=== PATIENT | female | born 1995 | race Caucasian/White ===

== ENCOUNTER 2018-01-12 11:03 | Emergency (ER) | payer BC, OTHER ==
[2018-01-12] MEDS ORDERED: LIDOCAINE 1% W/EPI 1:100,000 MDV 50 ML VIAL ONE (12:12)
[2018-01-12] MEDS ORDERED: SILVER NITRATE 1 APPL TOP ONE (12:29)
--- NOTE | 2018-01-12 13:40 | ER ---
Nurse's Notes [facility] Name: Tere Ponce Age: 22 yrs Sex: Female : 1995 Arrival Date: 01/12/2018 Time: 11:05 Bed 20 Private MD: Jose Lao Diagnosis: Hemorrhoids and perianal venous thrombosis Presentation: 01/12 11:20 Presenting complaint: Patient states: hemorrhoid x 1 week after vaginal deliver of her sv baby. Pain has increased and it has gotten bigger. Transition of care: patient was not received from another setting of care. Onset of symptoms was January 05, 2018. Care prior to arrival: None. 11:20 Method Of Arrival: Ambulatory sv 11:20 Acuity: MADELINE 4 sv 14:06 Risk Assessment: Do you want to hurt yourself or someone else? Patient reports no jl7 desire to harm self or others. Initial Sepsis Screen: Does the patient meet any 2 criteria? No. Patient's initial sepsis screen is negative. Does the patient have a suspected source of infection? No. Patient's initial sepsis screen is negative. 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 - Social history:: Smoking status: Patient/guardian denies using tobacco. - Ebola Screening: : No symptoms or risks identified at this time. Screenin:28 Abuse screen: Denies threats or abuse. Denies injuries from another. Nutritional jl7 screening: No deficits noted. Tuberculosis screening: No symptoms or risk factors identified. Fall Risk None identified. Assessment: 11:28 General: Appears uncomfortable, Behavior is calm, cooperative, appropriate for age. jl7 Pain: Complains of pain in hemorrhoids Pain does not radiate. Pain currently is 8 out of 10 on a pain scale. Neuro: Level of Consciousness is awake, alert, obeys commands, Oriented to person, place, time, situation. Cardiovascular: Patient's skin is warm and dry. Respiratory: Airway is patent Respiratory effort is even, unlabored, Respiratory pattern is regular, symmetrical. GI: Reports hemorrhoids, Patient currently denies bloody stool. Derm: Skin is pink, warm \T\ dry. 12:20 Reassessment: Dr. Lopez lanced hemorrhoid, bleeding controlled, pt reports decreased jl7 pain. 13:50 Reassessment: Pt c/o severe burning and pain at hemorrhoid incision site. Provider janice7 notified, see MAR for orders. Vital Signs: 11:20 Temp 97.8; Height 5 ft. 3 in. (160.02 cm); Pain 8/10; sv 11:27 BP 125 / 84; Pulse 79; Resp 16; Pulse Ox 99% ; Pain 8/10; jl7 13:30 BP 126 / 84; Pulse 80; Resp 16; Pulse Ox 100% ; jl7 ED Course: 11:05 Patient arrived in ED. as 11:05 Jose Lao is Private Physician. as 11:20 Arm band placed on right wrist. Patient placed in an exam room, on a stretcher. sv 11:22 Taty Manning, DAVID is Primary Nurse. jl7 11:25 Triage completed. sv 11:28 Patient has correct armband on for positive identification. Placed in gown. Bed in low jl7 position. Call light in reach. Side rails up X 1. Pulse ox on. NIBP on. 11:30 Darryl Lopez MD is Attending Physician. 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 jl7 12:20 Assist provider with I \T\ D: of an abscess on external hemorrhoid Set up I\T\D tray. jl 7 Performed by Darryl Lopez MD Patient tolerated well. 13:30 Patient did not have IV access during this emergency room visit. jl7 13:38 Nayan Novoa MD is Referral Physician. gs Administered Medications: 12:20 Drug: Lidocaine-Epinephrine -1%: (1:100,000) 5 ml {Note: administered by Dr. Lopez.} jl7 Volume: 20 ml; Route: Infiltration; 12:40 Follow up: Response: No adverse reaction jl7 14:06 Drug: Lidocaine Gel 2 % 1 application Route: Mucous Membrane; jl7 14:08 Follow up: Response: Pain is decreased jl7 Outcome: 13:39 Discharge ordered by . gs 14:09 Discharged to home ambulatory. jl 14:09 Condition: stable jl7 14:09 Discharge instructions given to patient, Instructed on discharge instructions, follow up and referral plans. medication usage, Demonstrated understanding of instructions, follow-up care, medications, Prescriptions given X 1. 14:09 Patient left the ED. jl7 Signatures: Gela Luciano, Chayo Greenberg RN, Jahala, RN RN jl7 Darryl Lopez MD MD
--- NOTE | 2018-01-12 13:40 | EDPHYS ---
Physician Documentation [facility] Name: Tere Ponce Age: 22 yrs Sex: Female : 1995 Arrival Date: 01/12/2018 Time: 11:05 Bed 20 Private MD: Jose Lao ED Physician Darryl Lopez HPI: 01/12 13:36 This 22 yrs old Female presents to ER via Ambulatory with complaints of gs Hemorrhoids. 13:36 The patient presents to the emergency department with pain in the rectal area, that is gs severe. Onset: The symptoms/episode began/occurred yesterday. Context: the patient has a known history of hemorrhoids. Modifying factors: The symptoms are aggravated by bowel movement, movement, sitting position. Associate signs and symptoms: Pertinent negatives: abdominal pain, dysuria, fever, lower GI bleeding. The patient has experienced similar episodes in the past, a few times. 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 - Social history:: Smoking status: Patient/guardian denies using tobacco. - Ebola Screening: : No symptoms or risks identified at this time. ROS: 13:36 All other systems are negative. gs Exam: 13:36 ENT: Nares patent. No nasal discharge, no septal abnormalities noted. Tympanic gs membranes are normal and external auditory canals are clear. Oropharynx with no redness, swelling, or masses, exudates, or evidence of obstruction, uvula midline. Mucous membranes moist. Cardiovascular: Regular rate and rhythm with a normal S1 and S2. No gallops, murmurs, or rubs. Normal PMI, no JVD. No pulse deficits. Respiratory: Lungs have equal breath sounds bilaterally, clear to auscultation and percussion. No rales, rhonchi or wheezes noted. No increased work of breathing, no retractions or nasal flaring. Abdomen/GI: Soft, non-tender, with normal bowel sounds. No distension or tympany. No guarding or rebound. No evidence of tenderness throughout. Back: No spinal tenderness. No costovertebral tenderness. Full range of motion. Skin: Warm, dry with normal turgor. Normal color with no rashes, no lesions, and no evidence of cellulitis. MS/ Extremity: Pulses equal, no cyanosis. Neurovascular intact. Full, normal range of motion. Neuro: Awake and alert, GCS 15, oriented to person, place, time, and situation. Cranial nerves II-XII grossly intact. Motor strength 5/5 in all extremities. Sensory grossly intact. Cerebellar exam normal. Normal gait. 13:36 Constitutional: The patient appears alert, awake, uncomfortable. 13:36 Abdomen/GI: Rectal exam: hemorrhoid(s), external, with thrombosis, the exam is chaperoned by the nurse. Vital Signs: 11:20 Temp 97.8; Height 5 ft. 3 in. (160.02 cm); Pain 8/10; sv 11:27 BP 125 / 84; Pulse 79; Resp 16; Pulse Ox 99% ; Pain 8/10; jl7 13:30 BP 126 / 84; Pulse 80; Resp 16; Pulse Ox 100% ; jl7 Procedures: 13:36 I \T\ D: Incision and drainage was performed for an abscess of the external hemorrhoid gs Prepped with Betadine, Anesthetized with 3 ml's 1% Lidocaine w/ Epi. Incised with #15 blade. Drained small amount bloody fluid. the patient tolerated the procedure well. MDM: 11:57 Patient medically screened. gs 13:36 Differential diagnosis: hemorrhoids, fissure, abscess. Data reviewed: vital signs, gs nurses notes. Response to treatment: the patient's symptoms have markedly improved after treatment, and as a result, I will discharge patient. 01/12 11:58 Order name: Surgical Consent: incision of thrombosed hemorroid; Complete Time: 12:39 gs Administered Medications: 12:20 Drug: Lidocaine-Epinephrine -1%: (1:100,000) 5 ml {Note: administered by Dr. Lopez.} jl Volume: 20 ml; Route: Infiltration; 12:40 Follow up: Response: No adverse reaction 7 14:06 Drug: Lidocaine Gel 2 % 1 application Route: Mucous Membrane; 7 14:08 Follow up: Response: Pain is decreased jl7 Disposition: 01/12/18 13:39 Discharged to Home. Impression: Hemorrhoids and perianal venous thrombosis. - Condition is Stable. - Discharge Instructions: Hemorrhoids, [id number]. - Prescriptions for Colace 100 mg Oral Tablet - take 1 tablet by ORAL route every 12 hours; 14 tablet. - Medication Reconciliation Form, Thank You Letter, Antibiotic Education, Prescription Opioid Use form. - Follow up: Nayan Novoa MD; When: 2 - 3 days; Reason: Re-evaluation by your physician. Signatures: Gela Luciano RN RN sv Taty Manning RN RN jl7 Darryl Lopez MD MD gs Corrections: (The following items were deleted from the chart) 14:09 13:39 01/12/2018 13:39 Discharged to Home. Impression: Hemorrhoids and perianal venous jl7 thrombosis. Condition is Stable. Forms are Medication Reconciliation Form, Thank You Letter, Antibiotic Education, Prescription Opioid Use. Follow up: Dr. Nayan Novoa; When: 2 - 3 days; Reason: Re-evaluation by your physician. gs
[2018-01-12] MEDS ORDERED: LIDOCAINE JELLY 2%- 5 ML TUBE ONE (13:54)
[2018-01-12 14:12] VITALS: TEMP 97.8
[2018-01-12 14:15] VITALS: BP 126/84; O2SAT 100
== END 2018-01-12 14:09 | disposition home or self-care (01) ==
LOC: ER 11:03
PROC: 0D9P0ZZ Drainage of Rectum, Open Approach (ICD-10-PCS; principal; 2018-01-12)
DX: K64.5 Perianal venous thrombosis (principal); Z88.1 Allergy status to other antibiotic agents; Z91.040 Latex allergy status; Z91.018 Allergy to other foods
CPT/HCPCS: 99284

== ENCOUNTER 2018-01-16 09:24 | Day surgery (SDC) | payer BC, OTHER ==
[2018-01-15 16:13] LABS: Absolute Lymphocytes (CBC) 1.9 K/uL (0.7-4.9); Absolute Monocytes 0.5 K/uL (0.1-1.3); Absolute Neutrophil 6.5 K/uL (1.8-8.0); Basophils % 0.2 % (0-1.3); Eosinophils % 1.6 % (0-4.4); Hematocrit 36.8 % (36.0-45.0); Lymphocytes % 21.4 % (15.3-44.8); MCH 27.5 pg (27.0-35.0); MCV 83.3 fL (80-100); MPV 7.2 fL (7.6-11.3); Monocytes % 5.3 % (3.3-12.3); RBC Red Blood Cell Count 4.42 M/uL (3.86-4.86)
[~2018-01-16 09:24] MED LIST: CEFOXITIN/SWI 1gm 1 GM/10 ML SYR IVP SCH
[2018-01-16] MEDS ORDERED: MIDAZOLAM HCL 2 MG/2 ML INJ ONE (09:40)
[2018-01-16] MEDS ORDERED: LIDOCAINE 1% MPF 5 ML VIAL ONE (09:40)
[2018-01-16] MEDS ORDERED: PROPOFOL 200 MG/20 ML VIAL IV ONE (09:40)
[2018-01-16] MEDS ORDERED: FENTANYL CITR 100 MCG/2 ML ONE (09:40)
[2018-01-16] MEDS ORDERED: Ringers Lactate 1,000 ML IV ONE (09:47)
[2018-01-16] MEDS ORDERED: KETOROLAC 30 MG/ML INJ ONE (11:03)
[2018-01-16] MEDS ORDERED: ONDANSETRON HCL 40 MG/20 ML VIAL ONE (11:03)
[2018-01-16 11:41] VITALS: O2SAT 100
[2018-01-16] MEDS ORDERED: HYDROCODONE/APAP 7.5/325 MG TAB ONE (12:36)
[2018-01-16 13:41] VITALS: BP 118/58; TEMP 97.7
--- NOTE | 2018-01-16 14:41 | OP ---
Date of Procedure: 01/16/2018 Surgeon: Nayan Novoa MD Preoperative Diagnosis: Thrombosed hemorrhoid. Postoperative Diagnosis: Thrombosed hemorrhoid. Procedure: Exam under anesthesia, rigid proctoscopy, hemorrhoidectomy. Estimated Blood Loss: Minimal. Specimen: Thrombosed hemorrhoid. Finding: As above. Anesthesia: General. Complications: None. Disposition: The patient tolerated the procedure in stable condition and taken to Recovery in good g eneral condition. Operative Note: The patient was brought to the OR and placed in supine position. General anesthesia was begun. The patient was placed in left lateral position, prepped and draped in usual sterile fas hion. Exam under anesthesia and rigid proctoscopy revealed with thrombosed hemorrhoid on the right l ateral aspect. Then, Harmonic Scalpel was used to excise the thrombosed hemorrhoid. All clots remov ed. Wound irrigated. There was no bleeding noted. Marcaine 0.5% was infiltrated for postop pain co ntrol. Sterile dressing was applied. The patient was awakened and taken to Recovery in good general condition. Discharge Note: The patient will go to Day-Surgery and home when stable. Disposition: Home. Condition: Stable. Discharge Instructions: Resume home medications and diet. Activity as tolerated. No heavy lifting. High-fiber diet. Metamucil 1 tablespoon p.o. t.i.d. Tylenol No. 3 one tablet p.o. q.4 p.r.n. pain . Colace 100 mg p.o. b.i.d. Procto-HC 2.5% into anus b.i.d. and p.r.n. /MODL Voice ID: [id number] Report ID: [id number]
== END 2018-01-16 13:35 | disposition home or self-care (01) ==
LOC: OR 09:24
PROVIDERS: ATTEND Surgery
PROC: 06BY4ZC Excision of Hemorrhoidal Plexus, Percutaneous Endoscopic Approach (ICD-10-PCS; 2018-01-16)
PROC: 0DJD8ZZ Inspection of Lower Intestinal Tract, Via Natural or Artificial Opening Endoscopic (ICD-10-PCS; principal; 2018-01-16 10:30)
DX: K64.5 Perianal venous thrombosis (principal)
CPT/HCPCS: 36415; 81025; 85025; 88302; 88304; J2250; J2405; J3010

== ENCOUNTER 2018-04-22 07:57 | Emergency (ER) | payer BC, OTHER, SELFPAY ==
[2018-04-22 08:50] LABS: Absolute Lymphocytes (CBC) 1.5 K/uL (0.7-4.9); Absolute Monocytes 0.4 K/uL (0.1-1.3); Absolute Neutrophil 3.1 K/uL (1.8-8.0); Basophils % 0.4 % (0-1.3); Eosinophils % 5.1 % (0-4.4); Hematocrit 34.5 % (36.0-45.0); MCH 28.6 pg (27.0-35.0); MCV 83.7 fL (80-100); MPV 7.9 fL (7.6-11.3); RBC Red Blood Cell Count 4.12 M/uL (3.86-4.86)
[2018-04-22 09:03] LABS: Potassium 4.2 mmol/L (3.5-5.1)
--- NOTE | 2018-04-22 09:32 | RAD REPORT ---
EXAM DESCRIPTION: RAD - Femur Left - 04/22/2018 9:10 am CLINICAL HISTORY: PAIN COMPARISON: No comparisons FINDINGS: No fracture or dislocation is seen.
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
[2018-04-22 10:20] LABS: Urine Blood TRACE (NEG); Urine Glucose NEGATIVE (NEG); Urine Protein NEGATIVE (NEG); Urine pH 5.5 (5.0-7.0)
[2018-04-22 10:38] VITALS: BP 110/56; O2SAT 100
== END 2018-04-22 10:10 | disposition home or self-care (01) ==
LOC: ER 07:57
DX: S16.1XXA Strain of muscle, fascia and tendon at neck level, initial encounter (principal); S70.02XA Contusion of left hip, initial encounter; V49.40XA Driver injured in collision with unspecified motor vehicles in traffic accident, initial encounter; Z88.1 Allergy status to other antibiotic agents; Z91.040 Latex allergy status; Z88.8 Allergy status to other drugs, medicaments and biological substances; Z91.018 Allergy to other foods
CPT/HCPCS: 36415; 70450; 71260; 72125; 74177; 80048; 81003; 81025; 84703; 85025; 86850; 86900; 86901; Q9967

== ENCOUNTER 2018-05-02 22:17 | Emergency (ER) | payer SELFPAY ==
[2018-05-02] MEDS ORDERED: ALBUTEROL 2.5 MG/3 ML NEB SOL ONE (22:59)
[2018-05-02] MEDS ORDERED: IPRATROPIUM BROM 0.5MG/2.5ML ONE (22:59)
[2018-05-02] MEDS ORDERED: predniSONE 20 MG TAB ONE (23:00)
--- NOTE | 2018-05-03 00:36 | ER ---
Nurse's Notes [facility] Name: Tere Ponce Age: 23 yrs Sex: Female : 1995 Arrival Date: 05/02/2018 Time: 22:19 Bed 24 Private MD: Diagnosis: Bronchitis, not specified as acute or chronic Presentation: 05/02 22:45 Presenting complaint: Patient states: she was having headache, nausea, back pain and mg2 right arm pain today. denies chest pain. Transition of care: patient was not received from another setting of care. Onset of symptoms was May 02, 2018. Risk Assessment: Do you want to hurt yourself or someone else? Patient reports no desire to harm self or others. Initial Sepsis Screen: Does the patient meet any 2 criteria? No. Patient's initial sepsis screen is negative. Does the patient have a suspected source of infection? No. Patient's initial sepsis screen is negative. Care prior to arrival: None. 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 - Social history:: Smoking status: Patient/guardian denies using tobacco, Patient/guardian denies using alcohol, street drugs, IV drugs. - Ebola Screening: : No symptoms or risks identified at this time. Screenin:50 Abuse screen: Denies threats or abuse. Denies injuries from another. Nutritional mg2 screening: No deficits noted. Tuberculosis screening: No symptoms or risk factors identified. Fall Risk None identified. Assessment: 23:06 General: Appears in no apparent distress. comfortable, Behavior is calm, cooperative. mg2 Pain: Complains of pain in back and right arm Pain does not radiate. Pain currently is 2 out of 10 on a pain scale. Quality of pain is described as aching, Pain began gradually, Is intermittent. Neuro: Level of Consciousness is awake, alert, obeys commands, Oriented to person, place, time, situation. Cardiovascular: Capillary refill < 3 seconds Patient's skin is warm and dry. Respiratory: Airway is patent Respiratory effort is even, unlabored, Respiratory pattern is regular. GI: Abdomen is round non-distended, Reports nausea. : No signs and/or symptoms were reported regarding the genitourinary system. EENT: No signs and/or symptoms were reported regarding the EENT system. Derm: Skin is intact, is healthy with good turgor, Skin is pink, warm \T\ dry. normal. Musculoskeletal: No signs and/or symptoms reported regarding the musculoskeletal system. 05/03 00:30 Reassessment: Patient appears in no apparent distress at this time. Patient and/or mg2 family updated on plan of care and expected duration. Pain level reassessed. Patient is alert, oriented x 3, equal unlabored respirations, skin warm/dry/pink. Vital Signs: 05/02 22:47 BP 113 / 68; Pulse 65; Resp 18; Temp 98.1(O); Pulse Ox 97% on R/A; Weight 86.18 kg; mg2 Height 5 ft. 3 in. (160.02 cm); Pain 2/10; 23:30 BP 121 / 70; Pulse 68; Resp 18; Pulse Ox 100% on R/A; mg2 05/03 00:30 BP 118 / 70; Pulse 70; Resp 18; Pulse Ox 100% on R/A; mg2 05/02 22:47 Body Mass Index 33.66 (86.18 kg, 160.02 cm) mg2 ED Course: 05/02 22:19 Patient arrived in ED. ds1 22:33 Anna Marie Ruelas FNP-C is [facility]. kb 22:33 Jesus Paulino MD is Attending Physician. kb 22:45 Antonio Frausto RN is Primary Nurse. mg2 22:46 Triage completed. mg2 22:50 Arm band placed on. mg2 22:50 Patient has correct armband on for positive identification. Bed in low position. Pulse mg2 ox on. NIBP on. 22:50 No provider procedures requiring assistance completed. mg2 05/03 00:58 Patient did not have IV access during this emergency room visit. mg2 Administered Medications: 05/02 23:01 Drug: DuoNeb (3:1) (2.5 mg - 0.5 mg) 3 ml Route: Nebulizer; mg2 05/03 00:18 Follow up: Response: No adverse reaction; Marked relief of symptoms mg2 05/02 23:01 Drug: predniSONE 40 mg Route: PO; mg2 05/03 00:18 Follow up: Response: No adverse reaction; Marked relief of symptoms mg2 Outcome: 00:36 Discharge ordered by . gautam 00:58 Discharged to home ambulatory, with family. mg2 00:58 Condition: stable 00:58 Discharge instructions given to patient, Instructed on discharge instructions, follow up and referral plans. medication usage, Demonstrated understanding of instructions, follow-up care, medications, Prescriptions given X 2. 00:59 Patient left the ED. mg2 Signatures: Anna Marie Ruelas, EDMUNDO-C ALLOCATION ANALYST-Gris Brody ds1 Antonio Frausto, DAVID RN mg2 Corrections: (The following items were deleted from the chart) 01:02 01:01 Reassessment: Patient appears in no apparent distress at this time. Patient mg2 and/or family updated on plan of care and expected duration. Pain level reassessed. Patient is alert, oriented x 3, equal unlabored respirations, skin warm/dry/pink. mg2
--- NOTE | 2018-05-03 00:36 | EDPHYS ---
Physician Documentation [facility] Name: Tere Ponce Age: 23 yrs Sex: Female : 1995 Arrival Date: 05/02/2018 Time: 22:19 Bed 24 Private MD: ED Physician Jesus Paulino HPI: 05/03 01:11 This 23 yrs old Female presents to ER via Ambulatory with complaints of kb Nausea, Weakness. 01:11 The patient or guardian reports cough, flu symptoms, myalgias. Onset: The kb symptoms/episode began/occurred at 19:25. Severity of symptoms: At their worst the symptoms were moderate, in the emergency department the symptoms are unchanged. Modifying factors: The symptoms are alleviated by nothing, the symptoms are aggravated by nothing. Associated signs and symptoms: Pertinent positives: rhinorrhea, sore throat, Pertinent negatives: chest pain, diarrhea, ear ache, fever, nausea, vomiting. The patient has not experienced similar symptoms in the past. The patient has not recently seen a physician. Pt reports cough, chills, and body aches that started at 1925.. 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 - Social history:: Smoking status: Patient/guardian denies using tobacco, Patient/guardian denies using alcohol, street drugs, IV drugs. - Ebola Screening: : No symptoms or risks identified at this time. ROS: 05/03 01:11 ENT: Negative for injury, pain, and discharge, Neck: Negative for injury, pain, and kb swelling, Cardiovascular: Negative for chest pain, palpitations, and edema, Abdomen/GI: Negative for abdominal pain, nausea, vomiting, diarrhea, and constipation, Back: Negative for injury and pain, : Negative for injury, bleeding, discharge, and swelling, MS/Extremity: Negative for injury and deformity, Skin: Negative for injury, rash, and discoloration, Neuro: Negative for headache, weakness, numbness, tingling, and seizure. Constitutional: Positive for body aches, chills, fatigue, malaise, Negative for fever, poor PO intake, weight loss. Respiratory: Positive for cough, with no reported sputum. Exam: :11 Constitutional: This is a well developed, well nourished patient who is awake, alert, kb and in no acute distress. Head/Face: Normocephalic, atraumatic. ENT: Nares patent. No nasal discharge, no septal abnormalities noted. Tympanic membranes are normal and external auditory canals are clear. Oropharynx with no redness, swelling, or masses, exudates, or evidence of obstruction, uvula midline. Mucous membranes moist. Neck: Trachea midline, no thyromegaly or masses palpated, and no cervical lymphadenopathy. Supple, full range of motion without nuchal rigidity, or vertebral point tenderness. No Meningismus. Chest/axilla: Normal chest wall appearance and motion. Nontender with no deformity. No lesions are appreciated. Cardiovascular: Regular rate and rhythm with a normal S1 and S2. No gallops, murmurs, or rubs. Normal PMI, no JVD. No pulse deficits. Abdomen/GI: Soft, non-tender, with normal bowel sounds. No distension or tympany. No guarding or rebound. No evidence of tenderness throughout. Skin: Warm, dry with normal turgor. Normal color with no rashes, no lesions, and no evidence of cellulitis. MS/ Extremity: Pulses equal, no cyanosis. Neurovascular intact. Full, normal range of motion. Neuro: Awake and alert, GCS 15, oriented to person, place, time, and situation. Cranial nerves II-XII grossly intact. Motor strength 5/5 in all extremities. Sensory grossly intact. Cerebellar exam normal. Normal gait. :11 Respiratory: the patient does not display signs of respiratory distress, Respirations: normal, Breath sounds: wheezing: expiratory that is moderate, is heard diffusely. Vital Signs: 05/02 22:47 BP 113 / 68; Pulse 65; Resp 18; Temp 98.1(O); Pulse Ox 97% on R/A; Weight 86.18 kg; mg2 Height 5 ft. 3 in. (160.02 cm); Pain 2/10; 23:30 BP 121 / 70; Pulse 68; Resp 18; Pulse Ox 100% on R/A; mg2 05/03 00:30 BP 118 / 70; Pulse 70; Resp 18; Pulse Ox 100% on R/A; mg2 05/02 22:47 Body Mass Index 33.66 (86.18 kg, 160.02 cm) mg2 MDM: 05/02 22:34 Patient medically screened. kb 05/03 01:11 Data reviewed: vital signs, nurses notes. Data interpreted: Pulse oximetry: on room air kb is 100 %. Interpretation: normal. Counseling: I had a detailed discussion with the patient and/or guardian regarding: the historical points, exam findings, and any diagnostic results supporting the discharge/admit diagnosis, lab results, the need for outpatient follow up, a family practitioner, to return to the emergency department if symptoms worsen or persist or if there are any questions or concerns that arise at home. Response to treatment: the patient's symptoms have resolved after treatment, lungs clear after neb treatment. 05/02 22:47 Order name: Flu; Complete Time: 23:44 kb Administered Medications: 05/02 23:01 Drug: DuoNeb (3:1) (2.5 mg - 0.5 mg) 3 ml Route: Nebulizer; mg2 05/03 00:18 Follow up: Response: No adverse reaction; Marked relief of symptoms mg2 05/02 23:01 Drug: predniSONE 40 mg Route: PO; mg2 05/03 00:18 Follow up: Response: No adverse reaction; Marked relief of symptoms mg2 Disposition: 05:22 Co-signature as Attending Physician, Jesus Paulino MD I agree with the assessment and tw4 plan of care. Disposition: 05/03/18 00:36 Discharged to Home. Impression: Bronchitis, not specified as acute or chronic. - Condition is Stable. - Discharge Instructions: Acute Bronchitis, [id number]. - Prescriptions for Prednisone 20 mg Oral Tablet - take 1 tablet by ORAL route once daily for 5 days; 5 tablet. Albuterol Sulfate 90 mcg/actuation - inhale 1-2 puff by INHALATION route every 4-6 hours; 1 Inhaler. - Medication Reconciliation Form, Thank You Letter, Antibiotic Education, Prescription Opioid Use, Work release form form. - Follow up: Emergency Department; When: As needed; Reason: Worsening of condition. Follow up: Private Physician; When: 2 - 3 days; Reason: Recheck today's complaints, Continuance of care, Re-evaluation by your physician. Signatures: Dispatcher [employer] Anna Marie Fernandez, CAMERA MECHANIC-C CAMERA MECHANIC-Jesus Mei MD MD tw4 Antonio Frausto, RN RN mg2 Corrections: (The following items were deleted from the chart) 00:59 00:36 05/03/2018 00:36 Discharged to Home. Impression: Bronchitis, not specified as mg2 acute or chronic. Condition is Stable. Forms are Medication Reconciliation Form, Thank You Letter, Antibiotic Education, Prescription Opioid Use. Follow up: Emergency Department; When: As needed; Reason: Worsening of condition. Follow up: Private Physician; When: 2 - 3 days; Reason: Recheck today's complaints, Continuance of care, Re-evaluation by your physician. kb
[2018-05-03 01:03] VITALS: BP 113/68; TEMP 98.1; O2SAT 97
== END 2018-05-03 00:59 | disposition home or self-care (01) ==
LOC: ER 22:17
DX: J40 Bronchitis, not specified as acute or chronic (principal); Z88.1 Allergy status to other antibiotic agents; Z88.8 Allergy status to other drugs, medicaments and biological substances; Z91.018 Allergy to other foods; Z91.040 Latex allergy status
CPT/HCPCS: 87804; 94640; 99284; J7512

== ENCOUNTER 2018-09-23 10:09 | Emergency (ER) | payer SELFPAY ==
--- OUTSIDE RECORDS SUMMARY | 2018-09-23 10:12 | XMS REPORT ---
:1995 [facility] Address [address] [place] [address] Dr. Arteaga [address] [place] [id number] Care Team Providers Name Role Phone Unavailable Unavailable Unavailable Problems This patient has no known problems. Allergies, Adverse Reactions, Alerts This patient has no known allergies or adverse reactions. Medications This patient has no known medications.
[2018-09-23] MEDS ORDERED: ACETAMINOPHEN 500 MG TAB ONE (11:30)
--- NOTE | 2018-09-23 12:05 | EDPHYS ---
Physician Documentation [facility] Name: Tere Ponce Age: 23 yrs Sex: Female : 1995 Arrival Date: 09/23/2018 Time: 10:12 Bed 24 Private MD: ED Physician Surinder Nieves HPI: 09/23 12:09 This 23 yrs old Female presents to ER via Ambulatory with complaints of Flu snw Symptoms, Vaginal Bleeding. 12:09 The patient or guardian reports cough, flu symptoms, low-grade fever, myalgias, no snw appetite. Onset: The symptoms/episode began/occurred suddenly, and became persistent. Modifying factors: The symptoms are alleviated by nothing. Associated signs and symptoms: The patient has no apparent associated signs or symptoms. Severity of symptoms: At their worst the symptoms were moderate. The patient has not experienced similar symptoms in the past. It is unknown whether or not the patient has recently seen a physician. 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 - Social history:: Smoking status: Patient/guardian denies using tobacco. - Ebola Screening: : Patient negative for fever greater than or equal to 101.5 degrees Fahrenheit, and additional compatible Ebola Virus Disease symptoms Patient denies exposure to infectious person Patient denies travel to an Ebola-affected area in the 21 days before illness onset No symptoms or risks identified at this time. ROS: 12:08 Eyes: Negative for injury, pain, redness, and discharge. snw 12:08 Neck: Negative for injury, pain, and swelling, Cardiovascular: Negative for chest pain, palpitations, and edema. 12:08 Abdomen/GI: Negative for abdominal pain, nausea, vomiting, diarrhea, and constipation, Back: Negative for injury and pain, : Negative for injury, bleeding, discharge, and swelling, MS/Extremity: Negative for injury and deformity, Skin: Negative for injury, rash, and discoloration, Neuro: Negative for headache, weakness, numbness, tingling, and seizure. 12:08 Constitutional: Positive for body aches, chills, fatigue, fever, malaise, poor PO intake. 12:08 ENT: Positive for sinus congestion, sore throat. 12:08 Respiratory: Positive for cough. Exam: 12:08 Head/Face: Normocephalic, atraumatic. Eyes: Pupils equal round and reactive to light, snw extra-ocular motions intact. Lids and lashes normal. Conjunctiva and sclera are non-icteric and not injected. Cornea within normal limits. Periorbital areas with no swelling, redness, or edema. ENT: Nares patent. No nasal discharge, no septal abnormalities noted. Tympanic membranes are normal and external auditory canals are clear. Oropharynx with no redness, swelling, or masses, exudates, or evidence of obstruction, uvula midline. Mucous membranes moist. Neck: Trachea midline, no thyromegaly or masses palpated, and no cervical lymphadenopathy. Supple, full range of motion without nuchal rigidity, or vertebral point tenderness. No Meningismus. Chest/axilla: Normal chest wall appearance and motion. Nontender with no deformity. No lesions are appreciated. 12:08 Respiratory: Lungs have equal breath sounds bilaterally, clear to auscultation and percussion. No rales, rhonchi or wheezes noted. No increased work of breathing, no retractions or nasal flaring. Abdomen/GI: Soft, non-tender, with normal bowel sounds. No distension or tympany. No guarding or rebound. No evidence of tenderness throughout. Back: No spinal tenderness. No costovertebral tenderness. Full range of motion. Skin: Warm, dry with normal turgor. Normal color with no rashes, no lesions, and no evidence of cellulitis. MS/ Extremity: Pulses equal, no cyanosis. Neurovascular intact. Full, normal range of motion. Neuro: Awake and alert, GCS 15, oriented to person, place, time, and situation. Cranial nerves II-XII grossly intact. Motor strength 5/5 in all extremities. Sensory grossly intact. Cerebellar exam normal. Normal gait. Psych: Awake, alert, with orientation to person, place and time. Behavior, mood, and affect are within normal limits. 12:08 Constitutional: The patient appears alert, awake, febrile, uncomfortable. 12:08 Cardiovascular: Rate: tachycardic, Heart sounds: normal, Edema: is not appreciated. Vital Signs: 10:50 BP 122 / 82; Pulse 100; Resp 16 S; Temp 101.2; Pulse Ox 100% on R/A; Weight 106.59 kg; iw Height 5 ft. 3 in. (160.02 cm); Pain 6/10; 11:44 BP 106 / 69; Pulse 99; Resp 18; Pulse Ox 98% ; sv 10:50 Body Mass Index 41.63 (106.59 kg, 160.02 cm) iw MDM: 11:23 Patient medically screened. kaylin 12:07 Data reviewed: vital signs, nurses notes. Data interpreted: Pulse oximetry: on room air snw is 98 %. Interpretation: normal. Counseling: I had a detailed discussion with the patient and/or guardian regarding: the historical points, exam findings, and any diagnostic results supporting the discharge/admit diagnosis, lab results, the need for outpatient follow up, to return to the emergency department if symptoms worsen or persist or if there are any questions or concerns that arise at home. Special discussion: Based on the history and exam findings, there is no indication for further emergent testing or inpatient evaluation. I discussed with the patient/guardian the need to see the primary care provider for further evaluation of the symptoms. ED course: declines Tamiflu second to cost. 09/23 10:51 Order name: Flu; Complete Time: 11:48 09/23 10:51 Order name: Strep; Complete Time: 11:48 09/23 11:44 Order name: Throat Culture [facility]CO 09/23 11:49 Order name: Urine Dipstick--Ancillary (enter results) bd 09/23 11:49 Order name: Urine --Ancillary (enter results) bd 09/23 10:52 Order name: Urine Dipstick-Ancillary (obtain specimen); Complete Time: 11:35 09/23 11:10 Order name: Urine Test (obtain specimen); Complete Time: 11:35 snw Administered Medications: 11:21 Drug: Tylenol 1000 mg Route: PO; iw Disposition: 09/24 08:00 Co-signature as Attending Physician, Surinder Nieves MD I agree with the assessment and [facility] plan of care. Disposition: 09/23/18 12:04 Discharged to Home. Impression: Influenza due to identified novel influenza A virus. - Condition is Stable. - Discharge Instructions: Ibuprofen Dosage Chart, Pediatric, Acetaminophen Dosage Chart, Pediatric, Influenza, Adult, Cough, Adult. - School release form, Medication Reconciliation Form, Thank You Letter, Antibiotic Education, Prescription Opioid Use form. - Follow up: Private Physician; When: 2 - 3 days; Reason: Recheck today's complaints, Continuance of care, Re-evaluation by your physician. Follow up: Emergency Department; When: As needed; Reason: Worsening of condition. Signatures: Dispatcher [employer] Gela Hernandez, DAVID RN Surinder Coates MD MD cha Therrien, Shelly, MANAGER BUSINESS MANAGEMENT-C MANAGER BUSINESS MANAGEMENT-Csnw Mavis Andre RN RN iw Corrections: (The following items were deleted from the chart) 09/23 12:23 12:04 09/23/2018 12:04 Discharged to Home. Impression: Influenza due to identified sv novel influenza A virus. Condition is Stable. Forms are Medication Reconciliation Form, Thank You Letter, Antibiotic Education, Prescription Opioid Use. Follow up: Private Physician; When: 2 - 3 days; Reason: Recheck today's complaints, Continuance of care, Re-evaluation by your physician. Follow up: Emergency Department; When: As needed; Reason: Worsening of condition. snw
--- NOTE | 2018-09-23 12:05 | ER ---
Nurse's Notes [facility] Name: Tere Ponce Age: 23 yrs Sex: Female : 1995 Arrival Date: 09/23/2018 Time: 10:12 Bed 24 Private MD: Diagnosis: Influenza due to identified novel influenza A virus Presentation: 09/23 10:47 Presenting complaint: Patient states: sore throat, runny nose, fever, cough, chills, iw had an irregular period this month, states she had a period on the 5th was light and lasted 3-4 days, then yesterday started with a heavy period, c/o mild cramping, hx of tubal ligation. Transition of care: patient was not received from another setting of care. Onset of symptoms was September 22, 2018. Risk Assessment: Do you want to hurt yourself or someone else? Patient reports no desire to harm self or others. Initial Sepsis Screen: Does the patient meet any 2 criteria? No. Patient's initial sepsis screen is negative. Does the patient have a suspected source of infection? No. Patient's initial sepsis screen is negative. Care prior to arrival: None. 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 - Social history:: Smoking status: Patient/guardian denies using tobacco. - Ebola Screening: : Patient negative for fever greater than or equal to 101.5 degrees Fahrenheit, and additional compatible Ebola Virus Disease symptoms Patient denies exposure to infectious person Patient denies travel to an Ebola-affected area in the 21 days before illness onset No symptoms or risks identified at this time. Screenin:44 Abuse screen: Denies threats or abuse. Denies injuries from another. Nutritional sv screening: No deficits noted. Tuberculosis screening: No symptoms or risk factors identified. Fall Risk None identified. Assessment: 11:45 General: Appears in no apparent distress. uncomfortable, well developed, Behavior is sv calm, cooperative, appropriate for age. General: Reports chills for 12-24 hours, fever for 12-24 hours, feeling ill for 12-24 hours, fatigue for 12-24 hours. Pain: Complains of pain in throat Pain currently is 6 out of 10 on a pain scale. Neuro: Level of Consciousness is awake, alert, obeys commands, Oriented to person, place, time, situation, Moves all extremities. Full function Gait is steady. Respiratory: Reports cough that is non-productive, pain with cough Respiratory effort is even, unlabored, Respiratory pattern is regular, symmetrical. : Reports vaginal bleeding that is light flow, since yesterday, reports "black brown blood.". Derm: Skin is pink, warm \\T\\ dry. Vital Signs: 10:50 BP 122 / 82; Pulse 100; Resp 16 S; Temp 101.2; Pulse Ox 100% on R/A; Weight 106.59 kg; iw Height 5 ft. 3 in. (160.02 cm); Pain 6/10; 11:44 BP 106 / 69; Pulse 99; Resp 18; Pulse Ox 98% ; sv 10:50 Body Mass Index 41.63 (106.59 kg, 160.02 cm) iw ED Course: 10:12 Patient arrived in ED. as 10:50 Triage completed. iw 10:51 Arm band placed on. iw 11:10 Evette Khan FNP-C is PHCP. snw 11:10 Surinder Nieves MD is Attending Physician. snw 11:30 Gela Luciano RN is Primary Nurse. sv 11:44 Patient has correct armband on for positive identification. Bed in low position. Call sv light in reach. Pulse ox on. NIBP on. Door closed. Head of bed elevated. Administered Medications: 11:21 Drug: Tylenol 1000 mg Route: PO; iw Outcome: 12:04 Discharge ordered by . snw 12:23 Patient left the ED. sv Signatures: Gela Luciano, RN RN Evette Khan FNP-C FNP-Chayo Abernathy Irene, RN RN iw
[2018-09-23 12:27] VITALS: TEMP 101.2
[2018-09-23 12:28] VITALS: BP 106/69; O2SAT 98
[2018-09-23 12:29] LABS: Urine Blood 2+ (NEG); Urine Glucose NEGATIVE (NEG); Urine Protein NEGATIVE (NEG); Urine Specific Gravity 1.025 (1.005-1.030)
== END 2018-09-23 12:23 | disposition home or self-care (01) ==
LOC: ER 10:09
DX: J10.1 Influenza due to other identified influenza virus with other respiratory manifestations (principal); Z88.1 Allergy status to other antibiotic agents; Z88.8 Allergy status to other drugs, medicaments and biological substances; Z91.018 Allergy to other foods; Z91.040 Latex allergy status
CPT/HCPCS: 81003; 81025; 87070; 87081; 87804; 99283

== ENCOUNTER 2018-09-28 21:33 | Emergency (ER) | payer SELFPAY ==
--- OUTSIDE RECORDS SUMMARY | 2018-09-28 21:35 | XMS REPORT ---
:1995 [facility] Address [address] [place] [address] Dr. Arteaga [address] [place] [id number] Care Team Providers Name Role Phone Unavailable Unavailable Unavailable Problems This patient has no known problems. Allergies, Adverse Reactions, Alerts This patient has no known allergies or adverse reactions. Medications This patient has no known medications.
[2018-09-28 22:35] LABS: Urine Blood 2+ (NEG); Urine Glucose NEGATIVE (NEG); Urine Protein NEGATIVE (NEG)
[2018-09-28 23:10] LABS: Absolute Lymphocytes (CBC) 2.5 K/uL (0.7-4.9); Absolute Monocytes 0.3 K/uL (0.1-1.3); Absolute Neutrophil 2.4 K/uL (1.8-8.0); Basophils % 0.5 % (0-1.3); Eosinophils % 4.5 % (0-4.4); Hematocrit 30.2 % (36.0-45.0); Lymphocytes % 45.4 % (15.3-44.8); MPV 7.8 fL (7.6-11.3); Monocytes % 5.8 % (3.3-12.3); RBC Red Blood Cell Count 3.82 M/uL (3.86-4.86)
[2018-09-28 23:28] LABS: ALT/SGPT 15 U/L (12-78); AST/SGOT 11 U/L (15-37); Alkaline Phosphatase 147 U/L (45-117); BUN Blood Urea Nitrogen 11 mg/dL (7-18); Bicarbonate 26 mmol/L (21-32); Bilirubin Direct < 0.1 mg/dL (0-0.2); Bilirubin Total 0.2 mg/dL (0.2-1.0); Glucose Level 70 mg/dL (74-106); Lipase 18 U/L (73-393); Potassium 3.6 mmol/L (3.5-5.1); Protein, Total 6.9 g/dL (6.4-8.2); Sodium Level 142 mmol/L (136-145)
--- NOTE | 2018-09-28 23:59 | EDPHYS ---
Physician Documentation [facility] Name: Tere Ponce Age: 23 yrs Sex: Female : 1995 Arrival Date: 09/28/2018 Time: 21:34 Bed 13 Private MD: Jose Lao ED Physician Yuan St HPI: 09/28 22:14 This 23 yrs old Female presents to ER via Ambulatory with complaints of Back jmm Pain, Pain With Urination. 22:14 The patient presents with pain that is acute. Onset: The symptoms/episode jmm began/occurred acutely, today. Associated signs and symptoms: Pertinent positives: dysuria, Pertinent negatives: fever. This is a 23 year old female that presents to the ED with complaints of left flank pain and pain to her urethra beginning today. Denies fever. . 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 - Social history:: Smoking status: Patient/guardian denies using tobacco. - Ebola Screening: : No symptoms or risks identified at this time. ROS: 22:14 Constitutional: Negative for fever, chills, and weight loss, Cardiovascular: Negative jmm for chest pain, palpitations, and edema, Respiratory: Negative for shortness of breath, cough, wheezing, and pleuritic chest pain. 22:14 Back: Positive for flank pain. 22:14 : Positive for urinary symptoms. 22:14 All other systems are negative. Exam: 22:14 Head/Face: atraumatic. Eyes: EOMI, no conjunctival erythema appreciated ENT: Moist jmm Mucus Membranes Neck: Trachea midline, Supple Chest/axilla: Normal chest wall appearance and motion. Cardiovascular: Regular rate and rhythm. No edema appreciated Respiratory: Normal respirations, no respiratory distress appreciated 22:14 Constitutional: The patient appears in no acute distress, alert, awake. 22:14 Back: CVA tenderness, that is moderate, is noted on the left. 22:14 Skin: Appearance: Color: normal in color. 22:14 Neuro: Orientation: is normal, Mentation: is normal, Memory: is normal. 22:14 Psych: Behavior/mood is pleasant, cooperative. Vital Signs: 21:41 BP 109 / 59; Pulse 78; Resp 18; Temp 98.6(TE); Pulse Ox 100% on R/A; Weight 102.06 kg ak1 (R); Height 5 ft. 3 in. (160.02 cm) (R); Pain 7/10; 09/29 00:12 BP 106 / 60; Pulse 72; Resp 18; Pulse Ox 100% ; ao 09/28 21:41 Body Mass Index 39.86 (102.06 kg, 160.02 cm) ak1 MDM: 09/28 22:19 Patient medically screened. [facility] 23:57 Data reviewed: vital signs, nurses notes. Counseling: I had a detailed discussion with mary the patient and/or guardian regarding: the historical points, exam findings, and any diagnostic results supporting the discharge/admit diagnosis, radiology results, the need for outpatient follow up, to return to the emergency department if symptoms worsen or persist or if there are any questions or concerns that arise at home. ED course: Symptoms appear consistent with ureterolithiasis. I discussed ct findings with the patient along with the need for GI follow up. patient was given strict return precautions. patient understood and agrees with the plan of care. . 09/28 21:54 Order name: Urine Dipstick--Ancillary (enter results); Complete Time: 22:43 [facility] 09/28 21:54 Order name: Urine --Ancillary (enter results); Complete Time: 22:43 [facility] 09/28 22:14 Order name: Basic Metabolic Panel; Complete Time: 23:30 [facility] 09/28 22:14 Order name: CBC with Diff; Complete Time: 23:23 [facility] 09/28 22:14 Order name: Creatinine for Radiology; Complete Time: 23:30 [facility] 09/28 22:14 Order name: Hepatic Function; Complete Time: 23:30 [facility] 09/28 22:14 Order name: Lipase; Complete Time: 23:30 [facility] 09/28 22:14 Order name: IV Saline Lock; Complete Time: 22:51 [facility] 09/28 22:14 Order name: Labs collected and sent; Complete Time: 22:51 [facility] 09/28 22:14 Order name: CT Stone Protocol [facility] Administered Medications: No medications were administered Disposition: 09/29 02:40 Co-signature as Attending Physician, Yuan tS MD. rn Disposition: 09/28/18 23:58 Discharged to Home. Impression: Calculus in bladder, Colon Mass. - Condition is Stable. - Discharge Instructions: Kidney Stones, Colon Mass, Adult. - Medication Reconciliation Form, Thank You Letter, Antibiotic Education, Prescription Opioid Use form. - Follow up: Liam Ortiz MD; When: 2 - 3 days; Reason: Recheck today's complaints, Continuance of care, Re-evaluation by your physician. Signatures: Dispatcher [employer] EDMS Haja Jeronimo PA PA [facility] Yuan St MD MD rn Krenek, Amber, RN RN ak1 Alonso Tapia RN RN ao Corrections: (The following items were deleted from the chart) 00:15 09/28 23:58 09/28/2018 23:58 Discharged to Home. Impression: Calculus in bladder; Colon ao Mass. Condition is Stable. Forms are Medication Reconciliation Form, Thank You Letter, Antibiotic Education, Prescription Opioid Use. Follow up: Liam Ortiz; When: 2 - 3 days; Reason: Recheck today's complaints, Continuance of care, Re-evaluation by your physician. [facility]
--- NOTE | 2018-09-28 23:59 | ER ---
Nurse's Notes [facility] Name: Tere Ponce Age: 23 yrs Sex: Female : 1995 Arrival Date: 09/28/2018 Time: 21:34 Bed 13 Private MD: Jose Lao Diagnosis: Calculus in bladder;Colon Mass Presentation: 09/28 21:42 Presenting complaint: Patient states: left flank pain since 1700, throbbing pain with ak1 urination since 1700. pt c/o bilateral ankle swelling since this morning. Transition of care: patient was not received from another setting of care. Onset of symptoms was September 28, 2018. Risk Assessment: Do you want to hurt yourself or someone else? Patient reports no desire to harm self or others. Care prior to arrival: None. 21:42 Method Of Arrival: Ambulatory ak1 21:42 Acuity: MADELINE 3 ak1 09/29 00:13 Initial Sepsis Screen: Does the patient meet any 2 criteria? No. Patient's initial ao sepsis screen is negative. Does the patient have a suspected source of infection? No. Patient's initial sepsis screen is negative. Triage Assessment: 09/28 21:43 General: Appears in no apparent distress. Behavior is calm, cooperative. 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 - Social history:: Smoking status: Patient/guardian denies using tobacco. - Ebola Screening: : No symptoms or risks identified at this time. Screenin/26 00:13 Abuse screen: Denies threats or abuse. Denies injuries from another. Nutritional ao screening: No deficits noted. Tuberculosis screening: No symptoms or risk factors identified. Fall Risk None identified. Assessment: 09/28 23:00 General: Appears in no apparent distress. uncomfortable, Behavior is calm, cooperative, ao appropriate for age. Pain: Complains of pain in back Pain currently is 8 out of 10 on a pain scale. Neuro: Level of Consciousness is awake, alert, obeys commands, Oriented to person, place, time, situation, Appropriate for age Moves all extremities. Full function Speech is normal, Facial symmetry appears normal, Pupils are PERRLA. Cardiovascular: Heart tones S1 S2 Capillary refill < 3 seconds Patient's skin is warm and dry. Respiratory: Airway is patent Respiratory effort is Respiratory pattern is regular, symmetrical, Breath sounds are clear bilaterally. GI: Abdomen is obese, Bowel sounds present X 4 quads. : Reports pain in lower back urinary frequency. EENT: No signs and/or symptoms were reported regarding the EENT system. Derm: Skin is intact, Skin is pink, warm \T\ dry. normal, Skin temperature is warm. Musculoskeletal: Circulation, motion, and sensation intact. Range of motion: intact in all extremities. 09/29 00:12 Reassessment: DC instructions given to patient. Patient agree with POC and to to follow ao up with PCP and GI doctor. Vital Signs: 09/28 21:41 BP 109 / 59; Pulse 78; Resp 18; Temp 98.6(TE); Pulse Ox 100% on R/A; Weight 102.06 kg ak1 (R); Height 5 ft. 3 in. (160.02 cm) (R); Pain 7/10; 09/29 00:12 BP 106 / 60; Pulse 72; Resp 18; Pulse Ox 100% ; ao 09/28 21:41 Body Mass Index 39.86 (102.06 kg, 160.02 cm) ak1 ED Course: 09/28 21:34 Patient arrived in ED. am2 21:35 Jose Lao is Private Physician. am2 21:42 Alonso Tapia, RN is Primary Nurse. ao 21:42 Triage completed. ak1 21:43 Haja Jeronimo PA is PHCP. jmm 21:[address] MD is Attending Physician. jmm 21:43 Arm band placed on Patient placed in an exam room, on a stretcher, Patient notified of ak1 wait time. 22:51 Inserted saline lock: 22 gauge in right antecubital area, using aseptic technique. ao Blood collected. 23:18 CT Stone Protocol In Process Unspecified. EDMS 23:58 Liam Ortiz MD is Referral Physician. [facility] 09/29 00:13 No provider procedures requiring assistance completed. IV discontinued, intact, ao bleeding controlled, No redness/swelling at site. Pressure dressing applied. 00:14 Patient has correct armband on for positive identification. Bed in low position. ao Administered Medications: No medications were administered Outcome: 09/28 23:58 Discharge ordered by . [facility] 09/29 00:14 Discharged to home ambulatory. ao Condition: stable Discharge instructions given to patient, Instructed on discharge instructions, follow up and referral plans. Demonstrated understanding of instructions, follow-up care, medications. 00:15 Patient left the ED. ao Signatures: Dispatcher [employer] EDIL Haja Jeronimo PA PA jmm Krenek, Amber, RN RN ak1 Alonso Tapia RN RN Chayo Baer am2
[2018-09-29 00:48] VITALS: TEMP 98.6; O2SAT 100
[2018-09-29 00:49] VITALS: BP 106/60
--- NOTE | 2018-09-29 13:11 | RAD REPORT ---
EXAM DESCRIPTION: CT Abdomen and Pelvis Without Intravenous Contrast CLINICAL HISTORY: The patient is 23 years old and is Female; left flank pain TECHNIQUE: Axial computed tomography images of the abdomen and pelvis without intravenous contrast. Sagittal and coronal reformatted images were created and reviewed. This CT exam was performed usi ng one or more of the following dose reduction techniques: automated exposure control, adjustment o f the mA and/or kV according to patient size, and/or use of iterative reconstruction technique. COMPARISON: No relevant prior studies available. FINDINGS: LUNG BASES: Unremarkable. No mass. No consolidation. ABDOMEN: LIVER: Homogeneous without focal mass. GALLBLADDER AND BILE DUCTS: The gallbladder is contracted. PANCREAS: Unremarkable. No ductal dilation. SPLEEN: There is minimal inflammatory stranding within the left upper quadrant along the inferio r aspect of the spleen and adjacent to the colon. ADRENALS: Unremarkable. No mass. KIDNEYS AND URETERS: Punctate bilateral intrarenal calcifications are noted. There is no hydrone phrosis or hydroureter of either kidney. STOMACH AND BOWEL: The stomach is decompressed. The small bowel is normal in caliber. A moderate amount of stool is noted throughout the colon, specifically the right colon. There is no mucosal thi ckening or evidence of bowel obstruction. There appears to be 2 areas of well formed stool which are slightly masslike in appearance at the level of the hepatic flexure within the ascending colon. No de finite surrounding inflammation or wall thickening is noted. This is best appreciated on coronal imag es 33 through 52. PELVIS: APPENDIX: The appendix is normal in caliber without surrounding inflammation. BLADDER: The bladder is not well distended. Suggestion of 2 small calcifications within the base of the bladder are present. REPRODUCTIVE: Unremarkable as visualized. ABDOMEN and PELVIS: INTRAPERITONEAL SPACE: Unremarkable. No free air. No significant fluid collection. BONES/JOINTS: No acute fracture. SOFT TISSUES: The soft tissues are normal. VASCULATURE: Unremarkable. No abdominal aortic aneurysm. LYMPH NODES: Scattered right lower quadrant lymph nodes are present. IMPRESSION: 1. Bilateral nephrolithiasis without obstruction. 2. Minimal inflammatory stranding within the left upper quadrant along the inferior aspect of the s pleen and adjacent to the colon. However, the colonic wall is not specifically thickening. Findings m ay be secondary to a focal area of omental infarct. 3. 2 areas of somewhat masslike appearance within the right colon at the level of the hepatic flexu re. Findings may be secondary to well-formed stool balls. However, recommend correlation with patient 's laboratory values and follow-up is recommended to exclude underlying pathologic process. Electronically signed by: Sera Zaman MD 09/28/2018 11:28 PM CDT Due to temporary technical issues with the PACS/Fluency reporting system, reports are being signed by the in house radiologist as a courtesy to ensure prompt reporting. The interpreting radiologist is f ully responsible for the content of the report.
== END 2018-09-29 00:15 | disposition home or self-care (01) ==
LOC: ER 21:33
DX: N21.0 Calculus in bladder (principal); K63.9 Disease of intestine, unspecified; Z88.1 Allergy status to other antibiotic agents; Z88.8 Allergy status to other drugs, medicaments and biological substances; Z91.018 Allergy to other foods; Z91.040 Latex allergy status; Z91.048 Other nonmedicinal substance allergy status
CPT/HCPCS: 36415; 74176; 76377; 80048; 80076; 81003; 81025; 83690; 85025; 99283

== ENCOUNTER 2018-10-30 20:25 | Emergency (ER) | payer SELFPAY ==
--- OUTSIDE RECORDS SUMMARY | 2018-10-30 20:27 | XMS REPORT ---
:1995 [facility] Address [address] [place] [address] Dr. Arteaga [address] [place] [id number] Care Team Providers Name Role Phone Unavailable Unavailable Unavailable Problems This patient has no known problems. Allergies, Adverse Reactions, Alerts This patient has no known allergies or adverse reactions. Medications This patient has no known medications.
[2018-10-30] MEDS ORDERED: AZITHROMYCIN 250 MG TAB ONE (22:06)
[2018-10-30] MEDS ORDERED: CEFTRIAXONE 250 MG/VIAL ONE (22:06)
[2018-10-30] MEDS ORDERED: LIDOCAINE 2% MPF 5 ML VIAL ONE (22:06)
--- NOTE | 2018-10-30 22:33 | ER ---
Nurse's Notes [facility] Name: Tere Ponce Age: 23 yrs Sex: Female : 1995 Arrival Date: 10/30/2018 Time: 20:25 Bed 13 Private MD: Diagnosis: Candidiasis of vulva and vagina;Bacterial Vaginosis Presentation: 10/30 20:35 Presenting complaint: Patient states: "i think I might have had an allergic reaction to jd3 a lube. I feel swollen and and am having a some discharge and it hurts to move.". Transition of care: patient was not received from another setting of care. Onset: The symptoms/episode began/occurred this morning. Anaphylaxis evaluation, no signs or symptoms of anaphylaxis were noted. Onset of symptoms was October 30, 2018. Risk Assessment: Do you want to hurt yourself or someone else? Patient reports no desire to harm self or others. Initial Sepsis Screen: Does the patient meet any 2 criteria? No. Patient's initial sepsis screen is negative. Does the patient have a suspected source of infection? No. Patient's initial sepsis screen is negative. Care prior to arrival: None. 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 - Social history:: Smoking status: Patient/guardian denies using tobacco, the patient reports quitting approximately 2 years ago. - Ebola Screening: : Patient negative for fever greater than or equal to 101.5 degrees Fahrenheit, and additional compatible Ebola Virus Disease symptoms. Screenin:39 Abuse screen: Denies threats or abuse. Denies injuries from another. Nutritional aj screening: No deficits noted. Tuberculosis screening: No symptoms or risk factors identified. Fall Risk None identified. Assessment: 20:39 General: Appears in no apparent distress. comfortable, Behavior is calm, cooperative, aj appropriate for age. Pain: Complains of pain in pelvis. Respiratory: Airway is patent Respiratory effort is even, unlabored, Respiratory pattern is regular, symmetrical. : Reports pain in suprapubic area. Derm: Skin is intact, is healthy with good turgor, Skin is pink, warm \\T\\ dry. normal. 22:05 Reassessment: Patient appears in no apparent distress at this time. Patient is alert, rr5 oriented x 3, equal unlabored respirations, skin warm/dry/pink. endorsement received from ml HERNANDEZ, awaiting for laboratory result. 22:05 Neuro: Level of Consciousness is awake, alert, obeys commands, Oriented to person, rr5 place, time, situation, Appropriate for age. Cardiovascular: Capillary refill < 3 seconds Patient's skin is warm and dry. Respiratory: Breath sounds are clear. 22:51 Reassessment: Patient appears in no apparent distress at this time. Patient is alert, rr5 oriented x 3, equal unlabored respirations, skin warm/dry/pink. discharge instruction given and explained without complaints made. Vital Signs: 20:37 BP 113 / 69; Pulse 82; Resp 17 S; Temp 98.6(O); Pulse Ox 100% on R/A; Weight 113.4 kg jd3 (R); Height 5 ft. 3 in. (160.02 cm) (R); Pain 0/10; 22:30 BP 115 / 70; Pulse 80; Resp 16; Pulse Ox 99% ; rr5 20:37 Body Mass Index 44.29 (113.40 kg, 160.02 cm) jd3 20:37 reports no pain when sitting still jd3 ED Course: 20:25 Patient arrived in ED. am2 20:27 Maxi Wilson PA is PHCP. jr8 20:27 Surinder Nieves MD is Attending Physician. jr8 20:30 Ml Staples, DAVID is Primary Nurse. aj 20:36 Triage completed. jd3 20:39 Arm band placed on. jd3 20:39 Patient has correct armband on for positive identification. aj 21:52 Assist provider with pelvic exam: Set up pelvic tray. Performed by Maxi kolb Specimens sent to lab. Patient tolerated well. 22:51 Patient did not have IV access during this emergency room visit. rr5 Administered Medications: 21:58 Drug: Rocephin (cefTRIAXone) 250 mg Route: IM; Site: left gluteus; aj 22:52 Follow up: Response: No adverse reaction rr5 21:58 Drug: Zithromax 1 grams Route: PO; aj 22:52 Follow up: Response: No adverse reaction rr5 22:40 Drug: DiFLUcan 150 mg Route: PO; rr5 22:52 Follow up: Response: Medication administered at discharge. rr5 22:40 Drug: Flagyl 2 grams Route: PO; rr5 22:52 Follow up: Response: Medication administered at discharge. rr5 Outcome: 22:32 Discharge ordered by . toma 22:51 Discharged to home ambulatory. rr5 22:51 Condition: stable 22:51 Discharge instructions given to patient, Instructed on discharge instructions, follow up and referral plans. Demonstrated understanding of instructions, follow-up care. 22:53 Patient left the ED. rr5 Signatures: Ml Staples RN RN Maxi Goldstein PA PA jr8 Ml Lai am2 Aguila Stevens RN RN jd3 Roque, Raymond RN RN rr5
--- NOTE | 2018-10-30 22:33 | EDPHYS ---
Physician Documentation [facility] Name: Tere Ponce Age: 23 yrs Sex: Female : 1995 Arrival Date: 10/30/2018 Time: 20:25 Bed 13 Private MD: ED Physician Surinder Nieves HPI: 10/30 22:14 This 23 yrs old Female presents to ER via Ambulatory with complaints of jr8 Vaginal pain and discharge . 22:14 The patient presents with vaginal discharge, that is a small amount of yellow jr8 discharge, green discharge, patient has not had similar discharge in the past. Onset: The symptoms/episode began/occurred acutely, today. Modifying factors: The symptoms are alleviated by nothing, the symptoms are aggravated by nothing. Associated signs and symptoms: Pertinent positives: pain. Severity of symptoms: At their worst the symptoms were mild, in the emergency department the symptoms are unchanged. The patient is sexually active, reportedly has a single partner, does not use protection during intercourse. The patient has not experienced similar symptoms in the past. The patient has not recently seen a physician. Patient stated that she tried a new sex toy last night. Stated that she utilized the lubrication that came with the toy. Woke up this AM with vaginal discharge and discomfort. Also admitted to recent intercourse two days ago. Worried that she is having some type of allergic reaction . 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 - Social history:: Smoking status: Patient/guardian denies using tobacco, the patient reports quitting approximately 2 years ago. - Ebola Screening: : Patient negative for fever greater than or equal to 101.5 degrees Fahrenheit, and additional compatible Ebola Virus Disease symptoms. ROS: 22:14 Constitutional: Negative for fever, chills, and weight loss. jr8 22:14 Abdomen/GI: Negative for abdominal pain, nausea, vomiting, diarrhea, and constipation, Back: Negative for injury and pain. 22:14 : Positive for vaginal discharge, vaginal pain. 22:14 All other systems are negative. Exam: 22:14 ENT: Nares patent. No nasal discharge, no septal abnormalities noted. Tympanic jr8 membranes are normal and external auditory canals are clear. Oropharynx with no redness, swelling, or masses, exudates, or evidence of obstruction, uvula midline. Mucous membranes moist. Cardiovascular: Regular rate and rhythm with a normal S1 and S2. No gallops, murmurs, or rubs. Normal PMI, no JVD. No pulse deficits. Respiratory: Lungs have equal breath sounds bilaterally, clear to auscultation and percussion. No rales, rhonchi or wheezes noted. No increased work of breathing, no retractions or nasal flaring. Abdomen/GI: Soft, non-tender, with normal bowel sounds. No distension or tympany. No guarding or rebound. No evidence of tenderness throughout. Back: No spinal tenderness. No costovertebral tenderness. Full range of motion. Skin: Warm, dry with normal turgor. Normal color with no rashes, no lesions, and no evidence of cellulitis. MS/ Extremity: Pulses equal, no cyanosis. Neurovascular intact. Full, normal range of motion. Neuro: Awake and alert, GCS 15, oriented to person, place, time, and situation. Cranial nerves II-XII grossly intact. Motor strength 5/5 in all extremities. Sensory grossly intact. Cerebellar exam normal. Normal gait. 22:14 : CVA tenderness, is absent, Pelvic Exam: External exam: no appreciated Bartholin's cyst, no erythema, not excoriated, no evidence of foreign body, no lesions, no ulcerations, no warts seen, Speculum exam: no cervicitis, os that is closed, discharge, white, yellow, the nurse was present for the exam. Vital Signs: 20:37 BP 113 / 69; Pulse 82; Resp 17 S; Temp 98.6(O); Pulse Ox 100% on R/A; Weight 113.4 kg jd3 (R); Height 5 ft. 3 in. (160.02 cm) (R); Pain 0/10; 22:30 BP 115 / 70; Pulse 80; Resp 16; Pulse Ox 99% ; rr5 20:37 Body Mass Index 44.29 (113.40 kg, 160.02 cm) jd3 20:37 reports no pain when sitting still jd3 MDM: 20:27 Patient medically screened. jr8 22:14 Data reviewed: vital signs, nurses notes, lab test result(s). Data interpreted: Pulse jr8 oximetry: on room air is 100 %. Interpretation: normal. Counseling: I had a detailed discussion with the patient and/or guardian regarding: the historical points, exam findings, and any diagnostic results supporting the discharge/admit diagnosis, lab results, the need for outpatient follow up, a family practitioner, to return to the emergency department if symptoms worsen or persist or if there are any questions or concerns that arise at home. ED course: Discussed with patient that there does not appear to be a contact dermatitis secondary two the lube or sex object she utilized last night. More concerned for STD or other bacterial or fungal infection based on exam. Will treat with prophylactic abx for STD . 10/30 21:47 Order name: GC (GONORR/CHLAMYDIA) Probe jr8 10/30 21:47 Order name: Wet Prep [facility] 10/30 21:47 Order name: GC (Cruzito/Chl) Probe CX/URE EDMS 10/30 21:47 Order name: Wet Prep; Complete Time: 22:30 EDMS Administered Medications: 21:58 Drug: Rocephin (cefTRIAXone) 250 mg Route: IM; Site: left gluteus; aj 22:52 Follow up: Response: No adverse reaction rr5 21:58 Drug: Zithromax 1 grams Route: PO; aj 22:52 Follow up: Response: No adverse reaction rr5 22:40 Drug: DiFLUcan 150 mg Route: PO; rr5 22:52 Follow up: Response: Medication administered at discharge. rr5 22:40 Drug: Flagyl 2 grams Route: PO; rr5 22:52 Follow up: Response: Medication administered at discharge. rr5 Disposition: 10/30/18 22:32 Discharged to Home. Impression: Candidiasis of vulva and vagina, Bacterial Vaginosis. - Condition is Stable. - Discharge Instructions: Vaginal Yeast Infection, Adult, Vaginitis. - Medication Reconciliation Form, Thank You Letter, Antibiotic Education, Prescription Opioid Use form. - Follow up: Private Physician; When: 2 - 3 days; Reason: Recheck today's complaints, Continuance of care, Re-evaluation by your physician. - Problem is new. - Symptoms have improved. Addendum: 11/03/2018 10:58 Co-signature as Attending Physician, Surinder Nieves MD I agree with the assessment and c gu plan of care. Signatures: Dispatcher [employer] EDChayo Souza RN RN aj Anderson, Corey, MD MD cha Roszak, Josh, LYNSEY MENON jr8 Aguila Stevens RN RN jd3 Ruiz Aldrich RN RN rr5 Corrections: (The following items were deleted from the chart) 10/30 22:53 22:32 10/30/2018 22:32 Discharged to Home. Impression: Candidiasis of vulva and vagina; rr5 Bacterial Vaginosis. Condition is Stable. Forms are Medication Reconciliation Form, Thank You Letter, Antibiotic Education, Prescription Opioid Use. Follow up: Private Physician; When: 2 - 3 days; Reason: Recheck today's complaints, Continuance of care, Re-evaluation by your physician. Problem is new. Symptoms have improved. jr8
[2018-10-30] MEDS ORDERED: MUPIROCIN 2% OINT 22GM TUBE TOP ONE (22:52)
[2018-10-30] MEDS ORDERED: metroNIDAZOLE 500 MG TABLET ONE (22:56)
[2018-10-30] MEDS ORDERED: FLUCONAZOLE 100 MG TAB ONE (22:56)
[2018-10-30 23:23] VITALS: TEMP 98.6
[2018-10-30 23:24] VITALS: BP 115/70; O2SAT 99
[2018-11-02 21:15] LABS: C.trachomatis RNA,TMA Not Detected (Not Detected)
== END 2018-10-30 22:53 | disposition home or self-care (01) ==
LOC: ER 20:25
DX: B37.3 Candidiasis of vulva and vagina (principal); N76.0 Acute vaginitis; Z88.1 Allergy status to other antibiotic agents; Z91.040 Latex allergy status; Z91.018 Allergy to other foods
CPT/HCPCS: 87210; 87490; 87590; 96372; 99283; J0696

== ENCOUNTER 2018-11-20 21:15 | Emergency (ER) | payer SELFPAY ==
--- OUTSIDE RECORDS SUMMARY | 2018-11-20 21:17 | XMS REPORT ---
:1995 [facility] Address [address] [place] [address] Dr. Arteaga [address] [place] [id number] Care Team Providers Name Role Phone Unavailable Unavailable Unavailable Problems This patient has no known problems. Allergies, Adverse Reactions, Alerts This patient has no known allergies or adverse reactions. Medications This patient has no known medications.
[2018-11-20] MEDS ORDERED: KETOROLAC 30 MG/ML INJ ONE (23:50)
--- NOTE | 2018-11-21 00:33 | EDPHYS ---
Physician Documentation [facility] Name: Tere Ponce Age: 23 yrs Sex: Female : 1995 Arrival Date: 11/20/2018 Time: 21:18 Bed 24 Private MD: Jose Lao ED Physician Jesus Paulino HPI: 11/21 06:59 This 23 yrs old Female presents to ER via Ambulatory with complaints of Knee tw4 problem. 06:59 The patient presents with decreased range of motion, pain, that is acute. The tw4 complaints affect the right knee. Context: The problem was sustained resulted from an unknown cause. Onset: The symptoms/episode began/occurred yesterday. Modifying factors: The symptoms are alleviated by remaining still, the symptoms are aggravated by bending knee. Associated signs and symptoms: The patient has no apparent associated signs or symptoms. Treatment prior to arrival includes: no previous treatment. Severity of symptoms: At their worst the symptoms were moderate. 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 It has been more than one year since last vaccine. - Social history:: Smoking status: Patient uses tobacco products, smokes one-half pack cigarettes per day, Patient/guardian denies using alcohol, street drugs, IV drugs. - Ebola Screening: : Patient negative for fever greater than or equal to 101.5 degrees Fahrenheit, and additional compatible Ebola Virus Disease symptoms Patient denies exposure to infectious person Patient denies travel to an Ebola-affected area in the 21 days before illness onset No symptoms or risks identified at this time. ROS: 11/21 06:59 Constitutional: Negative for fever, chills, and weight loss, Eyes: Negative for injury, tw4 pain, redness, and discharge, Cardiovascular: Negative for chest pain, palpitations, and edema, Respiratory: Negative for shortness of breath, cough, wheezing, and pleuritic chest pain, Abdomen/GI: Negative for abdominal pain, nausea, vomiting, diarrhea, and constipation, Skin: Negative for injury, rash, and discoloration, Neuro: Negative for headache, weakness, numbness, tingling, and seizure. MS/extremity: Positive for swelling, tenderness. Exam: 06:59 Constitutional: This is a well developed, well nourished patient who is awake, alert, tw4 and in no acute distress. Head/Face: Normocephalic, atraumatic. Chest/axilla: Normal chest wall appearance and motion. Nontender with no deformity. No lesions are appreciated. Cardiovascular: Regular rate and rhythm with a normal S1 and S2. No gallops, murmurs, or rubs. Normal PMI, no JVD. No pulse deficits. Respiratory: Lungs have equal breath sounds bilaterally, clear to auscultation and percussion. No rales, rhonchi or wheezes noted. No increased work of breathing, no retractions or nasal flaring. Abdomen/GI: Soft, non-tender, with normal bowel sounds. No distension or tympany. No guarding or rebound. No evidence of tenderness throughout. Skin: Warm, dry with normal turgor. Normal color with no rashes, no lesions, and no evidence of cellulitis. 06:59 Musculoskeletal/extremity: Extremities: noted in the posterior aspect of right knee: tw4 decreased ROM, ROM: limited active range of motion due to pain, limited passive range of motion due to pain. Vital Signs: 11/20 21:48 BP 123 / 60; Pulse 77; Resp 20; Temp 99; Pulse Ox 99% on R/A; Weight 95.25 kg; Height 5 ls4 ft. 3 in. (160.02 cm); Pain 10/10; 23:01 BP 112 / 71; Pulse 76; Resp 16; Pulse Ox 99% on R/A; ls4 11/21 00:47 BP 114 / 60; Pulse 74; Resp 17; Temp 98.7; Pulse Ox 99% on R/A; Pain 0/10; ls4 11/20 21:48 Body Mass Index 37.20 (95.25 kg, 160.02 cm) ls4 00:47 no pain while lying ls4 Procedures: 06:59 Splinting: Splint applied to right knee using knee immobilizer. tw4 MDM: 11/20 21:40 Patient medically screened. tw4 11/21 06:59 Differential diagnosis: dislocation. Data reviewed: vital signs, nurses notes. tw4 Counseling: I had a detailed discussion with the patient and/or guardian regarding: the historical points, exam findings, and any diagnostic results supporting the discharge/admit diagnosis, radiology results. Special discussion: I discussed with the patient/guardian in detail that at this point there is no indication for admission to the hospital. It is understood, however, that if the symptoms persist or worsen the patient needs to return immediately for re-evaluation. 11/20 23:37 Order name: Knee Right 2 View EDMN 11/21 00:30 Order name: Knee Immobilizer; Complete Time: 00:47 tw4 Administered Medications: 11/20 23:42 Drug: TORadol 60 mg Route: IM; Site: right gluteus; mg2 11/21 00:13 Follow up: Response: No adverse reaction; Marked relief of symptoms ls4 Disposition: 11/21/18 00:32 Discharged to Home. Impression: Sprain of other specified parts of knee. - Condition is Stable. - Discharge Instructions: Knee Sprain, [id number]. - Prescriptions for Ibuprofen 600 mg Oral Tablet - take 1 tablet by ORAL route every 6 hours As needed take with food; 30 tablet. - Medication Reconciliation Form, Thank You Letter, Antibiotic Education, Prescription Opioid Use form. - Follow up: Jose Lao; When: Upon discharge from the Emergency Department; Reason: If symptoms return, Recheck today's complaints, Continuance of care. Follow up: Randolph Philippe MD; When: Upon discharge from the Emergency Department; Reason: If symptoms return, Recheck today's complaints, Continuance of care. Follow up: Daniele Rg MD; When: Upon discharge from the Emergency Department; Reason: If symptoms return, Recheck today's complaints, Continuance of care. - Problem is new. - Symptoms have improved. Signatures: Dispatcher [employer] EDMN Jesus Paulino MD MD tw4 Antonio Frausto RN RN mg2 Marii Soriano RN RN ls4 Corrections: (The following items were deleted from the chart) 11/20 23:37 23:22 Knee Left 2 View+RAD.RAD.BRZ ordered. [facility] EDMN 11/21 00:48 00:32 11/21/2018 00:32 Discharged to Home. Impression: Sprain of other specified parts ls4 of knee. Condition is Stable. Forms are Medication Reconciliation Form, Thank You Letter, Antibiotic Education, Prescription Opioid Use. Follow up: Jose Lao; When: Upon discharge from the Emergency Department; Reason: If symptoms return, Recheck today's complaints, Continuance of care. Follow up: Randolph Philippe; When: Upon discharge from the Emergency Department; Reason: If symptoms return, Recheck today's complaints, Continuance of care. Follow up: Dr. Daniele Rg; When: Upon discharge from the Emergency Department; Reason: If symptoms return, Recheck today's complaints, Continuance of care. Problem is new. Symptoms have improved. tw4
--- NOTE | 2018-11-21 00:33 | ER ---
Nurse's Notes [facility] Name: Tere Ponce Age: 23 yrs Sex: Female : 1995 Arrival Date: 11/20/2018 Time: 21:18 Bed 24 Private MD: Jose Lao Diagnosis: Sprain of other specified parts of knee Presentation: 11/20 21:45 Presenting complaint: Patient states: right knee locks up and hurts when I bend it. ls4 Transition of care: patient was not received from another setting of care. Onset of symptoms was November 19, 2018 at 12:00. Risk Assessment: Do you want to hurt yourself or someone else? Patient reports no desire to harm self or others. Initial Sepsis Screen: Does the patient meet any 2 criteria? No. Patient's initial sepsis screen is negative. Does the patient have a suspected source of infection? No. Patient's initial sepsis screen is negative. Care prior to arrival: None. 21:45 Method Of Arrival: Ambulatory ls4 21:45 Acuity: MADELINE 4 ls4 Triage Assessment: 21:47 General: Appears in no apparent distress. Behavior is calm, cooperative. Pain: ls4 Complains of pain in right knee Pain currently is 10 out of 10 on a pain scale. 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 It has been more than one year since last vaccine. - Social history:: Smoking status: Patient uses tobacco products, smokes one-half pack cigarettes per day, Patient/guardian denies using alcohol, street drugs, IV drugs. - Ebola Screening: : Patient negative for fever greater than or equal to 101.5 degrees Fahrenheit, and additional compatible Ebola Virus Disease symptoms Patient denies exposure to infectious person Patient denies travel to an Ebola-affected area in the 21 days before illness onset No symptoms or risks identified at this time. Screenin:27 Abuse screen: Denies threats or abuse. Nutritional screening: No deficits noted. ls4 Tuberculosis screening: No symptoms or risk factors identified. Fall Risk None identified. Assessment: 22:27 Reassessment: Patient appears in no apparent distress at this time. Patient and/or ls4 family updated on plan of care and expected duration. Pain level reassessed. Patient is alert, oriented x 3, equal unlabored respirations, skin warm/dry/pink. 11/21 00:48 Reassessment: Patient appears in no apparent distress at this time. Patient is alert, ls4 oriented x 3, equal unlabored respirations, skin warm/dry/pink. Vital Signs: 11/20 21:48 BP 123 / 60; Pulse 77; Resp 20; Temp 99; Pulse Ox 99% on R/A; Weight 95.25 kg; Height 5 ls4 ft. 3 in. (160.02 cm); Pain 10/10; 23:01 BP 112 / 71; Pulse 76; Resp 16; Pulse Ox 99% on R/A; ls4 11/21 00:47 BP 114 / 60; Pulse 74; Resp 17; Temp 98.7; Pulse Ox 99% on R/A; Pain 0/10; ls4 11/20 21:48 Body Mass Index 37.20 (95.25 kg, 160.02 cm) ls4 00:47 no pain while lying ls4 ED Course: 11/20 21:18 Patient arrived in ED. mr 21:18 Jose Lao is Private Physician. mr 21:39 Marii Soriano, RN is Primary Nurse. ls4 21:40 Jesus Paulino MD is Attending Physician. tw4 21:46 Triage completed. ls4 21:50 Arm band placed on right wrist. ls4 21:50 Patient has correct armband on for positive identification. Bed in low position. Call ls4 light in reach. Side rails up X 1. 22:28 No provider procedures requiring assistance completed. ls4 23:37 Knee Right 2 View In Process Unspecified. EDMS 11/21 00:30 Jose Lao is Referral Physician. tw4 00:30 Randolph Philippe MD is Referral Physician. tw4 00:31 Daniele Rg MD is Referral Physician. tw4 00:48 Patient did not have IV access during this emergency room visit. Knee immobilizer ls4 applied on right knee. Administered Medications: 11/20 23:42 Drug: TORadol 60 mg Route: IM; Site: right gluteus; mg2 11/21 00:13 Follow up: Response: No adverse reaction; Marked relief of symptoms ls4 Outcome: 00:32 Discharge ordered by . tw4 00:48 Patient left the ED. ls4 Signatures: Dispatcher [employer] Alisson Shin Terrence, MD MD tw4 Antonio Frausto, RN RN mg2 Marii Soriano RN RN ls4
[2018-11-21 02:59] VITALS: O2SAT 99
[2018-11-21 03:01] VITALS: BP 114/60; TEMP 98.7
--- NOTE | 2018-11-21 09:02 | RAD REPORT ---
EXAM DESCRIPTION: RAD - Knee Right 2 View - 11/20/2018 11:39 pm CLINICAL HISTORY: Right knee pain FINDINGS: No fracture or dislocation seen. No bone or joint abnormality noted Limited two-view series
== END 2018-11-21 00:48 | disposition home or self-care (01) ==
LOC: ER 21:15
DX: S83.8X1A Sprain of other specified parts of right knee, initial encounter (principal); F17.210 Nicotine dependence, cigarettes, uncomplicated; Z88.1 Allergy status to other antibiotic agents; Z88.8 Allergy status to other drugs, medicaments and biological substances; Z91.018 Allergy to other foods; Z91.040 Latex allergy status
CPT/HCPCS: 96372; 99283

== ENCOUNTER 2019-04-26 06:35 | Emergency (ER) | payer SELFPAY ==
[2019-04-26] MEDS ORDERED: IBUPROFEN 400 MG TAB ONE (06:52)
[2019-04-26] MEDS ORDERED: IBUPROFEN 200 MG TAB PO ONE (06:52)
[2019-04-26] MEDS ORDERED: NA CHLORIDE 0.9% 1,000 ML ONE (07:19)
[2019-04-26 07:39] LABS: Absolute Lymphocytes (CBC) 1.1 K/uL (0.7-4.9); Basophils % 0.4 % (0-1.3); Hematocrit 27.5 % (36.0-45.0); MPV 7.4 fL (7.6-11.3); RBC Red Blood Cell Count 4.06 M/uL (3.86-4.86)
[2019-04-26 07:51] LABS: Potassium 3.7 mmol/L (3.5-5.1)
[2019-04-26 08:11] LABS: Blood Morphology Comment NOTED (NOT SEEN); Platelet Estimate ADEQ; Urine White Blood Cell Casts OK
[2019-04-26 08:12] LABS: Anisocytosis 1+; Hypochromasia 1+
--- NOTE | 2019-04-26 08:41 | EDPHYS ---
Physician Documentation [facility] Name: Tere Ponce Age: 24 yrs Sex: Female : 1995 Arrival Date: 04/26/2019 Time: 06:35 Bed 5 Private MD: ED Physician Surinder Nieves HPI: 04/26 06:45 This 24 yrs old Female presents to ER via Unassigned with complaints of kb Fever, Body Aches. 06:45 The patient or guardian reports cough, that is intermittent, described as moderate, kb with no sputum, flu symptoms, arthralgias, low-grade fever, myalgias. Onset: The symptoms/episode began/occurred 5 day(s) ago. Severity of symptoms: At their worst the symptoms were moderate, in the emergency department the symptoms are unchanged. Modifying factors: The symptoms are alleviated by nothing, the symptoms are aggravated by nothing. Associated signs and symptoms: Pertinent positives: fever, rhinorrhea. The patient has not experienced similar symptoms in the past. The patient has not recently seen a physician. Pt reports cough, body aches, fever, and malaise for 5 days. . 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 - Social history:: Smoking status: Patient/guardian denies using tobacco. - Ebola Screening: : No symptoms or risks identified at this time. ROS: 06:43 ENT: Negative for injury, pain, and discharge, Neck: Negative for injury, pain, and kb swelling, Cardiovascular: Negative for chest pain, palpitations, and edema, Abdomen/GI: Negative for abdominal pain, nausea, vomiting, diarrhea, and constipation, Back: Negative for injury and pain, : Negative for injury, bleeding, discharge, and swelling, MS/Extremity: Negative for injury and deformity, Skin: Negative for injury, rash, and discoloration. 06:43 Constitutional: Positive for body aches, chills, fatigue, fever, malaise. 06:43 Respiratory: Positive for cough, Negative for dyspnea on exertion, hemoptysis, orthopnea, pleurisy, shortness of breath, sputum production, wheezing. 06:43 Neuro: Positive for headache. Exam: 06:44 Constitutional: This is a well developed, well nourished patient who is awake, alert, kb and in no acute distress. Head/Face: Normocephalic, atraumatic. ENT: Nares patent. No nasal discharge, no septal abnormalities noted. Tympanic membranes are normal and external auditory canals are clear. Oropharynx with no redness, swelling, or masses, exudates, or evidence of obstruction, uvula midline. Mucous membranes moist. Neck: Trachea midline, no thyromegaly or masses palpated, and no cervical lymphadenopathy. Supple, full range of motion without nuchal rigidity, or vertebral point tenderness. No Meningismus. Chest/axilla: Normal chest wall appearance and motion. Nontender with no deformity. No lesions are appreciated. Cardiovascular: Regular rate and rhythm with a normal S1 and S2. No gallops, murmurs, or rubs. Normal PMI, no JVD. No pulse deficits. Respiratory: Lungs have equal breath sounds bilaterally, clear to auscultation and percussion. No rales, rhonchi or wheezes noted. No increased work of breathing, no retractions or nasal flaring. Abdomen/GI: Soft, non-tender, with normal bowel sounds. No distension or tympany. No guarding or rebound. No evidence of tenderness throughout. Skin: Warm, dry with normal turgor. Normal color with no rashes, no lesions, and no evidence of cellulitis. MS/ Extremity: Pulses equal, no cyanosis. Neurovascular intact. Full, normal range of motion. Neuro: Awake and alert, GCS 15, oriented to person, place, time, and situation. Cranial nerves II-XII grossly intact. Motor strength 5/5 in all extremities. Sensory grossly intact. Cerebellar exam normal. Normal gait. Vital Signs: 06:48 BP 117 / 74; Pulse 116; Resp 18; Temp 102.1; Pulse Ox 99% on R/A; Weight 94.35 kg (R); lp1 Height 5 ft. 3 in. (160.02 cm); 07:27 BP 117 / 75; Pulse 104; Resp 17; Pulse Ox 99% on R/A; sg 07:30 Temp 99.4(O); sg 07:32 BP 117 / 75; Pulse 100; Resp 17 S; Pulse Ox 98% on R/A; jl7 08:38 BP 98 / 58; Pulse 98; Resp 16 S; Temp 99(O); Pulse Ox 99% on R/A; jl7 06:48 Body Mass Index 36.85 (94.35 kg, 160.02 cm) lp1 MDM: 06:36 Patient medically screened. kaylin 06:44 Data reviewed: vital signs, nurses notes. Data interpreted: Pulse oximetry: on room air kb is 100 %. Interpretation: normal. 08:38 Test interpretation: by ED physician or midlevel provider: plain radiologic studies, kb neg. Counseling: I had a detailed discussion with the patient and/or guardian regarding: the historical points, exam findings, and any diagnostic results supporting the discharge/admit diagnosis, lab results, radiology results, the need for outpatient follow up, a family practitioner, to return to the emergency department if symptoms worsen or persist or if there are any questions or concerns that arise at home. 04/26 06:44 Order name: Flu; Complete Time: 07:16 kb 04/26 07:16 Order name: [place] Screen Profile; Complete Time: 08:06 kb 04/26 07:16 Order name: CBC with Diff kb 04/26 07:16 Order name: Basic Metabolic Panel; Complete Time: 07:57 kb 04/26 07:16 Order name: Chest Pa And Lat (2 Views) XRAY kb 04/26 08:11 Order name: CBC Smear Scan EDMS 04/26 07:16 Order name: IV Start; Complete Time: 07:32 kb Administered Medications: 06:53 Drug: Ibuprofen 600 mg Route: PO; lp1 07:30 Follow up: Response: No adverse reaction; Temperature is decreased sg 07:32 Drug: NS 0.9% 1000 ml Route: IV; Rate: 1000 ml; Site: right antecubital; jl7 08:39 Follow up: IV Status: Completed infusion; IV Intake: 1000ml jl7 Disposition: 08:57 Co-signature as Attending Physician, Surinder Nieves MD I agree with the assessment and kaylin plan of care. Disposition: 04/26/19 08:41 Discharged to Home. Impression: Acute upper respiratory infection, unspecified. - Condition is Stable. - Discharge Instructions: Viral Respiratory Infection, Upper Respiratory Infection, Adult, [id number]. - Medication Reconciliation Form, Thank You Letter, Antibiotic Education, Prescription Opioid Use form. - Follow up: Emergency Department; When: As needed; Reason: Worsening of condition. Follow up: Private Physician; When: 2 - 3 days; Reason: Recheck today's complaints, Continuance of care, Re-evaluation by your physician. Signatures: Dispatcher [employer] EDMS Anna Marie Ruelas, SUPERVISOR SHUTTLE VENEERING-C SUPERVISOR SHUTTLE VENEERING-Ckb Surinder Nieves MD MD cha Pena, Laura, RN RN lp1 Taty Manning RN RN jl7 Randolph Black RN sg Corrections: (The following items were deleted from the chart) 08:48 08:41 04/26/2019 08:41 Discharged to Home. Impression: Acute upper respiratory jl7 infection, unspecified. Condition is Stable. Forms are Medication Reconciliation Form, Thank You Letter, Antibiotic Education, Prescription Opioid Use. Follow up: Emergency Department; When: As needed; Reason: Worsening of condition. Follow up: Private Physician; When: 2 - 3 days; Reason: Recheck today's complaints, Continuance of care, Re-evaluation by your physician. kb
--- NOTE | 2019-04-26 08:41 | ER ---
Nurse's Notes [facility] Name: Tere Ponce Age: 24 yrs Sex: Female : 1995 Arrival Date: 04/26/2019 Time: 06:35 Bed 5 Private MD: Diagnosis: Acute upper respiratory infection, unspecified Presentation: 04/26 06:47 Presenting complaint: Patient states: Fever, body aches x 5 days; Last medicated for lp1 fever last night. Transition of care: patient was not received from another setting of care. Onset of symptoms was April 26, 2019. Risk Assessment: Do you want to hurt yourself or someone else? Patient reports no desire to harm self or others. Initial Sepsis Screen: Does the patient meet any 2 criteria? Temp <36.0*C (96.8*F)) or > 38.3*C (100.9*F). HR > 90 bpm. Does the patient have a suspected source of infection? Yes: Productive cough/pneumonia If YES to both, name of provider notified: Anna Marie HERNÁNDEZ. Care prior to arrival: None. 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 - Social history:: Smoking status: Patient/guardian denies using tobacco. - Ebola Screening: : No symptoms or risks identified at this time. Screenin:50 Abuse screen: Denies threats or abuse. Denies injuries from another. Nutritional lp1 screening: No deficits noted. Tuberculosis screening: No symptoms or risk factors identified. Fall Risk None identified. Assessment: 06:49 General: Appears in no apparent distress. Behavior is calm, cooperative. Pain: lp1 Complains of pain in general body Quality of pain is described as aching. Neuro: No deficits noted. Cardiovascular: Patient's skin is warm and dry. Respiratory: Reports cough that is Respiratory effort is even, Respiratory pattern is regular, Breath sounds are clear bilaterally. GI: No signs and/or symptoms were reported involving the gastrointestinal system. : No signs and/or symptoms were reported regarding the genitourinary system. EENT: No signs and/or symptoms were reported regarding the EENT system. Derm: Skin is intact, Skin is dry, Skin is normal. Musculoskeletal: No deficits noted. 07:32 Reassessment: Patient appears in no apparent distress at this time. No changes from jl7 previously documented assessment. Patient and/or family updated on plan of care and expected duration. Pain level reassessed. Patient is alert, oriented x 3, equal unlabored respirations, skin warm/dry/pink. 08:38 Reassessment: Patient appears in no apparent distress at this time. Patient and/or jl7 family updated on plan of care and expected duration. Pain level reassessed. Patient is alert, oriented x 3, equal unlabored respirations, skin warm/dry/pink. Patient states feeling better. Patient states symptoms have improved. Vital Signs: 06:48 BP 117 / 74; Pulse 116; Resp 18; Temp 102.1; Pulse Ox 99% on R/A; Weight 94.35 kg (R); lp1 Height 5 ft. 3 in. (160.02 cm); 07:27 BP 117 / 75; Pulse 104; Resp 17; Pulse Ox 99% on R/A; sg 07:30 Temp 99.4(O); sg 07:32 BP 117 / 75; Pulse 100; Resp 17 S; Pulse Ox 98% on R/A; jl7 08:38 BP 98 / 58; Pulse 98; Resp 16 S; Temp 99(O); Pulse Ox 99% on R/A; jl7 06:48 Body Mass Index 36.85 (94.35 kg, 160.02 cm) lp1 ED Course: 06:35 Patient arrived in ED. ds1 06:36 Surinder Nieves MD is Attending Physician. kaylin 06:36 Anna Marie Ruelas FNP-C [facility] kb 06:47 Manju Angeles, DAVID is Primary Nurse. lp1 06:48 Triage completed. lp1 06:49 Arm band placed on. lp1 06:51 Patient has correct armband on for positive identification. lp1 07:32 Pulse ox on. NIBP on. jl7 07:32 Initial lab(s) drawn, by me, sent to lab. Inserted saline lock: 22 gauge in right jl7 antecubital area, using aseptic technique. Blood collected. 07:43 Chest Pa And Lat (2 Views) XRAY In Process Unspecified. EDMS 08:48 No provider procedures requiring assistance completed. IV discontinued, intact, jl7 bleeding controlled, No redness/swelling at site. Pressure dressing applied. Administered Medications: 06:53 Drug: Ibuprofen 600 mg Route: PO; lp1 07:30 Follow up: Response: No adverse reaction; Temperature is decreased sg 07:32 Drug: NS 0.9% 1000 ml Route: IV; Rate: 1000 ml; Site: right antecubital; jl7 08:39 Follow up: IV Status: Completed infusion; IV Intake: 1000ml jl7 Intake: 08:39 IV: 1000ml; Total: 1000ml. jl7 Outcome: 08:41 Discharge ordered by . kb 08:48 Discharged to home ambulatory. jl7 08:48 Condition: stable 08:48 Discharge instructions given to patient, Instructed on discharge instructions, follow up and referral plans. Demonstrated understanding of instructions, follow-up care. 08:48 Patient left the ED. jl7 Signatures: Dispatcher [employer] Anna Marie Fernandez, DELIVERY ANALYST-C DELIVERY ANALYST-Ckb Randolph Black, RN Surinder Sanchez MD MD cha Sanford, Demi ds1 Manju Angeles RN RN lp1 Taty Manning RN RN jl7
--- NOTE | 2019-04-26 08:48 | RAD REPORT ---
EXAM DESCRIPTION: Shelley Kim And Raza (2 Views)04/26/2019 7:42 am CLINICAL HISTORY: Cough COMPARISON: None FINDINGS: Mild lingular opacity Right lung is clear The heart is normal size IMPRESSION: Mild lingular opacity probably pneumonia
[2019-04-26 09:05] VITALS: BP 98/58; TEMP 99; O2SAT 99
== END 2019-04-26 08:48 | disposition home or self-care (01) ==
LOC: ER 06:35
DX: J06.9 Acute upper respiratory infection, unspecified (principal); R05 Cough; Z88.1 Allergy status to other antibiotic agents; Z88.3 Allergy status to other anti-infective agents; Z88.8 Allergy status to other drugs, medicaments and biological substances; Z91.018 Allergy to other foods; Z91.040 Latex allergy status
CPT/HCPCS: 36415; 71046; 80048; 85025; 86308; 87804; 96360; 99284; J7030

== ENCOUNTER 2019-05-02 10:36 | Emergency (ER) | payer SELFPAY ==
[2019-05-02] MEDS ORDERED: IBUPROFEN 200 MG TAB PO ONE ×2 (11:18→12:22)
[2019-05-02] MEDS ORDERED: IBUPROFEN 400 MG TAB ONE (11:18)
[2019-05-02] MEDS ORDERED: HYDROCODONE/CHLORPHEN 5 ML/OSYR ONE (11:18)
[2019-05-02] MEDS ORDERED: ONDANSETRON 4 MG/2 ML VIAL ONE (11:19)
[2019-05-02] MEDS ORDERED: NA CHLORIDE 0.9% 1,000 ML ONE (11:19)
[2019-05-02 11:52] LABS: Basophils % 0.3 % (0-1.3); Hematocrit 22.7 % (36.0-45.0); Lymphocytes % 15.8 % (15.3-44.8); RBC Red Blood Cell Count 3.39 M/uL (3.86-4.86)
[2019-05-02 11:55] LABS: ALT/SGPT 17 U/L (12-78); AST/SGOT 14 U/L (15-37); Albumin 2.6 g/dL (3.4-5.0); Alkaline Phosphatase 102 U/L (45-117); BUN Blood Urea Nitrogen 8 mg/dL (7-18); Bicarbonate 22 mmol/L (21-32); Bilirubin Total 0.3 mg/dL (0.2-1.0); Glucose Level 118 mg/dL (74-106); Potassium 3.2 mmol/L (3.5-5.1); Sodium Level 138 mmol/L (136-145)
[2019-05-02 12:41] LABS: Blood Morphology Comment NOTED (NOT SEEN); Platelet Estimate ADEQ
--- NOTE | 2019-05-02 12:53 | RAD REPORT ---
EXAM DESCRIPTION: RAD - Chest Pa And Lat (2 Views) - 05/02/2019 12:39 pm CLINICAL HISTORY: COUGH Chest pain. COMPARISON: Chest Pa And Lat (2 Views) dated 04/26/2019 FINDINGS: Moderate worsening of of lingular infiltrate since comparative study compatible with worse ying pneumonia. The heart is normal in size. No displaced fractures. IMPRESSION: Worsening lingular pneumonia.
[2019-05-02] MEDS ORDERED: levoFLOXacin 750 MG TAB ONE (13:34)
[2019-05-02] MEDS ORDERED: ALBUTEROL 2.5 MG/3 ML NEB SOL ONE (13:34)
--- NOTE | 2019-05-02 13:44 | ER ---
Nurse's Notes [facility] Name: Tere Ponce Age: 24 yrs Sex: Female : 1995 Arrival Date: 05/02/2019 Time: 10:40 Bed 8 Private MD: Diagnosis: Pneumonia, unspecified organism Presentation: 05/02 10:51 Presenting complaint: Patient states: has been having fever/n/v/body aches/WADDELL/cough sv since 04/23/19, was seen here 04/26, f/u with PCP 04/27 and given Bromfed. Today has had increasing n/v/fever/WADDELL/non productive cough/neck pain/mid back pain. Transition of care: patient was not received from another setting of care. Onset of symptoms was April 2019. Risk Assessment: Do you want to hurt yourself or someone else? Patient reports no desire to harm self or others. Initial Sepsis Screen: Does the patient meet any 2 criteria? Temp <36.0*C (96.8*F)) or > 38.3*C (100.9*F). HR > 90 bpm. Yes Does the patient have a suspected source of infection? No. Patient's initial sepsis screen is negative. Care prior to arrival: Medication(s) given: Tylenol, taken \T\ 0600. 10:51 Method Of Arrival: Ambulatory sv 10:51 Acuity: MADELINE 3 sv Triage Assessment: 10:51 General: Appears in no apparent distress. uncomfortable, ill, well developed, Behavior sv is calm, cooperative. Pain: Complains of pain in face Pain currently is 3 out of 10 on a pain scale. Quality of pain is described as throbbing, Is intermittent. Neuro: Level of Consciousness is awake, alert, obeys commands, Oriented to person, place, time, situation, Gait is steady. Respiratory: Reports cough that is non-productive, hacking, persistent Airway is patent Respiratory effort is even, unlabored, Respiratory pattern is regular, symmetrical. GI: Reports nausea, vomiting. Derm: Skin is intact, Skin is pale. Historical: - Allergies: 10:55 Abreva; sv 10:55 Amoxicillin; sv 10:55 GRAPE; sv 10:55 Latex, Natural Rubber; sv 10:55 Monistat-Derm; sv - PMHx: 10:55 hemmorhoids; sv - PSHx: 10:55 Tubal ligation; Hemorrhoidectomy; sv - Immunization history:: Adult Immunizations up to date, Flu vaccine is not up to date. - Social history:: Smoking status: Patient/guardian denies using tobacco. - Ebola Screening: : No symptoms or risks identified at this time. Screenin:56 Abuse screen: Denies threats or abuse. Denies injuries from another. Nutritional sv screening: No deficits noted. Tuberculosis screening: No symptoms or risk factors identified. Fall Risk None identified. Assessment: 11:23 Reassessment: Patient appears in no apparent distress at this time. No changes from sv previously documented assessment. Patient and/or family updated on plan of care and expected duration. Pain level reassessed. Patient is alert, oriented x 3, equal unlabored respirations, skin warm/dry/pink. 11:40 Reassessment: Pt given crackers to [facility] on since nausea medicine has worked. sv 12:48 Reassessment: Patient appears in no apparent distress at this time. No changes from sv previously documented assessment. Patient and/or family updated on plan of care and expected duration. Pain level reassessed. Patient is alert, oriented x 3, equal unlabored respirations, skin warm/dry/pink. Vital Signs: 10:55 BP 112 / 74; Pulse 98; Resp 18; Temp 99.1(O); Pulse Ox 99% ; Weight 94 kg; Height 5 ft. sv 3 in. (160.02 cm); 12:45 BP 114 / 71; Pulse 97; Resp 18; Temp 100.2(O); Pulse Ox 99% ; sv 14:06 BP 103 / 52; Pulse 105; Resp 16; Temp 98.6(O); Pulse Ox 97% on R/A; ae4 10:55 Body Mass Index 36.71 (94.00 kg, 160.02 cm) sv ED Course: 10:40 Patient arrived in ED. rg4 10:44 Omid Oneil NP is PHCP. pm1 10:[address] MD is Attending Physician. pm1 10:51 Gela Luciano RN is Primary Nurse. sv 10:55 Triage completed. sv 10:56 Arm band placed on. sv 10:56 Patient has correct armband on for positive identification. Bed in low position. Call sv light in reach. Side rails up X 1. Pulse ox on. NIBP on. Door closed. Head of bed elevated. 11:01 Nurse Practitioner and/or Physician Automotive Specialty Technician to see patient. sv 11:24 Awaiting lab results, Awaiting for x-ray. sv 11:24 Initial lab(s) drawn, by me, sent to lab. Flu and/or RSV swab sent to lab. Inserted jb1 saline lock: 22 gauge in right antecubital area, using aseptic technique. Blood collected. 11:54 Notified Nurse Practitioner and/or Physician Automotive Specialty Technician of a critical lab result(s), sv hemoglobin-7.6, MCV-67.1. 12:19 Awaiting for x-ray. sv 12:23 Patient moved to radiology via wheelchair. sv 12:33 Chest Pa And Lat (2 Views) XRAY In Process Unspecified. EDMS 12:40 Awaiting radiology results. Patient moved back from radiology. sv 14:15 No provider procedures requiring assistance completed. IV discontinued, intact, sv bleeding controlled, No redness/swelling at site. Pressure dressing applied. Administered Medications: 11:23 Drug: NS 0.9% 1000 ml Route: IV; Rate: 1000 ml; Site: right antecubital; sv 12:30 Follow up: Response: No adverse reaction; IV Status: Completed infusion; IV Intake: sv 1000ml 11:24 Drug: Zofran 4 mg Route: IVP; Site: right antecubital; sv 12:00 Follow up: Response: No adverse reaction; Marked relief of symptoms; Nausea is decreasedsv 12:23 Drug: Tussionex Pennkinetic ER 5 ml Route: PO; sv 13:00 Follow up: Response: No adverse reaction sv 12:23 Drug: Ibuprofen 600 mg Route: PO; sv 13:00 Follow up: Response: No adverse reaction sv 13:38 Drug: Albuterol 2.5 mg Route: Inhalation; ae4 14:06 Drug: LevaQUIN 750 mg Route: PO; ae4 14:15 Follow up: Response: No adverse reaction sv Intake: 12:30 IV: 1000ml; Total: 1000ml. sv Outcome: 13:43 Discharge ordered by MD. pm1 14:15 Discharged to home ambulatory, with family. sv 14:15 Condition: stable 14:15 Discharge instructions given to patient, Instructed on discharge instructions, follow up and referral plans. medication usage, increase fluid intake Demonstrated understanding of instructions, follow-up care, medications, Prescriptions given X 3. 14:35 Patient left the ED. sv Signatures: Dispatcher [employer] EDMarcello Guillaume jb1 Gela Luciano, RN RN sv Omid Oneil, ASSISTANT QUALITY MANAGER ASSISTANT QUALITY MANAGER pm1 Aura Chen rg4 Tushar Pascual RN RN ae4 Corrections: (The following items were deleted from the chart) 10:56 10:55 BP 112 / 74; Pulse 98bpm; Resp 18bpm; Pulse Ox 99%; Temp 99.1F Oral; sv sv 12:47 12:45 Pulse 97bpm; Resp 18bpm; Temp 100.2F Oral; sv sv
--- NOTE | 2019-05-02 13:44 | EDPHYS ---
Physician Documentation [facility] Name: Tere Ponce Age: 24 yrs Sex: Female : 1995 Arrival Date: 05/02/2019 Time: 10:40 Bed 8 Private MD: ED Physician Yuan St HPI: 05/02 11:09 This 24 yrs old Female presents to ER via Ambulatory with complaints of pm1 Cough, Vomiting. 11:09 The patient or guardian reports cough, with no sputum, flu symptoms, myalgias, no pm1 appetite. Onset: The symptoms/episode began/occurred 9 day(s) ago. Severity of symptoms: in the emergency department the symptoms are actually worse. Modifying factors: The symptoms are alleviated by nothing, the symptoms are aggravated by nothing. Associated signs and symptoms: Pertinent positives: fever, nausea, sore throat, vomiting, Pertinent negatives: chest pain, diarrhea, ear ache. The patient has been recently seen at the [facility] Emergency Department, for similar complaints labs were performed, X-rays were performed, 6 days ago and diagnosed with URI, Followed up with PCP the following day and was given a prescription for bromfed. Patient without improvement in symptoms so returned to the ER today for reevaluation . Historical: - Allergies: 10:55 Abreva; sv 10:55 Amoxicillin; sv 10:55 GRAPE; sv 10:55 Latex, Natural Rubber; sv 10:55 Monistat-Derm; sv - PMHx: 10:55 hemmorhoids; sv - PSHx: 10:55 Tubal ligation; Hemorrhoidectomy; sv - Immunization history:: Adult Immunizations up to date, Flu vaccine is not up to date. - Social history:: Smoking status: Patient/guardian denies using tobacco. - Ebola Screening: : No symptoms or risks identified at this time. ROS: 11:09 Eyes: Negative for injury, pain, redness, and discharge. pm1 11:09 Neck: Negative for injury, pain, and swelling, Cardiovascular: Negative for chest pain, palpitations, and edema. 11:09 Back: Negative for injury and pain, : Negative for injury, bleeding, discharge, and swelling, MS/Extremity: Negative for injury and deformity, Skin: Negative for injury, rash, and discoloration, Neuro: Negative for headache, weakness, numbness, tingling, and seizure. 11:09 Constitutional: Positive for body aches, fever, poor PO intake. 11:09 ENT: Positive for sore throat, Negative for difficulty swallowing, difficulty handling secretions, hoarseness. 11:09 Respiratory: Positive for cough, shortness of breath, Negative for wheezing. 11:09 Abdomen/GI: Positive for nausea and vomiting, Negative for abdominal pain, diarrhea, constipation. Exam: 11:09 Constitutional: This is a well developed, well nourished patient who is awake, alert, pm1 and in no acute distress. Head/Face: Normocephalic, atraumatic. Eyes: Pupils equal round and reactive to light, extra-ocular motions intact. Lids and lashes normal. Conjunctiva and sclera are non-icteric and not injected. Cornea within normal limits. Periorbital areas with no swelling, redness, or edema. ENT: Nares patent. No nasal discharge, no septal abnormalities noted. Tympanic membranes are normal and external auditory canals are clear. Oropharynx with no redness, swelling, or masses, exudates, or evidence of obstruction, uvula midline. Mucous membranes moist. Neck: Trachea midline, no thyromegaly or masses palpated, and no cervical lymphadenopathy. Supple, full range of motion without nuchal rigidity, or vertebral point tenderness. No Meningismus. Chest/axilla: Normal chest wall appearance and motion. Nontender with no deformity. No lesions are appreciated. Cardiovascular: Regular rate and rhythm with a normal S1 and S2. No gallops, murmurs, or rubs. Normal PMI, no JVD. No pulse deficits. Respiratory: Lungs have equal breath sounds bilaterally, clear to auscultation and percussion. No rales, rhonchi or wheezes noted. No increased work of breathing, no retractions or nasal flaring. Abdomen/GI: Soft, non-tender, with normal bowel sounds. No distension or tympany. No guarding or rebound. No evidence of tenderness throughout. Back: No spinal tenderness. No costovertebral tenderness. Full range of motion. Skin: Warm, dry with normal turgor. Normal color with no rashes, no lesions, and no evidence of cellulitis. MS/ Extremity: Pulses equal, no cyanosis. Neurovascular intact. Full, normal range of motion. Neuro: Awake and alert, GCS 15, oriented to person, place, time, and situation. Cranial nerves II-XII grossly intact. Motor strength 5/5 in all extremities. Sensory grossly intact. Cerebellar exam normal. Normal gait. Vital Signs: 10:55 BP 112 / 74; Pulse 98; Resp 18; Temp 99.1(O); Pulse Ox 99% ; Weight 94 kg; Height 5 ft. sv 3 in. (160.02 cm); 12:45 BP 114 / 71; Pulse 97; Resp 18; Temp 100.2(O); Pulse Ox 99% ; sv 14:06 BP 103 / 52; Pulse 105; Resp 16; Temp 98.6(O); Pulse Ox 97% on R/A; ae4 10:55 Body Mass Index 36.71 (94.00 kg, 160.02 cm) sv MDM: 10:57 Patient medically screened. pm1 13:36 Data reviewed: vital signs. Data interpreted: Pulse oximetry: on room air is 99 %. pm1 Interpretation: normal. Counseling: I had a detailed discussion with the patient and/or guardian regarding: the historical points, exam findings, and any diagnostic results supporting the discharge/admit diagnosis, lab results, radiology results, the need for outpatient follow up, to return to the emergency department if symptoms worsen or persist or if there are any questions or concerns that arise at home. 13:36 ED course: PSI port score of 15, will discharge patient home with antibiotics and pm1 educated on return precautions. 05/02 11:06 Order name: Flu; Complete Time: 11:59 pm1 05/02 11:06 Order name: [place] Screen Profile; Complete Time: 11:52 pm1 05/02 11:06 Order name: CBC with Diff; Complete Time: 12:44 pm1 05/02 11:06 Order name: CMP; Complete Time: 11:59 pm1 05/02 11:06 Order name: Chest Pa And Lat (2 Views) XRAY; Complete Time: 12:59 pm1 05/02 12:41 Order name: Manual Differential; Complete Time: 12:44 EDMS 05/02 11:06 Order name: IV Saline Lock; Complete Time: 11:24 pm1 Administered Medications: 11:23 Drug: NS 0.9% 1000 ml Route: IV; Rate: 1000 ml; Site: right antecubital; sv 12:30 Follow up: Response: No adverse reaction; IV Status: Completed infusion; IV Intake: sv 1000ml 11:24 Drug: Zofran 4 mg Route: IVP; Site: right antecubital; sv 12:00 Follow up: Response: No adverse reaction; Marked relief of symptoms; Nausea is decreasedsv 12:23 Drug: Tussionex Pennkinetic ER 5 ml Route: PO; sv 13:00 Follow up: Response: No adverse reaction sv 12:23 Drug: Ibuprofen 600 mg Route: PO; sv 13:00 Follow up: Response: No adverse reaction sv 13:38 Drug: Albuterol 2.5 mg Route: Inhalation; ae4 14:06 Drug: LevaQUIN 750 mg Route: PO; ae4 14:15 Follow up: Response: No adverse reaction sv Disposition: 14:57 Co-signature as Attending Physician, Yuan St MD. rn Disposition: 05/02/19 13:43 Discharged to Home. Impression: Pneumonia, unspecified organism. - Condition is Stable. - Discharge Instructions: Community-Acquired Pneumonia, Adult. - Prescriptions for Levaquin 750 mg Oral Tablet - take 1 tablet by ORAL route once daily for 10 days; 5 tablet. Guaifenesin AC 10- 100 mg/5 mL Oral Liquid - take 10 milliliter by ORAL route every 4 hours As needed; 240 milliliter. Zofran 4 mg Oral Tablet - take 1 tablet by ORAL route every 8 hours As needed; 20 tablet. - Medication Reconciliation Form, Thank You Letter, Antibiotic Education, Prescription Opioid Use form. - Follow up: Emergency Department; When: As needed; Reason: Worsening of condition. Follow up: Private Physician; When: 2 - 3 days; Reason: Recheck today's complaints, Continuance of care, Re-evaluation by your physician. - Problem is new. - Symptoms have improved. Signatures: Dispatcher [employer] EDGela Campos RN RN sv Nieto, Roman, MD MD rn Marinas, Patrick, NP SCREENER AND BLENDER OPERATOR pm1 Tushar Pascual RN RN ae4 Corrections: (The following items were deleted from the chart) 14:35 13:43 05/02/2019 13:43 Discharged to Home. Impression: Pneumonia, unspecified organism. sv Condition is Stable. Forms are Medication Reconciliation Form, Thank You Letter, Antibiotic Education, Prescription Opioid Use. Follow up: Emergency Department; When: As needed; Reason: Worsening of condition. Follow up: Private Physician; When: 2 - 3 days; Reason: Recheck today's complaints, Continuance of care, Re-evaluation by your physician. Problem is new. Symptoms have improved. pm1
[2019-05-02 14:43] VITALS: BP 103/52; TEMP 98.6; O2SAT 97
== END 2019-05-02 14:35 | disposition home or self-care (01) ==
LOC: ER 10:36
DX: J18.9 Pneumonia, unspecified organism (principal); Z88.1 Allergy status to other antibiotic agents; Z88.8 Allergy status to other drugs, medicaments and biological substances; Z91.018 Allergy to other foods; Z91.040 Latex allergy status
CPT/HCPCS: 36415; 71046; 80053; 85025; 86308; 87804; 96361; 96374; 99284; J2405; J7030

== ENCOUNTER 2019-05-04 05:35 | Emergency (ER) | payer SELFPAY ==
[2019-05-04] MEDS ORDERED: NA CHLORIDE 0.9% 1,000 ML ONE (06:24)
[2019-05-04] MEDS ORDERED: KETOROLAC 30 MG/ML INJ ONE (06:24)
[2019-05-04] MEDS ORDERED: METOCLOPRAMIDE 10 MG/2mL INJ ONE (06:24)
[2019-05-04] MEDS ORDERED: DIPHENHYDRAMINE 50 MG/ML VIAL ONE (06:24)
--- NOTE | 2019-05-04 07:29 | RAD REPORT ---
EXAM DESCRIPTION: CT - Head Brain Wo Cont - 05/04/2019 6:38 am CLINICAL HISTORY: Persistent headache COMPARISON: None. TECHNIQUE: Axial 5 mm thick images of the head were obtained without IV contrast. All CT scans are performed using dose optimization technique as appropriate and may include automated exposure control or mA/KV adjustment according to patient size. FINDINGS: No intracranial hemorrhage, mass, edema or shift of mid-line structures. No acute infarcti on changes seen. No abnormal extra-axial fluid collections. Ventricles are normal. Mastoid air cells and visualized portions of the paranasal sinuses are clear. No acute bony findings. IMPRESSION: Negative non-contrast CT head examination.
--- NOTE | 2019-05-04 07:32 | ER ---
Nurse's Notes [facility] Name: Tere Ponce Age: 24 yrs Sex: Female : 1995 Arrival Date: 05/04/2019 Time: 05:36 Bed 6 Private MD: Diagnosis: Headache Presentation: 05/04 05:53 Presenting complaint: Patient states: headache for several days that has progressively aa1 gotten worse. Reports she was also diagnosed with PNA 2 days ago and has been taking abx for that. Pt reports she did take Tylenol but no relief. Transition of care: patient was not received from another setting of care. Onset of symptoms is unknown. Risk Assessment: Do you want to hurt yourself or someone else? Patient reports no desire to harm self or others. Initial Sepsis Screen: Does the patient meet any 2 criteria? No. Patient's initial sepsis screen is negative. Does the patient have a suspected source of infection? No. Patient's initial sepsis screen is negative. Care prior to arrival: None. 05:53 Method Of Arrival: Ambulatory aa1 05:53 Acuity: MADELINE 3 aa1 Triage Assessment: 05:54 General: Appears in no apparent distress. comfortable, Behavior is calm, cooperative, aa1 appropriate for age. 06:00 Headache History: The patient has had previous headaches. lp1 RAGMAN: 05:54 LMP 05/03/2019 aa1 Historical: - Allergies: 05:54 Abreva; aa1 05:54 Amoxicillin; aa1 05:54 GRAPE; aa1 05:54 Latex, Natural Rubber; aa1 05:54 Monistat-Derm; aa1 - Home Meds: 05:54 None [Active]; aa1 - PMHx: 05:54 hemmorhoids; aa1 - PSHx: 05:54 Tubal ligation; Hemorrhoidectomy; aa1 - Immunization history:: Flu vaccine is not up to date. - Social history:: Smoking status: Patient/guardian denies using tobacco. - Ebola Screening: : Patient denies exposure to infectious person Patient denies travel to an Ebola-affected area in the 21 days before illness onset. Screenin:59 Abuse screen: Denies threats or abuse. Denies injuries from another. Nutritional lp1 screening: No deficits noted. Tuberculosis screening: No symptoms or risk factors identified. Fall Risk None identified. Assessment: 05:56 General: Appears in no apparent distress. Behavior is calm, cooperative, appropriate lp1 for age. Pain: Complains of pain in head Pain currently is 6 out of 10 on a pain scale. Quality of pain is described as pressure, Pain began gradually, Also complains of inability to concentrate. Neuro: Level of Consciousness is awake, alert, obeys commands, Oriented to person, place, time, situation, Gait is steady, Pupils are PERRLA, Reports headache occipital area. Cardiovascular: Patient's skin is warm and dry. Respiratory: Reports cough that is persistent Airway is patent Respiratory effort is even, Breath sounds are clear bilaterally. GI: No signs and/or symptoms were reported involving the gastrointestinal system. : No signs and/or symptoms were reported regarding the genitourinary system. EENT: No signs and/or symptoms were reported regarding the EENT system. Derm: Skin is intact, Skin is clammy, Skin is pale. Musculoskeletal: No deficits noted. 07:36 Reassessment: Patient appears in no apparent distress at this time. Patient and/or ph family updated on plan of care and expected duration. Pain level reassessed. Patient is alert, oriented x 3, equal unlabored respirations, skin warm/dry/pink. Patient is alert/active/playful, equal unlabored respirations, skin warm/dry/pink. Pt d/c home w/ pain medication Patient states feeling better. Patient states symptoms have improved. Vital Signs: 05:54 BP 105 / 60; Pulse 74; Resp 18; Temp 97.6; Pulse Ox 98% on R/A; Weight 92.99 kg; Height aa1 5 ft. 3 in. (160.02 cm); Pain 6/10; 06:44 BP 107 / 58; Pulse 80; Resp 18; Pulse Ox 99% on R/A; lp1 07:37 BP 105 / 62; Pulse 78; Resp 18; Temp 97.5; Pulse Ox 99% on R/A; Pain 1/10; ph 05:54 Body Mass Index 36.31 (92.99 kg, 160.02 cm) aa1 ED Course: 05:36 Patient arrived in ED. ds1 05:54 Triage completed. aa1 05:54 Arm band placed on right wrist. aa1 05:56 Manju Angeles, DAVID is Primary Nurse. lp1 05:59 Patient has correct armband on for positive identification. lp1 06:05 Oimd Oneil, AVTAR is PHCP. pm1 06:05 Jesus Paulino MD is Attending Physician. pm1 06:37 Inserted saline lock: 22 gauge in left antecubital area, using aseptic technique. ak1 06:38 CT Head Brain wo Cont In Process Unspecified. EDMS 06:38 CT Head Brain wo Cont Sent. ak1 07:38 No provider procedures requiring assistance completed. IV discontinued, intact, ph bleeding controlled, No redness/swelling at site. Pressure dressing applied. Administered Medications: 06:44 Drug: TORadol - Ketorolac 15 mg Route: IVP; Site: left antecubital; lp1 07:37 Follow up: Response: No adverse reaction; Pain is decreased ph 06:44 Drug: Benadryl 25 mg Route: IVP; Site: left antecubital; lp1 07:37 Follow up: Response: No adverse reaction; Pain is decreased ph 06:44 Drug: Reglan 10 mg Route: IVP; Site: left antecubital; lp1 07:37 Follow up: Response: No adverse reaction ph 06:44 Drug: NS 0.9% 1000 ml Route: IV; Rate: 1000 ml; Site: left antecubital; lp1 07:37 Follow up: Response: No adverse reaction; IV Status: Completed infusion; IV Intake: ph 600ml Intake: 07:37 IV: 600ml; Total: 600ml. ph Outcome: 07:31 Discharge ordered by MD. pm1 07:38 Discharged to home ambulatory. ph 07:38 Condition: improved 07:38 Discharge instructions given to patient, Instructed on discharge instructions, follow up and referral plans. medication usage, Demonstrated understanding of instructions, follow-up care, medications, Prescriptions given X 1. 07:39 Patient left the ED. ph Signatures: Dispatcher [employer] EDMS Mariluz Martin RN RN dipesh1 Gris Stevens ds1 Manju Angeles RN RN lp1 Marylu Perkins RN RN ak1 Ria Candelario RN RN ph Omid Oneil, AVTAR BOX LINER pm1 Corrections: (The following items were deleted from the chart) 06:45 05:56 Neuro: Level of Consciousness is awake, alert, obeys commands, Oriented to lp1 person, place, time, situation, Gait is steady, Pupils are PERRLA, Reports headache occipital area, lp1 06:46 05:56 Pain: Complains of pain in head Pain currently is 6 out of 10 on a pain scale. lp1lp1 06:46 05:56 Pain: Complains of pain in head Pain currently is 6 out of 10 on a pain scale. lp1 Also complains of inability to concentrate, lp1
--- NOTE | 2019-05-04 07:33 | EDPHYS ---
Physician Documentation [facility] Name: Tere Ponce Age: 24 yrs Sex: Female : 1995 Arrival Date: 05/04/2019 Time: 05:36 Bed 6 Private MD: ED Physician Jesus Paulino HPI: 05/04 06:16 This 24 yrs old Female presents to ER via Ambulatory with complaints of pm1 Headache. 06:16 The patient complains of pain to the forehead, left base of the skull and right base of pm1 the skull. The patient describes the headache as aching. Onset: The symptoms/episode began/occurred 1 week(s) ago. Headache History: Other Similar to prior migraine headaches. Diagnosed with migraines by Dr. Lao and has been prescribed medication that the patient is unable to recall. She reports that it is ineffective for the migraines though. Has not been taking any medications for her headaches at the moment. Currently headaches are worsened with her coughing. the symptoms are aggravated by coughing. The patient has been recently seen at the [facility] Emergency Department, Seen two days ago and diagnosed with CAP and prescribed antibiotics. Patient reports improvement in her pneumonia. Decreased coughing and no shortness of breath. 06:16 Has never had any prior imaging for headache in the past. pm1 NETWORK AND THREAT SUPPORT SPECIALIST: 05:54 LMP 05/03/2019 aa1 Historical: - Allergies: 05:54 Abreva; aa1 05:54 Amoxicillin; aa1 05:54 GRAPE; aa1 05:54 Latex, Natural Rubber; aa1 05:54 Monistat-Derm; aa1 - Home Meds: 05:54 None [Active]; aa1 - PMHx: 05:54 hemmorhoids; aa1 - PSHx: 05:54 Tubal ligation; Hemorrhoidectomy; aa1 - Immunization history:: Flu vaccine is not up to date. - Social history:: Smoking status: Patient/guardian denies using tobacco. - Ebola Screening: : Patient denies exposure to infectious person Patient denies travel to an Ebola-affected area in the 21 days before illness onset. Vital Signs: 05:54 BP 105 / 60; Pulse 74; Resp 18; Temp 97.6; Pulse Ox 98% on R/A; Weight 92.99 kg; Height aa1 5 ft. 3 in. (160.02 cm); Pain 6/10; 06:44 BP 107 / 58; Pulse 80; Resp 18; Pulse Ox 99% on R/A; lp1 07:37 BP 105 / 62; Pulse 78; Resp 18; Temp 97.5; Pulse Ox 99% on R/A; Pain 1/10; ph 05:54 Body Mass Index 36.31 (92.99 kg, 160.02 cm) aa1 MDM: 06:05 Patient medically screened. pm1 06:44 Data reviewed: vital signs. Data interpreted: Pulse oximetry: on room air is 99 %. pm1 Interpretation: normal. 05/04 06:16 Order name: CT Head Brain wo Cont; Complete Time: 07:45 pm1 05/04 06:16 Order name: IV Saline Lock; Complete Time: 06:38 pm1 Administered Medications: 06:44 Drug: TORadol - Ketorolac 15 mg Route: IVP; Site: left antecubital; lp1 07:37 Follow up: Response: No adverse reaction; Pain is decreased ph 06:44 Drug: Benadryl 25 mg Route: IVP; Site: left antecubital; lp1 07:37 Follow up: Response: No adverse reaction; Pain is decreased ph 06:44 Drug: Reglan 10 mg Route: IVP; Site: left antecubital; lp1 07:37 Follow up: Response: No adverse reaction ph 06:44 Drug: NS 0.9% 1000 ml Route: IV; Rate: 1000 ml; Site: left antecubital; lp1 07:37 Follow up: Response: No adverse reaction; IV Status: Completed infusion; IV Intake: ph 600ml Disposition: 05/05 07:17 Co-signature as Attending Physician, Jesus Paulino MD I agree with the assessment and tw4 plan of care. Disposition: 05/04/19 07:31 Discharged to Home. Impression: Headache. - Condition is Stable. - Discharge Instructions: General Headache Without Cause. - Prescriptions for Fiorinal 50- 325-40 mg Oral Capsule - take 1 capsule by ORAL route every 4 hours As needed - not to exceed 6 capsules per day; 20 capsule. - Medication Reconciliation Form, Thank You Letter, Antibiotic Education, Prescription Opioid Use form. - Follow up: Emergency Department; When: As needed; Reason: Worsening of condition. Follow up: Private Physician; When: 2 - 3 days; Reason: Recheck today's complaints, Continuance of care, Re-evaluation by your physician. - Problem is new. - Symptoms have improved. Signatures: Dispatcher [employer] [facility] Mariluz Martin, RN RN aa1 Manju Angeles RN RN lp1 Ria Candelario, RN RN ph Omid Oneil, STEAM SHOVEL OPERATING ENGINEER STEAM SHOVEL OPERATING ENGINEER pm1 Jesus Paulino, MD CALVO tw4 Corrections: (The following items were deleted from the chart) 05/04 06:34 06:01 Chest Pa And Lat (2 Views)+[id number] ordered. [facility] EDNE 07:39 07:31 05/04/2019 07:31 Discharged to Home. Impression: Headache. Condition is Stable. ph Forms are Medication Reconciliation Form, Thank You Letter, Antibiotic Education, Prescription Opioid Use. Follow up: Emergency Department; When: As needed; Reason: Worsening of condition. Follow up: Private Physician; When: 2 - 3 days; Reason: Recheck today's complaints, Continuance of care, Re-evaluation by your physician. Problem is new. Symptoms have improved. pm1
[2019-05-04 07:47] VITALS: O2SAT 99
[2019-05-04 07:48] VITALS: BP 105/62; TEMP 97.5
== END 2019-05-04 07:39 | disposition home or self-care (01) ==
LOC: ER 05:35
DX: R51 Headache (principal); Z88.1 Allergy status to other antibiotic agents; Z91.018 Allergy to other foods; Z91.040 Latex allergy status
CPT/HCPCS: 70450; 96361; 96374; 96375; 99284; J1200; J2765; J7030

== ENCOUNTER 2019-08-14 07:51 | Emergency (ER) | payer SELFPAY ==
--- OUTSIDE RECORDS SUMMARY | 2019-08-14 07:53 | XMS REPORT ---
:1995 [facility] [address] Fernandez. [address] [place] [id number] Care Team Providers Name Role Phone Unavailable Unavailable Unavailable Problems This patient has no known problems. Allergies, Adverse Reactions, Alerts This patient has no known allergies or adverse reactions. Medications This patient has no known medications.
--- NOTE | 2019-08-14 08:56 | EDPHYS ---
Physician Documentation [facility] Name: Tere Ponce Age: 24 yrs Sex: Female : 1995 Arrival Date: 08/14/2019 Time: 07:53 Bed 13 Private MD: ED Physician Yuan St HPI: 08/14 08:54 This 24 yrs old Female presents to ER via Ambulatory with complaints of Flu kb Symptoms. 08:54 The patient presents with sore throat. The patient describes throat pain as constant. kb Onset: The symptoms/episode began/occurred 3 day(s) ago. Severity of symptoms: At their worst the symptoms were moderate, in the emergency department the symptoms are unchanged. Modifying factors: The symptoms are alleviated by nothing, the symptoms are aggravated by swallowing, Patient's oral intake status: good Denies contact with similarly ill indivduals. Associated signs and symptoms: Pertinent positives: cough, fever, flu-like symptoms, malaise, Sore throat. The patient has not experienced similar symptoms in the past. The patient has not recently seen a physician. 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 - Coronavirus screen:: The patient has NOT traveled to [place], [place], or [place] in the past 14 days. Proceed with normal triage process as indicated. - Social history:: Smoking status: Patient reports the use of cigarette tobacco products, denies chronic smoking, but will smoke occasionally. - Ebola Screening: : Patient negative for fever greater than or equal to 101.5 degrees Fahrenheit, and additional compatible Ebola Virus Disease symptoms Patient denies exposure to infectious person Patient denies travel to an Ebola-affected area in the 21 days before illness onset No symptoms or risks identified at this time. ROS: 08:53 Neck: Negative for injury, pain, and swelling, Cardiovascular: Negative for chest pain, kb palpitations, and edema, Abdomen/GI: Negative for abdominal pain, nausea, vomiting, diarrhea, and constipation, Back: Negative for injury and pain, MS/Extremity: Negative for injury and deformity, Skin: Negative for injury, rash, and discoloration, Neuro: Negative for headache, weakness, numbness, tingling, and seizure. 08:53 Constitutional: Positive for fever, malaise. 08:53 ENT: Positive for ear pain, sore throat. 08:53 Respiratory: Positive for cough, Negative for dyspnea on exertion, hemoptysis, orthopnea, pleurisy, shortness of breath, sputum production, wheezing. Exam: 08:53 Constitutional: This is a well developed, well nourished patient who is awake, alert, kb and in no acute distress. Head/Face: Normocephalic, atraumatic. Neck: Trachea midline, no thyromegaly or masses palpated, and no cervical lymphadenopathy. Supple, full range of motion without nuchal rigidity, or vertebral point tenderness. No Meningismus. Chest/axilla: Normal chest wall appearance and motion. Nontender with no deformity. No lesions are appreciated. Cardiovascular: Regular rate and rhythm with a normal S1 and S2. No gallops, murmurs, or rubs. Normal PMI, no JVD. No pulse deficits. Respiratory: Lungs have equal breath sounds bilaterally, clear to auscultation and percussion. No rales, rhonchi or wheezes noted. No increased work of breathing, no retractions or nasal flaring. Abdomen/GI: Soft, non-tender, with normal bowel sounds. No distension or tympany. No guarding or rebound. No evidence of tenderness throughout. Back: No spinal tenderness. No costovertebral tenderness. Full range of motion. Skin: Warm, dry with normal turgor. Normal color with no rashes, no lesions, and no evidence of cellulitis. MS/ Extremity: Pulses equal, no cyanosis. Neurovascular intact. Full, normal range of motion. Neuro: Awake and alert, GCS 15, oriented to person, place, time, and situation. Cranial nerves II-XII grossly intact. Motor strength 5/5 in all extremities. Sensory grossly intact. Cerebellar exam normal. Normal gait. 08:53 ENT: External ear(s): are unremarkable, Ear canal(s): are normal, TM's: are normal, Nose: is normal, Mouth: is normal, Posterior pharynx: Airway: normal, no evidence of obstruction, Tonsils: bilaterally enlarged, with erythema, Uvula: normal, midline, swelling, that is mild, erythema, that is moderate. Vital Signs: 08:00 BP 116 / 75; Pulse 105; Resp 18 S; Temp 99.1(TE); Pulse Ox 98% on R/A; Weight 92.99 kg; iw Height 5 ft. 3 in. (160.02 cm); 08:00 Body Mass Index 36.31 (92.99 kg, 160.02 cm) iw MDM: 08:05 Patient medically screened. kb 08:53 Data reviewed: vital signs, nurses notes. Data interpreted: Pulse oximetry: on room air kb is 98 %. Interpretation: normal. Counseling: I had a detailed discussion with the patient and/or guardian regarding: the historical points, exam findings, and any diagnostic results supporting the discharge/admit diagnosis, lab results, the need for outpatient follow up, a family practitioner, to return to the emergency department if symptoms worsen or persist or if there are any questions or concerns that arise at home. 08/14 08:05 Order name: Flu; Complete Time: 08:55 kb 08/14 08:05 Order name: Strep; Complete Time: 08:52 kb Administered Medications: No medications were administered Disposition: 09:33 Co-signature as Attending Physician, Yuan St MD. rn Disposition: 08/14/19 08:56 Discharged to Home. Impression: Streptococcal pharyngitis. - Condition is Stable. - Discharge Instructions: Strep Throat, Oeor-ql-Mord. - Prescriptions for Zithromax 500 mg Oral Tablet - take 1 tablet by ORAL route once daily for 5 days; 5 tablet. - Medication Reconciliation Form, Thank You Letter, Antibiotic Education, Prescription Opioid Use form. - Follow up: Emergency Department; When: As needed; Reason: Worsening of condition. Follow up: Private Physician; When: 2 - 3 days; Reason: Recheck today's complaints, Continuance of care, Re-evaluation by your physician. Signatures: Dispatcher [employer] Anna Marie Fernandez, PETERSONC SMOOTH STUCC[employer] RESURFACER-Mavis Leiva RN RN iw Yuan St MD MD rn Hall, Patricia, RN RN ph Corrections: (The following items were deleted from the chart) 09:10 08:56 08/14/2019 08:56 Discharged to Home. Impression: Streptococcal pharyngitis. ph Condition is Stable. Forms are Medication Reconciliation Form, Thank You Letter, Antibiotic Education, Prescription Opioid Use. Follow up: Emergency Department; When: As needed; Reason: Worsening of condition. Follow up: Private Physician; When: 2 - 3 days; Reason: Recheck today's complaints, Continuance of care, Re-evaluation by your physician. kb
--- NOTE | 2019-08-14 08:56 | ER ---
Nurse's Notes [facility] Name: Tere Ponce Age: 24 yrs Sex: Female : 1995 Arrival Date: 08/14/2019 Time: 07:53 Bed 13 Private MD: Diagnosis: Streptococcal pharyngitis Presentation: 08/14 07:59 Presenting complaint: Patient states: fever, sore throat, headache, cough, morgan ear pain iw X 3 days. Transition of care: patient was not received from another setting of care. Onset of symptoms was August 11, 2019. Risk Assessment: Do you want to hurt yourself or someone else? Patient reports no desire to harm self or others. Initial Sepsis Screen: Does the patient meet any 2 criteria? No. Patient's initial sepsis screen is negative. Does the patient have a suspected source of infection? No. Patient's initial sepsis screen is negative. Care prior to arrival: None. 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 - Coronavirus screen:: The patient has NOT traveled to [place], [place], or [place] in the past 14 days. Proceed with normal triage process as indicated. - Social history:: Smoking status: Patient reports the use of cigarette tobacco products, denies chronic smoking, but will smoke occasionally. - Ebola Screening: : Patient negative for fever greater than or equal to 101.5 degrees Fahrenheit, and additional compatible Ebola Virus Disease symptoms Patient denies exposure to infectious person Patient denies travel to an Ebola-affected area in the 21 days before illness onset No symptoms or risks identified at this time. Screenin:30 Abuse screen: Denies threats or abuse. Denies injuries from another. Nutritional ph screening: No deficits noted. Tuberculosis screening: No symptoms or risk factors identified. Fall Risk None identified. Assessment: 08:30 General: Appears in no apparent distress. uncomfortable, obese, Behavior is calm, ph cooperative, appropriate for age, Reports fever for 1-2 days. Pain: Complains of pain in throat and morgan ears. Neuro: Level of Consciousness is awake, alert, obeys commands, Oriented to person, place, time, situation. Cardiovascular: Capillary refill < 3 seconds in bilateral fingers Patient's skin is warm and dry. Respiratory: Airway is patent Respiratory effort is even, unlabored, Respiratory pattern is regular, symmetrical, Breath sounds are clear bilaterally. GI: No signs and/or symptoms were reported involving the gastrointestinal system. EENT: Reports pain in right ear and left ear when swallowing. Derm: Skin is intact, Skin is pink, warm \T\ dry. Musculoskeletal: Circulation, motion, and sensation intact. Range of motion: intact in all extremities. Vital Signs: 08:00 BP 116 / 75; Pulse 105; Resp 18 S; Temp 99.1(TE); Pulse Ox 98% on R/A; Weight 92.99 kg; iw Height 5 ft. 3 in. (160.02 cm); 08:00 Body Mass Index 36.31 (92.99 kg, 160.02 cm) iw ED Course: 07:53 Patient arrived in ED. as 07:54 Anna Marie Ruelas FNP-C is [facility]. kb 07:[address] MD is Attending Physician. kb 08:00 Triage completed. iw 08:00 Arm band placed on. iw 08:19 Ria Candelario, RN is Primary Nurse. ph 08:30 Patient has correct armband on for positive identification. Bed in low position. Call ph light in reach. Side rails up X 1. Pulse ox on. 09:00 No provider procedures requiring assistance completed. Patient did not have IV access ph during this emergency room visit. Administered Medications: No medications were administered Outcome: 08:56 Discharge ordered by . kb 09:10 Patient left the ED. ph 09:10 Discharged to home ambulatory. ph 09:10 Condition: good 09:10 Discharge instructions given to patient, Instructed on discharge instructions, follow up and referral plans. medication usage, Demonstrated understanding of instructions, follow-up care, medications, Prescriptions given X 1. Signatures: Anna Marie Ruelas FNP-C FNP-Ckb Martinez, Amelia as Mavis Andre, RN RN iw Ria Candelario, DAVID RN ph
[2019-08-14 09:15] VITALS: BP 116/75; TEMP 99.1; O2SAT 98
== END 2019-08-14 09:10 | disposition home or self-care (01) ==
LOC: ER 07:51
DX: J02.0 Streptococcal pharyngitis (principal); F17.210 Nicotine dependence, cigarettes, uncomplicated; Z88.1 Allergy status to other antibiotic agents; Z88.8 Allergy status to other drugs, medicaments and biological substances; Z91.018 Allergy to other foods; Z91.040 Latex allergy status; Z91.048 Other nonmedicinal substance allergy status
CPT/HCPCS: 87081; 87804; 99283

== ENCOUNTER 2019-11-29 09:10 | Emergency (ER) | payer SELFPAY ==
--- OUTSIDE RECORDS SUMMARY | 2019-11-29 09:14 | XMS REPORT ---
:1995 Author Organization [facility] t Address [address] [place] [address] Dr. Arteaga [address] [place] [id number] Care Team Providers Name Role Phone Unavailable Unavailable Unavailable Problems This patient has no known problems. Allergies, Adverse Reactions, Alerts This patient has no known allergies or adverse reactions. Medications This patient has no known medications. Procedures This patient has no known procedures. Results This patient has no known results.
[2019-11-29 10:45] VITALS: TEMP 98.6
[2019-11-29 10:50] VITALS: BP 107/67; O2SAT 100
--- NOTE | 2019-12-06 12:05 | EDPHYS ---
Physician Documentation [facility] Name: Tere Ponce Age: 24 yrs Sex: Female : 1995 Arrival Date: 11/29/2019 Time: 09:13 Bed 7 Private MD: ED Physician Yuan St HPI: 11/28 09:25 This 24 yrs old Female presents to ER via Ambulatory with complaints of pm1 Cough, Sore Throat, Nasal Congestion. 09:25 The patient or guardian reports cough, sore throat and nasal congestion. Onset: The pm1 symptoms/episode began/occurred this morning. Modifying factors: The symptoms are alleviated by nothing, the symptoms are aggravated by nothing. Associated signs and symptoms: Pertinent positives: earache, sore throat, Fever at home prior to arrival. No antipyretics taken, Pertinent negatives: chest pain, diarrhea, nausea, vomiting, SOB. The patient has experienced similar episodes in the past, multiple times, Patient reports that she typically gets strep throat around this time of year. It is unknown whether or not the patient has recently seen a physician. 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 - Social history:: Smoking status: Patient reports the use of cigarette tobacco products, smokes one-half pack cigarettes per day. ROS: 09:25 Constitutional: Negative for fever, chills, and weight loss. pm1 09:25 Neck: Negative for injury, pain, and swelling, Cardiovascular: Negative for chest pain, palpitations, and edema, Abdomen/GI: Negative for abdominal pain, nausea, vomiting, diarrhea, and constipation, Back: Negative for injury and pain, MS/Extremity: Negative for injury and deformity, Skin: Negative for injury, rash, and discoloration. 09:25 Neuro: Negative for headache, weakness, numbness, tingling, and seizure. 09:25 ENT: Positive for ear pain, sinus congestion, sore throat, Negative for drainage from ear(s), hearing loss. 09:25 Respiratory: Positive for cough, Negative for shortness of breath, sputum production, wheezing. Exam: 09:25 Constitutional: This is a well developed, well nourished patient who is awake, alert, pm1 and in no acute distress. 09:25 Head/Face: Normocephalic, atraumatic. 09:25 Neck: Trachea midline, no thyromegaly or masses palpated, and no cervical lymphadenopathy. Supple, full range of motion without nuchal rigidity, or vertebral point tenderness. No Meningismus. Chest/axilla: Normal chest wall appearance and motion. Nontender with no deformity. No lesions are appreciated. 09:25 Abdomen/GI: Soft, non-tender. No guarding or rebound. No evidence of tenderness throughout. Back: No spinal tenderness. No costovertebral tenderness. Full range of motion. Skin: Warm, dry with normal turgor. Normal color with no rashes, no lesions, and no evidence of cellulitis. MS/ Extremity: Pulses equal, no cyanosis. Neurovascular intact. Full, normal range of motion. 09:25 ENT: External ear(s): are unremarkable, no acute changes, Ear canal(s): are normal, no acute changes, TM's: are normal, no acute changes, Nose: no acute changes, Posterior pharynx: is normal, airway is patent, no erythema, no exudate, no peritonsilar mass, no pooling of secretions, no swelling. 09:25 Cardiovascular: Exam negative for acute changes, Rate: normal, Rhythm: regular, Pulses: no pulse deficits are appreciated. 09:25 Respiratory: Exam negative for acute changes, respiratory distress, shortness of breath, wheezing. 09:25 Neuro: Exam negative for acute changes, Orientation: is normal, Mentation: is normal, Motor: is normal, moves all fours. Vital Signs: 09:15 BP 110 / 84; Pulse 80; Resp 18 S; Temp 98.6(O); Pulse Ox 99% on R/A; aa5 10:26 BP 107 / 67; Pulse 86; Resp 16 S; Pulse Ox 100% on R/A; ca1 MDM: 09:16 Patient medically screened. pm1 10:11 Data reviewed: vital signs. Data interpreted: Pulse oximetry: on room air is 99 %. pm1 Interpretation: normal. 10:18 Counseling: I had a detailed discussion with the patient and/or guardian regarding: the pm1 historical points, exam findings, and any diagnostic results supporting the discharge/admit diagnosis, lab results, the need for outpatient follow up, to return to the emergency department if symptoms worsen or persist or if there are any questions or concerns that arise at home. 11/28 09:24 Order name: Strep; Complete Time: 10:10 pm1 11/28 09:24 Order name: Flu; Complete Time: 10:17 pm1 11/28 10:11 Order name: Throat Culture EDMS Administered Medications: No medications were administered Disposition: 18:08 Co-signature as Attending Physician, Yuan St MD. rn Disposition: 11/29/19 10:19 Discharged to Home. Impression: Acute upper respiratory infection, unspecified. - Condition is Stable. - Discharge Instructions: Upper Respiratory Infection, Adult. - Work release form, Medication Reconciliation Form, Thank You Letter, Antibiotic Education, Prescription Opioid Use form. - Follow up: Emergency Department; When: As needed; Reason: Worsening of condition. Follow up: Private Physician; When: 2 - 3 days; Reason: Recheck today's complaints, Continuance of care, Re-evaluation by your physician. - Problem is new. - Symptoms have improved. Signatures: Dispatcher [employer] EDMS Yuan St MD MD rn Calderon, Audri, RN RN aa5 Omid Oneil, TAR ROOFER TAR ROOFER pm1 Fior Peterson RN RN ca1 Corrections: (The following items were deleted from the chart) 10:35 10:19 11/29/2019 10:19 Discharged to Home. Impression: Acute upper respiratory ca1 infection, unspecified. Condition is Stable. Forms are Medication Reconciliation Form, Thank You Letter, Antibiotic Education, Prescription Opioid Use. Follow up: Emergency Department; When: As needed; Reason: Worsening of condition. Follow up: Private Physician; When: 2 - 3 days; Reason: Recheck today's complaints, Continuance of care, Re-evaluation by your physician. Problem is new. Symptoms have improved. pm1
--- NOTE | 2019-12-06 12:05 | ER ---
Nurse's Notes [facility] Name: Tere Ponce Age: 24 yrs Sex: Female : 1995 Arrival Date: 11/29/2019 Time: 09:13 Bed 7 Private MD: Diagnosis: Acute upper respiratory infection, unspecified Presentation: 11/28 09:15 Coronavirus screen: Patient reports a cough. Patient denies shortness of breath or aa5 difficulty breathing. Patient reports a measured and/or subjective temperature greater than 100.4F. Patient denies travel on a cruise ship or to a country the [facility] currently lists as an affected area. Patient denies contact with known and/or suspected case of COVID-19. Ebola Screen: Patient negative for fever greater than or equal to 101.5 degrees Fahrenheit, and additional compatible Ebola Virus Disease symptoms. 09:15 Initial Sepsis Screen: Does the patient meet any 2 criteria? No. Patient's initial aa5 sepsis screen is negative. Does the patient have a suspected source of infection? No. Patient's initial sepsis screen is negative. Risk Assessment: Do you want to hurt yourself or someone else? Patient reports no desire to harm self or others. Onset of symptoms was November 29, 2019. 09:15 Acuity: MADELINE 4 aa5 09:15 Method Of Arrival: Ambulatory aa5 09:15 Chief complaint: Patient states: fever up to 100.2F, sore throat, nasal congestion, morgan aa5 ear pain, and slight cough that began this morning. Denies SOB, denies chest pain, denies nausea, denies vomiting, denies diarrhea. 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 - Social history:: Smoking status: Patient reports the use of cigarette tobacco products, smokes one-half pack cigarettes per day. Screenin:54 Abuse screen: Denies threats or abuse. Denies injuries from another. Nutritional ca1 screening: No deficits noted. Tuberculosis screening: No symptoms or risk factors identified. Fall Risk None identified. Assessment: 09:54 General: Appears in no apparent distress. comfortable, Behavior is calm, cooperative, ca1 appropriate for age. Pain: Complains of pain in right ear and left ear Pain currently is 2 out of 10 on a pain scale. Pain began 2-3 days ago. Neuro: Level of Consciousness is awake, alert, obeys commands, Oriented to person, place, time, situation, Appropriate for age. Respiratory: Airway is patent Respiratory effort is even, unlabored, Respiratory pattern is regular, symmetrical, Breath sounds are clear bilaterally. EENT: Throat is clear Reports nasal discharge that is watery since 2-3 days. EENT: Ear canal clear on left ear and right ear. Derm: Skin is intact, is healthy with good turgor, Skin is pink, warm \T\ dry. Musculoskeletal: Circulation, motion, and sensation intact. Capillary refill < 3 seconds. 10:26 Reassessment: Patient appears in no apparent distress at this time. Patient is alert, ca1 oriented x 3, equal unlabored respirations, skin warm/dry/pink. Vital Signs: 09:15 BP 110 / 84; Pulse 80; Resp 18 S; Temp 98.6(O); Pulse Ox 99% on R/A; aa5 10:26 BP 107 / 67; Pulse 86; Resp 16 S; Pulse Ox 100% on R/A; ca1 ED Course: 09:13 Patient arrived in ED. ag5 09:15 Arm band placed on Patient placed in an exam room, on a stretcher. aa5 09:16 Omid Oneil NP is PHCP. pm1 09:[address] MD is Attending Physician. pm1 09:28 Triage completed. aa5 09:49 Fior Peterson, DAVID is Primary Nurse. ca1 09:50 Flu Sent. mh5 09:50 Strep Sent. mh5 09:50 Flu and/or RSV swab sent to lab. Strep swab sent to lab. mh5 09:51 Patient has correct armband on for positive identification. Bed in low position. Call 5 light in reach. Pulse ox on. NIBP on. 09:54 No provider procedures requiring assistance completed. Patient did not have IV access ca1 during this emergency room visit. Administered Medications: No medications were administered Outcome: 10:19 Discharge ordered by MD. pm1 10:35 Discharged to home ambulatory. ca1 10:35 Condition: stable 10:35 Discharge instructions given to patient, Instructed on discharge instructions, follow up and referral plans. Demonstrated understanding of instructions, follow-up care. 10:35 Patient left the ED. ca1 Signatures: Lucille Robertson RN RN aa5 Omid Oneil NP YOUTH CARE PROFESSIONAL pm1 Marie Saavedra 5 Fior Peterson RN RN ca1 Cee Fuentes ag5 Corrections: (The following items were deleted from the chart) 09:29 09:15 Chief complaint: Patient states: fever up to 100.2F, sore throat, nasal aa5 congestion, morgan ear pain, and slight cough that began this morning. aa5 09:59 09:58 LMP N/A - salphingoectomy ca1 ca1
== END 2019-11-29 10:35 | disposition home or self-care (01) ==
LOC: ER 09:10
DX: J06.9 Acute upper respiratory infection, unspecified (principal); F17.210 Nicotine dependence, cigarettes, uncomplicated; Z88.1 Allergy status to other antibiotic agents; Z88.8 Allergy status to other drugs, medicaments and biological substances; Z91.040 Latex allergy status; Z91.018 Allergy to other foods
CPT/HCPCS: 87070; 87081; 87804; 99283

== ENCOUNTER 2019-12-13 08:40 | Emergency (ER) | payer SELFPAY ==
[2019-12-13 09:51] LABS: Urine Bacteria 20-50 /HPF (<20); Urine RBC <5 /HPF (NONE SEEN)
[2019-12-13 09:52] LABS: Urine Culture Reflex Order NOT NEEDED
[2019-12-13 09:53] LABS: Urine Blood TRACE (NEG); Urine Glucose NEGATIVE (NEG); Urine Protein NEGATIVE (NEG); Urine Specific Gravity 1.025 (1.005-1.030)
[2019-12-13 10:25] LABS: Absolute Lymphocytes (CBC) 1.6 K/uL (0.7-4.9); Basophils % 0.8 % (0-1.3); Hematocrit 34.9 % (36.0-45.0); Lymphocytes % 22.5 % (15.3-44.8); MPV 7.7 fL (7.6-11.3); RBC Red Blood Cell Count 4.91 M/uL (3.86-4.86)
--- NOTE | 2019-12-13 10:25 | RAD REPORT ---
EXAM DESCRIPTION: US - Abdomen Exam Limited - 12/13/2019 10:18 am CLINICAL HISTORY: ABD PAIN COMPARISON: No comparisons FINDINGS: The gallbladder demonstrates no gallstones. No pericholecystic fluid or gallbladder wall t hickening. The common bile duct is normal measuring 2 mm. The liver demonstrates no findings of intrahepatic biliary dilatation. IMPRESSION: Unremarkable examination.
[2019-12-13 10:41] LABS: ALT/SGPT 20 U/L (12-78); AST/SGOT 17 U/L (15-37); Albumin 3.4 g/dL (3.4-5.0); Alkaline Phosphatase 155 U/L (45-117); BUN Blood Urea Nitrogen 16 mg/dL (7-18); Bicarbonate 25 mmol/L (21-32); Bilirubin Direct < 0.1 mg/dL (0-0.2); Bilirubin Total 0.2 mg/dL (0.2-1.0); Glucose Level 86 mg/dL (74-106); Lipase 23 U/L (73-393); Potassium 3.9 mmol/L (3.5-5.1); Protein, Total 7.7 g/dL (6.4-8.2); Sodium Level 139 mmol/L (136-145)
--- NOTE | 2019-12-13 10:52 | ER ---
Nurse's Notes [facility] Name: Tere Ponce Age: 24 yrs Sex: Female : 1995 Arrival Date: 12/13/2019 Time: 08:44 Bed 17 Private MD: Diagnosis: Upper abdominal pain, unspecified;Iron deficiency anemia, unspecified Presentation: 12/12 08:53 Chief complaint: Patient states: intermittent abd cramping x 1 week. Denies N/V/D. Pt ss denies pain at this time. Coronavirus screen: Proceed with normal triage. Patient denies a cough. Patient denies shortness of breath or difficulty breathing. Patient denies measured and/or subjective temperature greater than 100.4F prior to today's visit. Patient denies travel on a cruise ship or to a country the [facility] currently lists as an affected area. Patient denies contact with known and/or suspected case of COVID-19. Ebola Screen: Patient denies exposure to infectious person. Patient denies travel to an Ebola-affected area in the 21 days before illness onset. Initial Sepsis Screen: Does the patient meet any 2 criteria? No. Patient's initial sepsis screen is negative. Does the patient have a suspected source of infection? No. Patient's initial sepsis screen is negative. Risk Assessment: Do you want to hurt yourself or someone else? Patient reports no desire to harm self or others. Onset of symptoms was December 06, 2019. 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 - Social history:: Smoking status: Patient denies any tobacco usage or history of. Screenin:00 Abuse screen: Denies threats or abuse. Denies injuries from another. Nutritional ca1 screening: No deficits noted. Tuberculosis screening: No symptoms or risk factors identified. Fall Risk IV access (20 points). Assessment: 10:00 General: Appears in no apparent distress. comfortable, Behavior is calm, cooperative, ca1 appropriate for age. Pain: Complains of pain in right upper quadrant, left upper quadrant and right lower quadrant Pain began a week ago Is intermittent. Neuro: Level of Consciousness is awake, alert, obeys commands, Oriented to person, place, time, situation. Cardiovascular: Heart tones S1 S2 present Capillary refill < 3 seconds. Respiratory: Airway is patent Respiratory effort is even, unlabored, Respiratory pattern is regular, symmetrical, Breath sounds are clear bilaterally. GI: Abdomen is round non-distended, Bowel sounds present X 4 quads. Abd is soft X 4 quads Abdomen is tender to palpation in right upper quadrant and right lower quadrant. : No signs and/or symptoms were reported regarding the genitourinary system. EENT: No signs and/or symptoms were reported regarding the EENT system. Derm: Skin is intact, is healthy with good turgor, Skin is pink, warm \T\ dry. Musculoskeletal: Circulation, motion, and sensation intact. Capillary refill < 3 seconds. 10:04 Reassessment: US at bedside. ca1 10:55 Reassessment: Patient appears in no apparent distress at this time. Patient is alert, ca1 oriented x 3, equal unlabored respirations, skin warm/dry/pink. Vital Signs: 08:53 BP 115 / 65; Pulse 87; Resp 16; Temp 98.4(TE); Pulse Ox 99% on R/A; Weight 86.18 kg; ss Height 5 ft. 3 in. (160.02 cm); Pain 0/10; 10:25 BP 108 / 70; Pulse 73; Resp 15 S; Pulse Ox 99% on R/A; ca1 10:55 BP 110 / 71; Pulse 72; Resp 16 S; Pulse Ox 100% on R/A; ca1 08:53 Body Mass Index 33.66 (86.18 kg, 160.02 cm) ED Course: 08:44 Patient arrived in ED. mr 08:50 Evette Khan [facility]-C [facility] snw 08:50 Kervin Thompson MD is Attending Physician. snw 08:54 Triage completed. ss 08:55 Arm band placed on right wrist. ss 09:58 Fior Peterson, DAVID is Primary Nurse. ca1 10:00 Patient has correct armband on for positive identification. Bed in low position. Call ca1 light in reach. Side rails up X 1. Pulse ox on. NIBP on. 10:16 US Abdomen Limited In Process Unspecified. EDMS 10:18 Missed attempt(s): 22 gauge in right antecubital area. Bleeding controlled, band aid ca1 applied, catheter tip intact. 10:18 Initial lab(s) drawn, by me, sent to lab. ca1 11:36 No provider procedures requiring assistance completed. Patient did not have IV access ca1 during this emergency room visit. Administered Medications: 11:36 Drug: Bentyl 20 mg Route: PO; ca1 Outcome: 10:51 Discharge ordered by MD. snw 11:37 Discharged to home ambulatory. ca1 11:37 Condition: stable 11:37 Discharge instructions given to patient, Instructed on discharge instructions, follow up and referral plans. medication usage, Demonstrated understanding of instructions, follow-up care, medications, Prescriptions given X 1. 11:38 Patient left the ED. ca1 Signatures: Dispatcher [employer] EDMN Evette Khan, HYDROPONICS GROWER-C HYDROPONICS GROWER-Alisson Romero mr Nelli Reagan, RN RN ss Fior Peterson RN RN ca1
--- NOTE | 2019-12-13 10:52 | EDPHYS ---
Physician Documentation [facility] Name: Tere Ponce Age: 24 yrs Sex: Female : 1995 Arrival Date: 12/13/2019 Time: 08:44 Bed 17 Private MD: ED Physician Kervin Thompson HPI: 12/12 10:22 This 24 yrs old Female presents to ER via Ambulatory with complaints of snw Abdominal Pain. 10:22 The patient presents with abdominal pain in the epigastric area, in the upper abdomen. snw Onset: The symptoms/episode began/occurred gradually, 1 week(s) ago, and became persistent. The symptoms do not radiate. Associated signs and symptoms: Pertinent positives: anorexia, nausea, Pertinent negatives: fever. The symptoms are described as crampy. Severity of pain: At its worst the pain was moderate. The patient has not experienced similar symptoms in the past. The patient has not recently seen a physician. tubal ligation. 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 - Social history:: Smoking status: Patient denies any tobacco usage or history of. ROS: 10:21 Constitutional: Negative for fever, chills, and weight loss, Eyes: Negative for injury, snw pain, redness, and discharge, ENT: Negative for injury, pain, and discharge, Neck: Negative for injury, pain, and swelling, Cardiovascular: Negative for chest pain, palpitations, and edema, Respiratory: Negative for shortness of breath, cough, wheezing, and pleuritic chest pain, Back: Negative for injury and pain, : Negative for injury, bleeding, discharge, and swelling, MS/Extremity: Negative for injury and deformity, Skin: Negative for injury, rash, and discoloration, Neuro: Negative for headache, weakness, numbness, tingling, and seizure, Psych: Negative for depression, anxiety, suicide ideation, homicidal ideation, and hallucinations. 10:21 Abdomen/GI: Positive for abdominal pain, nausea, abdominal cramps, of the umbilical area, right upper quadrant and left upper quadrant. Exam: 10:20 Constitutional: This is a well developed, well nourished patient who is awake, alert, snw and in no acute distress. Head/Face: Normocephalic, atraumatic. Eyes: Pupils equal round and reactive to light, extra-ocular motions intact. Lids and lashes normal. Conjunctiva and sclera are non-icteric and not injected. Cornea within normal limits. Periorbital areas with no swelling, redness, or edema. ENT: Nares patent. No nasal discharge, no septal abnormalities noted. Tympanic membranes are normal and external auditory canals are clear. Oropharynx with no redness, swelling, or masses, exudates, or evidence of obstruction, uvula midline. Mucous membranes moist. Neck: Trachea midline, no thyromegaly or masses palpated, and no cervical lymphadenopathy. Supple, full range of motion without nuchal rigidity, or vertebral point tenderness. No Meningismus. Chest/axilla: Normal chest wall appearance and motion. Nontender with no deformity. No lesions are appreciated. Cardiovascular: Regular rate and rhythm with a normal S1 and S2. No gallops, murmurs, or rubs. Normal PMI, no JVD. No pulse deficits. Respiratory: Lungs have equal breath sounds bilaterally, clear to auscultation and percussion. No rales, rhonchi or wheezes noted. No increased work of breathing, no retractions or nasal flaring. Back: No spinal tenderness. No costovertebral tenderness. Full range of motion. Skin: Warm, dry with normal turgor. Normal color with no rashes, no lesions, and no evidence of cellulitis. MS/ Extremity: Pulses equal, no cyanosis. Neurovascular intact. Full, normal range of motion. Neuro: Awake and alert, GCS 15, oriented to person, place, time, and situation. Cranial nerves II-XII grossly intact. Motor strength 5/5 in all extremities. Sensory grossly intact. Cerebellar exam normal. Normal gait. Psych: Awake, alert, with orientation to person, place and time. Behavior, mood, and affect are within normal limits. 10:20 Abdomen/GI: Inspection: abdomen appears normal, obese Bowel sounds: normal, Palpation: moderate abdominal tenderness, Indicators: Miller's sign is positive. Vital Signs: 08:53 BP 115 / 65; Pulse 87; Resp 16; Temp 98.4(TE); Pulse Ox 99% on R/A; Weight 86.18 kg; ss Height 5 ft. 3 in. (160.02 cm); Pain 0/10; 10:25 BP 108 / 70; Pulse 73; Resp 15 S; Pulse Ox 99% on R/A; ca1 10:55 BP 110 / 71; Pulse 72; Resp 16 S; Pulse Ox 100% on R/A; ca1 08:53 Body Mass Index 33.66 (86.18 kg, 160.02 cm) ss MDM: 08:50 Patient medically screened. snw 11:21 Data reviewed: vital signs, nurses notes. Data interpreted: Pulse oximetry: on room air snw is 100 %. Interpretation: normal. Counseling: I had a detailed discussion with the patient and/or guardian regarding: the historical points, exam findings, and any diagnostic results supporting the discharge/admit diagnosis, lab results, radiology results, the need for outpatient follow up, to return to the emergency department if symptoms worsen or persist or if there are any questions or concerns that arise at home. Special discussion: Based on the history and exam findings, there is no indication for further emergent testing or inpatient evaluation. I discussed with the patient/guardian the need to see the general surgeon for further evaluation of the symptoms. I discussed with the patient/guardian the need to see the primary care provider for further evaluation of the symptoms. 12/12 09:11 Order name: Urine Microscopic Only; Complete Time: 10:02 snw 12/12 09:23 Order name: Urine Dipstick--Ancillary (enter results); Complete Time: 10:02 em1 12/12 09:23 Order name: Urine --Ancillary (enter results); Complete Time: 10:02 em1 12/12 09:51 Order name: Basic Metabolic Panel; Complete Time: 10:50 snw 12/12 09:51 Order name: CBC with Diff snw 12/12 09:51 Order name: Hepatic Function; Complete Time: 10:50 snw 12/12 09:11 Order name: Urine Test (obtain specimen); Complete Time: 09:21 snw 12/12 09:11 Order name: Urine Dipstick-Ancillary (obtain specimen); Complete Time: 09:21 snw 12/12 09:51 Order name: US Abdomen Limited; Complete Time: 10:30 snw 12/12 09:51 Order name: Lipase; Complete Time: 10:50 snw 12/12 09:51 Order name: Labs collected and sent; Complete Time: 10:21 snw Administered Medications: 11:36 Drug: Bentyl 20 mg Route: PO; ca1 Disposition: 15:24 Co-signature as Attending Physician, Kervin Thompson MD I agree with the assessment and kdr plan of care. Disposition: 12/13/19 10:51 Discharged to Home. Impression: Upper abdominal pain, unspecified, Iron deficiency anemia, unspecified. - Condition is Stable. - Discharge Instructions: Abdominal Pain, Adult, Iron Deficiency Anemia, Adult, Biliary Colic, Adult, Fat and Cholesterol Restricted Diet, Iron-Rich Diet, Rehydration, Adult. - Prescriptions for Bentyl 20 mg Oral Tablet - take 1 tablet by ORAL route every 6 hours As needed; 20 tablet. - Work release form, Medication Reconciliation Form, Thank You Letter, Antibiotic Education, Prescription Opioid Use form. - Follow up: Emergency Department; When: As needed; Reason: Worsening of condition. Follow up: Private Physician; When: 1 - 2 days; Reason: Recheck today's complaints, Continuance of care, Re-evaluation by your physician. Signatures: Dispatcher [employer] EDKS Kervin Thompson MD MD [facility] Evette Khan, UPSCALE SECURITY OFFICER-C UPSCALE SECURITY OFFICER-Csnw Nelli Reagan RN RN ss Fior Peterson RN RN ca1 Corrections: (The following items were deleted from the chart) 10:55 09:51 IV Saline Lock ordered. snw ca1 11:38 10:51 12/13/2019 10:51 Discharged to Home. Impression: Upper abdominal pain, ca1 unspecified; Iron deficiency anemia, unspecified. Condition is Stable. Forms are Medication Reconciliation Form, Thank You Letter, Antibiotic Education, Prescription Opioid Use. Follow up: Emergency Department; When: As needed; Reason: Worsening of condition. Follow up: Private Physician; When: 1 - 2 days; Reason: Recheck today's complaints, Continuance of care, Re-evaluation by your physician. snw
--- OUTSIDE RECORDS SUMMARY | 2019-12-13 11:23 | XMS REPORT | Continuity of Care Document ---
:1995 Author Organization [facility] t Address [address] [place] [address] Dr. Arteaga [address] [place] [id number] Care Team Providers Name Role Phone Unavailable Unavailable Unavailable Problems This patient has no known problems. Allergies, Adverse Reactions, Alerts This patient has no known allergies or adverse reactions. Medications This patient has no known medications. Procedures This patient has no known procedures. Results This patient has no known results.
[2019-12-13] MEDS ORDERED: DICYCLOMINE HCL 10 MG CAP ONE (11:40)
[2019-12-13 11:44] VITALS: TEMP 98.4
[2019-12-13 11:48] VITALS: BP 110/71; O2SAT 100
[2019-12-13 12:03] LABS: Blood Morphology Comment NOTED (NOT SEEN); Platelet Estimate INCR; Urine White Blood Cell Casts OK
[2019-12-13 12:04] LABS: Anisocytosis 1+; Hypochromasia 1+
== END 2019-12-13 11:38 | disposition home or self-care (01) ==
LOC: ER 08:40
DX: D50.9 Iron deficiency anemia, unspecified (principal); Z88.1 Allergy status to other antibiotic agents; Z91.018 Allergy to other foods; Z91.040 Latex allergy status; Z91.048 Other nonmedicinal substance allergy status
CPT/HCPCS: 36415; 76705; 80048; 80076; 81003; 81015; 81025; 83690; 85025; 99284

== ENCOUNTER 2019-12-13 20:18 | Emergency (ER) | payer SELFPAY ==
--- OUTSIDE RECORDS SUMMARY | 2019-12-13 20:20 | XMS REPORT | Continuity of Care Document ---
:1995 Author Organization [facility] t Address [address] [place] [address] Dr. Arteaga [address] [place] [id number] Care Team Providers Name Role Phone Unavailable Unavailable Unavailable Problems This patient has no known problems. Allergies, Adverse Reactions, Alerts This patient has no known allergies or adverse reactions. Medications This patient has no known medications. Procedures This patient has no known procedures. Results This patient has no known results.
[2019-12-13] MEDS ORDERED: ACETAMINOPHEN 500 MG TAB ONE (20:55)
[2019-12-13 23:43] LABS: Absolute Lymphocytes (CBC) 2.2 K/uL (0.7-4.9); Basophils % 0.6 % (0-1.3); Hematocrit 28.6 % (36.0-45.0); MPV 7.7 fL (7.6-11.3); RBC Red Blood Cell Count 4.07 M/uL (3.86-4.86)
[2019-12-13 23:44] LABS: Urine Blood TRACE (NEG); Urine Glucose NEGATIVE (NEG); Urine Protein NEGATIVE (NEG)
[2019-12-13 23:57] LABS: ALT/SGPT 17 U/L (12-78); AST/SGOT 12 U/L (15-37); Albumin 2.8 g/dL (3.4-5.0); Alkaline Phosphatase 125 U/L (45-117); BUN Blood Urea Nitrogen 14 mg/dL (7-18); Bicarbonate 26 mmol/L (21-32); Bilirubin Direct < 0.1 mg/dL (0-0.2); Bilirubin Total 0.1 mg/dL (0.2-1.0); Glucose Level 98 mg/dL (74-106); Lipase 18 U/L (73-393); Potassium 3.8 mmol/L (3.5-5.1); Protein, Total 6.5 g/dL (6.4-8.2); Sodium Level 140 mmol/L (136-145)
--- NOTE | 2019-12-14 00:48 | ER ---
Nurse's Notes [facility] Name: Tere Ponce Age: 24 yrs Sex: Female : 1995 Arrival Date: 12/13/2019 Time: 20:19 Bed 24 Private MD: Diagnosis: Fever, unspecified Presentation: 12/12 20:41 Chief complaint: Patient states: Was here this morning for RUQ pain, they said I have ca1 to see my doctor and see a surgeon for my gallbladder. I tried to call but I couldn't get an appointment with my doctor until after January 18. This evening, I developed a fever at 101.3F. Coronavirus screen: Proceed with normal triage. Patient denies a cough. Patient denies shortness of breath or difficulty breathing. Patient denies measured and/or subjective temperature greater than 100.4F prior to today's visit. Patient denies travel on a cruise ship or to a country the [facility] currently lists as an affected area. Patient denies contact with known and/or suspected case of COVID-19. Ebola Screen: Patient negative for fever greater than or equal to 101.5 degrees Fahrenheit, and additional compatible Ebola Virus Disease symptoms Patient denies exposure to infectious person. Patient denies travel to an Ebola-affected area in the 21 days before illness onset. No symptoms or risks identified at this time. Initial Sepsis Screen: Does the patient meet any 2 criteria? No. Patient's initial sepsis screen is negative. Does the patient have a suspected source of infection? No. Patient's initial sepsis screen is negative. Risk Assessment: Do you want to hurt yourself or someone else? Patient reports no desire to harm self or others. Onset of symptoms was December 13, 2019 at 19:00. 20:41 Method Of Arrival: Ambulatory ca1 20:41 Acuity: MADELINE 3 ca1 Triage Assessment: 21:32 General: Appears in no apparent distress. uncomfortable, Behavior is calm, cooperative. ls4 Pain: Complains of pain in abdomen Pain currently is 3 out of 10 on a pain scale. Neuro: No deficits noted. Cardiovascular: No deficits noted. Respiratory: No deficits noted. 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 - Social history:: Smoking status: Patient reports the use of cigarette tobacco products, smokes one-half pack cigarettes per day. Screenin:32 Abuse screen: Denies threats or abuse. Denies injuries from another. Nutritional ls4 screening: No deficits noted. Tuberculosis screening: No symptoms or risk factors identified. Fall Risk None identified. Assessment: 21:13 Reassessment: PT to CT. ca1 21:30 General: Appears in no apparent distress. Behavior is calm, cooperative. Neuro: No ls4 deficits noted. Cardiovascular: Capillary refill < 3 seconds Patient's skin is warm and dry. Rhythm is regular. Respiratory: Respiratory effort is even, unlabored, Respiratory pattern is regular. GI: Abd is soft X 4 quads Abdomen is tender to palpation in right upper quadrant Patient currently denies constipation, diarrhea, intolerance of fluids, intolerance of food, vomiting. : No deficits noted. No signs and/or symptoms were reported regarding the genitourinary system. Derm: No deficits noted. No signs and/or symptoms reported regarding the dermatologic system. Musculoskeletal: No deficits noted. No signs and/or symptoms reported regarding the musculoskeletal system. 22:30 Reassessment: Patient appears in no apparent distress at this time. Patient and/or ls4 family updated on plan of care and expected duration. Pain level reassessed. Patient is alert, oriented x 3, equal unlabored respirations, skin warm/dry/pink. 23:34 Reassessment: Patient appears in no apparent distress at this time. Patient and/or ls4 family updated on plan of care and expected duration. Pain level reassessed. Patient is alert, oriented x 3, equal unlabored respirations, skin warm/dry/pink. Vital Signs: 20:41 BP 110 / 63; Pulse 92; Resp 18 S; Temp 100.3(O); Pulse Ox 99% on R/A; Weight 86.18 kg ca1 (R); Height 5 ft. 3 in. (160.02 cm) (R); 22:00 BP 114 / 72; Pulse 63; Resp 14; Pulse Ox 99% on R/A; Pain 0/10; ls4 12/13 00:00 BP 116 / 66; Pulse 62; Resp 14; Temp 98.2; Pulse Ox 99% on R/A; Pain 0/10; ls4 01:00 BP 110 / 70; Pulse 60; Resp 18; Temp 98.1(O); Pulse Ox 99% on R/A; Pain 0/10; ls4 12/12 20:41 Body Mass Index 33.66 (86.18 kg, 160.02 cm) ca1 ED Course: 12/12 20:19 Patient arrived in ED. ds1 20:41 Arm band placed on right wrist. ca1 20:43 Triage completed. ca1 21:01 Radiology exam delayed due to IV insertion attempt and/or patient not having vm2 appropriate IV at this time. 21:13 No provider procedures requiring assistance completed. Inserted saline lock: 22 gauge ca1 in left antecubital area, using aseptic technique. 21:31 Marii Soriano, RN is Primary Nurse. ls4 21:31 CT Abd/Pelvis - IV Contrast Only Sent. ls4 21:32 No apparent distress. ls4 21:32 Patient has correct armband on for positive identification. Bed in low position. Call ls4 light in reach. Side rails up X 1. Pulse ox on. NIBP on. Warm blanket given. Verbal reassurance given. Diet: Patient is NPO. 21:32 Patient maintains SpO2 saturation greater than 95% on room air. ls4 21:37 CT Abd/Pelvis - IV Contrast Only In Process Unspecified. EDMS 21:42 River Duncan MD is Attending Physician. [facility] 12/13 01:29 IV discontinued, intact, bleeding controlled, No redness/swelling at site. Pressure ls4 dressing applied. Administered Medications: 12/12 20:48 Drug: Tylenol 1000 mg Route: PO; ca1 21:15 Follow up: Response: No adverse reaction; Marked relief of symptoms ls4 Outcome: 12/13 00:47 Discharge ordered by . [facility] 01:29 Discharged to home ambulatory. ls4 01:29 Condition: stable 01:29 Discharge instructions given to patient, family, Instructed on discharge instructions, follow up and referral plans. safety practices, Demonstrated understanding of instructions, follow-up care, medications. 01:30 Patient left the ED. ls4 Signatures: Dispatcher [employer] EDNH Gris Stevens ds1 Adriana Baum vm2 Marii Soriano RN RN ls4 Fior Peterson RN RN ca1 River Duncan MD MD [id number] Corrections: (The following items were deleted from the chart) 12/12 20:44 20:41 BP 110 / 63; Pulse 101bpm; Resp 18bpm; Spontaneous; Pulse Ox 99% RA; Temp 100.3F ca1 Oral; 86.18 kg Reported; Height 5 ft. 3 in. Reported; BMI: 33.6; ca1
--- NOTE | 2019-12-14 00:48 | EDPHYS ---
Physician Documentation [facility] Name: Tere Ponce Age: 24 yrs Sex: Female : 1995 Arrival Date: 12/13/2019 Time: 20:19 Bed 24 Private MD: ED Physician River Duncan HPI: 12/12 22:48 This 24 yrs old Female presents to ER via Ambulatory with complaints of Fever.mh7 22:48 The patient reports fever, that was measured at 101 degrees Fahrenheit. Onset: The mh7 symptoms/episode began/occurred just prior to arrival, today. Modifying factors: there are no obvious modifying factors. Associated signs and symptoms: Pertinent positives: abdominal pain, Pertinent negatives: altered mental status, arthralgias, backache, chest pain, chills, cough, diarrhea, pulling at ears, earache, headache, hemoptysis, myalgias, nausea, night sweats, runny nose, sinus congestion, sinus drainage, skin rash, shortness of breath, sore throat, swelling, vomiting. Severity of symptoms: At their worst the symptoms were moderate just prior to arrival, today, in the emergency department the symptoms have improved markedly. The patient has been recently seen at the [facility] Emergency Department, today. 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 - Social history:: Smoking status: Patient reports the use of cigarette tobacco products, smokes one-half pack cigarettes per day. ROS: 22:48 Eyes: Negative for injury, pain, redness, and discharge, ENT: Negative for injury, mh7 pain, and discharge, Neck: Negative for injury, pain, and swelling, Cardiovascular: Negative for chest pain, palpitations, and edema, Respiratory: Negative for shortness of breath, cough, wheezing, and pleuritic chest pain. 22:48 Back: Negative for injury and pain, : Negative for injury, bleeding, discharge, and swelling, MS/Extremity: Negative for injury and deformity, Skin: Negative for injury, rash, and discoloration, Neuro: Negative for headache, weakness, numbness, tingling, and seizure, Psych: Negative for depression, anxiety, suicide ideation, homicidal ideation, and hallucinations, Allergy/Immunology: Negative for hives, rash, and allergies, Endocrine: Negative for neck swelling, polydipsia, polyuria, polyphagia, and marked weight changes, Hematologic/Lymphatic: Negative for swollen nodes, abnormal bleeding, and unusual bruising. 22:48 Abdomen/GI: Positive for abdominal pain. Exam: 22:48 Constitutional: This is a well developed, well nourished patient who is awake, alert, mh7 and in no acute distress. Head/Face: Normocephalic, atraumatic. Eyes: Pupils equal round and reactive to light, extra-ocular motions intact. Lids and lashes normal. Conjunctiva and sclera are non-icteric and not injected. Cornea within normal limits. Periorbital areas with no swelling, redness, or edema. ENT: Nares patent. No nasal discharge, no septal abnormalities noted. Tympanic membranes are normal and external auditory canals are clear. Oropharynx with no redness, swelling, or masses, exudates, or evidence of obstruction, uvula midline. Mucous membranes moist. Neck: Trachea midline, no thyromegaly or masses palpated, and no cervical lymphadenopathy. Supple, full range of motion without nuchal rigidity, or vertebral point tenderness. No Meningismus. Chest/axilla: Normal chest wall appearance and motion. Nontender with no deformity. No lesions are appreciated. Cardiovascular: Regular rate and rhythm with a normal S1 and S2. No gallops, murmurs, or rubs. Normal PMI, no JVD. No pulse deficits. Respiratory: Lungs have equal breath sounds bilaterally, clear to auscultation and percussion. No rales, rhonchi or wheezes noted. No increased work of breathing, no retractions or nasal flaring. 22:48 Back: No spinal tenderness. No costovertebral tenderness. Full range of motion. Skin: Warm, dry with normal turgor. Normal color with no rashes, no lesions, and no evidence of cellulitis. MS/ Extremity: Pulses equal, no cyanosis. Neurovascular intact. Full, normal range of motion. Neuro: Awake and alert, GCS 15, oriented to person, place, time, and situation. Cranial nerves II-XII grossly intact. Motor strength 5/5 in all extremities. Sensory grossly intact. Cerebellar exam normal. Normal gait. 22:48 Abdomen/GI: Inspection: abdomen appears normal, obese Bowel sounds: normal, in all quadrants, Palpation: mild abdominal tenderness, in all quadrants, Rectal exam: the exam is deferred, because of patient request, Indicators: McBurney's point is not tender, Miller's sign is negative, Rovsing's sign is negative, Obturator sign is negative, Psoas sign is negative, Liver: no appreciated palpable abnormalities, Hernia: not appreciated. Vital Signs: 20:41 BP 110 / 63; Pulse 92; Resp 18 S; Temp 100.3(O); Pulse Ox 99% on R/A; Weight 86.18 kg ca1 (R); Height 5 ft. 3 in. (160.02 cm) (R); 22:00 BP 114 / 72; Pulse 63; Resp 14; Pulse Ox 99% on R/A; Pain 0/10; ls4 12/13 00:00 BP 116 / 66; Pulse 62; Resp 14; Temp 98.2; Pulse Ox 99% on R/A; Pain 0/10; ls4 01:00 BP 110 / 70; Pulse 60; Resp 18; Temp 98.1(O); Pulse Ox 99% on R/A; Pain 0/10; ls4 12/12 20:41 Body Mass Index 33.66 (86.18 kg, 160.02 cm) ca1 MDM: 12/12 21:16 ED course: pt to CT via w/c, am labs and US done. Pt was afebrile at ED visit this am. .snw 22:30 Patient medically screened. 7 12/13 00:45 Differential diagnosis: viral Infection, bacterial infection, UTI, gastroenteritis. [facility] Data reviewed: vital signs, nurses notes, old medical records, lab test result(s), CBC, electrolytes, urinalysis. Data interpreted: Pulse oximetry: on room air is 99 %. Interpretation: normal. Counseling: I had a detailed discussion with the patient and/or guardian regarding: the historical points, exam findings, and any diagnostic results supporting the discharge/admit diagnosis, lab results, radiology results, the need for outpatient follow up, to return to the emergency department if symptoms worsen or persist or if there are any questions or concerns that arise at home. Response to treatment: the patient's symptoms have resolved after treatment, the patient's blood pressure is in an acceptable range, mental status has returned to baseline, the patient no longer shows bradycardia, the patient is not short of breath, the patient is not tachycardic, the patient's pain is gone, the patient's temperature has normalized. 12/12 22:46 Order name: Basic Metabolic Panel; Complete Time: 00:30 [facility] 12/12 22:46 Order name: CBC with Diff [facility] 12/12 22:46 Order name: Hepatic Function; Complete Time: 00:30 [facility] 12/12 22:46 Order name: Lipase; Complete Time: 00:30 [facility] 12/12 23:20 Order name: Urine Dipstick--Ancillary (enter results); Complete Time: 23:51 ia 12/12 23:49 Order name: CBC Smear Scan [facility] 12/12 20:51 Order name: CT Abd/Pelvis - IV Contrast Only snw 12/12 22:46 Order name: IV Saline Lock; Complete Time: 23:31 [facility] 12/12 22:46 Order name: Labs collected and sent; Complete Time: 23:32 [facility] 12/12 22:46 Order name: Urine Dipstick-Ancillary (obtain specimen); Complete Time: 23:18 mh7 Administered Medications: 12/12 20:48 Drug: Tylenol 1000 mg Route: PO; ca1 21:15 Follow up: Response: No adverse reaction; Marked relief of symptoms ls4 Disposition: 12/14/19 00:47 Discharged to Home. Impression: Fever, unspecified. - Condition is Stable. - Discharge Instructions: Fever, Adult, [id number]. - Work release form, Medication Reconciliation Form, Thank You Letter, Antibiotic Education, Prescription Opioid Use form. - Follow up: Private Physician; When: 1 - 2 days; Reason: Fever > 102 F, Worsening of condition, Recheck today's complaints, Re-evaluation by your physician. - Problem is an ongoing problem. - Symptoms have improved. Signatures: Dispatcher [employer] Evette Pack, LAMINATING MACHINE TENDER-C LAMINATING MACHINE TENDER-Csnw Marii Soriano RN RN ls4 Fior Peterson RN RN ca1 River Duncan MD MD 7 Corrections: (The following items were deleted from the chart) 12/13 01:30 00:47 12/14/2019 00:47 Discharged to Home. Impression: Fever, unspecified. Condition is ls4 Stable. Forms are Medication Reconciliation Form, Thank You Letter, Antibiotic Education, Prescription Opioid Use. Follow up: Private Physician; When: 1 - 2 days; Reason: Fever > 102 F, Worsening of condition, Recheck today's complaints, Re-evaluation by your physician. Problem is an ongoing problem. Symptoms have improved. mh7
[2019-12-14 01:04] LABS: Blood Morphology Comment NOTED (NOT SEEN); Hypochromasia 1+; Platelet Estimate ADEQ; Urine White Blood Cell Casts OK
[2019-12-14 01:38] VITALS: O2SAT 99
[2019-12-14 01:43] VITALS: BP 110/70; TEMP 98.1
--- NOTE | 2019-12-14 15:52 | RAD REPORT ---
EXAM DESCRIPTION: CT - Abdomen Pelvis W Contrast - 12/13/2019 9:37 pm CLINICAL HISTORY: The patient is 24 years old and is Female; ABD PAIN TECHNIQUE: Axial computed tomography images of the abdomen and pelvis with intravenous contrast. S agittal and coronal reformatted images were created and reviewed. This CT exam was performed using one or more of the following dose reduction techniques: automated exposure control, adjustment of t he mA and/or kV according to patient size, and/or use of iterative reconstruction technique. DLP: 1415 mGy*cm COMPARISON: Abdominal ultrasound the same day and CT abdomen and pelvis without contrast dated 2018. FINDINGS: LUNG BASES: Minimal left lung base atelectasis. No focal consolidation. HEART: Visualized heart is normal. ABDOMEN: LIVER: Unremarkable. No mass. GALLBLADDER AND BILE DUCTS: Contracted gallbladder. No calcified stones. No ductal dilation. PANCREAS: Unremarkable. No mass. No ductal dilation. SPLEEN: Unchanged small amount of perisplenic fluid. ADRENALS: Unremarkable. No mass. KIDNEYS AND URETERS: Unremarkable. No solid mass. No hydronephrosis. STOMACH AND BOWEL: Moderate stool burden. No obstruction. No mucosal thickening. PELVIS: APPENDIX: The appendix is seen and is within normal limits. BLADDER: Bladder is decompressed. REPRODUCTIVE: Unremarkable as visualized. ABDOMEN and PELVIS: INTRAPERITONEAL SPACE: Unremarkable. No free air. No significant fluid collection. BONES/JOINTS: Small retrolisthesis of L4 on L5. No acute fracture. No dislocation. SOFT TISSUES: Small fat-containing umbilical hernia. VASCULATURE: Unremarkable. No abdominal aortic aneurysm. LYMPH NODES: Unremarkable. No enlarged lymph nodes. IMPRESSION: 1. No acute abdominal or pelvic abnormality. 2. Moderate stool burden. Correlate for constipation. Electronically signed by: Carlin Ann DO 12/13/2019 9:51 PM CDT Due to temporary technical issues with the PACS/Fluency reporting system, reports are being signed by the in house radiologist without review as a courtesy to ensure prompt reporting. The interpreting r adiologist is fully responsible for the content of the report.
== END 2019-12-14 01:30 | disposition home or self-care (01) ==
LOC: ER 20:18
DX: R50.9 Fever, unspecified (principal); F17.210 Nicotine dependence, cigarettes, uncomplicated; Z88.1 Allergy status to other antibiotic agents; Z88.3 Allergy status to other anti-infective agents; Z88.8 Allergy status to other drugs, medicaments and biological substances; Z91.040 Latex allergy status
CPT/HCPCS: 36415; 74177; 80048; 80076; 81003; 83690; 85025; 99284; Q9967

== ENCOUNTER 2020-01-08 18:16 | Emergency (ER) | payer SELFPAY ==
--- OUTSIDE RECORDS SUMMARY | 2020-01-08 18:18 | XMS REPORT | Continuity of Care Document ---
:1995 Author Organization [facility] t Address [address] [place] [address] Care Team Providers Name Role Phone Doctor Unassigned, Name Attending Clinician Unavailable Shilo CALVO, A Attending Clinician Problems This patient has no known problems. Allergies, Adverse Reactions, Alerts This patient has no known allergies or adverse reactions. Medications This patient has no known medications. Procedures This patient has no known procedures. Encounters Start End Encounter Admission Attending Care Care Encounter Source Date/Time Date/Time Type Type Clinicians Facility Department ID 2019-12-29 2019-12-29 Orders Doctor CORY [id number] 00:00:00 00:00:00 Only Unassigned, MORAIMA [id number] [facility] [id number] 2019-12-20 2019-12-20 [facility] [id number] 07:46:08 08:01:08 ne Visit Jose Piper [id number] [place] [id number] Professio [id number] [address] 2019-12-13 2019-12-13 Telephone Shilo [facility] [id number] 00:00:00 00:00:00 Jose Rebollar [facility] [id number] [place] [id number] Maria Victoria [id number] [address] Results This patient has no known results.
--- OUTSIDE RECORDS SUMMARY | 2020-01-08 18:19 | XMS REPORT | Summary of Care ---
:1995 Author Organization [facility] Address [address] [place] [id number] Care Team Providers Name Role Phone Donald Coy Medicaid Hmo Keturah Lao MD Primary Care Provider MD [employer] Hmo Reason for Visit Reason Comments Appointment Assessment Encounter Details Date Type Department Care Team Description 12/13/2019 Telephone [facility] Family Jose Lao A ppointment; Medicine - Feliz CALVO Assessment [address] [place] [address] M[facility] [place] [phone] Allergies Active Allergy Reactions Severity Noted Date Comments Docosanol Other - See comments 01/14/2017 Worseni ng sx Amoxicillin Swelling 06/20/2016 Blisters in her mouth Egg Swelling High Grape Juice Unknown - See comments 07/12/2013 Pt's mother told her she was allergic to it. Unknown reactions but h as not drank it. Latex Itching 07/12/2013 Milk Swelling 02/19/2017 Cow's milk Tioconazole Swelling 06/20/2016 documented as of this encounter (statuses as of 12/14/2019) Medications Medication Sig Dispensed Refills Start Date End Date Status SUMAtriptan 25 mg 0 02/10/2018 A ctive tablet clotrimazole 1 % Apply to 15 g 3 11/02/2018 Ac tive topical area(s) at creamIndications: bedtime. Fungal infection of skin brompheniramine-pseudoe Take 5 mL by 200 mL 0 04/28/2019 Active phedrine-DM (BROMFED mouth 4 (four) DM) 2-30-10 mg/5 mL times daily as syrupIndications: Acute needed for Cold URI symptoms. acetaminophen-codeine Take 1-2 tablets 20 tablet 0 05/10/2019 Active 300-30 mg by mouth every 4 tabletIndications: (four) hours as Cough, Nonintractable needed (cough). headache, unspecified chronicity pattern, unspecified headache type, Urinary tract infection with hematuria, site unspecified, Microcytic anemia, Strain of neck muscle, initial encounter, Other complicated headache syndrome ondansetron 4 mg Take 1 tablet by 20 tablet 0 05/10/2019 Active disintegrating mouth every 4 tabletIndications: (four) hours as Cough, Nonintractable needed for headache, unspecified Nausea and chronicity pattern, Vomiting (N/V). unspecified headache type, Urinary tract infection with hematuria, site unspecified, Microcytic anemia, Strain of neck muscle, initial encounter, Other complicated headache syndrome benzonatate 100 mg Take 1 capsule 14 capsule 0 05/10/2019 Active capsuleIndications: by mouth 3 Cough, Nonintractable (three) times headache, unspecified daily as needed chronicity pattern, for Cough. unspecified headache type, Urinary tract infection with hematuria, site unspecified, Microcytic anemia, Strain of neck muscle, initial encounter, Other complicated headache syndrome ibuprofen 800 mg Take 1 tablet by 30 tablet 0 05/10/2019 Active tabletIndications: mouth every 8 Cough, Nonintractable (eight) hours. headache, unspecified chronicity pattern, unspecified headache type, Urinary tract infection with hematuria, site unspecified, Microcytic anemia, Strain of neck muscle, initial encounter, Other complicated headache syndrome documented as of this encounter (statuses as of 12/14/2019) Active Problems Problem Noted Date Kidney stones 10/07/2018 Status post surgical removal of both fallopian tubes 0 03/24/2018 Mixed headache 02/09/2018 depression 01/30/2018 Sterilization consult 01/30/2018 Anemia of mother in , antepartum 11/25/2017 Aphthous ulcer of mouth 06/24/2017 GBS bacteriuria 05/25/2017 Food allergy 05/07/2017 Iron deficiency anemia 05/07/2017 Hematochezia 04/30/2017 Oral herpes simplex infection 01/14/2017 Abnormal glucose tolerance in 06/25/2016 Hemorrhoids, unspecified hemorrhoid type 06/20/2016 Rubella immune 07/14/2013 Immune to varicella 07/14/2013 Obesity 07/12/2013 Overview: ICD10 Diagnosis Term Shot Blaster Utility 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 Resolved without surgery. Family history of autism 07/12/2013 Overview: FOB's 1st cousin documented as of this encounter (statuses as of 12/14/2019) Resolved Problems Problem Noted Date Resolved Date Abruptio placenta, third trimester 01/06/201801/30 Single liveborn, born in hospital, delivered by vaginal 09/201701/30/2018 delivery (spontaneous vaginal delivery) 01/06/201801/30 38 weeks gestation of 01/05/2018 01/31/20 18 Late deceleration of heart rate 01/05/2018 heart rate/rhythm abnormality affecting management of 01/05/2018 09/09/2018 mother Abnormal heart rate affecting 12/23/2017 01/30/2018 36 weeks gestation of 12/23/2017 01/06/20 18 labor 12/19/2017 09/09/2018 contractions 12/19/2017 09/09/2018 35 weeks gestation of 12/18/2017 01/31/20 18 labor in third trimester without delivery 12/18/2017 01/30/2018 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 Major aphthous ulceration 01/16/2017 02/19/2017 Inadequate pain control 01/16/2017 04/30/2017 40 weeks gestation of 12/27/2016 01/02/20 17 Liveborn infant, of [place] , born in hospital by 12/27/2016 01/01/2017 vaginal delivery (spontaneous vaginal delivery) 12/27/201601/01 Full-term premature rupture of membranes, onset of labor 01/01/2017 within 24 hours of rupture Nausea/vomiting in 11/13/2016 02/19/2017 Supervision of high risk in third trimester 201609/09/2018 Tobacco use, maternal, third trimester 10/16/2016 0 07/23/2017 Boil of buttock 09/12/2016 02/19/2017 Obesity affecting 08/16/2016 04/30/2017 16 weeks gestation of 07/13/2016 10/17/19 17 High-risk supervision, second trimester 06/20/2016 10/16/2016 UTI in , first trimester 06/20/20162018 Tobacco use affecting in second trimester, 016 10/16/2016 antepartum Normal delivery 03/04/2014 08/16/2016 Overview: Labor at term; ; hemostatic minor lacerations, no repair Anemia, 03/04/2014 10/16/2016 Active labor at term 03/03/2014 03/04/2014 Group B Streptococcus carrier, +RV culture, currently pregna nt 02/03/2014 03/04/2014 Overview: Received 2 doses Ryan intrapartum Congenital anomalies- echogenic bowel, echogenic 09/2908/16/2016 intracardiac focus, and mild right pyelectasis. Overview: echo by 2D, color and pulse-wave doppler reveal no gross malformations. Findings and limitations of echocardiogram discussed with patient. Nosebleed 09/06/2013 10/16/2016 Supervision of normal 07/12/2013 07/23/19 17 Overview: External records from [facility] ER CC: patient thinks her water broke. 34w k . IV NS given; UA 2+ leuk; Fern test neg. Patient discharged. Nausea & vomiting 07/12/2013 11/15/2013 documented as of this encounter (statuses as of 12/14/2019) Immunizations Name Administration Dates Next Due Td 02/10/2008 Tdap 10/28/2017, 10/01/2016, 12/21/2013 documented as of this encounter Social History Tobacco Use Types Packs/Day Years Used Date Former Smoker Smokeless Tobacco: Never Used Alcohol Use Drinks/Week oz/Week Comments No 0 Standard drinks or equivalent 0.0 Sex Assigned at Date Recorded Not on file Job Start Date Occupation Industry Not on file Not on file Not on file Travel History Travel Start Travel End No recent travel history available. documented as of this encounter Last Filed Vital Signs Not on filedocumented in this encounter Plan of Treatment Health Maintenance Due Date Last Done Comments VARICELLA VACCINES (1 of 2 1995 - 2-dose childhood series) HPV VACCINES (1 - Female 2005 2-dose series) INFLUENZA VACCINE (Season 03/07/2020 Ended) Depression Screening 04/28/2020 04/28/2019 PAP SMEAR 10/05/2021 10/05/2018 DTaP,Tdap,and Td Vaccines 10/29/2027 10/28/2017, 10/01/2016 , (5 - Td) 12/21/2013, Additional history exists PNEUMOCOCCAL 0-64 YEARS Aged Out No longe r eligible COMBINED SERIES based on patient 's age to complete this topic documented as of this encounter Results Not on filedocumented in this encounter Insurance Payer Benefit Plan / Subscriber ID Effective Dates Phone Addre ss Type Group [facility] [id number] xxxxxxxxx 2014-Present [phone] [address] [place] X [id number] [place] [address] documented as of this encounter
--- OUTSIDE RECORDS SUMMARY | 2020-01-08 18:19 | XMS REPORT | Summary of Care ---
:1995 Author Organization [facility] - [facility] Address [address] [place] [id number] Care Team Providers Name Role Phone Donald Coy Medicaid Hmo Keturah Lao MD Primary Care Provider MD Odalys Insurance Hmo Reason for Referral (Routine) Status Reason Specialty Diagnoses / Referred By Referred To Procedures Contact Contact New Request Diagnoses Generalized abdominal pain Umbilical hernia without obstruction and without gangrene Abnormal computed tomography of gallbladder Jose Lao [place], Procedures CONSULT/REFERRAL GENERAL SURGERY MD UMESH Rebollar [address] [place] [address] [address] [facility] [address] Jim 2.817 Phone: Skout [phone] Fax: Reason for Visit Reason Comments Follow-up ER follow up Encounter Details Date Type Department Care Team Description 12/20/2019 Telemedicine Visit [facility] Jose Lao Gene ralized abdominal pain (Primary Dx); Pediatric and Adult MD Keturah Umbilical hernia without obstruction and without gangrene; Primary Care- [address] [place] [address] D R Abnormal computed tomography of gallblad gisel [address] [address] [address], [address] [place], [place] [phone] (Fax) [phone] Allergies Active Allergy Reactions Severity Noted Date [...] as of this encounter (statuses as of 12/20/2019) Medications Medication Sig Dispensed Refills Start Date [...] as of this encounter (statuses as of 12/20/2019) Active Problems Problem Noted Date Kidney stones [...] 07/14/2013 Obesity 07/12/2013 Overview: ICD10 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 Resolved without surgery. Family history of autism 07/12/2013 Overview: FOB's 1st cousin documented as of this encounter (statuses as of 12/20/2019) Resolved Problems Problem Noted Date Resolved Date [...] 07/12/2013 07/23/19 17 Overview: External records from [facility] CC: patient thinks her water broke. 34w k . IV NS given; UA 2+ leuk; Fern test neg. Patient discharged. Nausea & vomiting 07/12/2013 11/15/2013 documented as of this encounter (statuses as of 12/20/2019) Immunizations Name Administration Dates Next Due Td [...] Signs Not on filedocumented in this encounter Patient Instructions Patient InstructionsSammie Thornton R - 12/20/2019 2:00 PM CDT Patient Education Having Laparoscopic Cholecystectomy Youve had painful attacks caused by gallstones. Because of this, you are having surgery to removeyour gallbladder. This is calledcholecystectomy.A method called laparoscopy will be used. This allows surgery to be done through a few small cuts (incisions). Possible incision sites. Before your surgery Tell your provider what medicines you take. This includes prescription medicines, xeem-pmp-mwfjkug medicines, street drugs, herbs, vitamins, and other supplements. Be sure to mention if you take prescription blood thinners. This includes warfarin, clopidogrel, ibuprofen, and aspirin. If you drink alcohol, tell your provider how much you drink.This is very important if you are aheavy drinker or have had alcohol withdrawal symptoms in the past.Alcohol withdrawal can be dangerous. But the symptoms can be safely managed if your healthcare provider knows your alcohol history. Have any tests your provider asks for, such as blood tests. Dont eat or drink after midnight the night before your surgery. This includes water, coffee, and mints. The day of surgery Your provider may have you take your normal medicine with a sip of water. Check with your provider. When you arrive, you will prepare for surgery: An IV (intravenous) line will be put into a vein in your arm or hand. This gives you fluids and medicine. An anesthesiologist will talk with you about anesthesia. This is medicine used to prevent pain. You will receive general anesthesia. This puts you into a deep sleep-like state through the procedure. During laparoscopic surgery For this surgery, a thin tube with a tiny camera is used. This is called alaparoscope. The scope sends images from inside your body to a video screen. This lets the surgeon view and work on your gallbladder: Small incisions are made in your belly (abdomen). The scope is put through one of the incisions. Surgical tools are put through other incisions. Small clips are used to close off the connection between the gallbladder and the bile duct. The gallbladder is then detached from the liver. The gallbladder is removed through one of the incisions. Bile still flows from the liver to the small intestine. When the surgery is done, all tools are removed. Incisions are closed with stitches (sutures), surgical glue, or maximino. Sometimes, a laparoscopic surgery may need to be changed to an open surgery. This method uses one large incision. This change may happen because of scar tissue, unusual anatomy, or for some other reason. After surgery You will be sent to a room to wake up from the anesthesia. You will likely go home the same day. In some cases, an overnight stay is needed. When you are released to go home, have a family member or friend ready to drive you. Risks of this surgery All surgeries have risks. The risks of gallbladder surgery include: Bleeding Infection Injury to the common bile duct or nearby organs Blood clots in the legs Bile leaks Hernia at incision site Pneumonia [employer] last reviewed this educational content on 12/05/201819997717-2403 [employer]. [address] [place], [place] [id number]. All rights reserved. This information is not intended as a substitute for professional medical care. Always follow your healthcare professional's instructions. documented in this encounter Progress Notes Jose Lao MD - 12/20/2019 2:00 PM CDT TELEHEALTH NOTE Verbal consent obtained from Patient: Tere Ponce due to the COVID-19 pandemic for telehealth services provided below. Communication with patient was conducted via Video Call. Location of Patient: Workplace Location of Provider: Office Date of Service: 12/20/2019 CC: Chief Complaint Patient presents with Follow-up ER follow up-Abdominal pain HPI Tere Ponce is a 24 year old female who participated in a Telehealth visit today for an ER follow-up. The patient presented to [facility] ER on 12/15/2019 with complaint of generalized abdominal pain. Only limited records are available (see the Care Everywhere portal). The patient underwent the following evaluations: Labs, CT of the abdomen and pelvis. The patient was told the cause of her abdominal pain was not her gallbladder but they weren't sure what was causing her pain per the patient. Treatments in the ER included: She is unsure of what treatments she was given. At discharge the patient was instructed to take the following medications: Dicyclomine. The patient was told to follow-up with a GI specialist so she has an appointment with Dr. Tong on 12/23/2019. Since the ER visit the patient has experienced the following: Her pain has not recurred but her abdomen continues to feel "sore". Allergies Allergen Reactions Egg Swelling Abreva [Docosanol] Other - See comments Worsening sx Amoxicillin Swelling Blisters in her mouth Grape Juice Unknown - See comments Pt's mother told her she was allergic to it. Unknown reactions but has not drank it. Latex Itching Milk Swelling Cow's milk Monistat 1 [Tioconazole] Swelling Current Outpatient Medications on File Prior to Visit Medication Sig Dispense Refill acetaminophen-codeine 300-30 mg tablet Take 1-2 tablets by mouth every 4 (four) hours as needed (cough). 20 tablet 0 benzonatate 100 mg capsule Take 1 capsule by mouth 3 (three) times daily as needed for Cough. 14capsule 0 ibuprofen 800 mg tablet Take 1 tablet by mouth every 8 (eight) hours. 30 tablet 0 ondansetron 4 mg disintegrating tablet Take 1 tablet by mouth every 4 (four) hours as needed forNausea and Vomiting (N/V). 20 tablet 0 okerpvpuwvgtnsw-eqguesvkmauohuc-AX (BROMFED DM) 2-30-10 mg/5 mL syrup Take 5 mL by mouth 4 (four) times daily as needed for Cold symptoms. 200 mL 0 clotrimazole 1 % topical cream Apply to area(s) at bedtime. 15 g 3 SUMAtriptan 25 mg tablet No current facility-administered medications on file prior to visit. Past Medical History: Diagnosis Date Abnormal glucose tolerance in 06/25/2016 Anemia Blood transfusion, without reported diagnosis at Boil of buttock 09/12/2016 Food allergy 05/07/2017 Heart murmur pt states was born with "flap" in the heart, closed on its own. Iron deficiency anemia 05/07/2017 Kidney stones Kidney stones Major aphthous ulceration 01/16/2017 Mixed headache 02/09/2018 Nausea/vomiting in 11/13/2016 depression 01/30/2018 Sciatic pain, right Vision problems wears glasses and contacts Past Surgical History: Procedure Laterality Date DIAGNOSTIC LAPAROSCOPY N/A 03/05/2018 Surgeon: Karoline Fuller MD; Location: [facility] OR [facility] [place] HEMORRHOIDECTOMY LAPAROSCOPIC SALPINGECTOMY Bilateral 03/05/2018 Surgeon: Karoline Fuller MD; Location: [facility] OR [facility] Family History Problem Relation Age of Onset Diabetes Sister High cholesterol Maternal Grandmother Hypertension Maternal Grandmother Arthritis Maternal Grandfather Asthma NoFHx defects NoFHx Breast Cancer NoFHx Colon Cancer NoFHx Ovarian Cancer NoFHx Uterine Cancer NoFHx Cancer NoFHx Depression NoFHx Genetic NoFHx Heart NoFHx Mental retardation NoFHx Neurological NoFHx Osteoporosis NoFHx Psychiatry NoFHx Other - see comments NoFHx Social History Socioeconomic History Marital status: Spouse name: Not on file Number of children: 1 Years of education: 12 Highest education level: Not on file Occupational History Occupation: none Social Needs Financial resource strain: Not on file Food insecurity: Worry: Not on file Inability: Not on file Transportation needs: Medical: Not on file Non-medical: Not on file Tobacco Use Smoking status: Former Smoker Smokeless tobacco: Never Used Substance and Sexual Activity Alcohol use: No Alcohol/week: 0.0 standard drinks Drug use: No Sexual activity: Yes Partners: Male control/protection: None, Surgical Comment: s/p salpingectomy Lifestyle Physical activity: Days per week: Not on file Minutes per session: Not on file Stress: Not on file Relationships Social connections: Talks on phone: Not on file Gets together: Not on file Attends gnosticism service: Not on file Active member of club or organization: Not on file Attends meetings of clubs or organizations: Not on file Relationship status: Not on file Intimate partner violence: Fear of current or ex partner: Not on file Emotionally abused: Not on file Physically abused: Not on file Forced sexual activity: Not on file Other Topics Concern Service Not Asked Blood Transfusions Yes Comment: as a baby Caffeine Concern Not Asked Occupational Exposure Not Asked Hobby Hazards Not Asked Sleep Concern Not Asked Stress Concern Not Asked Weight Concern Not Asked Special Diet Not Asked Back Care Not Asked Exercise Not Asked Bike Helmet Not Asked Seat Belt Yes Self-Exams Not Asked Social History Narrative No domestic violence or abuse Pt states she has no gnosticism preference No cats at home Review of Systems Constitutional: Negative. HENT: Negative. Eyes: Negative. Respiratory: Negative. Cardiovascular: Negative. Gastrointestinal: Positive for abdominal pain. Genitourinary: Negative. Musculoskeletal: Negative. Skin: Negative. Neurological: Negative. Psychiatric/Behavioral: Negative. Endocrine: Endocrine negative Vital signs Level of pain 2. Physical Exam Constitutional: She is oriented to person, place, and time. She appears well- developed and well-nourished. No distress. Pulmonary/Chest: Effort normal. No stridor. No respiratory distress. No audible adventitious breath sounds Neurological: She is alert and oriented to person, place, and time. Skin: No rash noted. No pallor. Psychiatric: She has a normal mood and affect. Her speech is normal and behavior is normal. Judgmentand thought content normal. Cognition and memory are normal. LABS: CBC CMP WBC x10^3 (/uL) Date Value 08/19/2014 5.7 WBC (10*3/L) Date Value 05/10/2019 7.09 NA (mmol/L) Date Value 05/10/2019 141 RBC x10^6 (/uL) Date Value 08/19/2014 4.73 RBC (10*6/L) Date Value 05/10/2019 3.92 (L) K (mmol/L) Date Value 05/10/2019 3.9 PLT x10^3 (/uL) Date Value 08/19/2014 272 PLT (10*3/L) Date Value 05/10/2019 634 (H) CALCIUM (mg/dL) Date Value 05/10/2019 9.4 HGB Date Value 05/10/2019 8.2 g/dL (L) 08/19/2014 14.0 G/DL CL (mmol/L) Date Value 05/10/2019 102 HCT (%) Date Value 05/10/2019 28.4 (L) 08/19/2014 41.2 BUN (mg/dL) Date Value 05/10/2019 8 LIPID PANEL CREATININE (mg/dL) Date Value 05/10/2019 0.70 CHOL (mg/dL) Date Value 02/21/2017 165 GLUCOSE (mg/dL) Date Value 05/10/2019 100 LDL CHOL (mg/dL) Date Value 02/21/2017 101 CO2 TOTAL (mmol/L) Date Value 05/10/2019 29 HDL (mg/dL) Date Value 02/21/2017 40 (L) ALBUMIN Date Value Ref Range Status 05/10/2019 4.2 3.5 - 5.0 g/dL Final TRIG (mg/dL) Date Value 02/21/2017 119 T PROTEIN Date Value Ref Range Status 05/10/2019 7.8 6.3 - 8.2 g/dL Final TSH TOTAL BILI Date Value Ref Range Status 05/10/2019 0.2 0.1 - 1.1 mg/dL Final TSH Date Value 01/30/2018 2.39 mIU/L 07/12/2013 2.12 uIU/mL No components found for: BILIUNCOM BILI CONJ Date Value Ref Range Status 05/10/2019 0.0 0.0 - 0.3 mg/dL Final ALT(SGPT) Date Value Ref Range Status 11/16/2017 24 9 - 51 U/L Final ALTv Date Value Ref Range Status 05/10/2019 17 5 - 35 U/L Final AST(SGOT) Date Value Ref Range Status 05/10/2019 19 13 - 40 U/L Final ALK PHOS Date Value Ref Range Status 05/10/2019 132 (H) 34 - 122 U/L Final ASSESSMENT/PLAN Diagnoses and all orders for this visit: ICD-10-CM ICD-9-CM 1. Generalized abdominal pain R10.84 789.07 2. Umbilical hernia without obstruction and without gangrene K42.9 553.1 3. Abnormal computed tomography of gallbladder (contracted gallbladder) R93.2 793.3 I reviewed the few available ER records including her CT report and I see that she was found to havea contracted gallbladder and small umbilical hernia. I explained to the patient that a contracted gallbladder can be a sign of chronic cholecystitis. Thus I recommended evaluation and management by aGeneral specialist, referral initiated. She can also f/u with GI specialist Dr. Tong as planned in case he wants her to have a HIDA scan or other evaluation. Orders: - CONSULT/REFERRAL GENERAL SURGERY Plan of care, desired health behaviors, goals, Ddx, and any prescribed medications were discussed with the patient. Education resources and self- management tools were provided in the After Visit Summary (AVS) which is accessible through [employer]. A total of 15 minutes was spent on the Video Call, chart review, and coordination of care with specialists. Patient/guardian/family verbalized understanding and agrees to the plan of care. Barriers to care: None. Ability to manage care: Good. Advanced care planning (living will) information was not given/offered to the patient to review for discussion at a future visit. If applicable, the [employer] database was accessed to review any controlled substance prescription claims data. If the patient is taking prescribed medications, the [employer] prescription claims data in Flowline was reviewed to assess patient compliance with the medication treatment plan. COVID-19 precautions given including frequent handwashing, social distancing, cleaning and disinfecting, indications for testing, etc. Follow-up: Return if symptoms worsen or fail to improve. Scribe Attestation Sammie Locke , am scribing for, and in the presence of, Jose Lao MD who performed the services described here-in. Sammie Thornton, December 20, 2019, 12:56 PM Physician Attestation Jose Locke MD, personally performed the services described in this documentation , as scribed by, Sammie Thornton in my presence and it is both accurate and complete. Jose Lao MD December 20, 2019, 12:57 PM documented in this encounter Plan of Treatment Health [...] Results Not on filedocumented in this encounter Visit Diagnoses Diagnosis Generalized abdominal pain - Primary Abdominal pain, generalized Umbilical hernia without obstruction and without gangrene Abnormal computed tomography of gallblad gisel Nonspecific (abnormal) findings on radio logical and other examination of biliary tract documented in this encounter
--- OUTSIDE RECORDS SUMMARY | 2020-01-08 18:20 | XMS REPORT | Summary of Care ---
:[address] [facility] - Health Address [address] [place] [address] Care Team Providers Name Role Phone Donald Coy Medicaid Hmo Keturah Lao MD Primary Care Provider MD Odalys Insurance Hmo Encounter Details Date Type Department Care Team Description 12/29/[address] 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 Resolved without surgery. Family history of autism 07/12/2013 Overview: FOB's 1st cousin documented as of this encounter (statuses as of 12/29/2019) Resolved Problems Problem Noted Date Resolved Date [...] 07/12/2013 07/23/19 17 Overview: External records from [facility] ER CC: patient thinks her water broke. 34w k . IV NS given; UA 2+ leuk; Fern test neg. Patient discharged. Nausea & vomiting 07/12/2013 11/15/2013 documented as of this encounter (statuses as of 12/29/2019) Immunizations Name Administration Dates Next Due TDAP 10/28/2017, 10/01/2016, 12/21/2013 Td 02/10/2008 documented as of this encounter Social History [...] this topic documented as of this encounter Procedures Procedure Name Priority Date/Time Associated Diagnosis Comme nts EXTERNAL PROVIDER Routine 12/29/2019 12:01 AM CDT RECORDS documented in this encounter Results Not on filedocumented in this encounter Insurance Payer Benefit Plan / Subscriber ID Effective Dates Phone Addre ss Type Group [id number] xxxxxxxxx 2014-Present [phone] [address] X [id number] [place] [address] documented as of this encounter
[2020-01-08] MEDS ORDERED: ONDANSETRON 4 MG (ODT) TAB ONE (20:25)
[2020-01-08] MEDS ORDERED: ACETAMINOPHEN 500 MG TAB ONE (20:25)
--- NOTE | 2020-01-08 20:25 | RAD REPORT ---
EXAM DESCRIPTION: RAD - Chest Single View - 01/08/2020 8:19 pm CLINICAL HISTORY: COUGH Chest pain. COMPARISON: Chest Pa And Lat (2 Views) dated 05/02/2019; Chest Pa And Lat (2 Views) dated 04/26/2019 FINDINGS: Portable technique limits examination quality. The lungs are grossly clear. The heart is normal in size. No displaced fractures. IMPRESSION: No acute intrathoracic process suspected.
--- NOTE | 2020-01-08 20:59 | ER ---
Nurse's Notes [facility] Name: Tere Ponce Age: 24 yrs Sex: Female : 1995 Arrival Date: 01/08/2020 Time: 18:21 Bed 14 Private MD: Diagnosis: Acute upper respiratory infection, unspecified Presentation: 01/07 19:19 Chief complaint: Patient states: fever, headache, nausea, and dizziness started yesterday. 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 Coronavirus screen: Surgical mask placed on patient. Patient moved to private room, placed in contact and droplet isolation with eye protection until further assessment. Patient denies a cough. Patient denies shortness of breath or difficulty breathing. Patient reports a measured and/or subjective temperature greater than 100.4F. Patient denies travel on a cruise ship or to a country the [facility] currently lists as an affected area. Patient reports contact with known and/or suspected case of COVID-19. Ebola Screen: No symptoms or risks identified at this time. Initial Sepsis Screen: Does the patient meet any 2 criteria? No. Patient's initial sepsis screen is negative. Does the patient have a suspected source of infection? No. Patient's initial sepsis screen is negative. Risk Assessment: Do you want to hurt yourself or someone else? Patient reports no desire to harm self or others. Onset of symptoms was January 07, 2020. 19:19 Method Of Arrival: Ambulatory 19:19 Acuity: MADELINE 3 Triage Assessment: 20:00 Pain: Also complains of nausea. Historical: - Allergies: 19:22 Abreva; 19:22 Amoxicillin; 19:22 GRAPE; 19:22 Latex, Natural Rubber; 19:22 Monistat-Derm; - Home Meds: 19:22 Bentyl 20 mg Oral tab [Active]; - PMHx: 19:22 hemmorhoids; - PSHx: 19:22 Tubal ligation; - Immunization history:: Flu vaccine is not up to date. - Social history:: Smoking status: Patient reports the use of cigarette tobacco products, smokes one-half pack cigarettes per day, Patient uses alcohol, occasionally. Screenin:23 Abuse screen: Denies threats or abuse. Nutritional screening: No deficits noted. Tuberculosis screening: No symptoms or risk factors identified. Fall Risk None identified. Assessment: 19:30 General: Appears uncomfortable, Behavior is calm, cooperative, appropriate for age. Pain: Complains of pain in face. Neuro: Level of Consciousness is awake, alert, obeys commands, Oriented to person, place, time, situation, Appropriate for age Reports dizziness, headache. Cardiovascular: Capillary refill < 3 seconds Patient's skin is warm and dry. Respiratory: Airway is patent Respiratory effort is even, unlabored. GI: Reports nausea. Derm: Skin is intact, is healthy with good turgor. Vital Signs: 19:19 BP 116 / 73; Pulse 105; Resp 20; Temp 101.1; Pulse Ox 100% ; Weight 86.18 kg; Height 5 ah ft. 3 in. (160.02 cm); 19:19 Body Mass Index 33.66 (86.18 kg, 160.02 cm) ED Course: 18:21 Patient arrived in ED. mr 18:37 Anna Marie Ruelas [facility]-C [facility]. kb 18:37 Maria Teresa Sanchez MD is Attending Physician. kb 19:19 Mari Masters, RN is Primary Nurse. 19:21 Triage completed. 20:00 Arm band placed on right wrist. 20:00 Patient has correct armband on for positive identification. Placed in gown. Bed in low ah position. Side rails up X 1. 20:00 No provider procedures requiring assistance completed. Patient did not have IV access during this emergency room visit. 20:19 Chest Single View XRAY In Process Unspecified. EDMS Administered Medications: 20:25 Drug: Tylenol 1000 mg Route: PO; 22:00 Follow up: Response: No adverse reaction 20:25 Drug: Zofran (Ondansetron) 4 mg Route: PO; 22:00 Follow up: Response: No adverse reaction Outcome: 20:58 Discharge ordered by . 21:00 Discharged to home ambulatory. 21:00 Condition: good 21:00 Discharge instructions given to patient, Instructed on discharge instructions, follow up and referral plans. Demonstrated understanding of instructions, follow-up care, medications, Prescriptions given X 1. 21:35 Patient left the ED. Addendum: 01/14/2020 11:01 Addendum: COVID-19 Result: Negative result given to RN to notify pt. Attempted to s s contact pt regarding negative COVID-19 swab results. Other: mailbox full. Signatures: Dispatcher [employer] Anna Marie Fernandez, EDGAR WYATT-Alisson Knapp mr Nelli Reagan, RN RN Mari James, DAVID RN
--- NOTE | 2020-01-08 20:59 | EDPHYS ---
Physician Documentation [facility] Name: Tere Ponce Age: 24 yrs Sex: Female : 1995 Arrival Date: 01/08/2020 Time: 18:21 Bed 14 Private MD: ED Physician Maria Teresa Sanchez HPI: 01/07 19:50 This 24 yrs old Female presents to ER via Ambulatory with complaints of kb Fever, Headache, Dizziness, Nausea. 19:50 The patient or guardian reports cough, that is intermittent, described as mild, with no kb sputum, flu symptoms, low-grade fever, myalgias. Onset: The symptoms/episode began/occurred yesterday. Severity of symptoms: At their worst the symptoms were moderate, in the emergency department the symptoms are unchanged. Modifying factors: The symptoms are alleviated by nothing, the symptoms are aggravated by nothing. Associated signs and symptoms: Pertinent positives: fever, nausea, vomiting, Pertinent negatives: chest pain, diarrhea, ear ache, rhinorrhea, sore throat. The patient has not experienced similar symptoms in the past. The patient has not recently seen a physician. Historical: - Allergies: 19:22 Abreva; 19:22 Amoxicillin; 19:22 GRAPE; 19:22 Latex, Natural Rubber; 19:22 Monistat-Derm; - Home Meds: 19:22 Bentyl 20 mg Oral tab [Active]; - PMHx: 19:22 hemmorhoids; - PSHx: 19:22 Tubal ligation; - Immunization history:: Flu vaccine is not up to date. - Social history:: Smoking status: Patient reports the use of cigarette tobacco products, smokes one-half pack cigarettes per day, Patient uses alcohol, occasionally. ROS: 19:48 ENT: Negative for injury, pain, and discharge, Cardiovascular: Negative for chest pain, kb palpitations, and edema, Back: Negative for injury and pain, MS/Extremity: Negative for injury and deformity, Skin: Negative for injury, rash, and discoloration. 19:48 Constitutional: Positive for body aches, chills, fatigue, fever, malaise. 19:48 Respiratory: Positive for cough, Negative for dyspnea on exertion, hemoptysis, orthopnea, pleurisy, shortness of breath, sputum production, wheezing. 19:48 Abdomen/GI: Positive for nausea and vomiting, Negative for abdominal pain. 19:48 Neuro: Positive for headache. Exam: 19:48 Constitutional: This is a well developed, well nourished patient who is awake, alert, kb and in no acute distress. Head/Face: Normocephalic, atraumatic. Chest/axilla: Normal chest wall appearance and motion. Nontender with no deformity. No lesions are appreciated. Cardiovascular: Regular rate and rhythm with a normal S1 and S2. No gallops, murmurs, or rubs. Normal PMI, no JVD. No pulse deficits. Respiratory: Lungs have equal breath sounds bilaterally, clear to auscultation and percussion. No rales, rhonchi or wheezes noted. No increased work of breathing, no retractions or nasal flaring. Abdomen/GI: Soft, non-tender, with normal bowel sounds. No distension or tympany. No guarding or rebound. No evidence of tenderness throughout. Skin: Warm, dry with normal turgor. Normal color with no rashes, no lesions, and no evidence of cellulitis. MS/ Extremity: Pulses equal, no cyanosis. Neurovascular intact. Full, normal range of motion. Neuro: Awake and alert, GCS 15, oriented to person, place, time, and situation. Cranial nerves II-XII grossly intact. Motor strength 5/5 in all extremities. Sensory grossly intact. Cerebellar exam normal. Normal gait. Vital Signs: 19:19 BP 116 / 73; Pulse 105; Resp 20; Temp 101.1; Pulse Ox 100% ; Weight 86.18 kg; Height 5 ah ft. 3 in. (160.02 cm); 19:19 Body Mass Index 33.66 (86.18 kg, 160.02 cm) ah MDM: 18:38 Patient medically screened. kb 19:08 Patient medically screened. kb 19:49 Data reviewed: vital signs, nurses notes. Data interpreted: Pulse oximetry: on room air kb is 100 %. Interpretation: normal. 20:57 Counseling: I had a detailed discussion with the patient and/or guardian regarding: the kb historical points, exam findings, and any diagnostic results supporting the discharge/admit diagnosis, lab results, radiology results, the need for outpatient follow up, a family practitioner, to return to the emergency department if symptoms worsen or persist or if there are any questions or concerns that arise at home. 01/07 19:46 Order name: Flu; Complete Time: 20:57 kb 01/07 19:46 Order name: COVID-19 kb 01/07 19:46 Order name: Chest Single View XRAY; Complete Time: 20:25 kb Administered Medications: 20:25 Drug: Tylenol 1000 mg Route: PO; 22:00 Follow up: Response: No adverse reaction 20:25 Drug: Zofran (Ondansetron) 4 mg Route: PO; 22:00 Follow up: Response: No adverse reaction Disposition: 01/08/20 20:58 Discharged to Home. Impression: Acute upper respiratory infection, unspecified. - Condition is Stable. - Discharge Instructions: Viral Respiratory Infection, Daho-Yn-Bgkt, COVID-19. - Prescriptions for Zofran 4 mg Oral Tablet - take 1 tablet by ORAL route every 6 hours As needed; 20 tablet. - Medication Reconciliation Form, Thank You Letter, Antibiotic Education, Prescription Opioid Use form. - Follow up: Emergency Department; When: As needed; Reason: Worsening of condition. Follow up: Private Physician; When: 2 - 3 days; Reason: Recheck today's complaints, Continuance of care, Re-evaluation by your physician. Signatures: Dispatcher [employer] Anna Marie Fernandez, FABRICATING MACHINE OPERATOR-C FABRICATING MACHINE OPERATOR-Mari Liang RN RN Corrections: (The following items were deleted from the chart) 21:35 20:58 01/08/2020 20:58 Discharged to Home. Impression: Acute upper respiratory ah infection, unspecified. Condition is Stable. Forms are Medication Reconciliation Form, Thank You Letter, Antibiotic Education, Prescription Opioid Use. Follow up: Emergency Department; When: As needed; Reason: Worsening of condition. Follow up: Private Physician; When: 2 - 3 days; Reason: Recheck today's complaints, Continuance of care, Re-evaluation by your physician. kb
[2020-01-08 21:41] VITALS: BP 116/73; TEMP 101.1; O2SAT 100
== END 2020-01-08 21:35 | disposition home or self-care (01) ==
LOC: ER 18:16
DX: J06.9 Acute upper respiratory infection, unspecified (principal); Z20.828 Contact with and (suspected) exposure to other viral communicable diseases; F17.210 Nicotine dependence, cigarettes, uncomplicated; Z88.1 Allergy status to other antibiotic agents; Z88.3 Allergy status to other anti-infective agents; Z88.8 Allergy status to other drugs, medicaments and biological substances; Z91.018 Allergy to other foods; Z91.040 Latex allergy status; Z91.048 Other nonmedicinal substance allergy status
CPT/HCPCS: 71045; 87804; 99283; U0001

== ENCOUNTER 2020-03-05 18:16 | Emergency (ER) | payer SELFPAY, OTHER ==
--- OUTSIDE RECORDS SUMMARY | 2020-03-05 18:18 | XMS REPORT | Continuity of Care Document ---
:1995 Author Organization [facility] t Address [address] [place] [address] Care Team Providers Name Role Phone Vitor CALVO Attending Clinician Problems This patient has no known problems. Allergies, Adverse Reactions, Alerts This patient has no known allergies or adverse reactions. Medications This patient has no known medications. Procedures This patient has no known procedures. Encounters Start End Encounter Admission Attending Care Care Encounter Source Date/Time Date/Time Type Type Clinicians Facility Department ID 2020-01-27 2020-01-27 Office LINDA Adler [id number] 13:18:10 13:48:10 Visit Mily Piper [id number] [place] [phone] [address] Results This patient has no known results.
--- OUTSIDE RECORDS SUMMARY | 2020-03-05 18:19 | XMS REPORT | Summary of Care ---
:1995 Author Organization [facility] Address [address] [place] [address] Care Team Providers Name Role Phone Donald Coy Medicaid Hmo Keturah Lao MD Primary Care Provider MD Odal[employer] Insurance Hmo Reason for Visit Reason Comments New Patient GALLBLADDER (Routine) Status Reason Specialty Diagnoses / Referred By Referred To Procedures Contact Contact Authorized NICOL-SURGERY / Diagnoses Generalized abdominal pain Umbilical hernia without obstruction and without gangrene Abnormal computed tomography of gallbladder Vitor Lao, Elida Procedures CONSULT/REFERRAL GENERAL SURGERY MD Mily Saenz MD [facility] [phone] [place], [place] Phone: [phone] Phone: Encounter Details Date Type Department Care Team Description 01/27/2020 Office Visit [facility] Surgical Mily Adler LU Q pain (Primary Dx); Specialties - Live landa MD Epigastric pain 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 Resolved without surgery. Family history of autism 07/12/2013 Overview: FOB's 1st cousin documented as of this encounter (statuses as of 01/27/2020) Resolved Problems Problem Noted Date Resolved Date [...] weeks gestation of 12/27/2016 01/02/20 17 Liveborn , of [place] , born in hospital by [...] 07/12/2013 07/23/19 17 Overview: External records from [facility] CC: patient thinks her water broke. 34w k . IV NS given; UA 2+ leuk; Fern test neg. Patient discharged. Nausea & vomiting 07/12/2013 11/15/2013 documented as of this encounter (statuses as of 01/27/2020) Immunizations Name Administration Dates Next Due TDAP [...] Travel End No recent travel history available. COVID-19 Exposure Response Date Recorded In the last month, have you been in contact with No / Unsure 01/27/2020 1:49 PM CDT someone who was confirmed or suspected to have Coronavirus / COVID-19? 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 Patient reports she went to the hospital in early December with severe generalized abdominal pain. She states she was tender in the RUQ at that time and hada fever to 101.3. Per chart review in Care Everywhere, she had a mild leukocytosis of [address] which demonstrated a contracted gallbladder. She says there was an ultrasound as well but we do not have these records. She says her pain slighlty improved and she was discharged. Since that time, patient reports early satiety and epigastric and left sided abdominal pain during and after eating. She reports weight loss secondary to the pain. Reports the pain is associated with nausea. Denies fever, chills, vomiting, diarrhea or change in bowel habits. Denies reflux pain. DeniesNSAID or steroid use. CURRENT MEDICATIONS Prior to Admission medications Medication Sig Start Date End Date Taking? Authorizing Provider acetaminophen-codeine 300-30 mg tablet Take 1-2 tablets by mouth every 4 (four) hours as needed (cough). 05/10/19 Anibal Baca MD benzonatate 100 mg capsule Take 1 capsule by mouth 3 (three) times daily as needed for Cough. 05/10/19 Anibal Baca MD ibuprofen 800 mg tablet Take 1 tablet by mouth every 8 (eight) hours. 05/10/19 Anibal Baca MD ondansetron 4 mg disintegrating tablet Take 1 tablet by mouth every 4 (four) hours as needed for Nausea and Vomiting (N/V). 05/10/19 Anibal Baca MD enxtgbdxgadzdgs-whurqjrbcpylmia-DZ (BROMFED DM) 2-30-10 mg/5 mL syrup Take 5 mL by mouth 4 (four) times daily as needed for Cold symptoms. 04/28/19 Susan Gutierrez PA clotrimazole 1 % topical cream Apply to area(s) at bedtime. 11/02/18 Rosalee Renteria PA-C SUMAtriptan 25 mg tablet 02/10/18 Doctor Unassigned, [place] All current in-house medications reviewed per EMR. ALLERGIES Allergies Allergen Reactions Egg Swelling Abreva [Docosanol] Other - See comments Worsening sx Amoxicillin Swelling Blisters in her mouth Grape Juice Unknown - See comments Pt's mother told her she was allergic to it. Unknown reactions but has not drank it. Latex Itching Milk Swelling Cow's milk Monistat 1 [Tioconazole] Swelling PAST SURGICAL HISTORY Past Surgical History: Procedure Laterality Date DIAGNOSTIC LAPAROSCOPY N/A 03/05/2018 Surgeon: Karoline Fuller MD; Location: [facility] OR [facility] HEMORRHOIDECTOMY LAPAROSCOPIC SALPINGECTOMY Bilateral 03/05/2018 Surgeon: Karoline Fuller MD; Location: [facility] PAST MEDICAL HISTORY Past Medical History: Diagnosis Date Abnormal glucose [...] right Vision problems wears glasses and contacts FAMILY MEDICAL HISTORY The patient has no significant family history SOCIAL HISTORY Social History Socioeconomic History Marital status: Spouse [...] file Gets together: Not on file Attends shinto service: Not on file Active member of [...] or abuse Pt states she has no shinto preference No cats at home REVIEW OF SYSTEMS Constitutional: no fever, chills HEENT: No headache, no vision changes CV: No chest pain Resp: No cough, no shortness of breath GI: + abdominal pain and nausea. No vomiting, diarrhea, constipation Neuro: No numbness, tingling Skin: No rash Endo: No heat or cold intolerance Musculoskeletal: No joint pain Heme: No easy bruising PHYSICAL EXAM (-)=Negative,(+)=Positive BP 111/77 (BP Location: Left arm, Patient Position: Sitting, BP CUFF SIZE: Adult Large) | Pulse 88| Temp 36.6 C (97.9 F) (Temporal Artery) | Resp 18 | Wt 95.8 kg (211 lb 3.2 oz) | BMI 37.41 kg/m Constitutional: alert, awake HEENT: normocephalic, no icterus, moist mucous membranes Neck: full range of motion Respiratory: breathing is clear and easy Cardio: regular rate and rhythm Abdomen: soft, non distended, mildly tender to palpation in the epigastrium and LUQ : not tested Rectal: not tested Extremities: no clubbing, cyanosis, or edema Skin: no rashes Neurologic: alert and oriented x 3 Pulses: Radial: Right- + Left- + LABORATORY/MICROBIOLOGY No results found for this or any previous visit (from the past 24 hour(s)). RADIOLOGY No results found. ASSESSMENT/PLAN Patient Active Problem List Diagnosis Obesity Congenital anomalies of the heart Family history of autism Rubella immune Immune to varicella Hemorrhoids, unspecified hemorrhoid type Abnormal glucose tolerance in Oral herpes simplex infection Hematochezia Food allergy Iron deficiency anemia GBS bacteriuria Aphthous ulcer of mouth Anemia of mother in , antepartum depression Sterilization consult Mixed headache Status post surgical removal of both fallopian tubes Kidney stones Tere Ponce is a 24 year old female who presents with postprandial epigastric pain and early satiety, concerning for possible peptic ulcer. She reports possible abnormalities on a recent abdominal U/S; we don't have the records at this time but will request them from the OSH. PLAN: - Requesting release of medical records, particularly recent abdominal ultrasound - Pending the results of this study, discussed possible HIDA to evaluate for biliary dyskinesia or cholelithiasis - Plan for EGD to evaluate for peptic ulcers Bill Randall MD PGY 2 General Surgery [phone] 01/27/2020 Attending Attestation: I personally evaluated and examined the patient on 01/27/[address] Randall's note as written. I actively participated in the decision-making process. Please see the resident's note for additional details. 24 YEAR-OLD F presents for evaluation of abdominal pain. She reports postprandial LUQ pain but RUQ pain with palpation. She was seen at [facility] ED in 12/2019 with similar c/o. WBC 11, CTscan demonstrated constipation. She stated an U/S was obtained, there is no record of one. Patient was discharged. She was seen back at [facility] ED in 01/2020 with fever and cough. She tested negative for Covid, her CXR was unremarkable. The patient reports continued LUQ postprandial pain. She denies indigestion/heartburn. She denies nausea, vomiting, diarrhea, constipation. She is a smoker. She occasionally drinks whiskey. She denies NSAID's or steroids. On exam she is mildly tender to the LUQ and epigastrum. Recommend scheduling EGD and obtaining records from [facility]. Consider HIDA scan if EGD and U/S are normal. Mily Adler M.D. 01/27/2020 15:28 Juany Parada - 01/27/2020 1:45 PM Mee Giovanni Ponce is a 24 year old female comes to clinic independent in ambulation for new patient gallbladder. Pt comes alone . Pt in NAD w/ pain reported 11/13. Pt preferred language is Turkish. Pt. denies fall in last 12 months. Allergies and medications reviewed and updated. [facility]/pharmacy #[id number] - [place], [place] - [facility] [address] [facility] Juany San 01/27/2020 1:52 PM documented in this encounter Plan of Treatment Health Maintenance Due Date Last Done Comments VARICELLA VACCINES (1 of 2 1995 - 2-dose childhood series) HPV VACCINES (1 - Female 2005 2-dose series) INFLUENZA VACCINE (#1) 2020 Depression Screening 01/26/2021 01/27/2020 PAP SMEAR 10/05/2021 10/05/2018 DTaP,Tdap,and Td Vaccines 10/29/2027 10/28/2017, 10/01/2016 , (5 - Td) 12/21/2013, Additional history exists PNEUMOCOCCAL 0-64 YEARS Aged Out No longe r eligible COMBINED SERIES based on patient 's age to complete this topic documented as of this encounter Results Not on filedocumented in this encounter Visit Diagnoses Diagnosis LUQ pain - Primary Abdominal pain, left upper quadrant Epigastric pain Abdominal pain, epigastric documented in this encounter
--- OUTSIDE RECORDS SUMMARY | 2020-03-05 18:19 | XMS REPORT | Summary of Care ---
:1995 Author Organization [facility] Address [address] [place] [address] Care Team Providers Name Role Phone Donald Coy Medicaid Hmo Keturah Lao MD Primary Care Provider MD Odalys Insurance Hmo Reason for Visit Reason Comments Appointment Assessment Encounter Details Date Type Department Care Team Description 01/17/2020 Telephone [facility] Family Jose Lao A ppointment; Medicine - Feliz CALVO Assessment [address] [place] [address] Mely [facility] [place] [phone] Allergies Active Allergy Reactions Severity Noted [...] as of this encounter (statuses as of 01/17/2020) Medications Medication Sig Dispensed Refills Start Date [...] as of this encounter (statuses as of 01/17/2020) Active Problems Problem Noted Date Kidney stones [...] 07/14/2013 Obesity 07/12/2013 Overview: ICD10 Diagnosis 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 Resolved without surgery. Family history of autism 07/12/2013 Overview: FOB's 1st cousin documented as of this encounter (statuses as of 01/17/2020) Resolved Problems Problem Noted Date Resolved Date [...] 07/12/2013 07/23/19 17 Overview: External records from [facility] ER CC: patient thinks her water broke. 34w k . IV NS given; UA 2+ leuk; Fern test neg. Patient discharged. Nausea & vomiting 07/12/2013 11/15/2013 documented as of this encounter (statuses as of 01/17/2020) Immunizations Name Administration Dates Next Due TDAP [...] filedocumented in this encounter Plan of Treatment Date Type Specialty Care Team Description 01/26/2020 Telemedicine Visit Family Medicine Jose Manuel Lao MD [address] [place], [place] [phone] 01/27/2020 Office Visit Surgery Mily Adler MD [address] [facility] [address] [place], [place] [id number] Health Maintenance Due Date Last Done Comments VARICELLA VACCINES (1 of 2 1995 - 2-dose childhood series) HPV VACCINES (1 - Female 2005 2-dose series) INFLUENZA VACCINE (#1) 2020 Depression Screening 04/28/2020 04/28/2019 PAP SMEAR 10/05/2021 [...] Effective Dates Phone Addre ss Type Group [facility] [id number]-[id number] xxxxxxxxx 2014-Present [phone] P O ALONDRA X [id number] [place] [address] documented as of this encounter
--- OUTSIDE RECORDS SUMMARY | 2020-03-05 18:19 | XMS REPORT | Summary of Care ---
:1995 Author Organization [facility] - [facility] Address [address] [place] [address] Care Team Providers Name Role Phone Donald [...] CONSULT/REFERRAL GENERAL SURGERY MD Mily Saenz MD [facility] [address] [address] [place], [place] Phone: [phone] Phone: Encounter Details Date Type Department Care Team Description 01/27/2020 Office Visit [facility] Surgical Mily Adler LU Q pain (Primary Dx); Specialties - Live landa MD Epigastric pain 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 05/10/19 Anibal Baca MD mnfvvaezodbhosi-jyxoeqvlzvjieib-BD (BROMFED DM) 2-30-10 mg/5 mL syrup Take 5 mL by mouth 4 (four) times daily as needed for Cold symptoms. 04/28/19 Susan Gutierrez PA clotrimazole 1 % topical cream Apply to area(s) at bedtime. 11/02/18 Rosalee Renteria PA-C SUMAtriptan 25 mg tablet 02/10/18 Doctor Unassigned, [place] All current in-house medications reviewed per EMR. [...] N/A 03/05/2018 Surgeon: Karoline Fuller MD; Location: [facility] OR [facility] HEMORRHOIDECTOMY LAPAROSCOPIC SALPINGECTOMY Bilateral 03/05/2018 Surgeon: Karoline Fuller MD; Location: [facility] PAST MEDICAL HISTORY Past Medical History: Diagnosis [...] file Gets together: Not on file Attends mandaen service: Not on file Active member of [...] or abuse Pt states she has no mandaen preference No cats at home REVIEW OF [...] Bill Randall MD PGY 2 General Surgery [phone] 01/27/2020 Attending Attestation: I personally evaluated and examined the patient on 01/27/[address] Randall's note as written. I actively participated in the decision-making process. Please see the resident's note for additional details. 24 YEAR-OLD F presents for evaluation of abdominal pain. She reports postprandial LUQ pain but RUQ pain with palpation. She was seen at [facility] ED in 12/2019 with similar c/o. WBC 11, CTscan demonstrated constipation. She stated an U/S was obtained, there is no record of one. Patient was discharged. She was seen back at [facility] ED in 01/2020 with fever and [...] Recommend scheduling EGD and obtaining records from [facility]. Consider HIDA scan if EGD and U/S are normal. Mily Adler M.D. 01/27/2020 15:28 Juany Parada - 01/27/2020 1:45 PM Mee Giovanni Ponce is a 24 year old female comes to clinic independent in ambulation for new patient gallbladder. Pt comes alone . Pt in NAD w/ pain reported 11/13. Pt preferred language is Danish. Pt. denies fall in last 12 months. Allergies and medications reviewed and updated. [facility]acy #[id number] - [place], [place] - [facility] [address] AT [facility] Juany San 01/27/2020 1:52 PM documented in [...]
--- OUTSIDE RECORDS SUMMARY | 2020-03-05 18:19 | XMS REPORT | Summary of Care ---
:1995 Author Organization [facility] Address [address] [place] [address] Care Team Providers Name Role Phone Donald Coy Medicaid Hmo Keturah Lao MD Primary Care Provider MD [employer] Insurance Hmo Reason for Visit Reason Comments Abdominal Pain Nausea Encounter Details Date Type Department Care Team Description 01/26/2020 Telemedicine Visit [facility] Yared Lao ed abdominal pain (Primary Dx); Pediatric and Adult Jose Rebollar MD Nausea; Primary Care- [address] [facility] Intermittent fever; Feliz LOMELI Abnormal computed tomography of gallblad gisel; [address], [place] Umbilical hernia without obstruction and without gangrene [address], [address] [id number] [place], [place] [phone] Allergies Active Allergy Reactions Severity Noted Date [...] as of this encounter (statuses as of 01/26/2020) Medications Medication Sig Dispensed Refills Start Date [...] as of this encounter (statuses as of 01/26/2020) Active Problems Problem Noted Date Kidney stones [...] 07/14/2013 Obesity 07/12/2013 Overview: ICD10 Diagnosis Term [employer] 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 Resolved without surgery. Family history of autism 07/12/2013 Overview: FOB's 1st cousin documented as of this encounter (statuses as of 01/26/2020) Resolved Problems Problem Noted Date Resolved Date [...] 07/12/2013 07/23/19 17 Overview: External records from [facility] ER CC: patient thinks her water broke. 34w k . IV NS given; UA 2+ leuk; Fern test neg. Patient discharged. Nausea & vomiting 07/12/2013 11/15/2013 documented as of this encounter (statuses as of 01/26/2020) Immunizations Name Administration Dates Next Due TDAP [...] filedocumented in this encounter Patient Instructions Patient InstructionsJose Lao MD - 01/26/2020 8:15 AM CDT Patient Education [employer] Video Sheets Symptoms of COVID-19 Infection You're not feeling well. You're worried you may be infected with the COVID-19 virus. But what are the signs? Here's what to look for. To watch the video: Scan the QR code Using your mobile device, scan the following code: OR Go to the website: www.Clctin Enter the prescription code: RQ9 2019 [employer] Patient Education Abdominal Pain Abdominal pain is pain in the stomach or belly area. Everyone has this pain from time to time. In many cases it goes away on its own. But abdominal pain can sometimes be due to a serious problem, such as appendicitis. So its important to know when to get help. Causes of abdominal pain There are many possible causes of abdominal pain. Common causes in adults include: Constipation, diarrhea, or gas Stomach acid flowing back up into the esophagus (acid reflux or heartburn) Severe acid reflux, called GERD (gastroesophageal reflux disease) A sore in the lining of the stomach or small intestine (peptic ulcer) Inflammation of the gallbladder, liver,or pancreas Gallstones or kidney stones Appendicitis Intestinal blockage An internal organ pushing through a muscle or other tissue (hernia) Urinary tract infections In women, menstrual cramps, fibroids, ovarian cysts, pelvic inflammatory disease, or endometriosis Inflammation or infection of the intestines, including Crohn's disease and ulcerative colitis Irritable bowel syndrome Diagnosing the cause of abdominal pain Your healthcare provider will give you a physical exam help find the cause of your pain. If needed, you will have tests. Belly pain has many possible causes. So it can be hard to find the reason for your pain. Giving details about your pain can help. Tell your provider where and when you feel the pain, and what makes it better or worse. Also let your provider know if you have other symptoms such as: Fever Tiredness Upset stomach (nausea) Vomiting Changes in bathroom habits Blood in the stool or black, tarry stool Weight loss that you can't explain (involuntary weight loss?) Also report any family history of stomach or intestinal problems, or cancers. Tell your provider about all your alcohol use and drug use. Tell your provider about all medicines you use, including herbs, vitamins, and supplements. Treating abdominal pain Some causes of pain need emergency medical treatment right away. These include appendicitis or a bowel blockage. Other problems can be treated with rest, fluids, or medicines. Your healthcare provider can give you specific instructions for treatment or self-care based on what is causing your pain. If you have vomiting or diarrhea,sip water or other clear fluids. When you are ready to eat solid foods again, start with small amounts of nvpc-gu-igeruv, low- fat foods. These include apple sauce, toast, or crackers. When to get medical care Call 911or go to the hospital right away if you: Cant pass stool and are vomiting Are vomiting blood or have bloody diarrhea or black, tarry diarrhea Have chest, neck, or shoulder pain Feel like you might pass out Have pain in your shoulder blades with nausea Have sudden, severe belly pain Have new, severepain unlike any you have felt before Have a belly that is rigid, hard, and hurts to touch Call your healthcare provider if you have: Pain for more pjnj1gzoo Bloating for more than 2days Diarrhea for more cpnm1jjhg A fever of 100.4F (38C) or higher, or as directed by your healthcare provider Pain that gets worse Weight loss for no reason Continued lack of appetite Blood in your stool How to prevent abdominal pain Here are some tips to help prevent abdominal pain: Eat smaller amounts of food at each meal. Don't eat greasy, fried, or other high-fat foods. Don't eat foods that give you gas. Exercise regularly. Drink plenty of fluids. To help prevent GERD symptoms: Quit smoking. Reduce alcohol and foods that increase stomach acid. Don't use aspirin or gmid-owa-fkuxrom pain and fever medicines, if possible. This includes nonsteroidal anti-inflammatory drugs (NSAIDs). Lose excess weight. Finish eating at least 2 hours before you go to bed or lie down. Raise the head of your bed. [employer]Patient[employer]inder last reviewed this educational content on 10/05/[id number] [employer]. [address] [place], [place] [id number]. All rights reserved. This information is not intended as a substitute for professional medical care. Always follow your healthcare professional's instructions. documented in this encounter Progress Notes Jose Lao MD - 01/26/2020 8:15 AM CDT TELEHEALTH NOTE Verbal consent obtained from Patient: Tere Ponce due to the COVID-19 pandemic for telehealth services provided below. Communication with patient was conducted via Video Call. Location of Patient: Home Location of Provider: Home office Date of Service: 01/26/2020 CC: Chief Complaint Patient presents with Abdominal Pain Nausea HPI Tere Ponce is a 24 year old female who participated in a Telehealth visit today for f/u of abdominal pain, fever, and questions about when she can return to work. See last visit note. Shetested negative for COVID-19 on 01/08/2020 at [facility] but her employer won't let her return to work due to recurrent fever. Of note she has an appointment with [facility] General surgery tomorrow for evaluation of her abdominal pain, abnormal gallbladder CT, and umbilical hernia. Abdominal Pain Pain location: Generalized Pain quality: aching and pressure Pain radiates to: Does not radiate Pain severity: Mild Duration: 3 weeks Timing: Intermittent Progression: Worsening (lately her pain has rebounded) Chronicity: New Context: eating Context: not alcohol use, not recent travel, not sick contacts (including no known COVID-19 + contacts), not suspicious food intake and not trauma Context comment: Her pain is usually post-prandial Relieved by: Nothing Worsened by: Eating Ineffective treatments: Acetaminophen, antacids, position changes, OTC medications and bowel activity (she says OTC acid reflux medications were not helpful at all) Associated symptoms: anorexia, fever and nausea Associated symptoms: no belching, no chest pain, no chills, no constipation, no cough, no diarrhea, no dysuria, no fatigue, no flatus, no hematemesis, no hematochezia, no hematuria, no melena, no shortness of breath, no sore throat, no vaginal bleeding, no vaginal discharge and no vomiting Risk factors: no alcohol abuse, no aspirin use, no NSAID use and not Allergies Allergen Reactions Egg Swelling Abreva [Docosanol] [...] forNausea and Vomiting (N/V). 20 tablet 0 bgsxgwjttowtfvz-frdlaskqdocjogb-HT (BROMFED DM) 2-30-10 mg/5 mL syrup Take [...] N/A 03/05/2018 Surgeon: Karoline Fuller MD; Location: [facility] OR [facility] HEMORRHOIDECTOMY LAPAROSCOPIC SALPINGECTOMY Bilateral 03/05/2018 Surgeon: Karoline Fuller MD; Location: [facility] OR Location Family History Problem Relation Age of Onset [...] file Gets together: Not on file Attends zoroastrianism service: Not on file Active member of [...] or abuse Pt states she has no zoroastrianism preference No cats at home Review of Systems Constitutional: Positive for appetite change and fever. Negative for chills and fatigue. HENT: Negative. Negative for sore throat. Eyes: Negative. Respiratory: Negative. Negative for cough and shortness of breath. Cardiovascular: Negative. Negative for chest pain. Gastrointestinal: Positive for abdominal pain, anorexia and nausea. Negative for constipation, diarrhea, flatus, hematemesis, hematochezia, melena and vomiting. Genitourinary: Negative. Negative for dysuria, hematuria, vaginal bleeding and vaginal discharge. Musculoskeletal: Negative. Skin: Negative. Neurological: Negative. Psychiatric/Behavioral: Negative. Endocrine: Endocrine negative Vital signs Level of pain 5. Physical Exam Constitutional: She is oriented to [...] 1. Generalized abdominal pain R10.84 789.07 2. Nausea R11.0 787.02 3. Intermittent fever R50.9 780.60 4. Abnormal computed tomography of gallbladder R93.2 793.3 5. Umbilical hernia without obstruction and without gangrene K42.9 553.1 She declines antiemetic medication. Her fever has been present intermittently x 3 weeks and she tested negative for COVID-19 on 01/08/20. I suspect her fever, abdominal pain, and nausea may be related to underlying gallbladder disease. A false negative COVID-19 test is another possibility but I feel this is unlikely given her lack of known contacts with the infection including those in her householdwho have not shown any symptoms. I agree with the General surgeon assessing her tomorrow F2F (if allowed by office protocol) but if she feels the patient's fever is not related to her gallbladder and is non-surgical, I recommended that she see our Tier 1 clinic for COVID-19 retesting so that her return to work situation can be clarified. She is aggreable to this plan. I will forward this note to the General surgeon as an FYI in case she has alternate instructions in regards to this patient's assessment planned for tomorrow. Strong ER precautions were given to the patient for severe pain, intractable vomiting, rectal bleeding, hematemesis, etc Plan of care, desired health behaviors, goals, Ddx, and any prescribed medications were discussed with the patient. Education resources and self- management tools were provided in the After Visit Summary (AVS) which is accessible through teextee. A total of 15 minutes was spent on the Video Call, chart review, and coordination of care with specialists. Patient/guardian/family verbalized understanding and agrees to the plan of care. Barriers to care: None. Ability to manage care: Good. Advanced care planning (living will) information was not given/offered to the patient to review for discussion at a future visit. If applicable, the [place] [employer] database was accessed to review any controlled substance prescription claims data. If the patient is taking prescribed medications, the stiQRd prescription claims data in [employer] was reviewed to assess patient compliance with the medication treatment plan. COVID-19 precautions given including frequent handwashing, social distancing, cleaning and disinfecting, indications for testing, etc. Follow-up: Return if symptoms worsen or fail to improve. Return for routine care as scheduled or previously advised. Scribe Attestation Sammie Locke , am scribing for, and in the presence of, Jose Lao MD who performed the services described here-in. Sammie Thornton, January 25, 2020, 1:50 PM Physician Attestation I, Jose Lao MD, personally performed the services described in this documentation , as scribed by, Sammie Thornton in my presence and it is both accurate and complete. Jose Lao MD January 25, 2020, 1:50 PM documented in this encounter Plan of Treatment Date Type Specialty Care Team Description 01/27/2020 Office Visit Surgery Mily Adler MD [address] [facility] [address] [place] [address] [phone] Health Maintenance Due Date Last Done Comments [...] abdominal pain - Primary Abdominal pain, generalized Nausea Nausea alone Intermittent fever Fever, unspecified Abnormal computed tomography of gallblad gisel Nonspecific (abnormal) findings on radio logical and other examination of biliary tract Umbilical hernia without obstruction and without gangrene documented in this encounter
[2020-03-05] MEDS ORDERED: BENZONATATE 100 MG CAP PO ONE ×2 (19:47→19:51)
--- NOTE | 2020-03-05 20:35 | RAD REPORT ---
EXAM DESCRIPTION: Shelley Single View03/05/2020 7:49 pm CLINICAL HISTORY: Cough COMPARISON: January 2020 FINDINGS: The lungs appear clear of acute infiltrate. The heart is normal size IMPRESSION: No acute abnormalities displayed
--- NOTE | 2020-03-05 20:51 | EDPHYS ---
Physician Documentation [facility] Name: Tere Ponce Age: 25 yrs Sex: Female : 1995 Arrival Date: 03/05/2020 Time: 18:20 Bed 24 Private MD: ED Physician Maria Teresa Sanchez HPI: 03/05 22:18 This 25 yrs old Female presents to ER via Ambulatory with complaints of kb Cough, Sore Throat, Vomiting. 22:18 The patient or guardian reports cough, that is intermittent, described as moderate, kb with no sputum. Onset: The symptoms/episode began/occurred this morning. Severity of symptoms: At their worst the symptoms were moderate, in the emergency department the symptoms are unchanged. Modifying factors: The symptoms are alleviated by nothing, the symptoms are aggravated by nothing. Associated signs and symptoms: Pertinent positives: sore throat, vomiting, Pertinent negatives: chest pain, diarrhea, ear ache, fever, nausea, rhinorrhea. The patient has not experienced similar symptoms in the past. The patient has not recently seen a physician. Pt reports she woke up with a cough and sore throat this morning. States she went to work and on her way home the cough made her vomit so she came to get checked. Denies fever. Denies nausea, states the cough causes her to gag and vomit. 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 - Social history:: Smoking status: Patient denies any tobacco usage or history of. ROS: 22:17 Constitutional: Negative for fever, chills, and weight loss, Neck: Negative for injury, kb pain, and swelling, Cardiovascular: Negative for chest pain, palpitations, and edema, Back: Negative for injury and pain, MS/Extremity: Negative for injury and deformity, Skin: Negative for injury, rash, and discoloration, Neuro: Negative for headache, weakness, numbness, tingling, and seizure. 22:17 ENT: Positive for sore throat. 22:17 Respiratory: Positive for cough, Negative for dyspnea on exertion, hemoptysis, orthopnea, pleurisy, shortness of breath, sputum production, wheezing. 22:17 Abdomen/GI: Positive for vomiting, Negative for abdominal pain, nausea. Exam: 22:18 Constitutional: This is a well developed, well nourished patient who is awake, alert, kb and in no acute distress. Head/Face: Normocephalic, atraumatic. ENT: Nares patent. No nasal discharge, no septal abnormalities noted. Tympanic membranes are normal and external auditory canals are clear. Oropharynx with no redness, swelling, or masses, exudates, or evidence of obstruction, uvula midline. Mucous membranes moist. Neck: Trachea midline, no thyromegaly or masses palpated, and no cervical lymphadenopathy. Supple, full range of motion without nuchal rigidity, or vertebral point tenderness. No Meningismus. Chest/axilla: Normal chest wall appearance and motion. Nontender with no deformity. No lesions are appreciated. Cardiovascular: Regular rate and rhythm with a normal S1 and S2. No gallops, murmurs, or rubs. Normal PMI, no JVD. No pulse deficits. Respiratory: Lungs have equal breath sounds bilaterally, clear to auscultation and percussion. No rales, rhonchi or wheezes noted. No increased work of breathing, no retractions or nasal flaring. Abdomen/GI: Soft, non-tender, with normal bowel sounds. No distension or tympany. No guarding or rebound. No evidence of tenderness throughout. Skin: Warm, dry with normal turgor. Normal color with no rashes, no lesions, and no evidence of cellulitis. MS/ Extremity: Pulses equal, no cyanosis. Neurovascular intact. Full, normal range of motion. Neuro: Awake and alert, GCS 15, oriented to person, place, time, and situation. Cranial nerves II-XII grossly intact. Motor strength 5/5 in all extremities. Sensory grossly intact. Cerebellar exam normal. Normal gait. Vital Signs: 18:37 BP 130 / 78; Pulse 86; Resp 16; Temp 99(O); Pulse Ox 99% ; Weight 99.79 kg; Height 5 sv ft. 3 in. (160.02 cm); 20:32 BP 114 / 72; Pulse 87; Resp 17; Temp 99.6; Pulse Ox 100% ; ll1 18:37 Body Mass Index 38.97 (99.79 kg, 160.02 cm) sv MDM: 19:19 Patient medically screened. kb 20:50 Data reviewed: vital signs, nurses notes. Data interpreted: Pulse oximetry: on room air kb is 100 %. Interpretation: normal. Counseling: I had a detailed discussion with the patient and/or guardian regarding: the historical points, exam findings, and any diagnostic results supporting the discharge/admit diagnosis, lab results, radiology results, the need for outpatient follow up, a family practitioner, to return to the emergency department if symptoms worsen or persist or if there are any questions or concerns that arise at home. 03/05 19:28 Order name: Strep; Complete Time: 20:20 kb 03/05 20:18 Order name: Throat Culture [facility] 03/05 19:28 Order name: Chest Single View XRAY; Complete Time: 20:50 kb Administered Medications: 19:40 Drug: Tessalon Perle 100 mg Route: PO; ll1 20:34 Follow up: Response: No adverse reaction; RASS: Alert and Calm (0) ll1 Disposition: 03/05/20 20:50 Discharged to Home. Impression: Cough. - Condition is Stable. - Discharge Instructions: Cough, Adult, Vcpk-cf-Ixpl. - Prescriptions for Tessalon Perles 100 mg Oral Capsule - take 1 capsule by ORAL route every 8 hours As needed; 15 capsule. Albuterol Sulfate 90 mcg/actuation - inhale 1-2 puff by INHALATION route every 4-6 hours; 1 Inhaler. - Medication Reconciliation Form, Thank You Letter, Antibiotic Education, Prescription Opioid Use, Work release form form. - Follow up: Private Physician; When: 2 - 3 days; Reason: Recheck today's complaints, Continuance of care, Re-evaluation by your physician. Follow up: Emergency Department; When: As needed; Reason: Worsening of condition. Signatures: Dispatcher [employer] [facility] Anna Marie Ruelas, EDGAR WYATT-Gela Martinez, RN RN Melissa Dietz RN RN ll1 Corrections: (The following items were deleted from the chart) 21:00 20:50 03/05/2020 20:50 Discharged to Home. Impression: Cough. Condition is Stable. ll1 Forms are Work release form, Medication Reconciliation Form, Thank You Letter, Antibiotic Education, Prescription Opioid Use. Follow up: Private Physician; When: 2 - 3 days; Reason: Recheck today's complaints, Continuance of care, Re-evaluation by your physician. Follow up: Emergency Department; When: As needed; Reason: Worsening of condition. kb
--- NOTE | 2020-03-05 20:51 | ER ---
Nurse's Notes [facility] Name: Tere Ponce Age: 25 yrs Sex: Female : 1995 Arrival Date: 03/05/2020 Time: 18:20 Bed 24 Private MD: Diagnosis: Cough Presentation: 03/05 18:36 Chief complaint: Patient states: sore throat, cough, vomiting started today. sv Coronavirus screen: Client denies travel out of the [place] in the last 14 days. cough unrelated to allergies, sore throat, vomiting. Ebola Screen: No symptoms or risks identified at this time. Risk Assessment: Do you want to hurt yourself or someone else? Patient reports no desire to harm self or others. Onset of symptoms was March 05, 2020. 18:36 Method Of Arrival: Ambulatory sv 18:36 Acuity: MADELINE 3 sv 18:37 Initial Sepsis Screen: Does the patient meet any 2 criteria? No. Patient's initial sv sepsis screen is negative. Does the patient have a suspected source of infection? No. Patient's initial sepsis screen is negative. Triage Assessment: 18:36 General: Appears in no apparent distress. uncomfortable, Behavior is calm, cooperative, sv appropriate for age. Pain: Complains of pain in throat. EENT: Reports pain in left aspect of posterior pharynx and right aspect of posterior pharynx when swallowing. Neuro: Level of Consciousness is awake, alert, obeys commands, Oriented to person, place, time, situation, Gait is steady, Speech is normal. Respiratory: Reports cough that is non-productive, Respiratory effort is even, unlabored. GI: Reports vomiting. 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 - Social history:: Smoking status: Patient denies any tobacco usage or history of. Screenin:36 Abuse screen: Denies threats or abuse. Nutritional screening: No deficits noted. ll1 Tuberculosis screening: No symptoms or risk factors identified. Fall Risk None identified. Total Dobbins Fall Scale indicates No Risk (0-24 pts). Assessment: 19:40 General: Appears comfortable, Behavior is calm, cooperative, appropriate for age. ll1 General:. Pain: Denies pain. Neuro: No deficits noted. Cardiovascular: No deficits noted. Respiratory: Airway is patent Trachea midline Respiratory effort is even, unlabored, Respiratory pattern is regular, symmetrical, Sputum is thin, yellow Breath sounds are clear bilaterally. GI: Abdomen is flat, Bowel sounds present X 4 quads. Abd is soft and non tender X 4 quads. Reports nausea, vomiting. : No deficits noted. EENT: Nares are clear Throat is pink bilaterally with gag reflex present, Reports nasal congestion sore throat at times today. 20:45 Reassessment: Patient and/or family updated on plan of care and expected duration. Pain ll1 level reassessed. Patient is alert, oriented x 3, equal unlabored respirations, skin warm/dry/pink. Vital Signs: 18:37 BP 130 / 78; Pulse 86; Resp 16; Temp 99(O); Pulse Ox 99% ; Weight 99.79 kg; Height 5 sv ft. 3 in. (160.02 cm); 20:32 BP 114 / 72; Pulse 87; Resp 17; Temp 99.6; Pulse Ox 100% ; ll1 18:37 Body Mass Index 38.97 (99.79 kg, 160.02 cm) sv ED Course: 18:20 Patient arrived in ED. mr 18:21 [facility]uel[facility]C [facility] kb 18:21 Maria Teresa Sanchez MD is Attending Physician. kb 18:36 Arm band placed on. sv 18:37 Triage completed. sv 19:35 Melissa Hamilton, DAVID is Primary Nurse. ll1 19:49 Chest Single View XRAY In Process Unspecified. EDMS 20:37 Patient has correct armband on for positive identification. Bed in low position. Call ll1 light in reach. Pulse ox on. NIBP on. 20:59 No provider procedures requiring assistance completed. Patient did not have IV access ll1 during this emergency room visit. Administered Medications: 19:40 Drug: Tessalon Perle 100 mg Route: PO; ll1 20:34 Follow up: Response: No adverse reaction; RASS: Alert and Calm (0) ll1 Outcome: 20:50 Discharge ordered by . gautam 20:59 Discharged to home ambulatory. ll1 20:59 Condition: stable 20:59 Discharge instructions given to patient, Instructed on discharge instructions, follow up and referral plans. medication usage, Demonstrated understanding of instructions, follow-up care, medications, Prescriptions given X 2. 21:00 Patient left the ED. ll1 Signatures: Dispatcher [employer] EDMS Anna Marie Ruelas, EDGAR LOGISTICS SUPERVISOR-Gela Martinez, RN RN Alisson Hernadez Lynsay, RN RN 1
[2020-03-08 23:34] VITALS: BP 114/72; TEMP 99.6; O2SAT 100
== END 2020-03-05 21:00 | disposition home or self-care (01) ==
LOC: ER 18:16
DX: R05 Cough (principal); Z88.1 Allergy status to other antibiotic agents; Z88.8 Allergy status to other drugs, medicaments and biological substances; Z91.018 Allergy to other foods; Z91.040 Latex allergy status
CPT/HCPCS: 71045; 87070; 87081; 99284

== ENCOUNTER 2020-05-10 06:16 | Emergency (ER) | payer SELFPAY ==
--- OUTSIDE RECORDS SUMMARY | 2020-05-10 06:19 | XMS REPORT | Continuity of Care Document ---
:1995 Author Organization [facility] t Address [address] [place] [address] Care Team Providers Name Role Phone Vitor [...] Department ID 2020-01-27 2020-01-27 Office LINDA Adler [id number] 13:18:10 13:48:10 Visit Mily Piper [id number] [place] [id number] [facility] [phone] [address] Results This patient has no known results.
--- NOTE | 2020-05-10 06:45 | EDPHYS ---
Physician Documentation [facility] Name: Tere Ponce Age: 25 yrs Sex: Female : 1995 Arrival Date: 05/10/2020 Time: 06:18 Bed 6 Private MD: ED Physician Yuan St HPI: 05/10 06:42 This 25 yrs old Female presents to ER via Ambulatory with complaints of rn Vaginal Pain. 06:42 The patient presents with vaginal discharge, patient has many times. rn 06:42 Onset: The symptoms/episode began/occurred at an unknown time. Modifying factors: The rn symptoms are alleviated by nothing, the symptoms are aggravated by nothing. Severity of symptoms: At their worst the symptoms were mild, in the emergency department the symptoms are unchanged. The patient has experienced similar episodes in the past. The patient has not recently seen a physician. Reports hx of recurrent yeast and/or bacterial vaginal infections, no recent abx, no trauma, no bleeding , reports itchy and white discharge. No fever. No concern for STI. Denies . No abd pain.. 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 - Social history:: Smoking status: Patient reports the use of cigarette tobacco products, denies chronic smoking, but will smoke occasionally. - Family history:: not pertinent. - Hospitalizations: : No recent hospitalization is reported. ROS: 06:42 Constitutional: Negative for fever, chills, and weight loss, Abdomen/GI: Negative for rn abdominal pain, nausea, vomiting, diarrhea, and constipation, : + vaginal discharge Exam: 06:42 Constitutional: This is a well developed, well nourished patient who is awake, alert, rn and in no acute distress. Ambulatory to room. Abdomen/GI: soft, non-tender Skin: Warm, dry with normal turgor. Normal color with no rashes, no lesions, and no evidence of cellulitis. Vital Signs: 06:28 BP 113 / 71; Pulse 75; Resp 18; Temp 98.2; Pulse Ox 100% ; Weight 86.18 kg; Height 5 wh ft. 3 in. (160.02 cm); 06:28 Body Mass Index 33.66 (86.18 kg, 160.02 cm) MDM: 06:20 Patient medically screened. rn 06:42 Differential diagnosis: vaginosis, yeast infection. Data reviewed: vital signs, nurses rn notes, and as a result, I will discharge patient. Counseling: I had a detailed discussion with the patient and/or guardian regarding: the historical points, exam findings, and any diagnostic results supporting the discharge/admit diagnosis, the need for outpatient follow up, to return to the emergency department if symptoms worsen or persist or if there are any questions or concerns that arise at home. Special discussion: I discussed with the patient/guardian in detail that at this point there is no indication for admission to the hospital. It is understood, however, that if the symptoms persist or worsen the patient needs to return immediately for re-evaluation. Administered Medications: 07:04 Drug: DiFLUcan 150 mg Route: PO; 07:06 Follow up: Response: No adverse reaction Disposition: 05/10/20 06:45 Discharged to Home. Impression: Vaginitis, vulvitis and vulvovaginitis in diseases classified elsewhere. - Condition is Stable. - Discharge Instructions: Vaginitis, Form - Return To Work. - Prescriptions for Flagyl 500 mg Oral Tablet - take 1 tablet by ORAL route every 12 hours for 7 days; 14 tablet. Fluconazole 150 mg Oral Tablet - take 1 tablet by ORAL route once daily; 3 tablet. - Medication Reconciliation Form, Thank You Letter, Antibiotic Education, Prescription Opioid Use, Work release form form. - Follow up: Private Physician; When: As needed; Reason: Recheck today's complaints, Re-evaluation by your physician. - Problem is new. - Symptoms are unchanged. Signatures: Yuan St MD MD rn Habalo, Winsy Corrections: (The following items were deleted from the chart) 07:07 06:45 05/10/2020 06:45 Discharged to Home. Impression: Vaginitis, vulvitis and wh vulvovaginitis in diseases classified elsewhere. Condition is Stable. Forms are Medication Reconciliation Form, Thank You Letter, Antibiotic Education, Prescription Opioid Use. Follow up: Private Physician; When: As needed; Reason: Recheck today's complaints, Re-evaluation by your physician. Problem is new. Symptoms are unchanged. rn
--- NOTE | 2020-05-10 06:45 | ER ---
Nurse's Notes [facility] Name: Tere Ponce Age: 25 yrs Sex: Female : 1995 Arrival Date: 05/10/2020 Time: 06:18 Bed 6 Private MD: Diagnosis: Vaginitis, vulvitis and vulvovaginitis in diseases classified elsewhere Presentation: 05/10 06:28 Chief complaint: Patient states: with Hx of Bacterial or yeast infection unsure which. wh Had started having symptoms again used last medicine she was prescribed now C/O vaginal pain. Coronavirus screen: Client denies travel out of the [place] in the last 14 days. At this time, the client does not indicate any symptoms associated with coronavirus-19. Ebola Screen: Patient negative for fever greater than or equal to 101.5 degrees Fahrenheit, and additional compatible Ebola Virus Disease symptoms Patient denies exposure to infectious person. Initial Sepsis Screen: Does the patient meet any 2 criteria? No. Patient's initial sepsis screen is negative. Does the patient have a suspected source of infection? No. Patient's initial sepsis screen is negative. Risk Assessment: Do you want to hurt yourself or someone else? Patient reports no desire to harm self or others. Onset of symptoms was May 10, 2020. 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 - Social history:: Smoking status: Patient reports the use of cigarette tobacco products, denies chronic smoking, but will smoke occasionally. - Family history:: not pertinent. - Hospitalizations: : No recent hospitalization is reported. Screenin:32 Abuse screen: Denies threats or abuse. Denies injuries from another. Nutritional screening: No deficits noted. Tuberculosis screening: No symptoms or risk factors identified. Fall Risk None identified. Assessment: 06:31 General: Appears in no apparent distress. Behavior is calm, cooperative, appropriate for age. Pain: Complains of pain in vaginal pain. Neuro: Level of Consciousness is awake, alert, obeys commands, Oriented to person, place, time, situation, Appropriate for age. Cardiovascular: Capillary refill < 3 seconds. Respiratory: Airway is patent Respiratory effort is even, unlabored, Respiratory pattern is regular, symmetrical. GI: Abdomen is flat, non-distended, Abd is soft and non tender X 4 quads. : Reports discharge, white, pain vaginal itching. EENT: No signs and/or symptoms were reported regarding the EENT system. Derm: Skin is intact, is healthy with good turgor, Skin is pink, warm \T\ dry. normal. Musculoskeletal: Circulation, motion, and sensation intact. Vital Signs: 06:28 BP 113 / 71; Pulse 75; Resp 18; Temp 98.2; Pulse Ox 100% ; Weight 86.18 kg; Height 5 wh ft. 3 in. (160.02 cm); 06:28 Body Mass Index 33.66 (86.18 kg, 160.02 cm) ED Course: 06:18 Patient arrived in ED. cl3 06:[address] MD is Attending Physician. rn 06:28 Romelia Hair is Primary Nurse. 06:30 Triage completed. 06:32 Arm band placed on right wrist. 06:33 Patient has correct armband on for positive identification. Bed in low position. Call light in reach. Side rails up X 1. Pulse ox on. NIBP on. 07:06 No provider procedures requiring assistance completed. Patient did not have IV access during this emergency room visit. Administered Medications: 07:04 Drug: DiFLUcan 150 mg Route: PO; 07:06 Follow up: Response: No adverse reaction Outcome: 06:45 Discharge ordered by . rn 07:06 Discharged to home ambulatory. 07:06 Condition: stable 07:06 Discharge instructions given to patient, Instructed on discharge instructions, follow up and referral plans. medication usage, POC Demonstrated understanding of instructions, follow-up care, medications, POC Prescriptions given X 2. 07:07 Patient left the ED. Signatures: Yuan St MD MD rn Habalo, Winsy Jaelyn Hamilton cl3
[2020-05-10] MEDS ORDERED: FLUCONAZOLE 100 MG TAB ONE (07:08)
[2020-05-10 07:22] VITALS: BP 113/71; TEMP 98.2; O2SAT 100
== END 2020-05-10 07:07 | disposition home or self-care (01) ==
LOC: ER 06:16
DX: N77.1 Vaginitis, vulvitis and vulvovaginitis in diseases classified elsewhere (principal); Z72.0 Tobacco use; Z88.1 Allergy status to other antibiotic agents; Z88.8 Allergy status to other drugs, medicaments and biological substances; Z91.018 Allergy to other foods; Z91.040 Latex allergy status; Z91.048 Other nonmedicinal substance allergy status
CPT/HCPCS: 99283

== ENCOUNTER 2020-11-08 07:59 | Emergency (ER) | payer SELFPAY ==
--- OUTSIDE RECORDS SUMMARY | 2020-11-08 08:03 | XMS REPORT | Continuity of Care Document ---
:1995 Author Organization [facility] t Address [address] [place] [address] Care Team Providers Name Role Phone Bob Gupta DO Attending Clinician 2, Lab Attending Clinician Unavailable Myra FORREST Attending Clinician Problems This patient has no known problems. Allergies, Adverse Reactions, Alerts This patient has no known allergies or adverse reactions. Medications This patient has no known medications. Procedures This patient has no known procedures. Encounters Start End Encounter Admission Attending Care Care Encounter Source Date/Time Date/Time Type Type Clinicians Facility Department ID 2020-09-26 2020-09-26 Patient Alonso [facility] [id number] 00:00:00 00:00:00 Outreach [facility] [id number] Bob [facility] [id number] PAVJORGE L [id number] 2020-07-20 2020-07-20 Python Programmer 2, [facility] [id number] 08:40:47 08:55:47 Visit Feliz [id number] [place] [id number] Maria Victoria [phone] [address] 2020-07-20 2020-07-20 Case Myra [facility] [id number] 00:00:00 00:00:00 Management Rosalee Piper [id number] [place] [id number] Professio [phone] [facility] [address] 2020-07-18 2020-07-18 Office LINDA Renteria [id number] 10:28:30 11:40:28 Visit Rosalee Piper [id number] [place] [id number] [facility] [phone] [address] Results This patient has no known results.
--- NOTE | 2020-11-08 10:09 | ER ---
Nurse's Notes [facility] Name: Tere Ponce Age: 25 yrs Sex: Female : 1995 Arrival Date: 11/08/2020 Time: 08:02 Bed 12 Private MD: Diagnosis: Acute tonsillitis;Acute pharyngitis Presentation: 11/08 08:15 Chief complaint: Patient states: sore throat that began 3 days ago. Coronavirus screen: aa5 sore throat. Ebola Screen: Patient negative for fever greater than or equal to 101.5 degrees Fahrenheit, and additional compatible Ebola Virus Disease symptoms. Initial Sepsis Screen: Does the patient meet any 2 criteria? HR > 90 bpm. Does the patient have a suspected source of infection? No. Patient's initial sepsis screen is negative. Risk Assessment: Do you want to hurt yourself or someone else? Patient reports no desire to harm self or others. Onset of symptoms was November 08, 2020. 08:15 Method Of Arrival: Ambulatory aa5 08:15 Acuity: MADELINE 4 aa5 Historical: - Allergies: 08:15 Abreva; aa5 08:15 Amoxicillin; aa5 08:15 GRAPE; aa5 08:15 Latex, Natural Rubber; aa5 08:15 Monistat-Derm; aa5 - PMHx: 08:15 hemmorhoids; aa5 - PSHx: 08:15 Tubal ligation; aa5 - Immunization history:: Flu vaccine is not up to date. - Social history:: Smoking status: Patient denies any tobacco usage or history of. - Family history:: not pertinent. Screenin:20 Abuse screen: Denies threats or abuse. Nutritional screening: No deficits noted. aa5 Tuberculosis screening: No symptoms or risk factors identified. Fall Risk None identified. Assessment: 08:20 General: Appears uncomfortable, Behavior is calm, cooperative. Pain: Complains of pain aa5 in throat. Neuro: Level of Consciousness is awake, alert, obeys commands, Oriented to person, place, time, situation. Cardiovascular: Patient's skin is warm and dry. Respiratory: Airway is patent Respiratory effort is even, unlabored, Respiratory pattern is regular, symmetrical. GI: Abdomen is round. : No signs and/or symptoms were reported regarding the genitourinary system. EENT: Throat is reddened has enlarged tonsils bilaterally. Derm: Skin is pink, warm \T\ dry. Musculoskeletal: Range of motion: intact in all extremities. 09:00 Reassessment: Patient is alert, oriented x 3, equal unlabored respirations, skin aa5 warm/dry/pink. Pt refused COVID-19 swab . 10:14 Reassessment: Patient is alert, oriented x 3, equal unlabored respirations, skin aa5 warm/dry/pink. 10:28 Reassessment: Patient is alert, oriented x 3, equal unlabored respirations, skin aa5 warm/dry/pink. Vital Signs: 08:15 BP 130 / 81; Pulse 115; Resp 18 S; Temp 99.1(TE); Pulse Ox 99% on R/A; aa5 ED Course: 08:02 Patient arrived in ED. as 08:15 Arm band placed on. aa5 08:15 Patient has correct armband on for positive identification. aa5 08:16 Triage completed. aa5 08:24 Surinder Nieves MD is Attending Physician. kaylin 08:48 Lucille Robertson, RN is Primary Nurse. aa5 09:00 Strep swab sent to lab. aa5 10:28 No provider procedures requiring assistance completed. Patient did not have IV access aa5 during this emergency room visit. Administered Medications: 10:14 Drug: Decadron (dexamethasone) 10 mg Route: IM; Site: right deltoid; aa5 10:28 Follow up: Response: No adverse reaction aa5 10:14 Drug: Zithromax (azithromycin) 500 mg Route: PO; aa5 10:28 Follow up: Response: No adverse reaction aa5 Outcome: 10:08 Discharge ordered by . kaylin 10:28 Discharged to home ambulatory. aa5 10:28 Condition: stable 10:28 Discharge instructions given to patient, Instructed on discharge instructions, follow up and referral plans. medication usage, Demonstrated understanding of instructions, follow-up care, medications, Prescriptions given X 2. 10:31 Patient left the ED. aa5 Signatures: Surinder Nieves MD MD cha Martinez, Amelia as Calderon, Audri, RN RN aa5
--- NOTE | 2020-11-08 10:09 | EDPHYS ---
Physician Documentation [facility] Name: Tere Ponce Age: 25 yrs Sex: Female : 1995 Arrival Date: 11/08/2020 Time: 08:02 Bed 12 Private MD: ED Physician Surinder Nieves HPI: 11/08 10:02 This 25 yrs old Female presents to ER via Ambulatory with complaints of Sore kaylin Throat. 10:02 The patient presents with sore throat. The patient describes throat pain as burning, kaylin constant. Onset: The symptoms/episode began/occurred 2 day(s) ago. Severity of symptoms: At their worst the symptoms were mild, in the emergency department the symptoms are unchanged. Modifying factors: The symptoms are alleviated by nothing, the symptoms are aggravated by nothing. Associated signs and symptoms: Pertinent positives: nausea. The patient has not experienced similar symptoms in the past. Historical: - Allergies: 08:15 Abreva; aa5 08:15 Amoxicillin; aa5 08:15 GRAPE; aa5 08:15 Latex, Natural Rubber; aa5 08:15 Monistat-Derm; aa5 - PMHx: 08:15 hemmorhoids; aa5 - PSHx: 08:15 Tubal ligation; aa5 - Immunization history:: Flu vaccine is not up to date. - Social history:: Smoking status: Patient denies any tobacco usage or history of. - Family history:: not pertinent. ROS: 10:02 Constitutional: Negative for fever, chills, and weight loss, Eyes: Negative for injury, kaylin pain, redness, and discharge, Neck: Negative for injury, pain, and swelling, Cardiovascular: Negative for chest pain, palpitations, and edema, Respiratory: Negative for shortness of breath, cough, wheezing, and pleuritic chest pain, Abdomen/GI: Negative for abdominal pain, nausea, vomiting, diarrhea, and constipation, Back: Negative for injury and pain, : Negative for injury, bleeding, discharge, and swelling, MS/Extremity: Negative for injury and deformity, Skin: Negative for injury, rash, and discoloration, Neuro: Negative for headache, weakness, numbness, tingling, and seizure, Psych: Negative for depression, anxiety, suicide ideation, homicidal ideation, and hallucinations, Allergy/Immunology: Negative for hives, rash, and allergies, Endocrine: Negative for neck swelling, polydipsia, polyuria, polyphagia, and marked weight changes, Hematologic/Lymphatic: Negative for swollen nodes, abnormal bleeding, and unusual bruising. 10:02 ENT: Positive for sore throat. Exam: 10:02 Constitutional: This is a well developed, well nourished patient who is awake, alert, kaylin and in no acute distress. Head/Face: Normocephalic, atraumatic. Eyes: Pupils equal round and reactive to light, extra-ocular motions intact. Lids and lashes normal. Conjunctiva and sclera are non-icteric and not injected. Cornea within normal limits. Periorbital areas with no swelling, redness, or edema. Neck: Trachea midline, no thyromegaly or masses palpated, and no cervical lymphadenopathy. Supple, full range of motion without nuchal rigidity, or vertebral point tenderness. No Meningismus. Chest/axilla: Normal chest wall appearance and motion. Nontender with no deformity. No lesions are appreciated. Cardiovascular: Regular rate and rhythm with a normal S1 and S2. No gallops, murmurs, or rubs. Normal PMI, no JVD. No pulse deficits. Respiratory: Lungs have equal breath sounds bilaterally, clear to auscultation and percussion. No rales, rhonchi or wheezes noted. No increased work of breathing, no retractions or nasal flaring. Abdomen/GI: Soft, non-tender, with normal bowel sounds. No distension or tympany. No guarding or rebound. No evidence of tenderness throughout. Back: No spinal tenderness. No costovertebral tenderness. Full range of motion. Skin: Warm, dry with normal turgor. Normal color with no rashes, no lesions, and no evidence of cellulitis. MS/ Extremity: Pulses equal, no cyanosis. Neurovascular intact. Full, normal range of motion. Neuro: Awake and alert, GCS 15, oriented to person, place, time, and situation. Cranial nerves II-XII grossly intact. Motor strength 5/5 in all extremities. Sensory grossly intact. Cerebellar exam normal. Normal gait. Psych: Awake, alert, with orientation to person, place and time. Behavior, mood, and affect are within normal limits. 10:02 ENT: Posterior pharynx: Tonsils: bilaterally enlarged, with erythema, with exudate, Uvula: midline, edematous, erythema, swelling, that is mild, erythema, that is mild, exudate, that is mild, peritonsillar mass, is not appreciated, pooling of secretions, is not appreciated. Vital Signs: 08:15 BP 130 / 81; Pulse 115; Resp 18 S; Temp 99.1(TE); Pulse Ox 99% on R/A; aa5 MDM: 08:24 Patient medically screened. [facility] 10:06 Differential diagnosis: cocksackie virus, echovirus infection, group A strep kaylin tonsillitis, influenza, peritonsillar abscess pharyngitis, tonsillitis, upper respiratory infection, uvulitis. Data reviewed: vital signs, nurses notes, lab test result(s). Data interpreted: part maker: rate is 115 beats/min, rhythm is regular, Pulse oximetry: on room air is 99 %. Test interpretation: by ED physician or midlevel provider:. Counseling: I had a detailed discussion with the patient and/or guardian regarding: the historical points, exam findings, and any diagnostic results supporting the discharge/admit diagnosis, lab results, the need for outpatient follow up, for definitive care, a family practitioner. 11/08 08:41 Order name: Strep aa5 11/08 10:00 Order name: Throat Culture [facility] 11/08 10:02 Order name: PO challenge; Complete Time: 10:14 [facility] Administered Medications: 10:14 Drug: Decadron (dexamethasone) 10 mg Route: IM; Site: right deltoid; aa5 10:28 Follow up: Response: No adverse reaction [facility] 10:14 Drug: Zithromax (azithromycin) 500 mg Route: PO; aa5 10:28 Follow up: Response: No adverse reaction aa5 Disposition: 11/08/20 10:08 Discharged to Home. Impression: Acute tonsillitis, Acute pharyngitis. - Condition is Stable. - Discharge Instructions: Pharyngitis, Tonsillitis, Tonsillitis, Alzu-sk-Rjjd, Pharyngitis, Ipcs-xe-Ahof, Sore Throat, Zwjc-ix-Aufl. - Prescriptions for dexamethasone 2 mg Oral tablet - take 1 tablet by ORAL route 2 times per day; 6 tablet. Zithromax 500 mg Oral Tablet - take 1 tablet by ORAL route once daily for 4 days; 4 tablet. - Medication Reconciliation Form, Thank You Letter, Antibiotic Education, Prescription Opioid Use form. - Follow up: Private Physician; When: 2 - 3 days; Reason: Recheck today's complaints, Continuance of care, Re-evaluation by your physician. - Problem is new. - Symptoms have improved. Signatures: Dispatcher [employer] EDDC Surinder Nieves MD MD cha Calderon, Audri, RN RN aa5 Corrections: (The following items were deleted from the chart) 10:31 10:08 11/08/2020 10:08 Discharged to Home. Impression: Acute tonsillitis; Acute aa5 pharyngitis. Condition is Stable. Forms are Medication Reconciliation Form, Thank You Letter, Antibiotic Education, Prescription Opioid Use. Follow up: Private Physician; When: 2 - 3 days; Reason: Recheck today's complaints, Continuance of care, Re-evaluation by your physician. Problem is new. Symptoms have improved. kaylin
[2020-11-08] MEDS ORDERED: dexAMETHasone 10 MG/ML VIAL ONE (10:27)
[2020-11-08] MEDS ORDERED: AZITHROMYCIN 250 MG TAB ONE (10:27)
[2020-11-08 10:36] VITALS: BP 130/81; TEMP 99.1; O2SAT 99
== END 2020-11-08 10:31 | disposition home or self-care (01) ==
LOC: ER 07:59
DX: J03.90 Acute tonsillitis, unspecified (principal); Z88.1 Allergy status to other antibiotic agents; Z88.4 Allergy status to anesthetic agent; Z91.018 Allergy to other foods; Z91.040 Latex allergy status; Z91.048 Other nonmedicinal substance allergy status
CPT/HCPCS: 87070; 87081; 96372; 99283; J1100

== ENCOUNTER 2021-01-19 07:56 | Emergency (ER) | payer SELFPAY ==
--- OUTSIDE RECORDS SUMMARY | 2021-01-19 07:59 | XMS REPORT | Continuity of Care Document ---
:1995 Author Organization [facility] t Address [address] [place] [address] Care Team Providers Name Role Phone Bob [...] Facility Department ID 2020-09-26 2020-09-26 Patient Alonso [facility] [id number] 00:00:00 00:00:00 Outreach [facility] [id number] Bob [facility] [id number] PAVJORGE L [phone] [id number] 2020-07-20 2020-07-20 Manager Loan 2, [facility] [id number] 08:40:47 08:55:47 Visit Feliz [id number] Nikunj [id number] Maria Victoria [phone] [address] 2020-07-20 2020-07-20 Case Myra [facility] [id number] 00:00:00 00:00:00 Management Rosalee Piper [id number] Nikunj [id number] Professio [phone] [facility] [address] 2020-07-18 2020-07-18 Office LINDA Renterai [id number] 10:28:30 11:40:28 Visit Rosalee Piper [id number] Nikunj [id number] [facility] [phone] [address] Results This patient has no known results.
--- NOTE | 2021-01-19 08:31 | ER ---
Nurse's Notes [facility] Name: Tere Ponce Age: 25 yrs Sex: Female : 1995 Arrival Date: 01/19/2021 Time: 08:01 Bed 12 Private MD: Jose Lao Diagnosis: Acute tonsillitis, unspecified Presentation: 01/19 08:09 Chief complaint: Patient states: sore throat since last night, right ear pain this iw morning, subjective fever. Coronavirus screen: fever, sore throat. Ebola Screen: Patient negative for fever greater than or equal to 101.5 degrees Fahrenheit, and additional compatible Ebola Virus Disease symptoms Patient denies exposure to infectious person. Patient denies travel to an Ebola-affected area in the 21 days before illness onset. No symptoms or risks identified at this time. Initial Sepsis Screen: Does the patient meet any 2 criteria? No. Patient's initial sepsis screen is negative. Does the patient have a suspected source of infection? No. Patient's initial sepsis screen is negative. Risk Assessment: Do you want to hurt yourself or someone else? Patient reports no desire to harm self or others. Onset of symptoms was January 18, 2021. 08:09 Method Of Arrival: Ambulatory iw 08:09 Acuity: MADELINE 4 iw Triage Assessment: 08:10 General: Appears in no apparent distress. Behavior is calm, cooperative. EENT: Throat iw is reddened. 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 - Social history:: Smoking status: Patient denies any tobacco usage or history of. Screenin:37 Abuse screen: Denies threats or abuse. Denies injuries from another. Nutritional iw screening: No deficits noted. On. Tuberculosis screening: No symptoms or risk factors identified. Fall Risk None identified. Assessment: 08:10 General: Appears in no apparent distress. comfortable, Behavior is calm, cooperative. iw Pain: Complains of pain in throat. Neuro: Level of Consciousness is Oriented to person, place, time, situation. 08:10 Cardiovascular: Patient's skin is warm and dry. Respiratory: Airway is patent iw Respiratory effort is even, unlabored, Breath sounds are clear bilaterally. GI: Abdomen is non-distended. EENT: Throat is reddened. Derm: Skin is intact, is healthy with good turgor. Musculoskeletal: Range of motion: intact in all extremities. 08:10 EENT: iw Vital Signs: 08:09 BP 121 / 67; Pulse 96; Resp 16; Temp 99.2; Pulse Ox 98% ; Weight 99.79 kg; Height 5 ft. iw 3 in. (160.02 cm); 08:09 Body Mass Index 38.97 (99.79 kg, 160.02 cm) iw ED Course: 08:01 Patient arrived in ED. ds1 08:01 Jose Lao is Private Physician. ds1 08:09 Mavis Andre RN is Primary Nurse. iw 08:10 Triage completed. iw 08:10 Patient has correct armband on for positive identification. iw 08:11 Arm band placed on. iw 08:13 Maxi Wilson PA is PHCP. jr8 08:13 River Duncan MD is Attending Physician. jr8 08:30 Jose Lao is Referral Physician. jr8 08:37 No provider procedures requiring assistance completed. Patient did not have IV access iw during this emergency room visit. Administered Medications: No medications were administered Outcome: 08:31 Discharge ordered by . jr8 08:37 Discharged to home ambulatory. iw 08:37 Condition: good 08:37 Discharge instructions given to patient, Instructed on discharge instructions, follow up and referral plans. medication usage, Demonstrated understanding of instructions, follow-up care, medications, Prescriptions given X 2. 08:38 Patient left the ED. iw Signatures: Gris Stevens ds1 Mavis Andre RN RN iw Maxi Wilson PA PA jr8 Corrections: (The following items were deleted from the chart) 10:09 08:10 Neuro: Level of Consciousness is Oriented to person, place, time, situation, iw iw
--- NOTE | 2021-01-19 08:32 | EDPHYS ---
Physician Documentation [facility] Name: Tere Ponce Age: 25 yrs Sex: Female : 1995 Arrival Date: 01/19/2021 Time: 08:01 Bed 12 Private MD: Jose Lao ED Physician River Duncan HPI: 01/19 08:32 This 25 yrs old Female presents to ER via Ambulatory with complaints of Sore jr8 Throat, Ear Pain. 08:32 The patient presents with sore throat. The patient describes throat pain as constant. jr8 Onset: The symptoms/episode began/occurred acutely, yesterday. Severity of symptoms: At their worst the symptoms were moderate, in the emergency department the symptoms are unchanged. Modifying factors: The symptoms are alleviated by nothing, the symptoms are aggravated by swallowing. Associated signs and symptoms: Pertinent positives: earache. The patient has experienced similar episodes in the past, several times. The patient has not recently seen a physician. 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 - Social history:: Smoking status: Patient denies any tobacco usage or history of. ROS: 08:32 Eyes: Negative for injury, pain, redness, and discharge, Neck: Negative for injury, jr8 pain, and swelling, Cardiovascular: Negative for chest pain, palpitations, and edema, Respiratory: Negative for shortness of breath, cough, wheezing, and pleuritic chest pain, Abdomen/GI: Negative for abdominal pain, nausea, vomiting, diarrhea, and constipation, Back: Negative for injury and pain, MS/Extremity: Negative for injury and deformity, Skin: Negative for injury, rash, and discoloration, Neuro: Negative for headache, weakness, numbness, tingling, and seizure. 08:32 ENT: Positive for ear pain, sore throat. Exam: 08:32 Constitutional: This is a well developed, well nourished patient who is awake, alert, jr8 and in no acute distress. Eyes: Pupils equal round and reactive to light, extra-ocular motions intact. Lids and lashes normal. Conjunctiva and sclera are non-icteric and not injected. Cornea within normal limits. Periorbital areas with no swelling, redness, or edema. Neck: Trachea midline, no thyromegaly or masses palpated, and no cervical lymphadenopathy. Supple, full range of motion without nuchal rigidity, or vertebral point tenderness. No Meningismus. Cardiovascular: Regular rate and rhythm with a normal S1 and S2. No gallops, murmurs, or rubs. Normal PMI, no JVD. No pulse deficits. Respiratory: Lungs have equal breath sounds bilaterally, clear to auscultation and percussion. No rales, rhonchi or wheezes noted. No increased work of breathing, no retractions or nasal flaring. Abdomen/GI: Soft, non-tender, with normal bowel sounds. No distension or tympany. No guarding or rebound. No evidence of tenderness throughout. Skin: Warm, dry with normal turgor. Normal color with no rashes, no lesions, and no evidence of cellulitis. MS/ Extremity: Pulses equal, no cyanosis. Neurovascular intact. Full, normal range of motion. Neuro: Awake and alert, GCS 15, oriented to person, place, time, and situation. Motor strength 5/5 in all extremities. Sensory grossly intact. 08:32 ENT: External ear(s): are unremarkable, Ear canal(s): are normal, TM's: are normal, Nose: is normal, Mouth: Lips: moist, Oral mucosa: pink and intact, moist, Gums: pink, Tongue: is moist, Posterior pharynx: Airway: patent, Tonsils: bilaterally enlarged, with erythema, with exudate, no ulcerations, Uvula: midline, non-edematous, no erythema, swelling, is not appreciated, erythema, that is mild. Vital Signs: 08:09 BP 121 / 67; Pulse 96; Resp 16; Temp 99.2; Pulse Ox 98% ; Weight 99.79 kg; Height 5 ft. iw 3 in. (160.02 cm); 08:09 Body Mass Index 38.97 (99.79 kg, 160.02 cm) iw MDM: 08:13 Patient medically screened. jr8 08:30 Data reviewed: vital signs, nurses notes, and as a result, I will discharge patient. jr8 Data interpreted: Pulse oximetry: on room air is 98 %. Interpretation: normal. Counseling: I had a detailed discussion with the patient and/or guardian regarding: the historical points, exam findings, and any diagnostic results supporting the discharge/admit diagnosis, the need for outpatient follow up, a family practitioner, to return to the emergency department if symptoms worsen or persist or if there are any questions or concerns that arise at home. Administered Medications: No medications were administered Disposition: 01/20 04:17 Co-signature as Attending Physician, River Duncan MD. [email or web address] Disposition Summary: 01/19/21 08:31 Discharge Ordered Location: Home jr8 Problem: new jr8 Symptoms: have improved jr8 Condition: Stable jr8 Diagnosis - Acute tonsillitis, unspecified jr8 Followup: jr8 - With: Jose Lao - When: 1 week - Reason: Recheck today's complaints, Continuance of care, Re-evaluation by your physician Discharge Instructions: - Discharge Summary Sheet jr8 - Tonsillitis jr8 Forms: - Medication Reconciliation Form jr8 - Family Work Release iw - Thank You Letter jr8 - Antibiotic Education jr8 - Prescription Opioid Use jr8 Prescriptions: - azithromycin 500 mg Oral tablet - take 1 tablet by ORAL route once daily for 5 days; 5 tablet; Refills: 0, jr8 Product Selection Permitted - Tessalon Perles 100 mg Oral Capsule - take 1 capsule by ORAL route every 8 hours As needed; 15 capsule; Refills: 0, jr8 Product Selection Permitted Signatures: Mavis Andre RN RN iw Maxi Wilson PA PA 8 River Duncan MD MD [email or web address]
[2021-01-19 08:44] VITALS: BP 121/67; TEMP 99.2; O2SAT 98
== END 2021-01-19 08:38 | disposition home or self-care (01) ==
LOC: ER 07:56
DX: J03.90 Acute tonsillitis, unspecified (principal)
CPT/HCPCS: 99282

== ENCOUNTER 2021-05-01 08:57 | Emergency (ER) | payer SELFPAY ==
[2021-05-01 09:45] LABS: Absolute Lymphocytes (CBC) 1.6 K/uL (0.7-4.9); Basophils % 0.7 % (0-1.3); Hematocrit 37.1 % (36.0-45.0); MPV 7.5 fL (7.6-11.3); RBC Red Blood Cell Count 4.25 M/uL (3.86-4.86)
--- NOTE | 2021-05-01 10:00 | RAD REPORT ---
EXAM DESCRIPTION: US - Abdomen Exam Limited - 05/01/2021 9:44 am CLINICAL HISTORY: Abdominal pain. COMPARISON: 2019 FINDINGS: The gallbladder wall is not thickened. A gallstone is not seen. The biliary tree is normal caliber. IMPRESSION: Unremarkable gallbladder ultrasound.
--- NOTE | 2021-05-01 10:00 | RAD REPORT ---
EXAM DESCRIPTION: CT - Abdomen Pelvis W Contrast - 05/01/2021 9:46 am CLINICAL HISTORY: Abdominal pain COMPARISON: none. TECHNIQUE: Computed axial tomography of the abdomen pelvis was obtained. 100 cc Isovue-300 was admin istered intravenously. Oral contrast was not requested which limits evaluation of bowel. All CT scans are performed using dose optimization technique as appropriate and may include automated exposure control or mA/KV adjustment according to patient size. FINDINGS: The liver, spleen, pancreas, adrenal and kidneys appear unremarkable. There is no evidence of diverticulitis. Normal appendix 14 millimeter fatty structure abuts the sigmoid colon. There is moderate stranding within the adjacen t fat. This is within the right upper pelvis Small umbilical hernia contains fat. Small amount of ascites IMPRESSION: 14 millimeter fatty structure abuts the sigmoid colon. There is moderate stranding withi n the adjacent fat. . This is compatible with epiploic appendagitis
[2021-05-01 10:02] LABS: Urine Blood Negative (Negative); Urine Glucose Negative (Negative); Urine Protein Negative (Negative); Urine Specific Gravity 1.015 (1.005-1.030)
[2021-05-01] MEDS ORDERED: CIPROFLOXACIN HCL 500 MG TAB ONE (10:51)
[2021-05-01] MEDS ORDERED: metroNIDAZOLE 500 MG TABLET ONE (10:51)
[2021-05-01 10:53] LABS: ALT/SGPT 27 U/L (12-78); AST/SGOT 14 U/L (15-37); Albumin 3.1 g/dL (3.4-5.0); Alkaline Phosphatase 161 U/L (45-117); BUN Blood Urea Nitrogen 10 mg/dL (7-18); Bicarbonate 26 mmol/L (21-32); Bilirubin Direct < 0.1 mg/dL (0-0.2); Bilirubin Total 0.4 mg/dL (0.2-1.0); Glucose Level 91 mg/dL (74-106); Lipase 14 U/L (73-393); Potassium 4.2 mmol/L (3.5-5.1); Sodium Level 140 mmol/L (136-145)
[2021-05-01 11:15] LABS: Urine Bacteria <20 /HPF (<20); Urine RBC NONE SEEN /HPF (NONE SEEN)
--- NOTE | 2021-05-01 12:39 | EDPHYS ---
Physician Documentation [facility] Name: Tere Ponce Age: 26 yrs Sex: Female : 1995 Arrival Date: 05/01/2021 Time: 08:59 Bed 19 Private MD: ED Physician Yuan St HPI: 05/01 09:20 This 26 yrs old Female presents to ER via Ambulatory with complaints of rn Abdominal Pain. 09:20 The patient presents with abdominal pain in the upper abdomen, in the periumbilical rn area. Onset: The symptoms/episode began/occurred 3 day(s) ago. The symptoms do not radiate. Associated signs and symptoms: Pertinent positives: blood in stools, Pertinent negatives: constipation, dysuria, fever, hematuria, shortness of breath, vaginal discharge, vomiting, vomiting blood. The symptoms are described as dull, intermittent, sharp. Modifying factors: The symptoms are alleviated by nothing, the symptoms are aggravated by movement, touching the area. Severity of pain: At its worst the pain was mild in the emergency department the pain is unchanged. The patient has experienced similar episodes in the past. The patient has not recently seen a physician. Patient reports intermittent abdominal pain for the last 3 days, reports more centralized to periumbilical, associated with small amounts of blood in the stool. States is happened before and has followed up with GI, told needed a colonoscopy and an EGD but was never performed. Denies any fever or trauma. Reports a long history of irregular bowel movements. Denies any fever or vomiting. 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 - Social history:: Smoking status: Patient/guardian denies using tobacco, the patient reports quitting approximately 1 years ago. - Family history:: not pertinent. - Hospitalizations: : No recent hospitalization is reported. ROS: 09:20 Constitutional: Negative for fever, chills, and weight loss, Eyes: Negative for injury, rn pain, redness, and discharge, Neck: Negative for injury, pain, and swelling, Cardiovascular: Negative for chest pain, palpitations, and edema, Respiratory: Negative for shortness of breath, cough, wheezing, and pleuritic chest pain, Abdomen/GI: Positive for abdominal pain and blood in stool Back: Negative for injury and pain, : Negative for injury, bleeding, discharge, and swelling, MS/Extremity: Negative for injury and deformity, Skin: Negative for injury, rash, and discoloration, Neuro: Negative for headache, weakness, numbness, tingling, and seizure. 09:20 All other systems are negative. rn Exam: 09:20 Constitutional: This is a well developed, well nourished patient who is awake, alert, rn and in no acute distress. Head/Face: Normocephalic, atraumatic. Eyes: Periorbital areas with no swelling, redness, or edema. ENT: Moist mucous membranes Cardiovascular: Regular rate and rhythm. No pulse deficits. Respiratory: No increased work of breathing, no retractions or nasal flaring. Abdomen/GI: Soft, tender right upper quadrant/epigastrium/periumbilical regions without peritoneal signs. Skin: Warm, dry MS/ Extremity: Pulses equal, no cyanosis. Neuro: Awake and alert, GCS 15 Vital Signs: 09:02 BP 108 / 87; Pulse 81; Resp 14; Temp 98.1(O); Pulse Ox 100% on R/A; Weight 113.4 kg; tw5 Height 5 ft. 3 in. (160.02 cm); Pain 5/10; 10:38 BP 110 / 78; Pulse 80; Resp 15; Pulse Ox 100% on R/A; ch5 09:02 Body Mass Index 44.29 (113.40 kg, 160.02 cm) tw5 MDM: 09:08 Patient medically screened. rn 10:19 Differential diagnosis: appendicitis, cholecystitis, Cholelithiasis, gastritis, rn gastroesophageal reflux disease, non-specific abd pain, pancreatitis, Peptic Ulcer Disease, Ureterolithiasis, urinary tract infection, inflammatory bowel disease. Data reviewed: vital signs, nurses notes, lab test result(s), radiologic studies, CT scan, and as a result, I will discharge patient. Counseling: I had a detailed discussion with the patient and/or guardian regarding: the historical points, exam findings, and any diagnostic results supporting the discharge/admit diagnosis, lab results, radiology results, the need for outpatient follow up, to return to the emergency department if symptoms worsen or persist or if there are any questions or concerns that arise at home. Response to treatment: the patient's symptoms have mildly improved after treatment, and as a result, I will discharge patient. Special discussion: Based on the patient's Hx, exam, and Dx evaluation, there is no indication for emergent surgery or inpatient Tx. It is understood by the patient/guardian that if the Sx's persist or worsen they need to return immediately for re-evaluation. I discussed with the patient/guardian in detail that at this point there is no indication for admission to the hospital. It is understood, however, that if the symptoms persist or worsen the patient needs to return immediately for re-evaluation. ED course: CT shows epiploic appendagitis, no other acute findings. Normal white blood cell count. Afebrile. Will DC home with antibiotics and GI follow-up as long-term GI symptoms with intermittent blood in stool could indicate inflammatory bowel disease and needs a colonoscopy. Had long discussion about this with patient and understands.. 05/01 09:19 Order name: IV Saline Lock; Complete Time: 09: rn 05/01 09:19 Order name: Labs collected and sent; Complete Time: 09: rn 05/01 09:19 Order name: Urine Dipstick-Ancillary (obtain specimen); Complete Time: 10:11 rn 05/01 09:19 Order name: Urine Test (obtain specimen); Complete Time: 10:11 rn Administered Medications: 10:15 Drug: Cipro (ciprofloxacin) 500 mg Route: PO; ch5 10:15 Drug: Flagyl (metroNIDAZOLE) 500 mg Route: PO; ch5 Disposition Summary: 05/01/21 10:21 Discharge Ordered Location: Home rn Problem: new rn Symptoms: have improved rn Condition: Stable rn Diagnosis - Epiploic appendagitis rn - Abdominal pain, unspecified rn Followup: rn - With: Kin Armstrong MD - When: As needed - Reason: Recheck today's complaints, Re-evaluation by your physician Discharge Instructions: - Discharge Summary Sheet rn - Abdominal Pain, Adult rn - Epiploic Appendagitis rn Forms: - Medication Reconciliation Form rn - Thank You Letter rn - Antibiotic architect intern - Prescription Opioid Use rn Prescriptions: - Cipro 500 mg Oral Tablet - take 1 tablet by ORAL route every 12 hours for 10 days; 20 tablet; Refills: 0, rn Product Selection Permitted - Flagyl 500 mg Oral Tablet - take 1 tablet by ORAL route every 8 hours for 10 days; 30 tablet; Refills: 0, rn Product Selection Permitted Signatures: Yuan St MD MD rn Heath, Christopher, RN RN [address] 5
--- NOTE | 2021-05-01 12:40 | ER ---
Nurse's Notes [facility] Name: Tere Ponce Age: 26 yrs Sex: Female : 1995 Arrival Date: 05/01/2021 Time: 08:59 Bed 19 Private MD: Diagnosis: Epiploic appendagitis;Abdominal pain, unspecified Presentation: 05/01 09:02 Chief complaint: Patient states: "For the past three days I have been having stomach tw5 pains and the lower right side of my back, the second day it was my stomach and pain on the left side of my neck where a lump is at. Today the pain is still in my stomach and it shoots down to my pelvis. I have not had a regular bowel movement in I don't know how long, it has just been mucus.". Coronavirus screen: Vaccine status: Patient reports being unvaccinated. Ebola Screen: Patient negative for fever greater than or equal to 101.5 degrees Fahrenheit, and additional compatible Ebola Virus Disease symptoms Patient denies exposure to infectious person. Patient denies travel to an Ebola-affected area in the 21 days before illness onset. Initial Sepsis Screen: Does the patient meet any 2 criteria? No. Patient's initial sepsis screen is negative. Does the patient have a suspected source of infection? No. Patient's initial sepsis screen is negative. Risk Assessment: Do you want to hurt yourself or someone else? Patient reports no desire to harm self or others. Onset of symptoms was April 28, 2021. 09:02 Method Of Arrival: Ambulatory tw5 09:02 Acuity: MADELINE 3 tw5 Triage Assessment: 09:05 General: Appears in no apparent distress. Behavior is calm, cooperative. Pain: tw5 Complains of pain in abdomen Pain currently is 5 out of 10 on a pain scale. at worst was 10 out of 10 on a pain scale. GI: Reports constipation. 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 - Social history:: Smoking status: Patient/guardian denies using tobacco, the patient reports quitting approximately 1 years ago. - Family history:: not pertinent. - Hospitalizations: : No recent hospitalization is reported. Screenin:10 Abuse screen: Denies threats or abuse. Denies injuries from another. Nutritional 5 screening: No deficits noted. Tuberculosis screening: No symptoms or risk factors identified. Fall Risk None identified. Assessment: 09:10 Reassessment: No changes from previously documented assessment. Patient is alert, ch5 oriented x 3, equal unlabored respirations, skin warm/dry/pink. Vital Signs: 09:02 BP 108 / 87; Pulse 81; Resp 14; Temp 98.1(O); Pulse Ox 100% on R/A; Weight 113.4 kg; tw5 Height 5 ft. 3 in. (160.02 cm); Pain 5/10; 10:38 BP 110 / 78; Pulse 80; Resp 15; Pulse Ox 100% on R/A; ch5 09:02 Body Mass Index 44.29 (113.40 kg, 160.02 cm) tw5 ED Course: 08:59 Patient arrived in ED. am2 09:04 Triage completed. tw5 09:05 Arm band placed on right wrist. tw5 09:[address] MD is Attending Physician. rn 09:08 Eloy Romero RN is Primary Nurse. ch5 09:10 Bed in low position. Call light in reach. ch5 09:10 No provider procedures requiring assistance completed. ch5 09:30 Inserted saline lock: 20 gauge in left antecubital area, using aseptic technique. Blood mt collected. 10:20 Kin Armstrong MD is Referral Physician. rn 10:37 IV discontinued, intact. ch5 Administered Medications: 10:15 Drug: Cipro (ciprofloxacin) 500 mg Route: PO; ch5 10:15 Drug: Flagyl (metroNIDAZOLE) 500 mg Route: PO; 5 Outcome: 10:21 Discharge ordered by MD. rn 10:37 Discharged to 5 10:37 Discharged to home ambulatory. 10:37 Condition: good 10:37 Discharge instructions given to patient. 10:39 Patient left the ED. ch5 Signatures: Yuan St MD MD rn Moreno, Amanda Shazia Gallegos mt, Christopher, RN RN 5 Juany Fuentes [facility]
[2021-05-01 13:54] LABS: Urine Blood NEGATIVE (Negative); Urine Glucose NEGATIVE (Negative); Urine Protein NEGATIVE (Negative); Urine Specific Gravity 1.015 (1.005-1.030); Urine Specific Gravity/Preg 1.015 (1.005-1.030)
[2021-05-01 15:00] VITALS: TEMP 98.1; O2SAT 100
[2021-05-01 15:01] VITALS: BP 110/78
== END 2021-05-01 10:39 | disposition home or self-care (01) ==
LOC: ER 08:57
DX: K63.89 Other specified diseases of intestine (principal); Z88.1 Allergy status to other antibiotic agents; Z88.3 Allergy status to other anti-infective agents; Z88.8 Allergy status to other drugs, medicaments and biological substances; Z91.018 Allergy to other foods; Z91.040 Latex allergy status; Z91.048 Other nonmedicinal substance allergy status
CPT/HCPCS: 36415; 74177; 76705; 80048; 80076; 81003; 81015; 81025; 82565; 83690; 85025; 99283; Q9967

== ENCOUNTER 2021-10-08 10:59 | Emergency (ER) | payer SELFPAY ==
--- OUTSIDE RECORDS SUMMARY | 2021-10-08 11:03 | XMS REPORT | Continuity of Care Document ---
:1995 Author Organization [facility] t Address [address] [place] [address] Care Team Providers Name Role Phone Shilo CALVO, Keturah Primary Care Physician Keturah SANCHEZ Attending Clinician Unavailable Doctor Unassigned, Name Attending Clinician Unavailable Thomas CALVO Attending Clinician Bhanu Khan MD Attending Clinician BHANU KHAN Attending Clinician Unavailable Keturah Sanchez MD Attending Clinician oBb Gupta DO Attending Clinician 2, Lab Attending Clinician Unavailable Myra FORREST Attending Clinician Payers Payer Name Policy Type Policy Number Effective Date Expiration Date S ource Problems Condition Condition Condition Status Onset Resolution Last Treating Co mments Source Name Details Category Date Date Treatment Clinician Date Chronic Chronic Disease Active Univers nausea nausea 2-25 ity of 00:00: [place] 00 [facility] Branch Recurrent Recurrent Disease Active Uni vers oral oral 2-25 ity of ulcers ulcers 00:00: [place] 00 [facility] Kidney Kidney Disease Active Univers stones stones 4-03 ity of 00:00: [place] 00 [facility] Branch Status Status Disease Active Univers post post 9-18 ity of surgical surgical 00:00: [place] removal of removal of 00 Me dical both both Branch fallopian fallopian tubes tubes Mixed Mixed Disease Active Univers headache headache 8-06 ity of 00:00: [place] [facility] Disease Active U symone depression depression 7-27 it y of 00:00: [place] [facility] Sterilizat Sterilizat Disease Active U symone ion ion 7-27 ity of consult consult 00:00: [place] [facility] Anemia of Anemia of Disease Active Uni vers mother in mother in 5-22 [place] of , , [place] antepartum antepartum 00 T[place] dical Branch Aphthous Aphthous Disease Active 2016-07 Unive rs ulcer of ulcer of 2-19 ity of mouth mouth 00:00: [place] [facility] GBS GBS Disease Active 2016-07 Univers bacteriuri bacteriuri 1-19 it y of a a 00:00: [place] [facility] Food Food Disease Active 2016-07 Univers allergy allergy 1- ity of 00:00: [place] [facility] Iron Iron Disease Active 2016-07 Univers deficiency deficiency 1-01 it y of anemia anemia 00:00: [place] [facility] Hematochez Hematochez Disease Active 2016-07 U nivers ia ia 0-25 ity of 00:00: [place] 00 [facility] Oral Oral Disease Active Univers herpes herpes 7-11 ity of simplex simplex 00:00: [place] infection infection 00 [facility] Branch Abnormal Abnormal Disease Active 2015-07 Unive rs glucose glucose 2-20 [place] of tolerance tolerance [place] ch Hemorrhoid Hemorrhoid Disease Active 2015-07 U nivers s, s, 2-15 ity of unspecifie unspecifie [place] 00 Medical hemorrhoid hemorrhoid Br anch type type Rubella Rubella Disease Active Univers immune immune 1-08 ity of 00:00: [place] 00 Medical Branch Immune to Immune to Disease Active Uni vers varicella varicella 1-08 ity of 00:00: [place] 00 Medical Branch Obesity Obesity Disease Active Overview: Univ ers 07-12 Formattin ity of 00:00: g of this [place] 00 note Medical might be Branch different from the original. 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 Resolved without surgery. Family Family Disease Active Overview: Univer s history of history of 07-12 Formattin ity of autism autism 00:00: g of this [place] 00 note Medical might be Branch different from the original. FOB's 1st cousin Allergies, Adverse Reactions, Alerts Allergy Allergy Status Severity Reaction(s) Onset Inactive Treating Comm ents Source Name Type Date Date Clinician MILK DRUG Active Swelling Univers INGREDI 8-16 ity of 00:00: [place] 00 Medical Branch Milk Propensi Active Swelling Cow's Univer s ty to 02-19 milk ity of adverse 00:00: [place] reaction 00 Medical s Branch DOCOSANO DRUG Active Other-Cmnt Univ ers L INGREDI 01-14 ity of 00:00: [place] 00 Medical Branch Docosano Propensi Active Other - See Worsenin g Univers l ty to comments 7- sx ity of adverse 00:00: [place] reaction 00 Medical s Branch Tioconaz Propensi Active Swelling 2015-07 Univ ers ole ty to 2-15 ity of adverse 00:00: [place] reaction 00 Medical s Branch AMOXICIL DRUG Active Other-Cmnt 2015-07 Univ ers JESIKA INGREDI 2-15 ity of 00:00: [place] 00 Medical Branch TIOCONAZ DRUG Active Swelling 2015-07 Univer s OLE INGREDI 2-15 ity of 00:00: [place] 00 Medical Branch Amoxicil Propensi Active Other - See 2015-07 Blisters Univers jesika ty to comments 2-15 in her ity of adverse 00:00: mouth [place] reaction 00 Medical s Branch GRAPE DRUG Active Unknown-Cmnt Univ ers JUICE INGREDI -06 ity of 00:00: [place] 00 Medical Branch LATEX DRUG Active ITCHING Univers INGREDI 06 ity of 00:00: [place] 00 Medical Branch Grape Propensi Active Unknown - Pt's Unive rs Juice ty to See comments 07-12 mother ity of adverse 00:00: told her [place] reaction 00 she was Medical s allergic Branch to it. Unknown reactions but has not drank it. Latex Propensi Active Itching Univers ty to 1-06 ity of adverse 00:00: [place] reaction 00 Medical s Branch EGG DRUG Active High Swelling Univers INGREDI ity of [place] [facility] Egg Propensi Active Swelling Univer s ty to ity of adverse [place] reaction Medical s Branch Social History Social Habit Start Date Stop Date Quantity Comments Source Exposure to Not sure [facility] SARS-CoV-2 (event) Medica l Branch Alcohol intake 2021-08-31 2021-08-31 0 /d [facility] 00:00:00 00:00:00 Medical Branch Tobacco use and 2016-06-20 2016-06-20 Never used [facility] exposure 00:00:00 00:00:00 Medical Branch Sex Ass[birth year] [facility] 00:00:00 00:00:00 Medical Branch Smoking Status Start Date Stop Date Source Former smoker 2016-06-20 00:00:00 2016-06-20 00:00:00 [facility] Medications Ordered Filled Start Stop Current Ordering Indication Dosage Frequency Signature Comments Components Source Medication Medication Date Date Medication? Clinician (SIG) Name Name proMETHazin Yes [id number] 12.5mg Take 0.5-1 Univers e 25 mg 2-25 tablets by ity of tablet 00:00: mouth [place] 00 every 6 Medical (six) Branch hours as needed for Nausea and Vomiting (N/V). pantoprazol Yes [id number] 40mg Take 1 Univers e 40 mg EC 2-25 tablet by ity of tablet 00:00: mouth [place] 00 daily. Medical Take on an Branch empty stomach 30 mins before breakfast. valACYclovi Yes [id number] 2g Take 2 Univers r 1 gram 2-25 tablets by ity o f tablet 00:00: mouth [place] 00 every 12 Medical (twelve) Branch hours. x 1 day No known 2020-07 No Univers medications 1-04 ity of 08:35: [place] 00 Medical Branch ciprofloxac 2020-07 Yes Univer s in HCl 500 0-26 ity of mg tablet 00:00: [place] 00 Medical Branch metroNIDAZO 2020-07 Yes Univer s LE 500 mg 0-26 ity of tablet 00:00: [place] [facility] ciprofloxac 2020-07 Yes Univer s in HCl 500 0-26 ity of mg tablet 00:00: [place] 00 [facility] metroNIDAZO 2020- Yes Univer s LE 500 mg 0-26 ity of tablet 00:00: [place] 00 [facility] Branch Immunizations Ordered Filled Immunization Date Status Comments Sourc e Immunization Name Name TDAP 2017-10-28 Completed University of 00:00:00 [facility] Branch TDAP 2017-10-28 Completed University of 00:00:00 [place] [facility] TDAP 2017-10-28 Completed University of 00:00:00 [place] [facility] TDAP 2017-10-28 Completed University of 00:00:00 [place] [facility] TDAP 2016-10-01 Completed University of 00:00:00 [place] [facility] TDAP 2016-10-01 Completed University of 00:00:00 [place] [facility] TDAP 2016-10-01 Completed University of 00:00:00 [place] [facility] TDAP 2016-10-01 Completed University of 00:00:00 [facility] Branch TDAP 2013-12-21 Completed University of 00:00:00 [place] [facility] TDAP 2013-12-21 Completed University of 00:00:00 [place] [facility] TDAP 2013-12-21 Completed University of 00:00:00 [place] [facility] TDAP 2013-12-21 Completed University of 00:00:00 [place] [facility] Td 2008-02-10 Completed University of 00:00:00 [place] [facility] Td 2008-02-10 Completed University of 00:00:00 [place] [facility] Td 2008-02-10 Completed University of 00:00:00 [facility] Td 2008-02-10 Completed University of 00:00:00 [facility] Vital Signs Vital Name Observation Time Observation Value Comments Source Systolic blood 2021-05-10 13:35:00 123 mm[Hg] Univer sity of pressure [facility] Diastolic blood 2021-05-10 13:35:00 87 mm[Hg] Unive rsity of pressure [facility] Heart rate 2021-05-10 13:35:00 69 /min [facility] Body temperature 2021-05-10 13:35:00 36.67 Raven [facility] Res[facility] rate 2021-05-10 13:35:00 18 /min [facility] Body height 2021-05-10 13:35:00 157.5 cm [facility] Body weight 2021-05-10 13:35:00 111.585 kg Universi ty of [facility] BMI 2021-05-10 13:35:00 44.99 kg/m2 Universi ty [facility] [place] [facility] Procedures Procedure Date / Time Performing Clinician Source Performed [facility] STATEMENT OF PATIENT 2021-08-31 06:01:00 Doctor Bigg, [facility] FINANCIAL RESPONSIBILITY [facility] Encounters Start End Encounter Admission Attending Care Care Encounter Source Date/Time Date/Time Type Type Clinicians Facility Department ID 2021-08-31 2021-08-31 Outpatient Nilson SANCHEZ [facility] [id number] Univers 13:15:00 13:59:03 WONDIFUL ity o f [facility] 2021-08-31 2021-08-31 Outpatient Nilson SANCHEZ [facility] [id number] Q-[id number] Univers 13:15:00 13:15:00 WONDIFUL [id number] ity o f [facility] 2021-08-31 2021-08-31 Orders Doctor RAY [id number] Univers 00:00:00 00:00:00 Only Unassigned, MORAIMA [id number] ity of [facility] [id number] Elijah as [phone] [address] 2021-08-06 2021-08-06 Telephone ABDULKADIR Guzman [id number] Univers 00:00:00 00:00:00 [facility] [id number] i ty of [place] [id number] [id number] [place] [id number] [place] 2021-05-10 2021-05-10 Office Cay[place]ano Guzman [facility] [id number]. [id number] Univers 08:25:17 08:55:17 Visit Carlitos Khan [facility] [id number] ity of [id number] [id number] [address] 2021-05-10 2021-05-10 Outpatient Nilson KHAN [facility] [id number] Univers 08:30:00 08:30:00 CARLITOS peña [facility] [place] [facility] 2021-05-01 2021-05-01 Telephone Shilo [facility] [id number] Univers 00:00:00 00:00:00 Wondiful A HEALTH [id number] ity of [place]ANG [id number] Elijah as LETI?BLEA [phone] [place] [address] [place] [address] MEDICAL OFFICE BUILDING 2020-09-26 2020-09-26 Patient Alonso [facility] [id number] 00:00:00 00:00:00 Outreach Pratik PRIMARY [id number] Bob [facility] [id number] PAVILLION [id number] [facility] 2020-07-20 2020-07-20 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, Adc Lab [facility] [id number] 08:40:47 08:55:47 Visit Kang [id number] Nikunj [id number] Professio [phone] [facility] [address] [facility] 2020-07-20 2020-07-20 [facility] [id number] 00:00:00 00:00:00 Management Rosalee Piper [id number] Nikunj [id number] Professio [phone] [facility] 2020-07-18 2020-07-18 Office Myra [facility] [id number] 10:28:30 11:40:28 Visit Rosalee [place] [id number] Nikunj [id number] Professio [phone] [facility] Results This patient has no known results.
--- NOTE | 2021-10-08 11:46 | ER ---
Nurse's Notes [facility] Name: Tere Ponce Age: 26 yrs Sex: Female : 1995 Arrival Date: 10/08/2021 Time: 11:01 Bed Waiting Private MD: Diagnosis: Local infection of the skin and subcutaneous tissue, unspecified-abdomen Presentation: 10/08 11:36 Chief complaint: Patient states: Sore to abdomen below naval x 3 weeks, reports that it ph is hot to touch and periodically drains blood and puss, denies fever. Coronavirus screen: Vaccine status: Patient reports being unvaccinated. Ebola Screen: No symptoms or risks identified at this time. Initial Sepsis Screen: Does the patient meet any 2 criteria? No. Patient's initial sepsis screen is negative. Does the patient have a suspected source of infection? No. Patient's initial sepsis screen is negative. Risk Assessment: Do you want to hurt yourself or someone else? Patient reports no desire to harm self or others. Onset of symptoms was October 08, 2021. 11:36 Method Of Arrival: Ambulatory ph 11:36 Acuity: MADELINE 4 ph Triage Assessment: 12:05 General: Appears in no apparent distress. comfortable, Behavior is calm, cooperative, ph appropriate for age, Denies fever, feeling ill. Derm: Abscess located on abdomen is quarter sized, has no drainage, is red, was lanced by patient prior to arrival. Historical: - Allergies: 11:38 Abreva; ph 11:38 Amoxicillin; ph 11:38 GRAPE; ph 11:38 Latex, Natural Rubber; ph 11:38 Monistat-Derm; ph - Home Meds: 11:38 Miralax Oral [Active]; ph - PMHx: 11:38 hemmorhoids; chronic constipation; ph - PSHx: 11:38 Hemorrhoidectomy; tubal ligation; ph - Immunization history:: Adult Immunizations unknown. - Social history:: Smoking status: Patient denies any tobacco usage or history of. Screenin:39 Abuse screen: Denies threats or abuse. Denies injuries from another. Nutritional ph screening: No deficits noted. Tuberculosis screening: No symptoms or risk factors identified. Fall Risk None identified. Assessment: 11:40 General: LYNSEY [place] in triage to assess pt, topical ointment prescribed, pt to be ph d/c from triage.. Pain: Denies pain. Neuro: Level of Consciousness is awake, alert, obeys commands, Oriented to person, place, time, situation. Cardiovascular: Capillary refill < 3 seconds in bilateral fingers Patient's skin is warm and dry. Respiratory: Airway is patent Respiratory effort is even, unlabored, Respiratory pattern is regular, symmetrical. Derm: Skin is intact, is healthy with good turgor, Skin is pink, warm \T\ dry. Abscess located on abdomen. Musculoskeletal: Circulation, motion, and sensation intact. Range of motion: intact in all extremities. Vital Signs: 11:36 BP 121 / 61; Pulse 83; Resp 18; Temp 99.0; Pulse Ox 98% on R/A; Weight 115.67 kg; ph Height 5 ft. 2 in. (157.48 cm); 11:36 Body Mass Index 46.64 (115.67 kg, 157.48 cm) ph ED Course: 11:01 Patient arrived in ED. mr 11:03 Surinder Ospina PA is PHCP. cp 11:[address] MD is Attending Physician. cp 11:38 Triage completed. ph 11:39 Arm band placed on. ph 11:40 Patient has correct armband on for positive identification. ph 12:04 Ria Candelario RN is Primary Nurse. ph 12:05 No provider procedures requiring assistance completed. Patient did not have IV access ph during this emergency room visit. Administered Medications: No medications were administered Outcome: 11:45 Discharge ordered by MD. cp 12:05 Discharged to home ambulatory. ph 12:05 Condition: good 12:05 Discharge instructions given to patient, Instructed on discharge instructions, follow up and referral plans. medication usage, Demonstrated understanding of instructions, follow-up care, medications, Prescriptions given X 1. 12:05 Patient left the ED. ph Signatures: Alisson Hernadez mr Ria Candelario RN RN ph Surinder Ospina PA PA cp
--- NOTE | 2021-10-08 11:46 | EDPHYS ---
Physician Documentation [facility] Name: Tere Ponce Age: 26 yrs Sex: Female : 1995 Arrival Date: 10/08/2021 Time: 11:01 Bed Waiting Private MD: ED Physician Yuan St HPI: 10/08 11:40 This 26 yrs old Female presents to ER via Ambulatory with complaints of Skin Sore(s). cp 11:40 The patient's rash thought to be caused by an unknown cause. The rash is located on the cp abdomen. The rash can be described as crusted, erythematous, drainage. Onset: The symptoms/episode began/occurred 3 week(s) ago. Associated signs and symptoms: Pertinent negatives: fever, Pain. Treatment given at home: OTC coconut oil and thyme. Historical: - Allergies: 11:38 Abreva; ph 11:38 Amoxicillin; ph 11:38 GRAPE; ph 11:38 Latex, Natural Rubber; ph 11:38 Monistat-Derm; ph - Home Meds: 11:38 Miralax Oral [Active]; ph - PMHx: 11:38 hemmorhoids; chronic constipation; ph - PSHx: 11:38 Hemorrhoidectomy; tubal ligation; ph - Immunization history:: Adult Immunizations unknown. - Social history:: Smoking status: Patient denies any tobacco usage or history of. ROS: 11:41 Skin: Positive for rash, of the abdomen. cp Exam: 11:41 Constitutional: The patient appears in no acute distress, alert, awake, well developed, cp well nourished. 11:41 Chest/axilla: Inspection: normal. 11:41 Cardiovascular: Rate: normal. 11:41 Respiratory: the patient does not display signs of respiratory distress, Respirations: normal, no use of accessory muscles, no retractions, labored breathing, is not present. 11:41 Abdomen/GI: Palpation: abdomen is soft and non-tender, in all quadrants. 11:41 Skin: quarter size area of erythema with ulceration of dermal layer, mild honey colored exudate. Vital Signs: 11:36 BP 121 / 61; Pulse 83; Resp 18; Temp 99.0; Pulse Ox 98% on R/A; Weight 115.67 kg; ph Height 5 ft. 2 in. (157.48 cm); 11:36 Body Mass Index 46.64 (115.67 kg, 157.48 cm) ph MDM: 11:40 Differential diagnosis: impetigo, abscess, cellulitis. cp 11:45 Patient medically screened. cp 11:45 Data reviewed: vital signs, nurses notes. cp 11:45 Counseling: I had a detailed discussion with the patient and/or guardian regarding: the cp historical points, exam findings, and any diagnostic results supporting the discharge/admit diagnosis, to return to the emergency department if symptoms worsen or persist or if there are any questions or concerns that arise at home. Administered Medications: No medications were administered Disposition: 16:53 Co-signature as Attending Physician, Yuan St MD. rn Disposition Summary: 10/08/21 11:45 Discharge Ordered Location: Home cp Problem: new cp Symptoms: are unchanged cp Condition: Stable cp Diagnosis - Local infection of the skin and subcutaneous tissue, unspecified - abdomen cp Followup: cp - With: Private Physician - When: 1 week - Reason: Worsening of condition Discharge Instructions: - Discharge Summary Sheet cp - Impetigo, Adult cp Forms: - Medication Reconciliation Form cp - Thank You Letter cp - Antibiotic Education cp - Prescription Opioid Use cp Prescriptions: - mupirocin 2 % Topical ointment - apply 1 application by TOPICAL route 3 times per day for 14 days; 30 gram; cp Refills: 0, Product Selection Permitted Signatures: Yuan St MD MD rn Hall, Patricia, RN RN Surinder Rubio PA PA cp
[2021-10-08 12:33] VITALS: BP 121/61; TEMP 99; O2SAT 98
== END 2021-10-08 12:05 | disposition home or self-care (01) ==
LOC: ER 10:59
DX: L08.9 Local infection of the skin and subcutaneous tissue, unspecified (principal); Z88.1 Allergy status to other antibiotic agents; Z88.3 Allergy status to other anti-infective agents; Z88.8 Allergy status to other drugs, medicaments and biological substances; Z91.018 Allergy to other foods; Z91.040 Latex allergy status
CPT/HCPCS: 99282

== ENCOUNTER 2022-06-25 02:26 | Emergency (ER) | payer SELFPAY ==
--- OUTSIDE RECORDS SUMMARY | 2022-06-25 02:30 | XMS REPORT | Continuity of Care Document ---
:[address] [facility] t Address [address] [place] [address] Care Team Providers Name Role Phone VANESSA IRELAND Primary Care Physician Unavailable ULISES ANTONIO Attending Clinician Unavailable Carlitos Mcnally MD Attending Clinician CARLITOS MCNALLY Attending Clinician Unavailable ROSALEE SANTIAGO Attending Clinician Unavailable Ulises Antonio MD Attending Clinician VANESSA IRELAND Attending Clinician Unavailable Vanessa Little Attending Clinician Cayetano Guzman MD Attending Clinician TINY FRANCISCO Attending Clinician Unavailable Tiny Francisco DO Attending Clinician Only, Adc Test Attending Clinician Unavailable Doctor Unassigned, [place] Attending Clinician Unavailable JOSE SANCHEZ Attending Clinician Unavailable Carlitos Malik MD Attending Clinician CARLITOS MALIK Attending Clinician Unavailable Jose Sanchez MD Attending Clinician Susan Mckenzie Attending Clinician SUSAN ROSS Attending Clinician Unavailable Pratik Gupta DO Attending Clinician 2, Adc Lab Attending Clinician Unavailable Rosalee Santiago PA-C Attending Clinician JIMMY STARR Attending Clinician Unavailable BEATRIZ ELIAS Attending Clinician Unavailable ULISES ANTONIO Admitting Clinician Unavailable TINY FRANCISCO Admitting Clinician Unavailable Ulises Antonio MD Admitting Clinician Payers Payer Name Policy Type Policy Number Effective Date Expiration Date S ource Problems Condition Condition Condition Status Onset Resolution Last Treating Co mments Source Name Details Category Date Date Treatment Clinician Date Chronic Chronic Disease Active Univers nausea nausea 2-25 ity of 00:00: [place] [facility] Recurrent Recurrent Disease Active Uni vers oral oral 2-25 ity of ulcers ulcers 00:00: [place] [facility] Kidney Kidney Disease Active Univers stones stones 4-03 ity of 00:00: [place] [facility] Status Status Disease Active Univers post post 9-18 ity of surgical surgical 00:00: [place] removal of removal of 00 Me dical both both Branch fallopian fallopian tubes tubes Mixed Mixed Disease Active Univers headache headache 8-06 ity of 00:00: [place] [facility] Disease Active U nivers depression depression 7-27 it y of 00:00: [place] [facility] Sterilizat Sterilizat Disease Active U nivers ion ion 7-27 ity of consult consult 00:00: [place] [facility] Anemia of Anemia of Disease Active Uni vers mother in mother in 5-22 [place]y of , , [place] antepartum antepartum 00 Me dical Branch Aphthous Aphthous Disease Active 2016-07 Unive rs ulcer of ulcer of 2-19 ity of mouth mouth 00:00: [place] 00 [facility] GBS GBS Disease Active 2016-07 Univers bacteriuri bacteriuri 1-19 it y of a a 00:00: [place] [facility] Food Food Disease Active 2016-07 Univers allergy allergy 1- ity of 00:00: [place] 00 [facility] Iron Iron Disease Active 2016-07 Univers deficiency deficiency 1- it y of anemia anemia 00:00: [place] 00 [facility] Hematochez Hematochez Disease Active 2016-07 U nivers ia ia 0-25 ity of 00:00: [place] [facility] Oral Oral Disease Active Univers herpes herpes 7-11 ity of simplex simplex 00:00: [place] infection infection 00 [facility] Branch Abnormal Abnormal Disease Active 2015-07 Unive rs glucose glucose 2-20 ity of tolerance tolerance [place] Bran ch Hemorrhoid Hemorrhoid Disease Active 2015-07 U nivers s, s, 2-15 ity of unspecifie unspecifie [place] 00 Medical hemorrhoid hemorrhoid Br anch type type Rubella Rubella Disease Active Univers immune immune 08 ity of 00:00: [place] 00 Medical Branch Immune to Immune to Disease Active Uni vers varicella varicella 08 ity of 00:00: [place] 00 Medical Branch Obesity Obesity Disease Active Overview: Univ ers 07-12 Formattin ity of 00:00: g of this [place] 00 note Medical might be Branch different from the original. ICD10 Diagnosis Term Tack Coverer Utility Congenital Congenital Disease Active Overview : Univers anomalies anomalies 07-12 Formattin i ty of of the of the 00:00: g of this [place] heart heart 00 note Medical might be Branch different from the original. 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 Resolved without surgery. Family Family Disease Active Overview: Univer s history of history of 07-12 Formattin ity of autism autism 00:00: g of this [place] 00 note Medical might be Branch different from the original. FOB's 1st cousin Allergies, Adverse Reactions, Alerts Allergy Allergy Status Severity Reaction(s) Onset Inactive Treating Comm ents Source Name Type Date Date Clinician MILK DRUG Active Swelling Univers INGREDI 8-16 ity of 00:00: [place] 00 Medical Branch Milk Propensi Active Swelling Cow's Univer s ty to 8-16 milk ity of adverse 00:00: [place] reaction 00 Medical s Branch Docosano Propensi Active Other - See Worsenin g Univers l ty to comments 711 sx ity of adverse 00:00: [place] reaction 00 [facility] s Branch DOCOSANO DRUG Active Other-Cmnt Univ ers L INGREDI 7-11 ity of 00:00: [place] 00 Medical Branch Tioconaz Propensi Active Swelling 2015-07 Univ ers ole ty to 2-15 ity of adverse 00:00: [place] reaction 00 Medical s Branch Amoxicil Propensi Active Other - See 2015-07 Blisters Univers jesika ty to comments 215 in her ity of adverse 00:00: mouth [place] reaction 00 Medical s Branch AMOXICIL DRUG Active Other-Cmnt 2015-07 Univ ers JESIKA INGREDI 2- ity of 00:00: [place] 00 Medical Branch TIOCONAZ DRUG Active Swelling 2015-07 Univer s OLE INGREDI 08-21 ity of 00:00: [place] 00 Medical Branch GRAPE DRUG Active Unknown-Cmnt Univ ers JUICE INGREDI 07-12 ity of 00:00: [place] 00 Medical Branch LATEX DRUG Active ITCHING Univers INGREDI 07-12 ity of 00:00: [place] Medical [facility] Grape Propensi Active Unknown - Pt's Unive rs Juice ty to See comments 07-12 mother ity of adverse 00:00: told her [place] reaction 00 she was Medical s allergic Branch to it. Unknown reactions but has not drank it. Latex Propensi Active Itching Univers ty to 07-12 ity of adverse 00:00: [place] reaction 00 Medical s Branch Egg Propensi Active Swelling Univer s ty to ity of adverse [place] reaction Medical s Branch EGG DRUG Active High Swelling Univers INGREDI ity of [facility] Social History Social Habit Start Date Stop Date Quantity Comments Source Exposure to 2021-12-18 2021-12-28 Not sure [facility] SARS-CoV-2 (event) 00:00:00 07:48:00 Medica l Branch Alcohol intake 2021-11-13 2021-11-13 0 /d [facility] 00:00:00 00:00:00 Medical Branch Tobacco use and 2016-06-20 2016-06-20 Never used [facility] exposure 00:00:00 00:00:00 Medical Branch Sex [birth year] [facility] 00:00:00 00:00:00 Medical Branch Smoking Status Start Date Stop Date Source Former smoker 2016-06-20 00:00:00 2016-06-20 00:00:00 Universi ty [facility] Medications Ordered Filled Start Stop Current Ordering Indication Dosage Frequency Signature Comments Components Source Medication Medication Date Date Medication? Clinician (SIG) Name Name traZODone Yes [id number] 50mg Take 1 U nivers 50 mg 5-10 tablet by ity of tablet 00:00: mouth at [place] 00 bedtime as Medical needed for Branch Insomnia. traZODone Yes [id number] 50mg Take 1 U nivers 50 mg 5-10 tablet by ity of tablet 00:00: mouth at [place] 00 bedtime as Medical needed for Branch Insomnia. busPIRone 2021- No [id number] 10mg Take 1 U nivers 10 mg 5-10 06-25 tablet by ity of tablet 00:00: 04:59 mouth 2 [place] 00 :00 (two) Medical times [facility] daily for 45 days. busPIRone 2021- No [id number] 10mg Take 1 U nivers 10 mg 5-10 06-25 tablet by ity of tablet 00:00: 04:59 mouth 2 [place] 00 :00 (two) Medical times [facility] daily for 45 days. mesalamine 2021- No [id number] 2.4g Take 2 Univers 1.2 gram EC 5-06 08-05 tablets by i ty of tablet 00:00: 04:59 mouth [place] 00 :00 daily for Medical 90 days. Branch mesalamine 2021- No [id number] 2.4g Take 2 Univers 1.2 gram EC 5-06 08-05 tablets by i ty of tablet 00:00: 04:59 mouth [place] 00 :00 daily for Medical 90 days. Branch mupirocin 2 Yes [id number] Apply to Univers % ointment 4-22 area(s) 3 ity of 00:00: (three) [place] 00 times Medical daily. Branch mupirocin 2 Yes [id number] Apply to Univers % ointment 4-22 area(s) 3 ity of 00:00: (three) [place] 00 times Medical daily. Branch proMETHazin Yes [id number] 12.5mg Take 0.5-1 Univers e 25 mg 2-25 tablets by ity of tablet 00:00: mouth [place] 00 every 6 Medical (six) Branch hours as needed for Nausea and Vomiting (N/V). pantoprazol Yes [id number] 40mg Take 1 Univers e 40 mg EC 2-25 tablet by ity of tablet 00:00: mouth [place] 00 daily. Medical Take on an Branch empty stomach 30 mins before breakfast. valACYclovi Yes [id number] 2g Take 2 Univers r 1 gram 2-25 tablets by ity o f tablet 00:00: mouth [place] 00 every 12 Medical (twelve) Branch hours. x 1 day proMETHazin Yes [id number] 12.5mg Take 0.5-1 Univers e 25 mg 2-25 tablets by ity of tablet 00:00: mouth [place] 00 every 6 Medical (six) Branch hours as needed for Nausea and Vomiting (N/V). pantoprazol Yes [id number] 40mg Take 1 Univers e 40 mg EC 2-25 tablet by ity of tablet 00:00: mouth [place] 00 daily. Medical Take on an Branch empty stomach 30 mins before breakfast. valACYclovi Yes [id number] 2g Take 2 Univers r 1 gram 2-25 tablets by ity o f tablet 00:00: mouth [place] 00 every 12 Medical (twelve) Branch hours. x 1 day Immunizations Ordered Filled Immunization Date Status Comments [facility] e Immunization Name Name [facility] 2017-10-28 Completed University of 00:00:00 [facility] 2017-10-28 Completed University of 00:00:00 [facility] 2016-10-01 Completed University of 00:00:00 [facility] 2016-10-01 Completed University of 00:00:00 [facility] 2013-12-21 Completed University of 00:00:00 [facility] 2013-12-21 Completed University of 00:00:00 [facility] 2008-02-10 Completed University of 00:00:00 [facility] 2008-02-10 Completed University of 00:00:00 [facility] Vital Signs Vital Name Observation Time Observation Value Comments Source Systolic blood 2021-12-28 13:10:00 137 mm[Hg] Charletteer jennyfery [facility] [place] Diastolic blood 2021-12-28 13:10:00 74 mm[Hg] Shira cruz [facility] [place] Heart rate 2021-12-28 13:10:00 80 /min [facility] Body height 2021-12-28 13:10:00 160 cm [facility] Body weight 2021-12-28 13:10:00 103.874 kg [facility] BMI 2021-12-28 13:10:00 40.57 kg/m2 [facility] Procedures This patient has no known procedures. Encounters Start End Encounter Admission Attending Care Care Encounter Source Date/Time Date/Time Type Type Clinicians Facility Department ID 2021-10-24 Outpatient Nilson ANTONIO [facility] [id number] Univers 16:45:27 ULISES kiesha [facility] 2021-12-28 2021-12-28 Office ABDULKADIR Mcnally 1.2.840.114 [id number] Univers 08:30:00 09:00:00 Visit Carlitos Alston [facility] [id number] i ty of CLINICS [place].[address] [place] [id number] [facility] [address] [place] 2021-12-28 2021-12-28 [facility] [id number] Univers 08:30:00 08:30:00 CARLITOS [facility] 2021-12-28 2021-12-28 Outpatient [facility] [id number] Univers 08:30:00 08:30:00 CARLITOS [facility] 2021-11-27 2021-11-27 Outpatient Nilson SANTIAGO [facility] [id number] Univers 10:30:00 10:30:00 ROSALEE [facility] 2021-11-14 2021-11-14 Telephone ABDULKADIR Antonio 1.2.840.114 [id number] Univers 00:00:00 00:00:00 Ulises Alston [facility] 350.1.13.10 i ty of CLINICS 4[place].[address] [place] [id number] [facility] [address] [place] 2021-11-13 2021-11-13 Outpatient Nilson IRELAND [facility] [id number] Univers 14:30:00 15:05:37 VANESSA [facility] 2021-11-13 2021-11-13 [facility] 1.2.840.114 [id number] Univers 14:30:00 15:05:37 Visit [facility] [id number] it y anabel [place] 4.2.7.2.686 Elijah as RENE?BLEA [id number] [address] MEDICAL OFFICE BUILDING 2021-11-09 2021-11-09 Case CORY Antonio 1.2.840.114 [id number] Univers 00:00:00 00:00:00 Management Ulises VALERA 350.1.13.10 ity of [facility] 4.2.7.2.[id number] [facility] [address] [place] 2021-11-09 2021-11-09 Telephone [facility] 1.2.840.114 [id number] Univers 00:00:00 00:00:00 [facility] [id number] i ty [place] [id number] [address] 2021-11-08 2021-11-08 Emergency X [facility] [id number] Univers 08:09:00 09:45:00 TINY kayleekiesha [facility] 2021-11-08 2021-11-08 Emergency [facility] [id number] Univers 08:09:00 09:45:00 Tiny KANG 350.1.13.10 i ty [place] [id number] [facility] [address] [place] 2021-11-06 2021-11-06 [facility] 1.2.840.114 [id number] Univers 00:00:00 00:00:00 [facility] 350.1.13.10 i ty [place] [id number] [address] 2021-11-05 2021-11-05 Outpatient R PACO [facility] [place] [id number] Univers 09:56:00 13:28:00 ULISES peña [facility] 2021-11-05 2021-11-05 Hospital Paco [facility] 1.2.840.114 [id number] Univers 09:56:00 13:28:[address] 350.1.13.10 ity of SCIENCES 4.2.7.2.686 Elijah [address] [id number] [facility] 020 Branch 2021-11-05 2021-11-05 Surgery Paco [facility] 1.2.840.114 [id number] Univers 12:15:00 13:15:[address] 350.1.13.10 it y of SCIENCES 4.2.7.2.686 Elijah [address] [id number] [facility] 020 Branch 2021-11-05 2021-11-05 Telephone CONNER GuzmanIT 1.2.840.114 [id number] Univers 00:00:00 00:00:00 [facility] 350.1.13.10 i ty of [facility] 4.2.7.2.[address] [place] [id number] [facility] 071 Branch 2021-11-02 2021-11-02 Laboratory Only, Adc Test [facility] 1.2.840. 114 [id number] Univers 09:30:00 09:45:00 Only Ulises Antonio 350.1.13.10 ity [facility] 4.2.7.2.[place] [id number] [facility] 353 Branch 2021-11-02 2021-11-02 Outpatient R PACO [facility] [id number] Univers 09:30:00 09:30:00 ULISES peña [facility] 2021-11-02 2021-11-02 Orders Doctor RAY 1.2.840.114 [id number] Univers 00:00:00 00:00:00 Only Unassigned, MORAIMA 350.1.13.10 ity of Waka [facility] 4.2.7.2.[id number] [facility] 009 Branch 2021-10-26 2021-10-26 Outpatient R MATTHEW [facility] [id number] Univers 13:30:00 14:31:15 VANESSA peña [facility] 2021-10-26 2021-10-26 Office Matthew [facility] 1.2.840.114 [id number] Univers 13:30:00 14:00:00 Visit [facility] 350.1.13.10 it y of [facility] 4.2.7.2.686 Elijah as RENE?BLEA [id number] [address] MEDICAL OFFICE [facility] 2021-10-26 2021-10-26 Outpatient R MATTHEW [facility] [id number] Univers 13:30:00 13:30:00 VANESSA ity of [facility] 2021-10-24 2021-10-24 Telephone [facility] 1.2.108.538 [id number] Univers 00:00:00 00:00:00 Vanessa HEALTH 350.1.13.10 it y of [facility] 4.2.7.2.686 Elijah as RENE?BLEA [id number] [address] OFFICE [facility] 2021-10-23 2021-10-23 Telephone Thomas [facility] 1.2.840.114 [id number] Univers 00:00:00 00:00:00 Cayetano nChannel HEALTH 350.1.13.10 i ty [place] [id number] [address] 2021-10-23 2021-10-23 [facility] 1.2.840.114 [id number] Univers 00:00:00 00:00:00 Cayetano nChannel HEALTH 350.1.13.10 i ty [place] [id number] [address] 2021-10-08 2021-10-08 Telephone Guzman, [facility] 1.2.840.114 [id number] Univers 00:00:00 00:00:00 Cayetano nChannel HEALTH 350.1.13.10 i ty [place] [id number] [address] 2021-08-31 2021-08-31 Outpatient R SHILO [facility] [id number] Univers 13:15:00 13:59:03 WONDIFUL casey o f [facility] 2021-08-31 2021-08-31 Orders Doctor RAY 1.2.840.114 [id number] Univers 00:00:00 00:00:00 Only Unassigned, MORAIMA 350.1.13.10 ity of [place] [facility] 4.2.7.2.[id number] [facility] [address] [place] 2021-08-06 2021-08-06 Telephone ABDULKADIR Guzman 1.2.840.114 [id number] Univers 00:00:00 00:00:00 Cayetano Y HEALTH 350.1.13.10 i ty [place] [id number] [address] 2021-05-10 2021-05-10 Office Cayetano Guzman 1.2.840. 114 [id number] Univers 08:25:17 08:55:17 Visit Carlitos Malik Kiesha HEALTH 350.1.13. 10 ity of [facility] 4.2.7.2.[place] [id number] [address] 2021-05-10 2021-05-10 Outpatient Nilson MALIK [facility] [id number] Univers 08:30:00 08:30:00 [facility] 2021-05-10 2021-05-10 Outpatient Nilson MALIK [facility] [id number] Univers 08:30:00 08:30:00 [facility] 2021-05-01 2021-05-01 Telephone [facility] 1.2.840.114 [id number] Univers 00:00:00 00:00:00 Wondiful A HEALTH 350.1.13.10 ity of [place] 4.2.7.2.686 Elijah as RENE?BLEA [id number] [address] MEDICAL OFFICE [facility] 2021-04-04 2021-04-04 Office [facility] 1.2.840.114 [id number] Univers 08:04:31 08:56:35 Visit Susan [facility] 350.1.13.10 i ty of [place] 4.2.7.2.686 Elijah as Rene?Blea [id number] [address] Medical Office Building 2021-04-04 2021-04-04 [facility] [id number] Univers 08:30:00 08:30:00 SUSAN peña [facility] 2021-04-04 2021-04-04 Telephone Shilo [facility] 1.2.840.114 [id number] Univers 00:00:00 00:00:00 Wondiful A Health 350.1.13.10 ity of [place] 4.2.7.2.686 Elijah as Rene?Blea [id number] [address] Medical Office [facility] 2021-04-03 2021-04-03 Telephone Shilo [facility] 1.2.840.114 [id number] [facility] 00:00:00 00:00:00 Wondiful A [place] 350.1.13.10 ity of [place] Profess[place] [id number] [address] 2020-09-26 2020-09-26 Patient Alonso [facility] 1.2.840.114 [id number] 00:00:00 00:00:00 Outreach Pratik PRIMARY 350.1.13.10 [facility] 4.2.7.2.686 PAVILLION [id number] [facility] 2020-09-19 2020-09-19 Outpatient R PAMELA [facility] [id number] [facility] 13:00:00 13:00:00 ROSALEE [facility] 2020-07-20 2020-07-20 Outpatient R [facility] [id number] Univers 09:15:00 09:15:[address] [facility] 2020-07-20 2020-07-20 Glass Cleaner 2, Adc Lab [facility] 1.2.840.114 [id number] 08:40:47 08:55:47 Visit Kang 350.1.13.10 [place] 4.2.7.2.686 Professio [id number] [facility] 353 [facility] 2020-07-20 2020-07-20 Case Pamela [facility] [id number] [id number] 00:00:00 00:00:00 Management Rosalee Piper 350.1.13.10 [place] 4.2.7.2.686 Professio [id number] [address] 2020-07-18 2020-07-18 [facility] [id number] Univers 14:30:00 14:30:00 ROSALEE peña [facility] 2020-07-18 2020-07-18 Office [facility] [id number] 10:28:30 11:40:28 Visit Rosalee Kang 350.1.13.10 [place] 4.2.7.2.686 Professio [id number] [address] 2020-07-18 2020-07-18 Outpatient [facility] [id number] Univers 11:00:00 11:00:00 JIMMY [facility] 2020-01-27 2020-01-27 [facility] [id number] Univers 13:45:00 13:45:00 BEATRIZ [facility] 2020-01-26 2020-01-26 Outpatient [facility] [id number] Univers 08:15:00 08:15:00 WONDIFUL ity o f [facility] 2019-12-20 2019-12-20 Outpatient R [facility] [id number] Univers 14:00:00 14:00:00 WONDIFUL ity o f [facility] Results This patient has no known results.
[2022-06-25] MEDS ORDERED: CYCLOBENZAPRINE 10 MG TAB ONE (03:01)
[2022-06-25] MEDS ORDERED: IBUPROFEN 400 MG TAB ONE (03:02)
[2022-06-25] MEDS ORDERED: predniSONE 20 MG TAB ONE (03:02)
--- NOTE | 2022-06-25 03:18 | EDPHYS ---
Physician Documentation [facility] Name: Tere Ponce Age: 27 yrs Sex: Female : 1995 Arrival Date: 06/25/2022 Time: 02:28 Bed 6 Private MD: ED Physician Yuan St HPI: 06/25 03:13 This 27 yrs old Female presents to ER via Ambulatory with complaints of Arm Pain. rn 03:13 The patient or guardian complains of pain, that is acute. The complaints affect the rn anterior aspect of right shoulder and right bicep. Onset: The symptoms/episode began/occurred 2 day(s) ago. Modifying factors: The symptoms are alleviated by nothing. the symptoms are aggravated by movement, bending arm. Associated signs and symptoms: Pertinent positives: pain, Pertinent negatives: deformity, erythema, fever, swelling, warmth, weakness. Severity of symptoms: At their worst the symptoms were moderate, in the emergency department the symptoms are unchanged. The patient has not experienced similar symptoms in the past. The patient has not recently seen a physician. Pt denies injury, +RUE pain, no swelling/weakness/warmth. Hurts to move arm. No neck pain. . Historical: - Allergies: 02:43 Abreva; jb4 02:43 Amoxicillin; jb4 02:43 GRAPE; jb4 02:43 Latex, Natural Rubber; jb4 02:43 Monistat-Derm; jb4 - Home Meds: 02:43 Miralax Oral [Active]; jb4 - PMHx: 02:43 chronic constipation; hemmorhoids; jb4 - PSHx: 02:43 Hemorrhoidectomy; tubal ligation; jb4 - Immunization history:: Adult Immunizations up to date. - Social history:: Smoking status: Patient denies any tobacco usage or history of. Patient/guardian denies using alcohol, street drugs. - Family history:: not pertinent. - Hospitalizations: : No recent hospitalization is reported. ROS: 03:13 Constitutional: Negative for fever, chills, and weight loss, Neck: Negative for injury, rn pain, and swelling, Cardiovascular: Negative for chest pain, palpitations, and edema, Respiratory: Negative for shortness of breath, cough, wheezing, and pleuritic chest pain, Abdomen/GI: Negative for abdominal pain, nausea, vomiting, diarrhea, and constipation, Back: Negative for injury and pain, MS/Extremity: Negative for injury and deformity, Skin: Negative for injury, rash, and discoloration, Neuro: Negative for headache, weakness, numbness, tingling, and seizure. Exam: 03:13 Constitutional: This is a well developed, well nourished patient who is awake, alert, rn and in no acute distress. Head/Face: Normocephalic, atraumatic. Neck: Trachea midline. Supple, full range of motion without nuchal rigidity, or vertebral point tenderness. No Meningismus. Cardiovascular: Regular rate and rhythm. No pulse deficits. MS/ Extremity: Pulses equal, no cyanosis. Neurovascular intact. Painful rotation and flexion/elevation of RUE. NO swelling or erythema. NO rash. No cyanosis. No crepitus. Vital Signs: 02:41 BP 120 / 76; Pulse 88; Resp 18; Temp 98.6(O); Pulse Ox 100% on R/A; Weight 117.93 kg jb4 (R); Height 5 ft. 3 in. (160.02 cm); Pain 710; 02:41 Body Mass Index 46.06 (117.93 kg, 160.02 cm) jb4 MDM: 02:33 Patient medically screened. rn 03:13 Differential diagnosis: tendonitis, muscle pain. Data reviewed: vital signs, nurses rn notes, old medical records, and as a result, I will discharge patient. Counseling: I had a detailed discussion with the patient and/or guardian regarding: the historical points, exam findings, and any diagnostic results supporting the discharge/admit diagnosis, the need for outpatient follow up, to return to the emergency department if symptoms worsen or persist or if there are any questions or concerns that arise at home. Response to treatment: the patient's symptoms have mildly improved after treatment. 03:13 Special discussion: I discussed with the patient/guardian in detail that at this point rn there is no indication for admission to the hospital. It is understood, however, that if the symptoms persist or worsen the patient needs to return immediately for re-evaluation. Administered Medications: 03:10 Drug: predniSONE 60 mg Route: PO; jb4 03:37 Follow up: Response: No adverse reaction jb4 03:10 Drug: Ibuprofen 800 mg Route: PO; jb4 03:37 Follow up: Response: No adverse reaction; Marked relief of symptoms; Pain is decreased jb4 03:10 Drug: Flexeril (cyclobenzaprine) 10 mg Route: PO; jb4 03:37 Follow up: Response: No adverse reaction jb4 Disposition Summary: 06/25/22 03:18 Discharge Ordered Location: Home rn Problem: new rn Symptoms: have improved rn Condition: Stable rn Diagnosis - Pain in right upper arm rn Followup: rn - With: Private Physician - When: As needed - Reason: Recheck today's complaints, Re-evaluation by your physician Discharge Instructions: - Discharge Summary Sheet rn - Musculoskeletal Pain rn - Pain Without a Known Cause rn - Heat Therapy rn Forms: - Medication Reconciliation Form rn - Thank You Letter rn - Antibiotic rn cardiovascular - Prescription Opioid Use rn Prescriptions: - Cyclobenzaprine 10 mg Oral Tablet - take 1 tablet by ORAL route every 8 hours As needed; 15 tablet; Refills: 0, rn Product Selection Permitted - Medrol (Andrew) 4 mg Oral Tablets, Dose Pack - take 1 tablet by ORAL route as directed - follow package instructions; 1 rn packet; Refills: 0, Product Selection Permitted Signatures: Yuan St MD MD rn Bryson, James, RN RN jb4
--- NOTE | 2022-06-25 03:18 | ER ---
Nurse's Notes [facility] Name: Tere Ponce Age: 27 yrs Sex: Female : 1995 Arrival Date: 06/25/2022 Time: 02:28 Bed 6 Private MD: Diagnosis: Pain in right upper arm Presentation: 06/25 02:41 Chief complaint: Patient states: I have been having arm pain for the past 2 days and jb4 tonight it is the worst. It starts about [facility] up my upper arm and radiates to my hand and neck on my right arm. Coronavirus screen: At this time, the client does not indicate any symptoms associated with coronavirus-19. Ebola Screen: No symptoms or risks identified at this time. Initial Sepsis Screen: Does the patient meet any 2 criteria? No. Patient's initial sepsis screen is negative. Does the patient have a suspected source of infection? No. Patient's initial sepsis screen is negative. Risk Assessment: Do you want to hurt yourself or someone else? Patient reports no desire to harm self or others. Onset of symptoms was June 23, 2022. Transition of care: patient was not received from another setting of care. 02:41 Method Of Arrival: Ambulatory jb4 02:41 Acuity: MADELINE 4 jb4 Historical: - Allergies: 02:43 Abreva; jb4 02:43 Amoxicillin; jb4 02:43 GRAPE; jb4 02:43 Latex, Natural Rubber; jb4 02:43 Monistat-Derm; jb4 - Home Meds: 02:43 Miralax Oral [Active]; jb4 - PMHx: 02:43 chronic constipation; hemmorhoids; jb4 - PSHx: 02:43 Hemorrhoidectomy; tubal ligation; jb4 - Immunization history:: Adult Immunizations up to date. - Social history:: Smoking status: Patient denies any tobacco usage or history of. Patient/guardian denies using alcohol, street drugs. - Family history:: not pertinent. - Hospitalizations: : No recent hospitalization is reported. Screenin:[facility] ED Fall Risk Assessment (Adult) History of falling in the last 3 months, jb4 including since admission No falls in past 3 months (0 pts) Confusion or Disorientation No (0 pts) Intoxicated or Sedated No (0 pts) Impaired Gait No (0 pts) Mobility Assist Device Used No (0 pt) Altered Elimination No (0 pt) Score/Fall Risk Level 0 - 2 = Low Risk Oriented to surroundings, Maintained a safe environment. Abuse screen: Denies threats or abuse. Nutritional screening: No deficits noted. Tuberculosis screening: No symptoms or risk factors identified. Fall Risk No fall in past 12 months (0 pts). No secondary diagnosis (0 pts). No IV (0 pts). Ambulatory Aid- None/Bed Rest/Nurse Assist (0 pts). Gait- Normal/Bed Rest/Wheelchair (0 pts) Mental Status- Oriented to own ability (0 pts). Total Dobbins Fall Scale indicates No Risk (0-24 pts). Assessment: 02:49 General: Appears in no apparent distress. comfortable, Behavior is calm, cooperative. jb4 Pain: Complains of pain in right arm Pain radiates to neck Pain currently is 7 out of 10 on a pain scale. Neuro: Level of Consciousness is awake, alert, obeys commands, Oriented to person, place, time, situation. Cardiovascular: Patient's skin is warm and dry. Respiratory: Airway is patent Respiratory effort is even, unlabored, Respiratory pattern is regular, symmetrical. GI: No signs and/or symptoms were reported involving the gastrointestinal system. : No signs and/or symptoms were reported regarding the genitourinary system. EENT: No signs and/or symptoms were reported regarding the EENT system. Derm: Skin is intact, Skin is pink, warm \T\ dry. Musculoskeletal: Circulation, motion, and sensation intact. Range of motion: intact in all extremities. Vital Signs: 02:41 BP 120 / 76; Pulse 88; Resp 18; Temp 98.6(O); Pulse Ox 100% on R/A; Weight 117.93 kg jb4 (R); Height 5 ft. 3 in. (160.02 cm); Pain 7/10; 02:41 Body Mass Index 46.06 (117.93 kg, 160.02 cm) jb4 ED Course: 02:28 Patient arrived in ED. bp1 02:[address] MD is Attending Physician. rn 02:41 Diego Zayas RN is Primary Nurse. jb4 02:43 Triage completed. jb4 02:43 Arm band placed on right wrist. jb4 02:49 Patient has correct armband on for positive identification. Bed in low position. Call jb4 light in reach. Side rails up X 1. Client placed on continuous cardiac and pulse oximetry monitoring. NIBP monitoring applied. 03:36 No provider procedures requiring assistance completed. Patient did not have IV access jb4 during this emergency room visit. Administered Medications: 03:10 Drug: predniSONE 60 mg Route: PO; jb4 03:37 Follow up: Response: No adverse reaction jb4 03:10 Drug: Ibuprofen 800 mg Route: PO; jb4 03:37 Follow up: Response: No adverse reaction; Marked relief of symptoms; Pain is decreased jb4 03:10 Drug: Flexeril (cyclobenzaprine) 10 mg Route: PO; jb4 03:37 Follow up: Response: No adverse reaction jb4 Medication: 02:49 VIS not applicable for this client. jb4 Outcome: 03:18 Discharge ordered by . rn 03:36 Discharged to home ambulatory. jb4 03:36 Condition: stable 03:36 Discharge instructions given to patient, Instructed on discharge instructions, follow up and referral plans. medication usage, Demonstrated understanding of instructions, follow-up care, medications, Prescriptions given X 2. 03:37 Patient left the ED. jb4 Signatures: Yuan St MD MD rn Bryson, James RN RN jbRenetta Hunt bp1
[2022-06-25 04:22] VITALS: BP 120/76; TEMP 98.6; O2SAT 100
== END 2022-06-25 03:37 | disposition home or self-care (01) ==
LOC: ER 02:26
DX: M79.621 Pain in right upper arm (principal); Z88.1 Allergy status to other antibiotic agents; Z88.3 Allergy status to other anti-infective agents; Z91.018 Allergy to other foods; Z91.040 Latex allergy status; Z91.048 Other nonmedicinal substance allergy status
CPT/HCPCS: 99283; J7512

== ENCOUNTER 2022-08-05 20:23 | Emergency (ER) | payer SELFPAY ==
--- OUTSIDE RECORDS SUMMARY | 2022-08-05 20:26 | XMS REPORT | Continuity of Care Document ---
:1995 Author Organization [facility] t Address [address] [place] [address] Care Team Providers Name Role Phone VANESSA [...] Adc Test Attending Clinician Unavailable Doctor Unassigned, Grannis Attending Clinician Unavailable JOSE SANCHEZ Attending Clinician Unavailable Calritos Malik MD Attending Clinician CARLITOS MALIK Attending [...] Univers nausea nausea 2-25 ity of 00:00: [place] [facility] Recurrent Recurrent Disease Active Uni vers oral oral 2-25 ity of ulcers ulcers 00:00: [place] [facility] Kidney Kidney Disease Active Univers stones stones 4-03 ity of 00:00: [place] [facility] Status Status Disease Active Univers post post 9-18 ity of surgical surgical 00:00: [place] removal of removal of 00 Me dical both both Branch fallopian fallopian tubes tubes Mixed Mixed Disease Active Univers headache headache 8-06 ity of 00:00: [place] [facility] Disease Active U nivers depression depression 7-27 it y of 00:00: [place] [facility] Sterilizat Sterilizat Disease Active U nivers ion ion 7-27 ity of consult consult 00:00: [place] [facility] Anemia of Anemia of Disease Active Uni vers mother in mother in 5-22 [place]y of , , [place] antepartum antepartum 00 Me dical Branch Aphthous Aphthous Disease Active 2016-07 Unive rs ulcer of ulcer of 2-19 ity of mouth mouth 00:00: [place] 00 [facility] GBS GBS Disease Active 2016-07 Univers bacteriuri bacteriuri 1-19 it y of a a 00:00: [place] [facility] Food Food Disease Active 2016-07 Univers allergy allergy 1- ity of 00:00: [place] 00 [facility] Iron Iron Disease Active 2016-07 Univers deficiency deficiency 1- it y of anemia anemia 00:00: [place] 00 [facility] Hematochez Hematochez Disease Active 2016-07 U nivers ia ia 0-25 ity of 00:00: [place] [facility] Oral Oral Disease Active Univers herpes herpes 7-11 ity of simplex simplex 00:00: [place] infection infection 00 [facility] adarsh Branch Abnormal Abnormal Disease Active 2015-07 [...] Formattin ity of 00:00: g of this [place] 00 note Medical might be Branch different from the original. ICD10 Diagnosis Term Medical Detail Representative Utility Congenital Congenital Disease Active Overview : Univers anomalies anomalies 07-12 Formattin i ty of of the of the 00:00: g of this [place] heart heart 00 note Medical might be Branch different from the original. 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 Resolved without surgery. Family Family Disease Active Overview: Univer s history of history of 07-12 Formattin ity of autism autism 00:00: g of this [place] 00 note Medical might be Branch different [...] ity of adverse 00:00: [place] reaction 00 [facility] s Branch DOCOSANO DRUG Active Other-Cmnt Univ [...] Active High Swelling Univers INGREDI ity of [facility] Social History Social Habit Start Date Stop Date Quantity Comments Source Exposure to 2021-12-18 2021-12-28 Not sure [facility] SARS-CoV-2 (event) 00:00:00 07:48:00 Medica l Branch Alcohol intake 2021-11-13 2021-11-13 0 /d [facility] 00:00:00 00:00:00 Medical Branch Tobacco use and 2016-06-20 2016-06-20 Never used [facility] exposure 00:00:00 00:00:00 Medical Branch Sex Ass[birth year] At [birth year] [facility] 00:00:00 00:00:00 Medical Branch Smoking Status Start Date Stop Date Source Former smoker 2016-06-20 00:00:00 2016-06-20 00:00:00 Universi ty [facility] Medications Ordered Filled Start Stop Current Ordering Indication Dosage Frequency Signature Comments Components Source Medication Medication Date Date Medication? Clinician (SIG) Name Name traZODone Yes [id number] 50mg Take 1 U nivers 50 mg 5-10 tablet by ity of tablet 00:00: mouth at [place] 00 bedtime as Medical needed for Branch Insomnia. traZODone Yes [id number] 50mg Take 1 U nivers 50 mg 5-10 tablet by ity of tablet 00:00: mouth at [place] 00 bedtime as Medical needed for Branch Insomnia. busPIRone 2021- No [id number] 10mg Take 1 U nivers 10 mg 5-10 06-25 tablet by ity of tablet 00:00: 04:59 mouth 2 [place] 00 :00 (two) Medical times [place] daily for 45 days. busPIRone 2021- No [id number] 10mg Take 1 U nivers 10 mg 5-10 06-25 tablet by ity of tablet 00:00: 04:59 mouth 2 [place] 00 :00 (two) Medical times [place] daily for 45 days. mesalamine 2021- No [id number] 2.4g Take 2 Univers 1.2 gram EC 5-06 08-05 tablets by i ty of tablet 00:00: 04:59 mouth [place] 00 :00 daily for Medical 90 days. Branch mesalamine 2021- No [id number] 2.4g Take 2 Univers 1.2 gram EC 5-06 08-05 tablets by i ty of tablet 00:00: 04:59 mouth [place] 00 :00 daily for Medical 90 days. Branch mupirocin 2 Yes [id number] Apply to Univers % ointment 4-22 area(s) 3 ity of 00:00: (three) [place] 00 times Medical daily. Branch mupirocin 2 Yes [id number] Apply to Univers % ointment 4-22 area(s) 3 ity of 00:00: (three) [place] 00 times Medical daily. Branch proMETHazin Yes [id number] 12.5mg Take 0.5-1 Univers e 25 mg 2-25 tablets by ity of tablet 00:00: mouth [place] 00 every 6 Medical (six) Branch hours as needed for Nausea and Vomiting (N/V). pantoprazol Yes [id number] 40mg Take 1 Univers e 40 mg EC 2-25 tablet by ity of tablet 00:00: mouth [place] 00 daily. Medical Take on an Branch empty stomach 30 mins before breakfast. valACYclovi Yes [id number] 2g Take 2 Univers r 1 gram 2-25 tablets by ity o f tablet 00:00: mouth [place] 00 every 12 Medical (twelve) Branch hours. x 1 day proMETHazin Yes [id number] 12.5mg Take 0.5-1 Univers e 25 mg 2-25 tablets by ity of tablet 00:00: mouth [place] 00 every 6 Medical (six) Branch hours as needed for Nausea and Vomiting (N/V). pantoprazol Yes [id number] 40mg Take 1 Univers e 40 mg EC 2-25 tablet by ity of tablet 00:00: mouth [place] 00 daily. Medical Take on an Branch empty stomach 30 mins before breakfast. valACYclovi Yes [id number] 2g Take 2 Univers r 1 gram 2-25 tablets by ity o f tablet 00:00: mouth [place] 00 every 12 Medical (twelve) Branch hours. x 1 day Immunizations Ordered Filled Immunization Date Status Comments [facility] e Immunization Name Name [facility] 2017-10-28 Completed University of 00:00:00 [facility] 2017-10-28 Completed University of 00:00:00 [facility] 2016-10-01 Completed University of 00:00:00 [facility] 2016-10-01 Completed University of 00:00:00 [facility] 2013-12-21 Completed University of 00:00:00 [facility] 2013-12-21 Completed University of 00:00:00 [facility] 2008-02-10 Completed University of 00:00:00 [facility] 2008-02-10 Completed University of 00:00:00 [facility] Vital Signs Vital Name Observation Time Observation Value Comments Source Systolic blood 2021-12-28 13:10:00 137 mm[Hg] Charletteer jennyfery [facility] Diastolic blood 2021-12-28 13:10:00 74 mm[Hg] Shira cruz [facility] Heart rate 2021-12-28 13:10:00 80 /min [facility] Body height 2021-12-28 13:10:00 160 cm [facility] Body weight 2021-12-28 13:10:00 103.874 kg [facility] BMI 2021-12-28 13:10:00 40.57 kg/m2 [facility] Procedures This patient has no known procedures. Encounters Start End Encounter Admission Attending Care Care Encounter Source Date/Time Date/Time Type Type Clinicians Facility Department ID 2021-10-24 Outpatient Nilson ANTONIO [facility] [id number] Univers 16:45:27 ULISES kiesha [facility] 2021-12-28 2021-12-28 Office ABDULKADIR Mcnally 1.2.840.114 [id number] Univers 08:30:00 09:00:00 Visit Carlitos Alston [facility] 350.1.13.10 i ty of [place] [id number] [facility] [address] [place] 2021-12-28 2021-12-28 [facility] [id number] Univers 08:30:00 08:30:00 CARLITOS [facility] 2021-12-28 2021-12-28 [facility] [id number] Univers 08:30:00 08:30:00 CARLITOS [facility] 2021-11-27 2021-11-27 Outpatient Nilson SANTIAGO [facility] [id number] Univers 10:30:00 10:30:00 ROSALEE [facility] 2021-11-14 2021-11-14 Telephone ABDULKADIR [place] 1.2.840.114 [id number] Univers 00:00:00 00:00:00 Ulises Alston [facility] 350.1.13.10 i ty of [place] 4[place] [id number] [facility] [address] [place] 2021-11-13 2021-11-13 Outpatient Nilson IRELAND [facility] [id number] Univers 14:30:00 15:05:37 VANESSA [facility] 2021-11-13 2021-11-13 Office MatthewRUST 1.2.840.114 [id number] Univers 14:30:00 15:05:37 Visit [facility] 350.1.13.10 it y anabel [place] 4.2.7.2.686 Elijah as RENE?BLEA [phone] [address] MEDICAL OFFICE BUILDING 2021-11-09 2021-11-09 Case CORY [place] 1.2.840.114 [id number] Univers 00:00:00 00:00:00 Management Ulises VALERA 350.1.13.10 ity of [facility] 4.2.7.2.686 Elijah as [id number] [facility] [address] [place] 2021-11-09 2021-11-09 Telephone [facility] 1.2.840.114 [id number] Univers 00:00:00 00:00:00 [facility] 350.1.13.10 i ty of [place] [id number] [address] 2021-11-08 2021-11-08 Emergency X RUST ERT [id number] Univers 08:09:00 09:45:00 TINY kayleekiesha [facility] 2021-11-08 2021-11-08 Emergency RUST [id number] Univers 08:09:00 09:45:00 Tiny KANG 350.1.13.10 i ty of [place].2.7.2.[place] [id number] [facility] [address] [place] 2021-11-06 2021-11-06 [facility] 1.2.840.114 [id number] Univers 00:00:00 00:00:00 [facility] 350.1.13.10 i ty [place] [id number] [address] 2021-11-05 2021-11-05 Outpatient R PACO [facility] G[place]ahogany [id number] Univers 09:56:00 13:28:00 ULISES peña [facility] 2021-11-05 2021-11-05 Hospital Paco [facility] 1.2.840.114 [id number] Univers 09:56:00 13:28:[address] 350.1.13.10 ity of SCIENCES 4.2.7.2.686 Elijah as BLDG [id number] [facility] 020 Branch 2021-11-05 2021-11-05 Surgery Paco [facility] 1.2.840.114 [id number] Univers 12:15:00 13:15:[address] 350.1.13.10 it y of SCIENC[place] 4.2.7.2.686 Elijah as BLDG [id number] [facility] 020 Branch 2021-11-05 2021-11-05 Telephone CONNER GuzmanIT 1.2.840.114 [id number] Univers 00:00:00 00:00:00 [facility] 350.1.13.10 i ty of [facility] 4.2.7.2.[place] [id number] [facility] 071 Branch 2021-11-02 2021-11-02 Laboratory Only, Adc Test [facility] 1.2.840. 114 [id number] Univers 09:30:00 09:45:00 Only Ulises [place] 350.1.13.10 ity [facility] 4.2.7.2.[place] [id number] [facility] 353 Branch 2021-11-02 2021-11-02 Outpatient R PACO [facility] [id number] Univers 09:30:00 09:30:00 ULISES peña [facility] 2021-11-02 2021-11-02 Orders Doctor RAY 1.2.840.114 [id number] Univers 00:00:00 00:00:00 Only Unassigned, MORAIMA 350.1.13.10 ity of Gr[place] [facility] 4.2.7.2.686 Elijah as [id number] [facility] 009 Branch 2021-10-26 2021-10-26 Outpatient R MATTHEW [facility] [id number] Univers 13:30:00 14:31:15 VANESSA peña [facility] 2021-10-26 2021-10-26 Office Matthew [facility] 1.2.840.114 [id number] Univers 13:30:00 14:00:00 Visit [facility] 350.1.13.10 it y of [facility] 4.2.7.2.686 Elijah as RENE?BLEA [id number] [address] MEDICAL OFFICE [facility] 2021-10-26 2021-10-26 Outpatient R MATTHEW [facility] [id number] Univers 13:30:00 13:30:00 VANESSA ity of [facility] 2021-10-24 2021-10-24 Telephone MatthewRUST [id number] Univers 00:00:00 00:00:00 Vanessa HEALTH 350.1.13.10 it y of [facility] 4.2.7.2.686 Elijah as RENE?BLEA [id number] [address] OFFICE [facility] 2021-10-23 2021-10-[address] [facility] 1.2.840.114 [id number] Univers 00:00:00 00:00:00 [place] [employer] [facility] 350.1.13.10 i ty [place] [id number] [address] 2021-10-23 2021-10-23 [facility] 1.2.840.114 [id number] Univers 00:00:00 00:00:00 [place] [employer] HEALTH 350.1.13.10 i ty [place] [id number] [address] 2021-10-08 2021-10-08 Telephone Guzman, [facility] 1.2.840.114 [id number] Univers 00:00:00 00:00:00 [place] [employer] HEALTH 350.1.13.10 i ty [place] [id number] [address] 2021-08-31 2021-08-31 Outpatient R SHILO [facility] [id number] Univers 13:15:00 13:59:03 WONDIFUL casey o f [facility] 2021-08-31 2021-08-31 Orders Doctor RAY 1.2.840.114 [id number] Univers 00:00:00 00:00:00 Only Unassigned, MORAIMA 350.1.13.10 ity of [place] [facility] 4.2.7.2.686 Elijah as [id number] [facility] [address] [place] 2021-08-06 2021-08-06 Telephone ABDULKADIR Guzman 1.2.840.114 [id number] Univers 00:00:00 00:00:00 [place] Y HEALTH 350.1.13.10 i ty of [place] [id number] [address] 2021-05-10 2021-05-10 Office [place] Guzman 1.2.840. 114 [id number] Univers 08:25:17 08:55:17 Visit Carlitos Malik Kiesha HEALTH 350.1.13. 10 ity of [facility] 4.2.7.2.[place] [id number] [address] 2021-05-10 2021-05-10 Outpatient Nilson MALIK [facility] [id number] Univers 08:30:00 08:30:00 [facility] 2021-05-10 2021-05-10 Outpatient Nilson MALIK [facility] [id number] Univers 08:30:00 08:30:00 [facility] 2021-05-01 2021-05-01 Telephone ShiloRUST 1.2.840.114 [id number] Univers 00:00:00 00:00:00 Wondiful A HEALTH 350.1.13.10 ity of [place] 4.2.7.2.686 Elijah as RENE?BLEA [id number] [address] MEDICAL OFFICE [facility] 2021-04-04 2021-04-04 Office VandanaRUST 1.2.840.114 [id number] Univers 08:04:31 08:56:35 Visit Susan A Health 350.1.13.10 i ty of [place] 4.2.7.2.686 Elijah as Rene?Blea [id number] [address] Medical Office Building 2021-04-04 2021-04-04 [facility] [id number] Univers 08:30:00 08:30:00 SUSAN peña [facility] 2021-04-04 2021-04-04 Telephone Shilo [facility] 1.2.840.114 [id number] Univers 00:00:00 00:00:00 Wondiful A Health 350.1.13.10 ity of [place] 4.2.7.2.686 Elijah as Rene?Blea [id number] [address] Medical Office [facility] 2021-04-03 2021-04-03 Telephone Shilo [facility] 1.2.840.114 [id number] [facility] 00:00:00 00:00:00 Wondiful A Jo[place] 350.1.13.10 ity of [place].2.[place] Profess[place] [id number] [address] 2020-09-26 2020-09-26 Patient Alonso [facility] 1.2.840.114 [id number] 00:00:00 00:00:00 Outreach Pratik PRIMARY 350.1.13.10 [facility] 4.2.7.2.[id number] [facility] 2020-09-19 2020-09-19 Outpatient R PAMELA [facility] [id number] [facility] 13:00:00 13:00:00 ROSALEE [facility] 2020-07-20 2020-07-20 Outpatient R [facility] [id number] Univers 09:15:00 [facility]15[facility] 2020-07-20 Acls Nurse 2, Adc Lab [facility] 1.2.840.114 [id number] 08:40:47 08:55:47 Visit Kang 350.1.13.10 [place] 4.2.7.2.686 Professio [id number] [facility] 353 [facility] 2020-07-20 2020-07-20 Case Pamela [facility] [id number] 00:00:00 00:00:00 Management Rosalee Piper 350.1.13.10 [place] 4.2.7.2.686 Professio [id number] [address] 2020-07-18 2020-07-18 [facility] [id number] Univers 14:30:00 14:30:00 ROSALEE peña [facility] 2020-07-18 2020-07-18 Office PamelaRUST [id number] 10:28:30 11:40:28 Visit Rosalee Kang 350.1.13.10 [place] 4.2.7.2.686 Professio [id number] [address] 2020-07-18 2020-07-18 Outpatient R [facility] [id number] Univers 11:00:00 11:00:00 JIMMY [facility] 2020-01-27 2020-01-27 Outpatient [facility] [id number] Univers 13:45:00 13:45:00 BEATRIZ [facility] 2020-01-26 2020-01-26 Outpatient R [facility] [id number] Univers 08:15:00 08:15:00 WONDIFUL ity o f [facility] 2019-12-20 2019-12-20 Outpatient R [facility] [id number] Univers 14:00:00 14:00:00 WONDIFUL ity o f [facility] Results This patient has no known results.
--- NOTE | 2022-08-05 21:52 | RAD REPORT ---
EXAM DESCRIPTION: RAD - Knee Right 3 View - 08/05/2022 9:35 pm CLINICAL HISTORY: PAIN COMPARISON: Knee Right 2 View dated 11/20/2018 FINDINGS/IMPRESSION: No acute fracture. No malalignment. No significant focal degenerative changes.
[2022-08-05] MEDS ORDERED: HYDROCODONE/APAP 7.5/325 MG TAB ONE (22:05)
[2022-08-05] MEDS ORDERED: IBUPROFEN 400 MG TAB ONE (22:05)
[2022-08-05] MEDS ORDERED: MORPHINE 4 MG/ML SYR ONE (22:57)
--- NOTE | 2022-08-05 23:27 | ER ---
Nurse's Notes [facility] Name: Tere Ponce Age: 27 yrs Sex: Female : 1995 Arrival Date: 08/05/2022 Time: 20:27 Bed 12 Private MD: Diagnosis: Pain in right knee Presentation: 08/05 20:52 Chief complaint: Patient states: my grandma drove me here because I think I twisted my jh5 knee in my sleep; I can't walk or drive..I woke up this morning and it was hurting, went to watch my niece today and got to the point where i couldn't deal with it no more. Coronavirus screen: Vaccine status: Patient reports being unvaccinated. Client denies travel out of the [place] in the last 14 days. Ebola Screen: Patient negative for fever greater than or equal to 101.5 degrees Fahrenheit, and additional compatible Ebola Virus Disease symptoms Patient denies exposure to infectious person. Patient denies travel to an Ebola-affected area in the 21 days before illness onset. Initial Sepsis Screen: Does the patient meet any 2 criteria? No. Patient's initial sepsis screen is negative. Does the patient have a suspected source of infection? No. Patient's initial sepsis screen is negative. Risk Assessment: Do you want to hurt yourself or someone else? Patient reports no desire to harm self or others. Onset of symptoms was August 05, 2022. 20:52 Method Of Arrival: Wheelchair [facility] 20:52 Acuity: MADELINE 4 jh5 Triage Assessment: 20:55 General: Appears in no apparent distress. uncomfortable, obese, well groomed, well jh5 developed, Behavior is calm, cooperative, appropriate for age. Pain: Complains of pain in right knee. Musculoskeletal: Reports pain in right knee Pain is 10 out of 10 on a pain scale. 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 - Social history:: Smoking status: Patient denies any tobacco usage or history of. Screenin:58 [facility] ED Fall Risk Assessment (Adult) History of falling in the last 3 months, aa9 including since admission No falls in past 3 months (0 pts) Confusion or Disorientation No (0 pts) Intoxicated or Sedated No (0 pts) Impaired Gait No (0 pts) Mobility Assist Device Used No (0 pt) Altered Elimination No (0 pt) Score/Fall Risk Level 0 - 2 = Low Risk. Abuse screen: Denies threats or abuse. Denies injuries from another. Nutritional screening: No deficits noted. Tuberculosis screening: No symptoms or risk factors identified. Assessment: 23:59 General: Appears in no apparent distress. comfortable, Behavior is cooperative. aa9 Vital Signs: 20:52 BP 108 / 70; Pulse 91; Resp 18; Temp 98.6; Pulse Ox 99% ; Weight 120.2 kg; Height 5 ft. jh5 3 in. (160.02 cm); Pain 8/10; 20:52 Body Mass Index 46.94 (120.20 kg, 160.02 cm) jh5 ED Course: 20:27 Patient arrived in ED. ag3 20:48 Surinder Ospina PA is PHCP. cp 20:54 Surinder Nieves MD is Attending Physician. cp 20:55 Triage completed. jh5 20:55 Arm band placed on right wrist. jh5 21:37 XRAY Knee RIGHT 3 view In Process Unspecified. EDMS 23:25 Randolph Philippe MD is Referral Physician. cp 23:59 Patient has correct armband on for positive identification. Adult w/ patient. aa9 23:59 No provider procedures requiring assistance completed. Patient did not have IV access aa9 during this emergency room visit. Administered Medications: 22:10 Drug: Ibuprofen 800 mg Route: PO; aa9 22:45 Follow up: Response: No adverse reaction aa9 22:10 Drug: Hydrocodone-Acetaminophen (7.5 mg-325 mg) 1 tabs Route: PO; aa9 22:45 Follow up: Response: No adverse reaction aa9 23:09 Drug: morphine 4 mg Route: IM; Site: right deltoid; aa9 Medication: 23:59 VIS not applicable for this client. aa9 Outcome: 23:26 Discharge ordered by . cp 23:59 Discharged to home with crutches, with family. aa9 23:59 Condition: stable 23:59 Instructed on discharge instructions, follow up and referral plans. 08/06 00:00 Patient left the ED. aa9 Signatures: Dispatcher [employer] EDMS Surinder Ospina PA PA cp Gomez, Alice ag3 Michelle Hogue, RN RN jh5 Darcy Hilario RN RN aa9
--- NOTE | 2022-08-05 23:27 | EDPHYS ---
Physician Documentation [facility] Name: Tere Ponce Age: 27 yrs Sex: Female : 1995 Arrival Date: 08/05/2022 Time: 20:27 Bed 12 Private MD: TEE Physician Surinder Nieves HPI: 08/05 21:10 This 27 yrs old Female presents to ER via Wheelchair with complaints of Knee Injury, cp Knee Pain. 21:10 The patient presents with pain, that is acute. The complaints affect the right knee. cp 21:10 Context: resulted from an unknown cause, the patient can partially bear weight, the cp patient is able to ambulate, with moderate difficulty, Problem is a result from a previous injury: No. Onset: The symptoms/episode began/occurred this morning, and became worse today. 21:10 Modifying factors: the symptoms are aggravated by weight bearing, bending knee. cp 21:10 Associated signs and symptoms: Pertinent positives: swelling, Pertinent negatives calf cp tenderness, fever, numbness, warmth. Treatment prior to arrival includes: no previous treatment. 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 - Social history:: Smoking status: Patient denies any tobacco usage or history of. ROS: 21:15 Constitutional: Negative for body aches, chills, fever, poor PO intake. cp 21:15 Eyes: Negative for injury, pain, redness, and discharge. cp 21:15 Cardiovascular: Negative for chest pain, palpitations. 21:15 Respiratory: Negative for cough, shortness of breath, wheezing. 21:15 Abdomen/GI: Negative for abdominal pain, nausea, vomiting, and diarrhea. 21:15 Back: Negative for pain at rest, pain with movement. 21:15 MS/extremity: Positive for pain, swelling, tenderness, of the anterior aspect right knee, Negative for injury or acute deformity, warmth. 21:15 All other systems are negative. Exam: 21:20 Constitutional: The patient appears in no acute distress, alert, awake, non-toxic, well cp developed, well nourished, obese, uncomfortable. 21:20 Head/Face: Normocephalic, atraumatic. cp 21:20 Chest/axilla: Inspection: normal. 21:20 Cardiovascular: Rate: normal, Rhythm: regular, Pulses: Pulses are 2+ in right dorsalis pedis artery. Edema: is not appreciated. 21:20 Respiratory: the patient does not display signs of respiratory distress, Respirations: normal, no use of accessory muscles, no retractions, labored breathing, is not present. 21:20 Abdomen/GI: Exam negative for discomfort, distension, guarding, Inspection: abdomen appears normal. 21:20 Back: pain, is absent, ROM is normal. 21:20 Musculoskeletal/extremity: Extremities: grossly normal except: noted in the right knee: pain, tenderness to palpation, mild swelling noted quadriceps tendon, overlying skin of right knee warm and dry with no signs of infection, ROM: limited passive range of motion due to pain, in the right knee, DVT Exam: no pain, no swelling, no tenderness, negative Homans' sign noted on exam, no appreciated bluish discoloration, no erythema, no increased warmth. Vital Signs: 20:52 BP 108 / 70; Pulse 91; Resp 18; Temp 98.6; Pulse Ox 99% ; Weight 120.2 kg; Height 5 ft. jh5 3 in. (160.02 cm); Pain 8/10; 20:52 Body Mass Index 46.94 (120.20 kg, 160.02 cm) jh5 MDM: 20:59 Patient medically screened. kaylin 22:00 Differential diagnosis: tendonitis, cellulitis, septic joint, tendon rupture. cp 23:25 Data reviewed: vital signs, nurses notes, radiologic studies, plain films. cp 23:25 Consideration of Admission/Observation Escalation of care including cp admission/observation considered. I considered the following discharge prescriptions or medication management in the emergency department Medications were administered in the Emergency Department. See MAR. Test considered but Not performed: CT: right knee. Counseling: I had a detailed discussion with the patient and/or guardian regarding: the historical points, exam findings, and any diagnostic results supporting the discharge/admit diagnosis, radiology results, the need for outpatient follow up, a orthopedic surgeon, to return to the emergency department if symptoms worsen or persist or if there are any questions or concerns that arise at home. Response to treatment: the patient's symptoms have markedly improved after treatment, and as a result, I will discharge patient. 08/05 21:03 Order name: XRAY Knee RIGHT 3 view; Complete Time: 22:42 cp 08/05 23:24 Order name: Knee Immobilizer; Complete Time: 23:58 cp 08/05 23:24 Order name: Crutches; Complete Time: 23:58 cp Administered Medications: 22:10 Drug: Ibuprofen 800 mg Route: PO; aa9 22:45 Follow up: Response: No adverse reaction aa9 22:10 Drug: Hydrocodone-Acetaminophen (7.5 mg-325 mg) 1 tabs Route: PO; aa9 22:45 Follow up: Response: No adverse reaction aa9 23:09 Drug: morphine 4 mg Route: IM; Site: right deltoid; aa9 Disposition Summary: 08/05/22 23:26 Discharge Ordered Location: Home cp Problem: new cp Symptoms: have improved cp Condition: Stable cp Diagnosis - Pain in right knee cp Followup: cp - With: Randolph Philippe MD - When: 2 - 3 days - Reason: Recheck today's complaints Discharge Instructions: - Discharge Summary Sheet cp - Acute Knee Pain, Adult cp Forms: - Medication Reconciliation Form cp - Thank You Letter cp - Antibiotic Education cp - Prescription Opioid Use cp Prescriptions: - Diclofenac Sodium 75 mg Oral Tablet Sustained Release - take 1 tablet by ORAL route 2 times per day; 30 tablet; Refills: 0, Product cp Selection Permitted - Tramadol 50 mg Oral Tablet - take 1 tablet by ORAL route every 8 hours as needed; 12 tablet; Refills: 0, cp Product Selection Permitted Signatures: Dispatcher [employer] EDSurinder Keith MD MD cha Page, Corey, PA PA cp Michelle Hogue RN RN jh5 Darcy Hilario RN RN aa9 Corrections: (The following items were deleted from the chart) 08/06 21:41 08/05 21:10 Onset: The symptoms/episode began/occurred this morning, cp cp
[2022-08-06 00:21] VITALS: BP 108/70; TEMP 98.6; O2SAT 99
== END 2022-08-06 | disposition home or self-care (01) ==
LOC: ER 20:23
DX: M25.561 Pain in right knee (principal)
CPT/HCPCS: 96372; 99283

== ENCOUNTER 2023-01-16 02:29 | Emergency (ER) | payer BC, SELFPAY ==
--- OUTSIDE RECORDS SUMMARY | 2023-01-16 02:37 | XMS REPORT | Continuity of Care Document ---
:1995 Author Organization [facility] t Address [address] [place] [address] [address] [place] [address] Care Team Providers Name Role Phone Dagmar Little Primary Care Physician ULISES RIOS Attending Clinician Unavailable JOSIANE GORDON Attending Clinician Unavailable DAGMAR IRELAND Attending Clinician Unavailable ROBERTA COLON Attending Clinician Unavailable ROBERTA COLON Attending Clinician Unavailable ELLEN MUNROE Attending Clinician Unavailable JEREMY PIERRE Attending Clinician Unavailable 5, [facility] Chair Attending Clinician Unavailable Ellen Munroe DO Attending Clinician Roberta Colon MD Attending Clinician Doctor Unassigned, [place] Attending Clinician Unavailable Dagmar Little Attending Clinician Cory CALVO, Kuldeep Pal Attending Clinician Jose Bonilla DO Attending Clinician Gumaro Bhat DO Attending Clinician Diogenes De La O MD Attending Clinician Kuldeep Ray DO Attending Clinician Unavailable Francia CALVO, Sergo Sutherland Attending Clinician [phone] Moon CALVO, Ivana Perales Attending Clinician [phone] Kodi CALVO, Clary Baldwin Attending Clinician [phone] Heidi CALVO, Josiane Attending Clinician Swathi HERNANDEZ, Stanley Attending Clinician Unavailable Jj HERNANDEZ, Lory Attending Clinician Unavailable SLIME DIANE Attending Clinician Unavailable Slime Diane MD Attending Clinician Lab, [facility] Attending Clinician Unavailable Jordi CALVO, Randolph Fuentes Attending Clinician Pob, [facility] Main Attending Clinician Unavailable Lab, Ang - Db Attending Clinician Unavailable Heber Sanchez Attending Clinician KERVIN LYLE Attending Clinician Unavailable Kervin Fernández Attending Clinician Carlitos Ibrahim MD Attending Clinician CARLITOS IBRAHIM Attending Clinician Unavailable CONRADO SANTIAGO Attending Clinician Unavailable Ulises Rios MD Attending Clinician Cayetano Guzman MD Attending Clinician JOHNNIE CARPIO Attending Clinician Unavailable Johnnie Carpio DO Attending Clinician Only, Adc Test Attending Clinician Unavailable HEBER SANCHEZ Attending Clinician Unavailable Carlitos Khan MD Attending Clinician CARLITOS KHAN Attending Clinician Unavailable Heber Sanchez MD Attending Clinician Susan Mckenzie Attending Clinician SUSAN ROSS Attending Clinician Unavailable Pratik Gupta DO Attending Clinician 2, [facility] Attending Clinician Unavailable Conrado Santiago PA-C Attending Clinician JIMMY STARR Attending Clinician Unavailable BEATRIZ ELIAS Attending Clinician Unavailable ULISES RIOS Admitting Clinician Unavailable GUMARO BHAT Admitting Clinician Unavailable KERVIN LYLE Admitting Clinician Unavailable JOHNNIE CARPIO Admitting Clinician Unavailable Ulises Rios MD Admitting Clinician Payers Payer Name Policy Type Policy Number Effective Date Expiration Date John CAMPOS BCBS BLUE [id number] 2022 ADVANTAGE HMO 00:00:00 Problems Condition Condition Condition Status Onset Resolution Last Treating Co mments Source Name Details Category Date Date Treatment Clinician Date Proctocoli Proctocoli Disease Active M ethodi tis tis 6 st 00:00: Hospita 00 l Chronic Chronic Disease Active Univers nausea nausea 2-25 ity of 00:00: [place] [facility] Recurrent Recurrent Disease Active Uni vers oral oral 2-25 ity of ulcers ulcers 00:00: [place] 00 [facility] Kidney Kidney Disease Active Univers stones stones 4-03 ity of 00:00: [place] [facility] Status Status Disease Active Univers post post 9-18 ity of surgical surgical 00:00: [place] removal of removal of 00 Me dical both both Branch fallopian fallopian tubes tubes Mixed Mixed Disease Active Univers headache headache 8-06 ity of 00:00: [place] 00 [facility] Disease Active U nivers depression depression 7-27 it y of 00:00: [place] [facility] Sterilizat Sterilizat Disease Active 2018- U nivers ion ion 7-27 ity of consult consult 00:00: [place] [facility] Anemia of Anemia of Disease Active Uni vers mother in mother in 5-22 ity of , , [place] antepartum antepartum 00 Me dical Branch Aphthous Aphthous Disease Active 2016-07 Unive rs ulcer of ulcer of 2-19 ity of mouth mouth 00:00: [place] [facility] GBS GBS Disease Active 2016-07 Univers bacteriuri bacteriuri 1-19 it y of a a 00:00: [place] 00 [facility] Food Food Disease Active 2016-07 Univers allergy allergy 1- ity of 00:00: [place] [facility] Iron Iron Disease Active 2016-07 Univers deficiency deficiency 1- it y of anemia anemia 00:00: [place] 00 Medical Branch Hematochez Hematochez Disease Active 2016-07 U symone ia ia 0-25 ity of 00:00: [place] 00 Medical Branch Oral Oral Disease Active Univers herpes herpes 7-11 ity of simplex simplex 00:00: [place] infection infection 00 [facility] Branch Abnormal Abnormal Disease Active 2015-07 Unive rs glucose glucose 2-20 ity of tolerance tolerance 00:[place] Bran ch Hemorrhoid Hemorrhoid Disease Active 2015-07 U nivdipti s, s, 2-15 ity of unspecifie unspecifie 00:[place] d [place] 00 Medical hemorrhoid hemorrhoid Br anch type type Rubella Rubella Disease Active Univers immune immune 08 ity of 00:00: [place] 00 Medical Branch Immune to Immune to Disease Active Uni vers varicella varicella 08 ity of 00:00: [place] 00 Medical Branch Obesity Obesity Disease Active Overview: Univ ers 07-12 Formattin ity of 00:00: g of this [place] 00 note Medical might be Branch different from the original. 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 Resolved without surgery. Family Family Disease Active Overview: Univer s history of history of 07-12 Formattin ity of autism autism 00:00: g of this [place] note Medical might be Branch different from the original. FOB's 1st cousin Allergies, Adverse Reactions, Alerts Allergy Allergy Status Severity Reaction(s) Onset Inactive Treating Comm ents Source Name Type Date Date Clinician Gluten Propensi Active Other (See Mouth Meth robby ty to Comments) 6-[address] adverse 00:00: Hospita reaction 00 l s to drug Milk Propensi Active GI Methodi Containi ty to Intolerance 6-03 st ng adverse 00:00: Hospita Products reaction 00 l (Dairy) s to drug Amoxicil Propensi Active Rash Method i jesika ty to 5-30 st adverse 00:00: Hospita reaction 00 l s to drug Latex Propensi Active Rash Methodi ty to 5-30 st adverse 00:00: Hospita reaction 00 l s to drug GLUTEN DRUG Active Other-Cmnt Univer s INGREDI 4-20 ity of 00:00: [place] 00 Medical Branch Gluten Propensi Active Other - See Sore Uni vers ty to comments 4-20 throat ity of adverse 00:00: and abd [place] reaction 00 pain Medical s Branch MILK DRUG Active Swelling Univers INGREDI 8-16 ity of 00:00: [place] 00 Medical Branch Milk Propensi Active Swelling Cow's Univer s ty to 8-16 milk ity of adverse 00:00: [place] reaction 00 Medical s Branch Docosano Propensi Active Other - See Worsenin g Univers l ty to comments 7-11 sx ity of adverse 00:00: [place] reaction [...] DRUG Active Unknown-Cmnt Univ ers JUICE INGREDI 1-06 ity of 00:00: [place] 00 Medical Branch LATEX DRUG Active ITCHING Univers INGREDI 1-06 ity of 00:00: [place] 00 Medical Branch Grape Propensi Active Unknown - Pt's Unive rs Juice ty to See comments 1-06 mother ity of adverse 00:00: told her [place] reaction 00 she was Medical s allergic Branch to it. Unknown reactions but has not drank it. Latex Propensi Active Itching Univers ty to 1-06 ity of adverse 00:00: [place] reaction 00 Medical s Branch Egg Propensi Active Swelling Pt states Uni vers ty to she is no ity of adverse longer [place] reaction allergic Medica l s to eggs Branch EGG DRUG Active High Swelling Univers INGREDI ity of [facility] Family History Family Member Diagnosis Comments Start Date Stop Date Source Natural mother Breast cancer [facility] Social History Social Habit Start Date Stop Date Quantity Comments Source Gender identity 2022-12-12 Identifies as Method ist 18:27:11 female gender Hospital (finding) Sexual orientation 2022-12-12 Heterosexual Meth odist 18:27:11 (finding) Hospital History of tobacco Current smoker Me thodist use Hospital History of Social 2022-12-16 2022[facility]12-16 [facility] Hospital Alcohol intake 2022-12-11 2022-12-11 Ex-drinker [facility] 00:00:00 00:00:00 (finding) Hospital Cigarettes smoked 2022-12-07 2022-12-07 [facility] current (pack per 00:00:00 00:00:00 Hospita l day) - Reported Cigarette 2022-12-07 2022-12-07 [facility] pack-years 00:00:00 00:00:00 Hospital Tobacco use and 2022-12-07 2022-12-07 Former smokeless Met hodist exposure 00:00:00 00:00:00 tobacco user Hospital Tobacco Comment 2022-12-07 2022-12-07 Quit 2-3 years ago M ethodist 00:00:00 00:00:00 Hospital Exposure to 2022-11-05 2022-11-15 Not sure University SARS-CoV-2 (event) 00:00:00 20:43:00 [facility] Sex Assigned At [birth year] F [facility] 00:00:00 00:00:00 Hospital Smoking Status Start Date Stop Date Source Ex-smoker 2022-10-22 00:00:00 2022-10-22 00:00:00 Universi ty of [facility] Medications Ordered Filled Start Stop Current Ordering Indication Dosage Frequency Signature Comments Components Source Medication Medication Date Date Medication? Clinician (SIG) Name Name diphenhydrA 2022- No [id number] 25mg 25 mg, Univers MINE 01-03 Oral, ity of (BENADRYL) 12:45: 12:43 ONCE, 1 [place] as tablet 25 00 :00 dose, On Medica l mg Fri Branch 01/03/23 at 0745, Routine acetaminoph 2022- No [id number] 500mg 500 mg, Univers en 01-03 Oral, ity of (TYLENOL) 12:45: 12:43 [place]CE[place] 500 00 :00 dose, On Medic al mg Fri01/03/23 at 0745, Routine inFLIXimab 2022- No [id number] 1000mg 1,000 mg, Univers (REMICADE) 01-03 IV ity of 1,000 mg in 12:45: 15:42 Piggyback, [place] NaCl 0.9% 00 :00 ONCE, 1 Medical (NS) dose, On Branch infusion Fri01/03/23 at 0745, Administer over 2 Hours, 250 mL
C riteria for use: Patient currently on Remicade diphenhydrA 2022- No [id number] 25mg 25 mg, Univers MINE 01-03 Oral, ity of (BENADRYL) 12:45: 12:43 ONCE, 1 [place] as tablet 25 00 :00 dose, On Medica l mg Fri01/03/23 at 0745, Routine acetaminoph 2022- No [id number] 500mg 500 mg, Univers en 01-03 Oral, ity of (TYLENOL) 12:45: 12:43 [place]CE, 1 [place] tablet 500 00 :00 dose, On Medic al mg Fri01/03/23 at 0745, Routine inFLIXimab 2022- No [id number] 1000mg 1,000 mg, Univers (REMICADE) 01-03 IV ity of 1,000 mg in 12:45: 15:42 Piggyback, [place] NaCl 0.9% 00 :00 ONCE, 1 Medical (NS) dose, On Branch infusion Fri01/03/23 at 0745, Administer over 2 Hours, 250 mL
C riteria for use: Patient currently on Remicade traZODone Yes [id number] 50mg Take 1 Univers 50 mg 12-26 105 tablet by ity of tablet 00:00: mouth at [place] 00 bedtime as Medical needed for Branch Insomnia. traZODone 3-0 Yes [id number] 50mg Take 1 Univers 50 mg 6-22 105 tablet by ity of tablet 00:00: mouth at [place] 00 bedtime as Medical needed for Branch Insomnia. traZODone 2022-0 Yes [id number] 50mg Take 1 Univers 50 mg 6-22 105 tablet by ity of tablet 00:00: mouth at [place] 00 bedtime as Medical needed for Branch Insomnia. traZODone 2022-0 Yes [id number] 50mg Take 1 Univers 50 mg 6-22 105 tablet by ity of tablet 00:00: mouth at [place] 00 bedtime as Medical needed for Branch Insomnia. traZODone 2022-0 Yes [id number] 50mg Take 1 Univers 50 mg 6-22 105 tablet by ity of tablet 00:00: mouth at [place] 00 bedtime as Medical needed for Branch Insomnia. traZODone 2022-0 Yes [id number] 50mg Take 1 Univers 50 mg 6-22 105 tablet by ity of tablet 00:00: mouth at [place] [address] bedtime as Medical needed for Branch Insomnia. traZODone 2022-0 Yes [id number] 50mg Take 1 Univers 50 mg 6-22 105 tablet by ity of tablet 00:00: mouth at [place] 00 bedtime as Medical needed for Branch Insomnia. traZODone 2022-0 Yes [id number] 50mg Take 1 Univers 50 mg 6-22 105 tablet by ity of tablet 00:00: mouth at [place] 00 bedtime as Medical needed for Branch Insomnia. traZODone 2022-0 Yes [id number] 50mg Take 1 Univers 50 mg 6-22 105 tablet by ity of tablet 00:00: mouth at [place] 00 bedtime as Medical needed for Branch Insomnia. traZODone 2022-0 Yes [id number] 50mg Take 1 Univers 50 mg 6-22 105 tablet by ity of tablet 00:00: mouth at [place] 00 bedtime as Medical needed for Branch Insomnia. traZODone 2022-0 Yes [id number] 50mg Take 1 Univers 50 mg 6-22 105 tablet by ity of tablet 00:00: mouth at [place] [address] bedtime as Medical needed for Branch Insomnia. traZODone 2022-0 Yes [id number] 50mg Take 1 Univers 50 mg 6-22 105 tablet by ity of tablet 00:00: mouth at [place] 00 bedtime as Medical needed for Branch Insomnia. traZODone 3-0 Yes [id number] 50mg Take 1 Univers 50 mg 6-22 105 tablet by ity of tablet 00:00: mouth at [place] 00 bedtime as Medical needed for Branch Insomnia. predniSONE 2023-0 2023- Yes 40mg QD Take 2 Meth robby (DELTASONE) 6-14 07-[address] 20 mg 00:00: 04:59 (40 mg Hospita tablet 00 :00 total) by l mouth daily for 30 days. predniSONE 2023-0 2023- Yes 40mg Take 2 Univ ers 20 mg 6-14 07-15 tablets by ity of tablet 00:00: 04:59 mouth. [place] 00 :00 Medical Branch predniSONE 2023-0 2023- Yes 40mg Take 2 Univ ers 20 mg 6-14 07-15 tablets by ity of tablet 00:00: 04:59 mouth. [place] 00 :00 Medical Branch predniSONE 2023-0 2023- Yes 40mg Take 2 Univ ers 20 mg 6-14 07-15 tablets by ity of tablet 00:00: 04:59 mouth. [place] 00 :00 Medical Branch predniSONE 2023-0 2023- Yes 40mg Take 2 Univ ers 20 mg 6-14 07-15 tablets by ity of tablet 00:00: 04:59 mouth. [place] 00 :00 Medical Branch predniSONE 2023-0 2023- Yes 40mg Take 2 Univ ers 20 mg 6-14 07-15 tablets by ity of tablet 00:00: 04:59 mouth. [place] 00 :00 Medical Branch predniSONE 2023-0 2023- Yes 40mg Take 2 Univ ers 20 mg 6-14 07-15 tablets by ity of tablet 00:00: 04:59 mouth. [place] 00 :00 Medical Branch predniSONE 2023-0 2023- Yes 40mg Take 2 Univ ers 20 mg 6-14 07-15 tablets by ity of tablet 00:00: 04:59 mouth. [place] 00 :00 Medical Branch predniSONE 2023-0 2023- Yes 40mg Take 2 Univ ers 20 mg 6-14 07-15 tablets by ity of tablet 00:00: 04:59 mouth. [place] 00 :00 Medical Branch predniSONE 2023-0 2023- Yes 40mg Take 2 Univ ers 20 mg 6-14 07-15 tablets by ity of tablet 00:00: 04:59 mouth. [place] 00 :00 Medical Branch predniSONE 2023-0 2023- Yes 40mg Take 2 Univ ers 20 mg 6-14 07-15 tablets by ity of tablet 00:00: 04:59 mouth. [place] 00 :00 Medical Branch predniSONE 2023-0 2023- Yes 40mg Take 2 Univ ers 20 mg 6-14 07-15 tablets by ity of tablet 00:00: 04:59 mouth. [place] 00 :00 Medical Branch predniSONE 2023-0 2023- Yes 40mg Take 2 Univ ers 20 mg 6-14 07-15 tablets by ity of tablet 00:00: 04:59 mouth. [place] 00 :00 Medical Branch predniSONE 2023-0 2023- Yes 40mg Take 2 Univ ers 20 mg 6-14 07-15 tablets by ity of tablet 00:00: 04:59 mouth. [place] 00 :00 Medical Branch phenylephri 2022-0 Yes 56g Q.5D Insert Meth robby ne-mineral 613 5,544 st oil-petrola 00:00: Applicatio Hospita jose 00 ns (56 g l (Preparatio total) n H) into the 0.25-14-74. rectum 2 9 % (two) ointment times a day as needed (hemorrhoi d). phenyleph-m 2023-0 Yes 56g Insert 56 U nivers in 6-13 g into ity of oil-petrola 00:00: rectum. Elijah as jose 00 Medical 0.25-14-74. Branch 9 % Oint phenyleph-m 2023-0 Yes 56g Insert 56 U nivers in 6-13 g into ity of oil-petrola 00:00: rectum. [place] as jose 00 Medical 0.25-14-74. Branch 9 % Oint phenyleph-m 2023-0 Yes 56g Insert 56 U nivers in 6-13 g into ity of oil-petrola 00:00: rectum. [place] as jose 00 Medical 0.25-14-74. Branch 9 % Oint phenyleph-m 2023-0 Yes 56g Insert 56 U nivers in 6-13 g into ity of oil-petrola 00:00: rectum. [place] as jose 00 Medical 0.25-14-74. Branch 9 % Oint phenyleph-m 2023-0 Yes 56g Insert 56 U nivers in 6-13 g into ity of oil-petrola 00:00: rectum. [place] as jose 00 Medical 0.25. Branch 9 % Oint phenyleph-m 2023-0 Yes 56g Insert 56 U nivers in 6-13 g into ity of oil-petrola 00:00: rectum. [place] as [place] 00 Medical 0.. Branch 9 % Oint phenyleph-m 2023-0 Yes 56g Insert 56 U nivers in 6-13 g into ity of oil-petrola 00:00: rectum. [place] as jose 00 Medical 0.. Branch 9 % Oint phenyleph-m 2023-0 Yes 56g Insert 56 U nivers in 6-13 g into ity of oil-petrola 00:00: rectum. [place] as jose 00 Medical 0.. Branch 9 % Oint phenyleph-m 2023-0 Yes 56g Insert 56 U nivers in 6-13 g into ity of oil-petrola 00:00: rectum. [place] as [place]ose 00 Medical 0.. Branch 9 % Oint phenyleph-m 3-0 Yes 56g Insert 56 U nivers in 6-13 g into ity of oil-petrola 00:00: rectum. [place] as jose 00 Medical 0.25. Branch 9 % Oint phenyleph-m 2023-0 Yes 56g Insert 56 U nivers in 6-13 g into ity of oil-petrola 00:00: rectum. [place] as jose 00 Medical 0.. Branch 9 % Oint phenyleph-m 3-0 Yes 56g Insert 56 U nivers in 6-13 g into ity of oil-petrola 00:00: rectum. [place] as jose 00 Medical 0.25. Branch 9 % Oint phenyleph-m 2023-0 Yes 56g Insert 56 U nivers in 6-13 g into ity of oil-petrola 00:00: rectum. [place] as [place] 00 Medical 0.25. Branch 9 % Oint clindamycin 2023-0 2023- Yes Q.5D Apply Meth robby (CLINDAGEL) 12-[address] 1 % gel 00:00: 04:59 2 (two) Hospit a 00 :00 times a l day for 84 days. clindamycin 2023-0 2023- Yes Apply to U nivers 1 % gel 12-17 area(s). ity of 00:00: 04:59 [place] 00 :00 Medical Branch clindamycin 2023-0 2023- Yes Apply to U nivers 1 % gel 12-17 area(s). ity of 00:00: 04:59 [place] 00 :00 Medical Branch clindamycin 2023-0 2023- Yes Apply to U nivers 1 % gel 12-17 area(s). ity of 00:00: 04:59 [place] 00 :00 Medical Branch clindamycin 2023-0 2023- Yes Apply to U nivers 1 % gel 12-17 area(s). ity of 00:00: 04:59 [place] 00 :00 Medical Branch clindamycin 2023-0 2023- Yes Apply to U nivers 1 % gel 12-17 area(s). ity of 00:00: 04:59 [place] 00 :00 Medical Branch clindamycin 2023-0 2023- Yes Apply to U nivers 1 % gel 12-17 area(s). ity of 00:00: 04:59 [place] 00 :00 Medical Branch clindamycin 2023-0 2023- Yes Apply to U nivers 1 % gel 12-17 area(s). ity of 00:00: 04:59 [place] 00 :00 Medical Branch clindamycin 2023-0 2023- Yes Apply to U nivers 1 % gel 12-17 area(s). ity of 00:00: 04:59 [place] 00 :00 Medical Branch clindamycin 2023-0 2023- Yes Apply to U nivers 1 % gel 12-17 area(s). ity of 00:00: 04:59 [place] 00 :00 Medical Branch clindamycin 2023-0 2023- Yes Apply to U nivers 1 % gel 12-17 area(s). ity of 00:00: 04:59 [place] 00 :00 Medical Branch clindamycin 2022- Yes Apply to U nivers 1 % gel 12-17 area(s). ity of 00:00: 04:59 [place] 00 :00 Medical Branch clindamycin 2022- Yes Apply to U nivers 1 % gel 12-17 area(s). ity of 00:00: 04:59 [place] 00 :00 Medical Branch clindamycin 2022- Yes Apply to U nivers 1 % gel 12-17 area(s). ity of 00:00: 04:59 [place] 00 :00 Medical Branch benzocaine 2022- Yes 2{spray Q.5D Apply 2 Methodi (HURRICAINE 12-17 } sprays to st ) 20 % 00:00: 04:59 the mouth Hospi ta aerosol,spr 00 :00 or throat l ay 2 (two) times a day as needed for sore throat for up to 30 days. dicyclomine 2022- Yes 10mg Q.[id number] Take 1 Methodi (BENTYL) 10 12-[id number] MG capsule 00:00: 04:59 3D (10 mg Hosp hodan 00 :00 total) by l mouth 3 (three) times a day as needed (abdominal pain) for up to 30 days. nifedipine 2022- Yes 1{appli Q.[id number] Apply 1 Methodi 0.3% with 12-17 cation} [id number] Applicatio st lidocaine 00:00: 04:59 3D n Hospita 3% ointment 00 :00 topically l 3 (three) times a day for 30 days. methocarbam 2022- Yes 500mg Q.[id number] Take 1 Methodi oL 12-[id number] (ROBAXIN) 00:00: 04:59 3D (500 mg Hosp hodan 500 MG 00 :00 total) by l tablet mouth 3 (three) times a day as needed for muscle spasms for up to 30 days. pantoprazol 2022- Yes 40mg Q.5D Take 1 Met hodi e 6-13 07-14 tablet (40 st (PROTONIX) 00:00: 04:59 mg total) H ospita 40 MG EC 00 :00 by mouth 2 l tablet (two) times a day for 30 days. promethazin 2022- Yes 12.5mg Q6H Take 1 M ethodi e 12-[address] (PHENERGAN) 00:00: 04:59 (12.5 mg H ospita 12.5 MG 00 :00 total) by l tablet mouth every 6 (six) hours as needed for nausea or vomiting for up to 30 days. simethicone 2022- Yes 80mg Q.25D Chew 1 Me thodi (MYLICON) 12-17 tablet (80 st 80 MG 00:00: 04:59 mg total) Hospit a chewable 00 :00 4 (four) l tablet times a day for 30 days. docusate 2022- Yes 240mg Q.5D Take 1 Metho di calcium 12-[address] (SURFAK) 00:00: 04:59 (240 mg Hospi ta 240 mg 00 :00 total) by l capsule mouth 2 (two) times a day for 30 days. dicyclomine 2022- Yes 10mg Take 1 Uni vers 10 mg 12-1714 capsule by ity of capsule 00:00: 04:59 mouth. [place] 00 :00 Medical Branch pantoprazol 2022- Yes 40mg Take 1 Uni vers e 40 mg EC 12-1714 tablet by ity of tablet 00:00: 04:59 mouth. [place] 00 :00 Medical Branch proMETHazin 0 2022- Yes 12.5mg Take 1 U nivers e 12.5 mg 12-17-14 tablet by ity of tablet 00:00: 04:59 mouth. [place] 00 :00 Medical Branch dicyclomine 2022- Yes 10mg Take 1 Uni vers 10 mg 12-17-14 capsule by ity of capsule 00:00: 04:59 mouth. [place] 00 :00 Medical Branch pantoprazol 2022- Yes 40mg Take 1 Uni vers e 40 mg EC 12-17-14 tablet by ity of tablet 00:00: 04:59 mouth. [place] 00 :00 Medical Branch proMETHazin 3-0 2022- Yes 12.5mg Take 1 U nivers e 12.5 mg 6-13 07-14 tablet by ity of tablet 00:00: 04:59 mouth. [place] 00 :00 Medical Branch dicyclomine 2022-0 2022- Yes 10mg Take 1 Uni vers 10 mg 6-13 07-14 capsule by ity of capsule 00:00: 04:59 mouth. [place] 00 :00 Medical Branch pantoprazol 2022-0 2022- Yes 40mg Take 1 Uni vers e 40 mg EC 6-13 07-14 tablet by ity of tablet 00:00: 04:59 mouth. [place] 00 :00 Medical Branch proMETHazin 2022-0 2022- Yes 12.5mg Take 1 U nivers e 12.5 mg 6-13 07-14 tablet by ity of tablet 00:00: 04:59 mouth. [place] 00 :00 Medical Branch dicyclomine 2022-0 2022- Yes 10mg Take 1 Uni vers 10 mg 6-13 07-14 capsule by ity of capsule 00:00: 04:59 mouth. [place] 00 :00 Medical Branch pantoprazol 2022-0 2022- Yes 40mg Take 1 Uni vers e 40 mg EC 6-13 07-14 tablet by ity of tablet 00:00: 04:59 mouth. [place] 00 :00 Medical Branch proMETHazin 2022-0 2022- Yes 12.5mg Take 1 U nivers e 12.5 mg 6-13 07-14 tablet by ity of tablet 00:00: 04:59 mouth. [place] 00 :00 Medical Branch dicyclomine 2022-0 2022- Yes 10mg Take 1 Uni vers 10 mg 6-13 07-14 capsule by ity of capsule 00:00: 04:59 mouth. [place] 00 :00 Medical Branch pantoprazol 3-0 2022- Yes 40mg Take 1 Uni vers e 40 mg EC 6-13 07-14 tablet by ity of tablet 00:00: 04:59 mouth. [place] 00 :00 Medical Branch proMETHazin 3-0 2022- Yes 12.5mg Take 1 U nivers e 12.5 mg 6-13 07-14 tablet by ity of tablet 00:00: 04:59 mouth. [place] 00 :00 Medical Branch dicyclomine 0 2022- Yes 10mg Take 1 Uni vers 10 mg 6-13 07-14 capsule by ity of capsule 00:00: 04:59 mouth. [place] 00 :00 Medical Branch pantoprazol 2022- Yes 40mg Take 1 Uni vers e 40 mg EC 6-13 07-14 tablet by ity of tablet 00:00: 04:59 mouth. [place] 00 :00 Medical Branch proMETHazin 2022-2022- Yes 12.5mg Take 1 U nivers e 12.5 mg 6-13 07-14 tablet by ity of tablet 00:00: 04:59 mouth. [place] 00 :00 Medical Branch dicyclomine 2022- Yes 10mg Take 1 Uni vers 10 mg 6-13 07-14 capsule by ity of capsule 00:00: 04:59 mouth. [place] 00 :00 Medical Branch pantoprazol 2022- Yes 40mg Take 1 Uni vers e 40 mg EC 6-13 07-14 tablet by ity of tablet 00:00: 04:59 mouth. [place] 00 :00 Medical Branch proMETHazin 0 2022- Yes 12.5mg Take 1 U nivers e 12.5 mg 6-13 07-14 tablet by ity of tablet 00:00: 04:59 mouth. [place] 00 :00 Medical Branch dicyclomine 2022- Yes 10mg Take 1 Uni vers 10 mg 6-13 07-14 capsule by ity of capsule 00:00: 04:59 mouth. [place] 00 :00 Medical Branch pantoprazol 0 2022- Yes 40mg Take 1 Uni vers e 40 mg EC 6-13 07-14 tablet by ity of tablet 00:00: 04:59 mouth. [place] 00 :00 Medical Branch proMETHazin 0 2022- Yes 12.5mg Take 1 U nivers e 12.5 mg 6-13 07-14 tablet by ity of tablet 00:00: 04:59 mouth. [place] 00 :00 Medical Branch dicyclomine 2022- Yes 10mg Take 1 [facility] vers 10 mg 6-13 07-14 capsule by ity of capsule 00:00: 04:59 mouth. [place] 00 :00 Medical Branch pantoprazol 2023-0 2023- Yes 40mg Take 1 [facility] vers e 40 mg EC 6-13 07-14 tablet by ity of tablet 00:00: 04:59 mouth. [place] 00 :00 Medical Branch proMETHazin 2022-0 2022- Yes 12.5mg Take 1 U nivers e 12.5 mg 6-13 07-14 tablet by ity of tablet 00:00: 04:59 mouth. [place] 00 :00 Medical Branch dicyclomine 0 2022- Yes 10mg Take 1 [facility] vers 10 mg 6-13 07-14 capsule by ity of capsule 00:00: 04:59 mouth. [place] 00 :00 Medical Branch pantoprazol 0 2022- Yes 40mg Take 1 [facility] vers e 40 mg EC 6-13 07-14 tablet by ity of tablet 00:00: 04:59 mouth. [place] 00 :00 Medical Branch proMETHazin 0 2022- Yes 12.5mg Take 1 U nivers e 12.5 mg 6-13 07-14 tablet by ity of tablet 00:00: 04:59 mouth. [place] 00 :00 Medical Branch dicyclomine 0 2022- Yes 10mg Take 1 [facility] vers 10 mg 6-13 07-14 capsule by ity of capsule 00:00: 04:59 mouth. [place] 00 :00 Medical Branch pantoprazol 0 2022- Yes 40mg Take 1 [facility] vers e 40 mg EC 6-13 07-14 tablet by ity of tablet 00:00: 04:59 mouth. [place] 00 :00 Medical Branch proMETHazin 0 2022- Yes 12.5mg Take 1 U nivers e 12.5 mg 6-13 07-14 tablet by ity of tablet 00:00: 04:59 mouth. [place] 00 :00 Medical Branch dicyclomine 0 2022- Yes 10mg Take 1 [facility] vers 10 mg 6-13 07-14 capsule by ity of capsule 00:00: 04:59 mouth. [place] 00 :00 Medical Branch pantoprazol 0 2022- Yes 40mg Take 1 Uni vers e 40 mg EC 6-13 07-14 tablet by ity of tablet 00:00: 04:59 mouth. [place] 00 :00 Medical Branch proMETHazin 2022-0 2022- Yes 12.5mg Take 1 U nivers e 12.5 mg 6-13 07-14 tablet by ity of tablet 00:00: 04:59 mouth. [place] 00 : Medical Branch dicyclomine 2022- Yes 10mg Take 1 [facility] vers 10 mg 12-1714 capsule by ity of capsule 00:00: 04:59 mouth. [place] 00 : Medical Branch pantoprazol 2022- Yes 40mg Take 1 [facility] vers e 40 mg EC 12-17 tablet by ity of tablet 00:00: 04:59 mouth. [place] 00 : Medical Branch proMETHazin 2022- Yes 12.5mg Take 1 U nivers e 12.5 mg 12-17 tablet by ity of tablet 00:00: 04:59 mouth. [place] 00 : Medical Branch oxyCODone 2022- No [id number] 30mg Q12H Take 1 [facility] (OxyCONTIN) 12-17-24 tablet (30 s t 30 mg 00:00: 04:59 mg total) [facility] a tablet,oral 00 :00 by mouth l only,ext.re every 12 l.12 hr ER (twelve) tablet hours as needed for severe pain (pain) for up to 10 days .chronic pain. Max Daily Amount: 60 mg hydrocortis Yes 1{appli Q.5D Insert 1 [facility] one-pramoxi 5-30 cator} applicator st ne 00:00: [facility] (Proctofoam 00 rectum 2 l HC) 1-1 % (two) rectal foam times a day. traMADoL Yes [id number] 50mg Q8H Take 1 [facility] i (ULTRAM) 50 5-30 tablet (50 st mg tablet 00:00: mg total) [facility] 00 by mouth l every 8 (eight) hours as needed for severe pain .acute pain. hydrocortis Yes [id number] Insert [facility] one 2.5 % 5-24 into ity of rectal 00:00: rectum 2 [place] cream 00 (two) Medical times Branch daily. hydrocortis Yes [id number] Insert [facility] one 2.5 % 5-24 into ity of rectal 00:00: rectum 2 [place] cream 00 (two) Medical times Branch daily. hydrocortis 2023-0 Yes [id number] Insert [facility] one 2.5 % 5-24 into ity of rectal 00:00: rectum 2 [place] cream 00 (two) Medical times Branch daily. hydrocortis 2022-0 Yes [id number] Insert [facility] one 2.5 % 5-24 into ity of rectal 00:00: rectum 2 [place] cream 00 (two) Medical times Branch daily. hydrocortis 2022-0 Yes [id number] Insert [facility] one 2.5 % 5-24 into ity of rectal 00:00: rectum 2 [place] cream 00 (two) Medical times Branch daily. hydrocortis 2022-0 Yes [id number] Insert [facility] one 2.5 % 5-24 into ity of rectal 00:00: rectum 2 [place] cream 00 (two) Medical times Branch daily. hydrocortis 2022-0 Yes [id number] Insert [facility] one 2.5 % 5-24 into ity of rectal 00:00: rectum 2 [place] cream 00 (two) Medical times Branch daily. hydrocortis 2022-0 Yes [id number] Insert [facility] one 2.5 % 5-24 into ity of rectal 00:00: rectum 2 [place] cream 00 (two) Medical times Branch daily. hydrocortis 2022-0 Yes [id number] Insert [facility] one 2.5 % 5-24 into ity of rectal 00:00: rectum 2 [place] cream 00 (two) Medical times Branch daily. hydrocortis 2022-0 Yes [id number] Insert [facility] one 2.5 % 5-24 into ity of rectal 00:00: rectum 2 [place] cream 00 (two) Medical times Branch daily. hydrocortis 2022-0 Yes [id number] Insert [facility] one 2.5 % 5-24 into ity of rectal 00:00: rectum 2 [place] cream 00 (two) Medical times Branch daily. hydrocortis 3-0 Yes [id number] Insert [facility] one 2.5 % 5-24 into ity of rectal 00:00: rectum 2 [place] cream 00 (two) Medical times Branch daily. hydrocortis 3-0 Yes [id number] Insert [facility] one 2.5 % 5-24 into ity of rectal 00:00: rectum 2 [place] cream 00 (two) Medical times Branch daily. hydrocortis 3-0 Yes [id number] Insert [facility] one 2.5 % 5-24 into ity of rectal 00:00: rectum 2 [place] cream 00 (two) Medical times Branch daily. hydrocortis 2022-0 Yes [id number] Insert [facility] one 2.5 % 5-24 into ity of rectal 00:00: rectum 2 [place] cream 00 (two) Medical times Branch daily. hydrocortis 2022-0 Yes [id number] Insert [facility] one 2.5 % 5-24 into ity of rectal 00:00: rectum 2 [place] cream 00 (two) Medical times Branch daily. hydrocortis 2022-0 Yes [id number] Insert [facility] one 2.5 % 5-24 into ity of rectal 00:00: rectum 2 [place] cream 00 (two) Medical times Branch daily. hydrocortis 2022-0 Yes [id number] Insert [facility] one 2.5 % 5-24 into ity of rectal 00:00: rectum 2 [place] cream 00 (two) Medical times Branch daily. hydrocortis 2022-0 Yes [id number] Insert [facility] one 2.5 % 5-24 into ity of rectal 00:00: rectum 2 [place] cream 00 (two) Medical times Branch daily. hydrocortis 2022-0 Yes [id number] Insert [facility] one 2.5 % 5-24 into ity of rectal 00:00: rectum 2 [place] cream 00 (two) Medical times Branch daily. predniSONE 2022- No 40mg 40 mg, Univ ers (DELTASONE) 11-16 Oral, ity of tablet 40 02:00: 02:03 ONCE, 1 [place] mg 00 :00 dose, On Medical Fri Branch 11/15/22 at 2100, KAMRY[place] dexAMETHaso 2022- Yes [id number] .5mg Take 5 mL [facility] ne 0.5 mg/5 11-15 by mouth 3 i ty of mL elixir 00:00: 04:59 (three) [place] 00 :[place] times Medical daily as Branch needed for Pain (scale 4-6) for up to 10 days. dexAMETHaso 2022-0 2022- Yes [id number] .5mg Take 5 mL [facility] ne 0.5 mg/5 11-15 by mouth 3 i ty of mL elixir 00:00: 04:59 (three[place] 00 :[place] times Medical daily as Branch needed for Pain (scale 4-6) for up to 10 days. dexAMETHaso 2022- Yes [id number] .5mg Take 5 mL [facility] ne 0.5 mg/5 5-06 10-23 by mouth 3 i ty of mL elixir 00:00: 04:59 (three[place] 00 :00 times Medical daily as Branch needed for Pain (scale 4-6) for up to 10 days. dexAMETHaso 2022- Yes [id number] .5mg Take 5 mL [facility] ne 0.5 mg/5 5-06 10-23 by mouth 3 i ty of mL elixir 00:00: 04:59 (three[place] 00 :00 times Medical daily as Branch needed for Pain (scale 4-6) for up to 10 days. predniSONE 2022- Yes [id number] 20mg Take 1 [facility] 20 mg 5-12 05-17 tablet by ity of tablet 00:00: 04:59 mouth in [place] 00 :00 the Medical morning Branch and 1 tablet in the evening. Do all this for 4 days. predniSONE 2022- Yes [id number] 20mg Take 1 [facility] 20 mg 5-12 05-17 tablet by ity of tablet 00:00: 04:59 mouth in [place] 00 :00 the Medical morning Branch and 1 tablet in the evening. Do all this for 4 days. predniSONE 2022- Yes [id number] 20mg Take 1 [facility] 20 mg 5-12 05-17 tablet by ity of tablet 00:00: 04:59 mouth in [place] 00 :00 the Medical morning Branch and 1 tablet in the evening. Do all this for 4 days. predniSONE 2022- Yes [id number] 20mg Take 1 [facility] 20 mg 5-12 05-17 tablet by ity of tablet 00:00: 04:59 mouth in [place] 00 :00 the Medical morning Branch and 1 tablet in the evening. Do all this for 4 days. mesalamine 2022- Yes [id number] 1600mg Take 2 [facility] 800 mg EC 4-25 07-25 tablets by ity of tablet 00:00: 04:59 mouth in [place] 00 :00 the Medical morning Branch and 2 tablets at noon and 2 tablets in the evening. Do all this for 90 days. mesalamine 2022- Yes [id number] 1600mg Take 2 [facility] 800 mg EC 4-25 07-25 tablets by ity of tablet 00:00: 04:59 mouth in [place] 00 :00 the Medical morning Branch and 2 tablets at noon and 2 tablets in the evening. Do all this for 90 days. mesalamine 2022- Yes [id number] 1600mg Take 2 [facility] 800 mg EC 4-25 07-25 tablets by ity of tablet 00:00: 04:59 mouth in [place] 00 :00 the Medical morning Branch and 2 tablets at noon and 2 tablets in the evening. Do all this for 90 days. mesalamine 2022- Yes [id number] 1600mg Take 2 [facility] 800 mg EC 4-25 07-25 tablets by ity of tablet 00:00: 04:59 mouth in [place] 00 :00 the Medical morning Branch and 2 tablets at noon and 2 tablets in the evening. Do all this for 90 days. mesalamine 2022- Yes [id number] 1600mg Take 2 [facility] 800 mg EC 4-25 07-25 tablets by ity of tablet 00:00: 04:59 mouth in [place] 00 :00 the Medical morning Branch and 2 tablets at noon and 2 tablets in the evening. Do all this for 90 days. mesalamine 2022- Yes [id number] 1600mg Take 2 [facility] 800 mg EC 4-25 07-25 tablets by ity of tablet 00:00: 04:59 mouth in [place] 00 :00 the Medical morning Branch and 2 tablets at noon and 2 tablets in the evening. Do all this for 90 days. mesalamine 2022- Yes [id number] 1600mg Take 2 [facility] 800 mg EC 4-25 07-25 tablets by ity of tablet 00:00: 04:59 mouth in [place] 00 :00 the Medical morning Branch and 2 tablets at noon and 2 tablets in the evening. Do all this for 90 days. mesalamine 2022- Yes [id number] 1600mg Take 2 [facility] 800 mg EC 4-25 07-25 tablets by ity of tablet 00:00: 04:59 mouth in [place] 00 :00 the Medical morning Branch and 2 tablets at noon and 2 tablets in the evening. Do all this for 90 days. mesalamine 2022- Yes [id number] 1600mg Take 2 [facility] 800 mg EC 4-25 07-25 tablets by ity of tablet 00:00: 04:59 mouth in [place] 00 :00 the Medical morning Branch and 2 tablets at noon and 2 tablets in the evening. Do all this for 90 days. mesalamine 2022- Yes [id number] 1600mg Take 2 [facility] 800 mg EC 4-25 07-25 tablets by ity of tablet 00:00: 04:59 mouth in [place] 00 :00 the Medical morning Branch and 2 tablets at noon and 2 tablets in the evening. Do all this for 90 days. mesalamine 2022- Yes [id number] 1600mg Take 2 [facility] 800 mg EC 4-25 07-25 tablets by ity of tablet 00:00: 04:59 mouth in [place] 00 :00 the Medical morning Branch and 2 tablets at noon and 2 tablets in the evening. Do all this for 90 days. mesalamine 2022- Yes [id number] 1600mg Take 2 [facility] 800 mg EC 4-25 07-25 tablets by ity of tablet 00:00: 04:59 mouth in [place] 00 :00 the Medical morning Branch and 2 tablets at noon and 2 tablets in the evening. Do all this for 90 days. mesalamine 2022- Yes [id number] 1600mg Take 2 [facility] 800 mg EC 4-25 07-25 tablets by ity of tablet 00:00: 04:59 mouth in [place] 00 :00 the Medical morning Branch and 2 tablets at noon and 2 tablets in the evening. Do all this for 90 days. mesalamine 2022- Yes [id number] 1600mg Take 2 [facility] 800 mg EC 4-25 07-25 tablets by ity of tablet 00:00: 04:59 mouth in [place] 00 :00 the Medical morning Branch and 2 tablets at noon and 2 tablets in the evening. Do all this for 90 days. mesalamine 2022- Yes [id number] 1600mg Take 2 [facility] 800 mg EC 4-25 07-25 tablets by ity of tablet 00:00: 04:59 mouth in [place] 00 :00 the Medical morning Branch and 2 tablets at noon and 2 tablets in the evening. Do all this for 90 days. mesalamine 2022- Yes [id number] 1600mg Take 2 [facility] 800 mg EC 4-25 07-25 tablets by ity of tablet 00:00: 04:59 mouth in [place] 00 :00 the Medical morning Branch and 2 tablets at noon and 2 tablets in the evening. Do all this for 90 days. mesalamine 2022- Yes [id number] 1600mg Take 2 [facility] 800 mg EC 4-25 07-25 tablets by ity of tablet 00:00: 04:59 mouth in [place] 00 :00 the Medical morning Branch and 2 tablets at noon and 2 tablets in the evening. Do all this for 90 days. mesalamine 2022- Yes [id number] 1600mg Take 2 [facility] 800 mg EC 4-25 07-25 tablets by ity of tablet 00:00: 04:59 mouth in [place] 00 :00 the Medical morning Branch and 2 tablets at noon and 2 tablets in the evening. Do all this for 90 days. mesalamine 2022- Yes [id number] 1600mg Take 2 [facility] 800 mg EC 4-25 07-25 tablets by ity of tablet 00:00: 04:59 mouth in [place] 00 :00 the Medical morning Branch and 2 tablets at noon and 2 tablets in the evening. Do all this for 90 days. mesalamine 2022- Yes [id number] 1600mg Take 2 [facility] 800 mg EC 4-25 07-25 tablets by ity of tablet 00:00: 04:59 mouth in [place] 00 :00 the Medical morning Branch and 2 tablets at noon and 2 tablets in the evening. Do all this for 90 days. mesalamine 2022- Yes [id number] 1600mg Take 2 [facility] 800 mg EC 4-25 07-25 tablets by ity of tablet 00:00: 04:59 mouth in [place] 00 :00 the Medical morning Branch and 2 tablets at noon and 2 tablets in the evening. Do all this for 90 days. mesalamine 2022- Yes [id number] 1600mg Take 2 [facility] 800 mg EC 4-25 07-25 tablets by ity of tablet 00:00: 04:59 mouth in [place] 00 :00 the Medical morning Branch and 2 tablets at noon and 2 tablets in the evening. Do all this for 90 days. mesalamine 2022- Yes [id number] 1600mg Take 2 [facility] 800 mg EC 4-25 07-25 tablets by ity of tablet 00:00: 04:59 mouth in [place] 00 :00 the Medical morning Branch and 2 tablets at noon and 2 tablets in the evening. Do all this for 90 days. mesalamine 2022- Yes [id number] 1600mg Take 2 [facility] 800 mg EC 4-25 07-25 tablets by ity of tablet 00:00: 04:59 mouth in [place] 00 :00 the Medical morning Branch and 2 tablets at noon and 2 tablets in the evening. Do all this for 90 days. mesalamine 2022- Yes [id number] 1600mg Take 2 [facility] 800 mg EC 4-25 07-25 tablets by ity of tablet 00:00: 04:59 mouth in [place] 00 :00 the Medical morning Branch and 2 tablets at noon and 2 tablets in the evening. Do all this for 90 days. mesalamine 2022- Yes [id number] 1600mg Take 2 [facility] 800 mg EC 4-25 07-25 tablets by ity of tablet 00:00: 04:59 mouth in [place] 00 :00 the Medical morning Branch and 2 tablets at noon and 2 tablets in the evening. Do all this for 90 days. mesalamine 2022- Yes [id number] 1600mg Take 2 [facility] 800 mg EC 4-25 07-25 tablets by ity of tablet 00:00: 04:59 mouth in [place] 00 :00 the [facility] morning Branch and 2 tablets at noon and 2 tablets in the evening. Do all this for 90 days. mesalamine 2022- Yes [id number] 1600mg Take 2 [facility] 800 mg EC 4-25 07-25 tablets by ity of tablet 00:00: 04:59 mouth in [place] 00 :00 the Medical morning Branch and 2 tablets at noon and 2 tablets in the evening. Do all this for 90 days. mesalamine 2022- Yes [id number] 1600mg Take 2 [facility] 800 mg EC 4-25 07-25 tablets by ity of tablet 00:00: 04:59 mouth in [place] 00 :00 the Medical morning Branch and 2 tablets at noon and 2 tablets in the evening. Do all this for 90 days. mesalamine 2022- Yes [id number] 1600mg Take 2 [facility] 800 mg EC 4-25 07-25 tablets by ity of tablet 00:00: 04:59 mouth in [place] 00 :00 the Medical morning Branch and 2 tablets at noon and 2 tablets in the evening. Do all this for 90 days. mesalamine 2022- Yes [id number] 1600mg Take 2 [facility] 800 mg EC 4-25 07-25 tablets by ity of tablet 00:00: 04:59 mouth in [place] 00 :00 the [facility] morning Branch and 2 tablets at noon and 2 tablets in the evening. Do all this for 90 days. mesalamine 2022- Yes [id number] 1600mg Take 2 [facility] 800 mg EC 4-25 07-25 tablets by ity of tablet 00:00: 04:59 mouth in [place] 00 :00 the [facility] morning [place] and 2 tablets at noon and 2 tablets in the evening. Do all this for 90 days. ciprofloxac 2022- No 500mg 500 mg, U nivers in HCl 10-13 Oral, ONCE ity of (CIPRO) 04:15: 03:28 NOW, 1 [place] tablet 500 00 :00 dose, On Medic al mg 10/12/22 Branch at 2315, KAMRYN
Re ason for Anti-Infec tive: Documented Infection< br>Documen edilma Infection Site: Abdominal< br>Duratio n of Therapy: 10 days methylpredn 2022- No 125mg 125 mg, U nivers isolone sod 10-13 Slow IV ity of succ 03:30: 03:28 [place], [place] (SOLU-MEDRO 00 :00 ONCE, 1 Medic al L) dose, On Branch injection 10/12/22 125 mg at 2230, KAMRYN metroNIDAZO 2022- No 500mg 500 mg, U nivers LE (FLAGYL) 10-13 Oral, ity of tablet 500 03:30: 03:28 ONCE, 1 [place] mg 00 :00 dose, On Medical 10/12/22 Branch at 2230, KAMRYN
Re ason for Anti-Infec tive: Documented Infection< br>Documen edilma Infection Site: Abdominal< br>Duratio n of Therapy: 10 days NaCl 0.9% 2023-0 2023- No 1000mL at 999 Uni vers (NS) bolus 10-13-09 mL/hr, ity of infusion 01:45: 03:16 1,000 mL, [place] as 1,000 mL 00 :00 IV Medical Infusion, Branch ONCE, 1 dose, On 10/12/22 at 2045, STAT iopamidol 0 3- No [id number] 100mL 100 mL, Univers (ISOVUE 10-13-09 Intravenou ity o f 370-500 mL) 01:00: 01:00 s, ONCE, 1 [place] injection 00 :00 dose, On Medica l 100 mL 10/12/22 Branch at 1999, Routine metroNIDAZO 3-0 Yes [id number] 500mg Take 1 [facility] LE 500 mg 4-08 tablet by ity o f tablet 00:00: mouth in [place] [address] the Medical morning Branch and 1 tablet in the evening. metroNIDAZO 2022-0 Yes [id number] 500mg Take 1 [facility] LE 500 mg 4-08 tablet by ity o f tablet 00:00: mouth in [place] [address] the Medical morning Branch and 1 tablet in the evening. metroNIDAZO 2022-0 Yes [id number] 500mg Take 1 [facility] LE 500 mg 4-08 tablet by ity o f tablet 00:00: mouth in [place] [address] the Medical morning Branch and 1 tablet in the evening. metroNIDAZO 3-0 Yes [id number] 500mg Take 1 [facility] LE 500 mg 4-08 tablet by ity o f tablet 00:00: mouth in [place] [address] the Medical morning Branch and 1 tablet in the evening. metroNIDAZO 3-0 Yes [id number] 500mg Take 1 [facility] LE 500 mg 4-08 tablet by ity o f tablet 00:00: mouth in [place] [address] the Medical morning Branch and 1 tablet in the evening. metroNIDAZO 2023-0 Yes [id number] 500mg Take 1 [facility] LE 500 mg 4-08 tablet by ity o f tablet 00:00: mouth in [place] [address] the [facility] morning [place] and 1 tablet in the evening. metroNIDAZO 3-0 Yes [id number] 500mg Take 1 [facility] LE 500 mg 4-08 tablet by ity o f tablet 00:00: mouth in [place] [address] the [facility] morning [place] and 1 tablet in the evening. metroNIDAZO 3-0 Yes [id number] 500mg Take 1 [facility] LE 500 mg 4-08 tablet by ity o f tablet 00:00: mouth in [place] 00 the Medical morning Branch and 1 tablet in the evening. metroNIDAZO 2023-0 Yes [id number] 500mg Take 1 [facility] LE 500 mg 4-08 tablet by ity o f tablet 00:00: mouth in [place] 00 the Medical morning Branch and 1 tablet in the evening. metroNIDAZO 2023-0 Yes [id number] 500mg Take 1 [facility] LE 500 mg 4-08 tablet by ity o f tablet 00:00: mouth in [place] 00 the Medical morning Branch and 1 tablet in the evening. metroNIDAZO 2023-0 Yes [id number] 500mg Take 1 [facility] LE 500 mg 4-08 tablet by ity o f tablet 00:00: mouth in [place] 00 the Medical morning Branch and 1 tablet in the evening. metroNIDAZO 2023-0 Yes [id number] 500mg Take 1 [facility] LE 500 mg 4-08 tablet by ity o f tablet 00:00: mouth in [place] 00 the Medical morning Branch and 1 tablet in the evening. metroNIDAZO 2023-0 Yes [id number] 500mg Take 1 [facility] LE 500 mg 4-08 tablet by ity o f tablet 00:00: mouth in [place] 00 the Medical morning Branch and 1 tablet in the evening. metroNIDAZO 2023-0 Yes [id number] 500mg Take 1 [facility] LE 500 mg 4-08 tablet by ity o f tablet 00:00: mouth in [place] 00 the Medical morning Branch and 1 tablet in the evening. ciprofloxac 3-0 Yes [id number] 500mg Take 1 Univers in HCl 500 4-08 tablet by ity of mg tablet 00:00: mouth in [facility] 00 the Medical morning Branch and 1 tablet in the evening. metroNIDAZO 2023-0 Yes [id number] 500mg Take 1 [facility] LE 500 mg 4-08 tablet by ity o f tablet 00:00: mouth in [place] 00 the Medical morning Branch and 1 tablet in the evening. hydrocortis 2023-0 Yes [id number] 1{appli Insert 1 [facility] one-pramovi 4-08 cator} Applicator ity of ne 00:00: into [place] [facility] the Branch foam morning and 1 Applicator in the evening. predniSONE 2023-0 Yes [id number] Take 2 U nivers 20 mg 4-08 tablets by ity of tablet 00:00: mouth for Medical Branch ciprofloxac 2022-0 Yes [id number] 500mg Take 1 [facility] in HCl 500 4-08 tablet by ity of mg tablet 00:00: mouth in [place] 00 the Medical morning Branch and 1 tablet in the evening. metroNIDAZO 2022-0 Yes [id number] 500mg Take 1 [facility] LE 500 mg 4-08 tablet by ity o f tablet 00:00: mouth in [place] 00 the Medical morning Branch and 1 tablet in the evening. hydrocortis 2022-0 Yes [id number] 1{appli Insert 1 [facility] one-pramovi 4-08 cator} Applicator ity of ne 00:00: into [place] (PROCTOFOAM 00 rectum in Med ical HC) rectal the Branch foam morning and 1 Applicator in the evening. predniSONE 2022-0 Yes [id number] Take 2 U nivers 20 mg 4-08 tablets by ity of tablet 00:00: mouth for Medical Branch ciprofloxac 2022-0 Yes [id number] 500mg Take 1 [facility] in HCl 500 4-08 tablet by ity of mg tablet 00:00: mouth in [place] 00 the Medical morning Branch and 1 tablet in the evening. metroNIDAZO 2022-0 Yes [id number] 500mg Take 1 [facility] LE 500 mg 4-08 tablet by ity o f tablet 00:00: mouth in [place] 00 the Medical morning Branch and 1 tablet in the evening. hydrocortis 2022-0 Yes [id number] 1{appli Insert 1 [facility] one-pramovi 4-08 cator} Applicator ity of ne 00:00: into [place] (PROCTOFOAM 00 rectum in Med ical HC) rectal the Branch foam morning and 1 Applicator in the evening. predniSONE 2022-0 Yes [id number] Take 2 U nivers 20 mg 4-08 tablets by ity of tablet 00:00: mouth for 7 Medical Branch metroNIDAZO 3-0 Yes [id number] 500mg Take 1 [facility] LE 500 mg 4-08 tablet by ity o f tablet 00:00: mouth in [place] 00 the Medical morning Branch and 1 tablet in the evening. hydrocortis 2023-0 Yes [id number] 1{appli Insert 1 [facility] one-pramovi 4-08 cator} Applicator ity of ne 00:00: into [place] (PROCTOFOAM 00 rectum in Med ical HC) rectal the Branch foam morning and 1 Applicator in the evening. metroNIDAZO 2023-0 Yes [id number] 500mg Take 1 [facility] LE 500 mg 4-08 tablet by ity o f tablet 00:00: mouth in [place] 00 the Medical morning Branch and 1 tablet in the evening. hydrocortis 2023-0 Yes [id number] 1{appli Insert 1 [facility] one-pramovi 4-08 cator} Applicator ity of ne 00:00: into [place] (PROCTOFOAM 00 rectum in Med ical HC) rectal the Branch foam morning and 1 Applicator in the evening. metroNIDAZO 2023-0 Yes [id number] 500mg Take 1 [facility] LE 500 mg 4-08 tablet by ity o f tablet 00:00: mouth in [place] 00 the Medical morning Branch and 1 tablet in the evening. metroNIDAZO 2023-0 Yes [id number] 500mg Take 1 [facility] LE 500 mg 4-08 tablet by ity o f tablet 00:00: mouth in [place] 00 the Medical morning Branch and 1 tablet in the evening. metroNIDAZO 2023-0 Yes [id number] 500mg Take 1 [facility] LE 500 mg 4-08 tablet by ity o f tablet 00:00: mouth in [place] 00 the Medical morning Branch and 1 tablet in the evening. metroNIDAZO 2023-0 Yes [id number] 500mg Take 1 [facility] LE 500 mg 4-08 tablet by ity o f tablet 00:00: mouth in [place] 00 the Medical morning Branch and 1 tablet in the evening. metroNIDAZO 2023-0 Yes [id number] 500mg Take 1 [facility] LE 500 mg 4-08 tablet by ity o f tablet 00:00: mouth in [place] 00 the Medical morning Branch and 1 tablet in the evening. metroNIDAZO 2023-0 Yes [id number] 500mg Take 1 [facility] LE 500 mg 4-08 tablet by ity o f tablet 00:00: mouth in [place] 00 the Medical morning Branch and 1 tablet in the evening. metroNIDAZO 2023-0 Yes [id number] 500mg Take 1 [facility] LE 500 mg 4-08 tablet by ity o f tablet 00:00: mouth in [place] 00 the Medical morning Branch and 1 tablet in the evening. metroNIDAZO 2023-0 Yes [id number] 500mg Take 1 [facility] LE 500 mg 4-08 tablet by ity o f tablet 00:00: mouth in [place] 00 the Medical morning Branch and 1 tablet in the evening. metroNIDAZO 2023-0 Yes [id number] 500mg Take 1 [facility] LE 500 mg 4-08 tablet by ity o f tablet 00:00: mouth in [place] 00 the Medical morning Branch and 1 tablet in the evening. metroNIDAZO 2023-0 Yes [id number] 500mg Take 1 [facility] LE 500 mg 4-08 tablet by ity o f tablet 00:00: mouth in [place] 00 the Medical morning Branch and 1 tablet in the evening. metroNIDAZO 2023-0 Yes [id number] 500mg Take 1 [facility] LE 500 mg 4-08 tablet by ity o f tablet 00:00: mouth in [place] 00 the Medical morning Branch and 1 tablet in the evening. metroNIDAZO 2023-0 Yes [id number] 500mg Take 1 [facility] LE 500 mg 4-08 tablet by ity o f tablet 00:00: mouth in [place] 00 the Medical morning Branch and 1 tablet in the evening. metroNIDAZO 2023-0 Yes [id number] 500mg Take 1 [facility] LE 500 mg 4-08 tablet by ity o f tablet 00:00: mouth in [place] 00 the Medical morning Branch and 1 tablet in the evening. metroNIDAZO 2023-0 Yes [id number] 500mg Take 1 [facility] LE 500 mg 4-08 tablet by ity o f tablet 00:00: mouth in [place] 00 the Medical morning Branch and 1 tablet in the evening. metroNIDAZO 2023-0 Yes [id number] 500mg Take 1 [facility] LE 500 mg 4-08 tablet by ity o f tablet 00:00: mouth in [place] 00 the Medical morning Branch and 1 tablet in the evening. metroNIDAZO 2023-0 Yes [id number] 500mg Take 1 [facility] LE 500 mg 4-08 tablet by ity o f tablet 00:00: mouth in [place] 00 the Medical morning Branch and 1 tablet in the evening. metroNIDAZO 2023-0 Yes [id number] 500mg Take 1 [facility] LE 500 mg 4-08 tablet by ity o f tablet 00:00: mouth in [place] 00 the Medical morning Branch and 1 tablet in the evening. metroNIDAZO 3-0 Yes [id number] 500mg Take 1 [facility] LE 500 mg 4-08 tablet by ity o f tablet 00:00: mouth in [place] 00 the Medical morning Branch and 1 tablet in the evening. metroNIDAZO 3-0 Yes [id number] 500mg Take 1 [facility] LE 500 mg 4-08 tablet by ity o f tablet 00:00: mouth in [place] 00 the Medical morning Branch and 1 tablet in the evening. metroNIDAZO 2022-0 Yes [id number] 500mg Take 1 [facility] LE 500 mg 4-08 tablet by ity o f tablet 00:00: mouth in [place] 00 the Medical morning Branch and 1 tablet in the evening. metroNIDAZO 3-0 Yes [id number] 500mg Take 1 [facility] LE 500 mg 4-08 tablet by ity o f tablet 00:00: mouth in [place] 00 the Medical morning Branch and 1 tablet in the evening. ciprofloxac 2022-0 3- No [id number] 500mg Take 1 [facility] in HCl 500 4-08 04-18 tablet by ity of mg tablet 00:00: 00:00 mouth in [facility] as 00 :00 the Medical morning Branch and 1 tablet in the evening. predniSONE 2022-0 2022- No [id number] Take 2 [facility] 20 mg 4-08 04-18 tablets by ity of tablet 00:00: 00:00 mouth for [place] 00 :00 7 days Medical Branch ciprofloxac 3-0 2022- No [id number] 500mg Take 1 [facility] in HCl 500 4-08 04-18 tablet by ity of mg tablet 00:00: 00:00 mouth in [facility] as 00 :00 the Medical morning Branch and 1 tablet in the evening. predniSONE 2022-0 2022- No [id number] Take 2 [facility] 20 mg 4-08 04-18 tablets by ity of tablet 00:00: 00:00 mouth for [place] 00 :00 7 days Medical Branch traZODone 2-0 Yes [id number] 50mg Take 1 U nivers 50 mg 5-10 tablet by ity of tablet 00:00: mouth at [place] 00 bedtime as Medical needed for Branch Insomnia. traZODone 2021-0 Yes [id number] 50mg Take 1 U nivers 50 mg 5-10 tablet by ity of tablet 00:00: mouth at [place] 00 bedtime as Medical needed for Branch Insomnia. traZODone 0 Yes [id number] 50mg Take 1 U nivers 50 mg 5-10 tablet by ity of tablet 00:00: mouth at [place] 00 bedtime as Medical needed for Branch Insomnia. traZODone 0 Yes [id number] 50mg Take 1 U nivers 50 mg 5-10 tablet by ity of tablet 00:00: mouth at [place] 00 bedtime as Medical needed for Branch Insomnia. traZODone Yes [id number] 50mg Take 1 U nivers 50 mg 5-10 tablet by ity of tablet 00:00: mouth at [place] 00 bedtime as Medical needed for Branch Insomnia. traZODone Yes [id number] 50mg Take 1 U nivers 50 mg 5-10 tablet by ity of tablet 00:00: mouth at [place] 00 bedtime as Medical needed for Branch Insomnia. traZODone Yes [id number] 50mg Take 1 U nivers 50 mg 5-10 tablet by ity of tablet 00:00: mouth at [place] 00 bedtime as Medical needed for Branch Insomnia. busPIRone 2021- No [id number] 10mg Take 1 U nivers 10 mg 5-10 06-25 tablet by ity of tablet 00:00: 04:59 mouth 2 [place] 00 :00 (two) Medical times Branch daily for 45 days. busPIRone 2021- No [id number] 10mg Take 1 U nivers 10 mg 5-10 06-25 tablet by ity of tablet 00:00: 04:59 mouth 2 [place] 00 :00 (two) Medical times Branch daily for 45 days. mesalamine 2021- No [id number] 2.4g Take 2 [facility] 1.2 gram EC 11-09-05 tablets by i ty of tablet 00:00: 04:59 mouth [place] 00 :00 daily for Medical 90 days. Branch mesalamine 2021-2021- No [id number] 2.4g Take 2 [facility] 1.2 gram EC 5- 08-05 tablets by i ty of tablet 00:00: 04:59 mouth [place] 00 :00 daily for Medical 90 days. Branch mupirocin 2 2-0 Yes [id number] Apply to [facility] % ointment 4-22 area(s) 3 ity of 00:00: (three) [place] 00 times Medical daily. Branch mupirocin 2 2-0 Yes [id number] Apply to [facility] % ointment 4-22 area(s) 3 ity of 00:00: (three) [place] 00 times Medical daily. Branch mupirocin 2 2021-0 Yes [id number] Apply to [facility] % ointment 4-22 area(s) 3 ity of 00:00: (three) [place] 00 times Medical daily. Branch mupirocin 2 2021-0 Yes [id number] Apply to Univers % ointment 4-22 area(s) 3 ity of 00:00: (three) [place] 00 times Medical daily. Branch mupirocin 2 2021-0 Yes [id number] Apply to [facility] % ointment 4-22 area(s) 3 ity of 00:00: (three) [place] 00 times Medical daily. Branch mupirocin 2 2021-0 Yes [id number] Apply to [facility] % ointment 4-22 area(s) 3 ity of 00:00: (three) [place] 00 times Medical daily. Branch mupirocin 2 2-0 Yes [id number] Apply to Univers % ointment 4-22 area(s) 3 ity of 00:00: (three) [place] 00 times Medical daily. Branch proMETHazin Yes [id number] 12.5mg Take 0.5-1 Univers e 25 mg 2-25 tablets by ity of tablet 00:00: mouth [place] 00 every 6 Medical (six) Branch hours as needed for Nausea and Vomiting (N/V). pantoprazol Yes [id number] 40mg Take 1 [facility] e 40 mg EC 2-25 tablet by ity of tablet 00:00: mouth [place] 00 daily. Medical Take on an Branch empty stomach 30 mins before breakfast. valACYclovi Yes [id number] 2g Take 2 Univers r 1 gram 2-25 tablets by ity o f tablet 00:00: mouth [place] 00 every 12 Medical (twelve) Branch hours. x 1 day proMETHazin Yes [id number] 12.5mg Take 0.5-1 [facility] e 25 mg 2-25 tablets by ity of tablet 00:00: mouth [place] 00 every 6 Medical (six) Branch hours as needed for Nausea and Vomiting (N/V). pantoprazol 2021-0 Yes [id number] 40mg Take 1 [facility] e 40 mg EC 2-25 tablet by ity of tablet 00:00: mouth [place] 00 daily. Medical Take on an Branch empty stomach 30 mins before breakfast. valACYclovi 0 Yes [id number] 2g Take 2 Univers r 1 gram 2-25 tablets by ity o f tablet 00:00: mouth [place] 00 every 12 Medical (twelve) Branch hours. x 1 day proMETHazin 2021-0 Yes [id number] 12.5mg Take 0.5-1 [facility] e 25 mg 2-25 tablets by ity of tablet 00:00: mouth [place] 00 every 6 Medical (six) Branch hours as needed for Nausea and Vomiting (N/V). pantoprazol 2021- Yes [id number] 40mg Take 1 [facility] e 40 mg EC 2-25 tablet by ity of tablet 00:00: mouth [place] 00 daily. Medical Take on an Branch empty stomach 30 mins before breakfast. valACYclovi 0 Yes [id number] 2g Take 2 Univers r 1 gram 2-25 tablets by ity o f tablet 00:00: mouth [place] 00 every 12 Medical (twelve) Branch hours. x 1 day proMETHazin 2021-0 Yes [id number] 12.5mg Take 0.5-1 [facility] e 25 mg 2-25 tablets by ity of tablet 00:00: mouth [place] 00 every 6 Medical (six) Branch hours as needed for Nausea and Vomiting (N/V). pantoprazol 2021- Yes [id number] 40mg Take 1 [facility] e 40 mg EC 2-25 tablet by ity of tablet 00:00: mouth [place] 00 daily. Medical Take on an Branch empty stomach 30 mins before breakfast. valACYclovi 2021-0 Yes [id number] 2g Take 2 Univers r 1 gram 2-25 tablets by ity o f tablet 00:00: mouth [place] 00 every 12 Medical (twelve) Branch hours. x 1 day proMETHazin 2021-0 Yes [id number] 12.5mg Take 0.5-1 [facility] e 25 mg 2-25 tablets by ity of tablet 00:00: mouth [place] 00 every 6 Medical (six) Branch hours as needed for Nausea and Vomiting (N/V). pantoprazol Yes [id number] 40mg Take 1 [facility] e 40 mg EC 2-25 tablet by ity of tablet 00:00: mouth [place] 00 daily. Medical Take on an Branch empty stomach 30 mins before breakfast. valACYclovi Yes [id number] 2g Take 2 Univers r 1 gram 2-25 tablets by ity o f tablet 00:00: mouth [place] 00 every 12 Medical (twelve) Branch hours. x 1 day proMETHazin Yes [id number] 12.5mg Take 0.5-1 [facility] e 25 mg 2-25 tablets by ity of tablet 00:00: mouth [place] 00 every 6 Medical (six) Branch hours as needed for Nausea and Vomiting (N/V). pantoprazol Yes [id number] 40mg Take 1 [facility] e 40 mg EC 2-25 tablet by ity of tablet 00:00: mouth [place] 00 daily. Medical Take on an Branch empty stomach 30 mins before breakfast. valACYclovi Yes [id number] 2g Take 2 [facility] r 1 gram 2-25 tablets by ity o f tablet 00:00: mouth [place] 00 every 12 Medical (twelve) Branch hours. x 1 day proMETHazin Yes [id number] 12.5mg Take 0.5-1 [facility] e 25 mg 2-25 tablets by ity of tablet 00:00: mouth [place] 00 every 6 Medical (six) Branch hours as needed for Nausea and Vomiting (N/V). pantoprazol Yes [id number] 40mg Take 1 [facility] e 40 mg EC 2-25 tablet by ity of tablet 00:00: mouth [place] 00 daily. Medical Take on an Branch empty stomach 30 mins before breakfast. valACYclovi Yes [id number] 2g Take 2 Univers r 1 gram 2-25 tablets by ity o f tablet 00:00: mouth [place] 00 every 12 Medical (twelve) Branch hours. x 1 day Immunizations Ordered Filled Immunization Date Status Comments [facility] Immunization Name Name Hep B, Adult 2022-12-11 Completed [facility] 00:00:00 [facility] HEP B, Adult Dosage 2022-12-11 Completed Unive rsity of 00:00:00 [place] [facility] HEP B, Adult Dosage 2022-12-11 Completed Unive rsity of 00:00:00 [place] [facility] HEP B, Adult Dosage 2022-12-11 Completed Unive rsity of 00:00:00 [place] [facility] HEP B, Adult Dosage 2022-12-11 Completed Unive rsity of 00:00:00 [place] [facility] HEP B, Adult Dosage 2022-12-11 Completed Unive rsity of 00:00:00 [place] [facility] HEP B, Adult Dosage 2022-12-11 Completed Unive rsity of 00:00:00 [place] [facility] HEP B, Adult Dosage 2022-12-11 Completed Unive rsity of 00:00:00 [place] [facility] HEP B, Adult Dosage 2022-12-11 Completed Unive rsity of 00:00:00 [place] [facility] HEP B, Adult Dosage 2022-12-11 Completed Unive rsity of 00:00:00 [place] [facility] HEP B, Adult Dosage 2022-12-11 Completed Unive rsity of 00:00:00 [place] [facility] HEP B, Adult Dosage 2022-12-11 Completed Unive rsity of 00:00:00 [place] [facility] HEP B, Adult Dosage 2022-12-11 Completed Unive rsity of 00:00:00 [place] [facility] HEP B, Adult Dosage 2022-12-11 Completed Unive rsity of 00:00:00 [place] [facility] HEP B, Adult Dosage 2022-12-11 Completed Unive rsity of 00:00:00 [facility] Branch TDAP 2017-10-28 Completed University of 00:00:00 [facility] Branch TDAP 2017-10-28 Completed University of 00:00:00 [place] [facility] TDAP 2017-10-28 Completed University of 00:00:00 [place] [facility] TDAP 2017-10-28 Completed University of 00:00:00 [place] [facility] TDAP 2017-10-28 Completed University of 00:00:00 [place] [facility] TDAP 2017-10-28 Completed University of 00:00:00 [place] [facility] TDAP 2017-10-28 Completed University of 00:00:00 [facility] Branch TDAP 2017-10-28 Completed University of 00:00:00 [facility] Branch TDAP 2017-10-28 Completed University of 00:00:00 [place] [facility] TDAP 2017-10-28 Completed University of 00:00:00 [place] [facility] TDAP 2017-10-28 Completed University of 00:00:00 [place] [facility] TDAP 2017-10-28 Completed University of 00:00:00 [place] [facility] TDAP 2017-10-28 Completed University of 00:00:00 [place] [facility] TDAP 2017-10-28 Completed University of 00:00:00 [place] [facility] TDAP 2017-10-28 Completed University of 00:00:00 [place] [facility] TDAP 2017-10-28 Completed University of 00:00:00 [place] [facility] TDAP 2017-10-28 Completed University of 00:00:00 [place] [facility] TDAP 2017-10-28 Completed University of 00:00:00 [place] [facility] TDAP 2017-10-28 Completed University of 00:00:00 [place] [facility] TDAP 2017-10-28 Completed University of 00:00:00 [place] [facility] TDAP 2017-10-28 Completed University of 00:00:00 [place] [facility] TDAP 2017-10-28 Completed University of 00:00:00 [place] [facility] TDAP 2017-10-28 Completed University of 00:00:00 [place] [facility] TDAP 2017-10-28 Completed University of 00:00:00 [place] [facility] TDAP 2017-10-28 Completed University of 00:00:00 [place] [facility] TDAP 2017-10-28 Completed University of 00:00:00 [place] [facility] TDAP 2017-10-28 Completed University of 00:00:00 [place] [facility] TDAP 2017-10-28 Completed University of 00:00:00 [place] [facility] TDAP 2017-10-28 Completed University of 00:00:00 [place] [facility] TDAP 2017-10-28 Completed University of 00:00:00 [place] [facility] TDAP 2017-10-28 Completed University of 00:00:00 [place] [facility] TDAP 2017-10-28 Completed University of 00:00:00 [place] [facility] TDAP 2017-10-28 Completed University of 00:00:00 [place] [facility] TDAP 2017-10-28 Completed University of 00:00:00 [place] [facility] TDAP 2017-10-28 Completed University of 00:00:00 [place] [facility] TDAP 2017-10-28 Completed University of 00:00:00 [place] [facility] TDAP 2017-10-28 Completed University of 00:00:00 [place] [facility] TDAP 2017-10-28 Completed University of 00:00:00 [place] [facility] TDAP 2017-10-28 Completed University of 00:00:00 [place] [facility] TDAP 2017-10-28 Completed University of 00:00:00 [place] [facility] TDAP 2017-10-28 Completed University of 00:00:00 [place] [facility] TDAP 2017-10-28 Completed University of 00:00:00 [place] [facility] TDAP 2016-10-01 Completed University of 00:00:00 [place] [facility] TDAP 2016-10-01 Completed University of 00:00:00 [place] [facility] TDAP 2016-10-01 Completed University of 00:00:00 [place] [facility] TDAP 2016-10-01 Completed University of 00:00:00 [place] [facility] TDAP 2016-10-01 Completed University of 00:00:00 [place] [facility] TDAP 2016-10-01 Completed University of 00:00:00 [place] [facility] TDAP 2016-10-01 Completed University of 00:00:00 [place] [facility] TDAP 2016-10-01 Completed University of 00:00:00 [place] [facility] TDAP 2016-10-01 Completed University of 00:00:00 [place] [facility] TDAP 2016-10-01 Completed University of 00:00:00 [place] [facility] TDAP 2016-10-01 Completed University of 00:00:00 [place] [facility] TDAP 2016-10-01 Completed University of 00:00:00 [place] [facility] TDAP 2016-10-01 Completed University of 00:00:00 [facility] Branch TDAP 2016-10-01 Completed University of 00:00:00 [place] [facility] TDAP 2016-10-01 Completed University of 00:00:00 [place] [facility] TDAP 2016-10-01 Completed University of 00:00:00 [place] [facility] TDAP 2016-10-01 Completed University of 00:00:00 [place] [facility] TDAP 2016-10-01 Completed University of 00:00:00 [place] [facility] TDAP 2016-10-01 Completed University of 00:00:00 [place] [facility] TDAP 2016-10-01 Completed University of 00:00:00 [place] [facility] TDAP 2016-10-01 Completed University of 00:00:00 [place] [facility] TDAP 2016-10-01 Completed University of 00:00:00 [place] [facility] TDAP 2016-10-01 Completed University of 00:00:00 [place] [facility] TDAP 2016-10-01 Completed University of 00:00:00 [place] [facility] TDAP 2016-10-01 Completed University of 00:00:00 [place] [facility] TDAP 2016-10-01 Completed University of 00:00:00 [place] [facility] TDAP 2016-10-01 Completed University of 00:00:00 [place] [facility] TDAP 2016-10-01 Completed University of 00:00:00 [place] [facility] TDAP 2016-10-01 Completed University of 00:00:00 [place] [facility] TDAP 2016-10-01 Completed University of 00:00:00 [place] [facility] TDAP 2016-10-01 Completed University of 00:00:00 [place] [facility] TDAP 2016-10-01 Completed University of 00:00:00 [place] [facility] TDAP 2016-10-01 Completed University of 00:00:00 [place] [facility] TDAP 2016-10-01 Completed University of 00:00:00 [place] [facility] TDAP 2016-10-01 Completed University of 00:00:00 [place] [facility] TDAP 2016-10-01 Completed University of 00:00:00 [place] [facility] TDAP 2016-10-01 Completed University of 00:00:00 [place] [facility] TDAP 2016-10-01 Completed University of 00:00:00 [place] [facility] TDAP 2016-10-01 Completed University of 00:00:00 [place] [facility] TDAP 2016-10-01 Completed University of 00:00:00 [place] [facility] TDAP 2016-10-01 Completed University of 00:00:00 [place] [facility] TDAP 2016-10-01 Completed University of 00:00:00 [place] [facility] TDAP 2013-12-21 Completed University of 00:00:00 [place] [facility] TDAP 2013-12-21 Completed University of 00:00:00 [place] [facility] TDAP 2013-12-21 Completed University of 00:00:00 [place] [facility] TDAP 2013-12-21 Completed University of 00:00:00 [place] [facility] TDAP 2013-12-21 Completed University of 00:00:00 [place] [facility] TDAP 2013-12-21 Completed University of 00:00:00 [place] [facility] TDAP 2013-12-21 Completed University of 00:00:00 [place] [facility] TDAP 2013-12-21 Completed University of 00:00:00 [place] [facility] TDAP 2013-12-21 Completed University of 00:00:00 [place] [facility] TDAP 2013-12-21 Completed University of 00:00:00 [place] [facility] TDAP 2013-12-21 Completed University of 00:00:00 [place] [facility] TDAP 2013-12-21 Completed University of 00:00:00 [place] [facility] TDAP 2013-12-21 Completed University of 00:00:00 [place] [facility] TDAP 2013-12-21 Completed University of 00:00:00 [place] [facility] TDAP 2013-12-21 Completed University of 00:00:00 [place] [facility] TDAP 2013-12-21 Completed University of 00:00:00 [place] [facility] TDAP 2013-12-21 Completed University of 00:00:00 [place] [facility] TDAP 2013-12-21 Completed University of 00:00:00 [place] [facility] TDAP 2013-12-21 Completed University of 00:00:00 [place] [facility] TDAP 2013-12-21 Completed University of 00:00:00 [place] [facility] TDAP 2013-12-21 Completed University of 00:00:00 [place] [facility] TDAP 2013-12-21 Completed University of 00:00:00 [place] [facility] TDAP 2013-12-21 Completed University of 00:00:00 [place] [facility] TDAP 2013-12-21 Completed University of 00:00:00 [place] [facility] TDAP 2013-12-21 Completed University of 00:00:00 [place] [facility] TDAP 2013-12-21 Completed University of 00:00:00 [place] [facility] TDAP 2013-12-21 Completed University of 00:00:00 [place] [facility] TDAP 2013-12-21 Completed University of 00:00:00 [place] [facility] TDAP 2013-12-21 Completed University of 00:00:00 [place] [facility] TDAP 2013-12-21 Completed University of 00:00:00 [place] [facility] TDAP 2013-12-21 Completed University of 00:00:00 [place] [facility] TDAP 2013-12-21 Completed University of 00:00:00 [place] [facility] TDAP 2013-12-21 Completed University of 00:00:00 [place] [facility] TDAP 2013-12-21 Completed University of 00:00:00 [place] [facility] TDAP 2013-12-21 Completed University of 00:00:00 [place] [facility] TDAP 2013-12-21 Completed University of 00:00:00 [place] [facility] TDAP 2013-12-21 Completed University of 00:00:00 [place] [facility] TDAP 2013-12-21 Completed University of 00:00:00 [place] [facility] TDAP 2013-12-21 Completed University of 00:00:00 [place] [facility] TDAP 2013-12-21 Completed University of 00:00:00 [place] [facility] TDAP 2013-12-21 Completed University of 00:00:00 [place] [facility] TDAP 2013-12-21 Completed University of 00:00:00 [place] [facility] TD, NOS 2008-02-10 Completed University of 00:00:00 [place] [facility] TD, NOS 2008-02-10 Completed University of 00:00:00 [place] [facility] TD, NOS 2008-02-10 Completed University of 00:00:00 [place] [facility] TD, NOS 2008-02-10 Completed University of 00:00:00 [place] [facility] TD, NOS 2008-02-10 Completed University of 00:00:00 [place] [facility] TD, NOS 2008-02-10 Completed University of 00:00:00 [place] [facility] TD, NOS 2008-02-10 Completed University of 00:00:00 [place] [facility] TD, NOS 2008-02-10 Completed University of 00:00:00 [place] [facility] TD, NOS 2008-02-10 Completed University of 00:00:00 [place] [facility] TD, NOS 2008-02-10 Completed University of 00:00:00 [place] [facility] TD, NOS 2008-02-10 Completed University of 00:00:00 [place] [facility] TD, NOS 2008-02-10 Completed University of 00:00:00 [place] [facility] TD, NOS 2008-02-10 Completed University of 00:00:00 [place] [facility] Td 2008-02-10 Completed University of 00:00:00 [place] [facility] Td 2008-02-10 Completed University of 00:00:00 [place] [facility] TD, NOS 2008-02-10 Completed University of 00:00:00 [place] [facility] TD, NOS 2008-02-10 Completed University of 00:00:00 [place] [facility] TD, NOS 2008-02-10 Completed University of 00:00:00 [place] [facility] TD, NOS 2008-02-10 Completed University of 00:00:00 [place] [facility] TD, NOS 2008-02-10 Completed University of 00:00:00 [place] [facility] TD, NOS 2008-02-10 Completed University of 00:00:00 [place] [facility] TD, NOS 2008-02-10 Completed University of 00:00:00 [place] [facility] TD, NOS 2008-02-10 Completed University of 00:00:00 [place] [facility] TD, NOS 2008-02-10 Completed University of 00:00:00 [place] [facility] TD, NOS 2008-02-10 Completed University of 00:00:00 [place] [facility] TD, NOS 2008-02-10 Completed University of 00:00:00 [place] [facility] TD, NOS 2008-02-10 Completed University of 00:00:00 [place] [facility] TD, NOS 2008-02-10 Completed University of 00:00:00 [place] [facility] TD, NOS 2008-02-10 Completed University of 00:00:00 [place] [facility] TD, NOS 2008-02-10 Completed University of 00:00:00 [place] [facility] TD, NOS 2008-02-10 Completed University of 00:00:00 [place] [facility] TD, NOS 2008-02-10 Completed University of 00:00:00 [place] [facility] TD, NOS 2008-02-10 Completed University of 00:00:00 [place] [facility] TD, NOS 2008-02-10 Completed University of 00:00:00 [place] [facility] TD, NOS 2008-02-10 Completed University of 00:00:00 [place] [facility] TD, NOS 2008-02-10 Completed University of 00:00:00 [place] [facility] TD, NOS 2008-02-10 Completed University of 00:00:00 [place] [facility] TD, NOS 2008-02-10 Completed University of 00:00:00 [place] [facility] TD, NOS 2008-02-10 Completed University of 00:00:00 [place] [facility] TD, NOS 2008-02-10 Completed University of 00:00:00 [place] [facility] TD, NOS 2008-02-10 Completed University of 00:00:00 [place] [facility] TD, NOS 2008-02-10 Completed University of 00:00:00 [facility] Branch Vital Signs Vital Name Observation Time Observation Value Comments Source Systolic blood 2023-01-03 12:36:00 125 mm[Hg] Univer sity of pressure [facility] Diastolic blood 2023-01-03 12:36:00 68 mm[Hg] Unive rsity of pressure [facility] Heart rate 2023-01-03 12:36:00 73 /min Universi ty of [facility] Body temperature 2023-01-03 12:36:00 36.61 [facility] [place] [facility] Respiratory rate 2023-01-03 12:36:00 19 /min [facility] [place] [facility] Body height 2023-01-03 12:36:00 160 cm [facility] [place] [facility] Body weight 2023-01-03 12:36:00 101.606 kg [facility] [place] [facility] BMI 2023-01-03 12:36:00 39.68 kg/m2 [facility] [place] [facility] Oxygen saturation in 2023-01-03 12:36:00 97 /min University of Arterial blood by [place] [facility] [facility] oximetry Branch Systolic blood 2023-01-01 19:49:00 119 mm[Hg] Univer sity of pressure [place] [facility] Diastolic blood 2023-01-01 19:49:00 79 mm[Hg] Unive rsity of pressure [place] [facility] Heart rate 2023-01-01 19:49:00 95 /min [facility] [place] [facility] Respiratory rate 2023-01-01 19:49:00 19 /min [facility] [place] [facility] Body height 2023-01-01 19:49:00 160 cm [facility] [place] [facility] Body weight 2023-01-01 19:49:00 101.651 kg [facility] [place] [facility] BMI 2023-01-01 19:49:00 39.70 kg/m2 [facility] [place] [facility] Branch Oxygen saturation in 2023-01-01 19:49:00 94 /min [facility] of Arterial blood by [place] [employer] [facility] Pulse oximetry Branch Systolic blood 2022-12-26 19:52:00 113 mm[Hg] Univer sity of pressure [facility] Diastolic blood 2022-12-26 19:52:00 75 mm[Hg] Unive rsity of pressure [facility] Heart rate 2022-12-26 19:52:00 75 /min [facility] Body height 2022-12-26 19:52:00 160 cm [facility] [place] [facility] Body weight 2022-12-26 19:52:00 97.977 kg [facility] BMI 2022-12-26 19:52:00 38.26 kg/m2 [facility] Oxygen saturation in 2022-12-26 19:52:00 96 /min [facility] of Arterial blood by [facility] adarsh Pulse oximetry Branch Systolic blood 2022-11-16 01:46:00 112 mm[Hg] Univer sity of pressure [facility] Diastolic blood 2022-11-16 01:46:00 83 mm[Hg] Unive rsity of pressure [facility] Heart rate 2022-11-16 01:46:00 87 /min [facility] Body temperature 2022-11-16 01:46:00 37 Raven Univ [facility] [place] [facility] Respiratory rate 2022-11-16 01:46:00 16 /min Univ [facility] Body height 2022-11-16 01:46:00 160 cm [facility] Body weight 2022-11-16 01:46:00 102.059 kg [facility] BMI 2022-11-16 01:46:00 39.86 kg/m2 [facility] Oxygen saturation in 2022-11-16 01:46:00 99 /min [facility] Arterial blood by [facility] Pulse oximetry Branch Systolic blood 2022-10-29 14:25:00 123 mm[Hg] Univer sity of pressure [facility] Diastolic blood 2022-10-29 14:25:00 81 mm[Hg] Unive rsity of pressure [facility] Heart rate 2022-10-29 14:25:00 92 /min [facility] Body temperature 2022-10-29 14:25:00 36.11 Raven [facility] [place] [facility] Respiratory rate 2022-10-29 14:25:00 16 /min Univ [facility] Body height 2022-10-29 14:25:00 160 cm [facility] Body weight 2022-10-29 14:25:00 101.107 kg [facility] [place] [facility] BMI 2022-10-29 14:25:00 39.48 kg/m2 [facility] Oxygen saturation in 2022-10-29 14:25:00 100 /min [facility] Arterial blood by [facility] adarsh Pulse oximetry Branch Systolic blood 2022-10-22 16:09:00 113 mm[Hg] Univer sity of [facility] Diastolic blood 2022-10-22 16:09:00 75 mm[Hg] Unive rsity of pressure [facility] Heart rate 2022-10-22 16:09:00 75 /min [facility] Body height 2022-10-22 16:09:00 160 cm [facility] Body weight 2022-10-22 16:09:00 99.882 kg [facility] BMI 2022-10-22 16:09:00 39.01 kg/m2 [facility] Oxygen saturation in 2022-10-22 16:09:00 100 /min [facility] Arterial blood by [facility] Pulse oximetry Branch Body temperature 2022-10-13 03:27:00 37.56 Raven [facility] [place] [facility] Systolic blood 2022-10-13 03:00:00 120 mm[Hg] Univer [facility]ity of [facility] Diastolic blood 2022-10-13 03:00:00 68 mm[Hg] Unive rsity of pressure [facility] Heart rate 2022-10-13 03:00:00 100 /min [facility] [place] [facility] Respiratory rate 2022-10-13 03:00:00 17 /min Univ [facility] Oxygen saturation in 2022-10-13 03:00:00 99 /min [facility] Arterial blood by [facility] Pulse oximetry Branch Body weight 2022-10-12 22:41:00 103.874 kg [facility] BMI 2022-10-12 22:41:00 40.57 kg/m2 [facility] [place] [facility] Systolic blood 2021-12-28 13:10:00 137 mm[Hg] Univer sity of [facility] Diastolic blood 2021-12-28 13:10:00 74 mm[Hg] Unive rsity of [facility] Heart rate 2021-12-28 13:10:00 80 /min [facility] Body height 2021-12-28 13:10:00 160 cm [facility] Body weight 2021-12-28 13:10:00 103.874 kg [facility] BMI 2021-12-28 13:10:00 40.57 kg/m2 [facility] Respiratory rate 2022-12-17 13:59:00 17 /min [facility] Systolic blood 2022-12-17 13:31:51 106 mm[Hg] Method ist [facility] pressure Diastolic blood 2022-12-17 13:31:51 53 mm[Hg] [facility] pressure Heart rate 2022-12-17 13:31:51 41 /min [facility] Body temperature 2022-12-17 13:31:51 36.61 Raven [facility] Oxygen saturation in 2022-12-17 13:31:51 97 /min [facility] blood by Pulse oximetry Body height 2022-12-09 13:00:[address] [facility] Body weight 2022-12-09 13:00:[address] [facility] BMI 2022-12-09 13:00:00 36.81 kg/m2 [facility] Procedures Procedure Date / Time Performing Source Performed Clinician INSURANCE CORRESPONDENCE 2022-12-31 Doctor [facility] ity of 05:01:00 Unassigned, No [place] [facility] POC GLUCOSE 2022-12-17 Gumaro Bhat 13:36:00 Hospital ESTIMATED GFR 2022-12-17 Diogenes De La O 09:54:00 [facility] POC GLUCOSE 2022-12-17 Gumaro Bhat 02:01:00 Hospital POC GLUCOSE 2022-12-16 Gumaro Bhat 22:20:00 [facility] POC GLUCOSE 2022-12-16 Gumaro Bhat 18:07:00 Hospital POC GLUCOSE 2022-12-16 Gumaro Bhat 13:54:00 Hospital CBC WITH PLATELET AND DIFFERENTIAL 2022-12-16 Georgia Ramirez 10:21:00 [facility] COMPREHENSIVE METABOLIC PANEL 2022-12-16 Georgia Ramirez Me thodist 10:21:00 [facility] MAGNESIUM LEVEL 2022-12-16 Georgia Ramirez 10:21:00 [facility] PHOSPHORUS LEVEL 2022-12-16 Georgia Ramirez 10:21:00 [facility] ESTIMATED GFR 2022-12-16 Diogenes De La O 10:21:00 [facility] MANUAL DIFFERENTIAL 2022-12-16 Diogenes De La O 10:21:00 [facility] POC GLUCOSE 2022-12-16 Diogenes De La O 02:19:00 [facility] POC GLUCOSE 2022-12-15 Diogenes De La O 22:33:00 [facility] POC GLUCOSE 2022-12-15 Diogenes De La O 17:37:00 [facility] POC GLUCOSE 2022-12-15 Diogenes De La O 13:38:00 [facility] CBC WITH PLATELET AND DIFFERENTIAL 2022-12-15 Georgia Ramirezist 10:22:00 [facility] COMPREHENSIVE METABOLIC PANEL 2022-12-15 Georgia Ramirez Me thodist 10:22:00 [facility] MAGNESIUM LEVEL 2022-12-15 Georgia Ramirez Jewish 10:22:00 [facility] PHOSPHORUS LEVEL 2022-12-15 Georgia Ramirez Jewish 10:22:00 [facility] ESTIMATED GFR 2022-12-15 Diogenes De La O 10:22:00 [facility] MANUAL DIFFERENTIAL 2022-12-15 Diogenes De La O 10:22:00 [facility] POC GLUCOSE 2022-12-15 Diogenes De La O 02:10:00 [facility] POC GLUCOSE 2022-12-14 Diogenes De La O 22:07:00 [facility] C-REACTIVE PROTEIN 2022-12-14 Chester Headley 18:59:00 [facility] FECAL CALPROTECTIN 2022-12-14 Chester Headley 18:06:00 [facility] POC GLUCOSE 2022-12-14 Diogenes De La O 17:31:00 [facility] XR ABDOMEN 1 VW PORTABLE 2022-12-[address] 15:32:48 [facility] POC GLUCOSE 2022-12-14 Diogenes De La O 13:04:00 [facility] CBC WITH PLATELET AND DIFFERENTIAL 2022-12-14 Vinicio Farrell Jewish 10:06:00 [facility] COMPREHENSIVE METABOLIC PANEL 2022-12-14 Shilo Farrell Me thodist 10:06:00 [facility] MAGNESIUM LEVEL 2022-12-14 Shilo Farrell Jewish 10:06:00 [facility] PHOSPHORUS LEVEL 2022-12-14 Shilo Farrell Jewish 10:06:00 [facility] PROTHROMBIN TIME WITH INR 2022-12-14 Georgia Ramirez ist 10:06:00 [facility] PARTIAL THROMBOPLASTIN TIME (PTT) 2022-12-14 Georgia Ramirez Jewish 10:06:00 [facility] ESTIMATED GFR 2022-12-14, Gumaro Jewish 10:06:00 Hospital MANUAL DIFFERENTIAL 2022-12-14, Gumaro Jewish 10:06:00 Hospital POC GLUCOSE 2022-12-14, Gumaro Jewish 02:13:00 Hospital POC GLUCOSE 2022-12-13, Gumaro Jewish 22:15:00 Hospital US DUPLEX VENOUS LOWER EXTREMITY 2022-12-13 Jami Will Jewish BILATERAL 19:51:27 [facility] POC GLUCOSE 2022-12-13, Gumaro Jewish 18:12:00 Hospital HEMOGLOBIN & HEMATOCRIT 2022-12-13 Shilo Farrell Methodis t 17:33:00 [facility] POC GLUCOSE 2022-12-13, Gumaro Jewish 14:17:00 Hospital CBC WITH PLATELET AND DIFFERENTIAL 2022-12-13 Vinicio Farrell Jewish 09:46:00 [facility] COMPREHENSIVE METABOLIC PANEL 2022-12-13 Jami, Will Me thodist 09:46:00 [facility] MAGNESIUM LEVEL 2022-12-13 Jami, Will Jewish 09:46:00 [facility] PHOSPHORUS LEVEL 2022-12-13 Jami, Will Jewish 09:46:00 [facility] ESTIMATED GFR 2022-12-13, Gumaro Jewish 09:46:00 Hospital MANUAL DIFFERENTIAL 2022-12-13, Gumaro Jewish 09:46:00 Hospital POC GLUCOSE 2022-12-13, Gumaro Jewish 02:01:00 Hospital POC GLUCOSE 2022-12-12, Gumaro Jewish 22:09:00 Hospital POC GLUCOSE 2022-12-12a, Gumaro Jewish 16:50:00 Hospital POC GLUCOSE 2022-12-12, Gumaro Jewish 13:46:00 Hospital CBC WITH PLATELET AND DIFFERENTIAL 2022-12-12 Vinicio Farrell Jewish 09:43:00 [facility] COMPREHENSIVE METABOLIC PANEL 2022-12-12 Jami, Will Me thodist 09:43:00 [facility] MAGNESIUM LEVEL 2022-12-12 Erastoaki, Will Jewish 09:43:00 [facility] PHOSPHORUS LEVEL 2022-12-12 Erastoaki, Will Jewish 09:43:00 [facility] THYROID STIMULATING HORMONE 2022-12-12, Gumaro Meth odist 09:43:00 Hospital T4, FREE 2022-12-12, Gumaro Jewish 09:43:00 Hospital ESTIMATED GFR 2022-12-12, Gumaro Jewish 09:43:00 Hospital MANUAL DIFFERENTIAL 2022-12-12, Gumaro Jewish 09:43:00 Hospital POC GLUCOSE 2022-12-12, Gumaro Jewish 02:21:00 Hospital ECG 12-LEAD 2022-12-11 Erastoaki, Will Jewish 23:36:10 [facility] POC GLUCOSE 2022-12-11, Gumaro Jewish 22:00:00 Hospital POC GLUCOSE 2022-12-11, Gumaro Jewish 17:55:00 Hospital MAGNESIUM LEVEL 2022-12-11 Erastoaki, Will Jewish 10:29:00 [facility] PHOSPHORUS LEVEL 2022-12-11 Erastoaki, Will Jewish 10:29:00 [facility] CBC WITH PLATELET AND DIFFERENTIAL 2022-12-11 Jami, Vinicio palacios Jewish 10:29:00 [facility] COMPREHENSIVE METABOLIC PANEL 2022-12-11 Jami, Will Me thodist 10:29:00 [facility] ESTIMATED GFR 2022-12-11, Gumaro Jewish 10:29:00 Hospital SURGICAL PATHOLOGY REQUEST 2022-12-10, Gumaro Metho dist 16:51:00 Hospital ESOPHAGOGASTRODUODENOSCOPY (EGD) 2022-12-10 Danielle Mustafa Jewish 15:21:00 [facility] COLONOSCOPY 2022-12-10 Ivana Mustafa Jewish 15:21:00 [facility] FERRITIN LEVEL 2022-12-10 Jami, Will Jewish 10:47:00 [facility] FOLATE, RBC 2022-12-10 Jami, Will Jewish 10:47:00 [facility] VITAMIN B12 LEVEL 2022-12-10 Erastoaki, Will Jewish 10:47:00 [facility] TOTAL IRON BINDING CAPACITY 2022-12-10 Tanigaki, Will Meth odist 10:47:00 [facility] HAPTOGLOBIN 2022-12-10 Tanigaki, Will Jewish 10:47:00 [facility] CREATE PERIPHERAL SMEAR FOR 2022-12-10 Tanigaki, Will Meth odist ORDERING PROVIDER'S REVIEW 10:47:00 [facility] 2022-12-10 Tangypsyaki, Will Jewish 10:47:00 [facility] MAGNESIUM LEVEL 2022-12-10 Tanigaki, Will Jewish 10:47:00 [facility] PHOSPHORUS LEVEL 2022-12-10 Tangypsyaki, Will Jewish 10:47:00 [facility] CBC WITH PLATELET AND DIFFERENTIAL 2022-12-10 Jami, Vinicio palacios Jewish 10:47:00 [facility] COMPREHENSIVE METABOLIC PANEL 2022-12-10 Jami, Will Me thodist 10:47:00 [facility] ESTIMATED GFR 2022-12-10 Gumaro Bhat Jewish 10:47:00 Hospital ECG 12-LEAD 2022-12-10 Christen Dover Jewish 09:08:48 Hospital QUANTIFERON-TB GOLD PLUS, 4 TUBE 2022-12-09 Apoorva Jewish 14:01:00 [facility] PHOSPHORUS LEVEL 2022-12-09 GarretLokesh Jewish 13:59:00 Hospital MAGNESIUM LEVEL 2022-12-09 Garret Amir Jewish 13:59:00 Hospital COMPREHENSIVE METABOLIC PANEL 2022-12-09 GarretLokesh soriano Me thodist 13:59:00 Hospital CBC WITH PLATELET AND DIFFERENTIAL 2022-12-09 Garret, Amir Jewish 13:59:00 Hospital HEPATITIS A ANTIBODY TOTAL 2022-12-09 Apoorva Metho dist 13:59:00 [facility] TOTAL IRON BINDING CAPACITY 2022-12-09 Apoorva Meth odist 13:59:00 [facility] FERRITIN LEVEL 2022-12-09 Apoorva Jewish 13:59:00 [facility] ACUTE VIRAL HEPATITIS PANEL (HAV, 2022-12-09 Apoorva Jewish HBV, HCV) 13:59:00 [facility] HEPATITIS B SURFACE AB, 2022-12-09 Apoorvabessy Garzais t QUANTITATIVE 13:59:00 [facility] HEPATITIS B CORE ANTIBODY TOTAL 2022-12-09 Apoorva Garzaist 13:59:00 [facility] ESTIMATED GFR 2022-12-09 RehrerRebecah Jewish 13:59:00 [facility] LIPASE LEVEL 2022-12-08 Nellie Mendoza 20:33:00 [facility] LACTIC ACID LEVEL 2022-12-08 [facility]de [facility] 20:33:00 [facility] FECAL LACTOFERRIN 2022-12-08 Gumaro Bhat 19:51:00 Hospital CLOSTRIDIUM DIFFICILE TOXIN GENE 2022-12-08 Lokesh Combs (QUALITATIVE REAL-TIME PCR) 19:51:00 Hosp ital SEDIMENTATION RATE 2022-12-08 Lokesh Combs 09:50:00 Hospital C-REACTIVE PROTEIN 2022-12-08 Lokesh Combs 09:50:00 Hospital ESTIMATED GFR 2022-12-08 RehrerJose 09:50:00 [facility] LACTIC ACID LEVEL, SEPSIS - NOW 2022-12-08 Lokesh Combs AND REPEAT 2X EVERY 3 HOURS 09:50:00 Hosp ital PHOSPHORUS LEVEL 2022-12-08 Lokesh Combs 09:50:00 Hospital MAGNESIUM LEVEL 2022-12-08 Lokesh Combs 09:50:00 Hospital COMPREHENSIVE METABOLIC PANEL 2022-12-08 Lokesh Combs thodist 09:50:00 Hospital CBC WITH PLATELET AND DIFFERENTIAL 2022-12-08 Lokesh Combs 09:50:00 Hospital GASTROINTESTINAL PATHOGENS PANEL, 2022-12-08 Gumaro Bhat PCR 01:44:00 Hospital FECAL CALPROTECTIN 2022-12-08 Gumaro Bhat 01:44:00 Hospital LACTIC ACID LEVEL, SEPSIS - NOW 2022-12-07 Lokesh Combs AND REPEAT 2X EVERY 3 HOURS 21:27:00 Hosp ital FECAL LACTOFERRIN 2022-12-07 Gumaro Bhat 21:15:00 Hospital BLOOD CULTURE, AEROBIC & ANAEROBIC 2022-12-07 Aspen Levin 16:58:00 [facility] LACTIC ACID LEVEL 2022-12-07 Omid Prince 16:58:00 Hospital URINE CULTURE 2022-12-07 RehrerJose 14:57:00 [facility] URINALYSIS SCREEN AND MICROSCOPY, 2022-12-07 Aspen Levin WITH REFLEX TO CULTURE 14:38:[address] [facility] [address] ABDOMEN PELVIS W CONTRAST 2022-12-07 Aspen Levinist 14:07:51 [facility] CBC WITH PLATELET AND DIFFERENTIAL 2022-12-07 Aspen Levin Jewish 12:41:00 [facility] COMPREHENSIVE METABOLIC PANEL 2022-12-07 Aspen Levin Pa thodist 12:41:00 [facility] LIPASE LEVEL 2022-12-07 Aspen Levin 12:41:00 [facility] HCG QUALITATIVE, SERUM SCREEN 2022-12-07 Aspen Levin thodist 12:41:00 [facility] ESTIMATED GFR 2022-12-07 [address]hrerJose 12:41:00 [facility] CBC WITH PLATELET AND DIFFERENTIAL 2022-12-03 Brady Murphy 21:57:00 [facility] COMPREHENSIVE METABOLIC PANEL 2022-12-03 Juanis Murphy Pa thodist 21:57:00 [facility] HCG QUALITATIVE, SERUM SCREEN 2022-12-03 Juanis Murphy thodist 21:57:00 [facility] ESTIMATED GFR 2022-12-03 Juanis Murphy 21:57:00 [facility] ASSIGNMENT OF BENEFITS 2022-11-16 [facility] 02:09:32 Unassigned, No [facility] NOTICE OF PRIVACY PRACTICES 2022-11-16 Doctor [facility] 01:28:08 Unassigned, No [facility] Name Branch CONSENT/REFUSAL FOR DIAGNOSIS AND 2022-11-16 [facility] 01:27:38 Unassigned, No [facility] ASSIGNMENT OF BENEFITS 2022-10-22 Doctor Universit y of 16:07:08 Unassigned, No [facility] Name Branch POCT TEST 2022-10-13 Kervin Lyle o f 01:35:00 [facility] URINALYSIS 2022-10-13 Kervin Lyle [facility] 01:34:00 [facility] COMP. METABOLIC PANEL ([id number]) 2022-10-13 Kervin Lyle Un iversity of 00:53:[address] [facility] [address] ABDOMEN PELVIS W CONTRAST 2022-10-12 Kervin Lyle Uni versity of 23:52:00 [facility] CBC WITH DIFF 2022-10-12 Kervin Lyle [facility] 23:40:00 [facility] CONSENT/REFUSAL FOR DIAGNOSIS AND 2022-10-12 Doctor University of TREATMENT 22:25:05 Unassigned, No [facility] Plan of Care Planned Activity Planned Date Details Comments Source Future Scheduled 2023-01-01 COVID-[address] [facility] Test 10:41:41 (#1) [code = COVID-19 VACCINE (#1)] Future Scheduled 2023-01-01 [facility] 10:41:41 malignant neoplasm of cervix (procedure) [code = 641343164] Future Scheduled 2023-01-01 INFLUENZA VACCINE Method ist Hospital Test 10:41:41 [code = INFLUENZA VACCINE] Encounters Start End Encounter Admission Attending Care Care Encounter Source Date/Time Date/Time Type Type Clinicians Facility Department ID 2021-10-24 Outpatient R BLANCA [facility] [id number] Univers 16:45:27 ULISES [facility] 2023-03-31 2023-03-31 Outpatient R MATTHEW [facility] [id number] Univers 15:00:00 15:00:00 DAGMAR [facility] 2023-02-26 2023-02-26 Outpatient R ROBERTA COLON [facility] [id number] Univers 13:00:00 13:00:00 ROBERTA COLON [facility] 2023-01-23 2023-01-23 Outpatient R JAYJAY COLONTNIam [facility] [id number] Univers 09:00:00 09:00:00 ROBERTA COLON [facility] 2023-01-20 2023-01-20 Outpatient R IGNACIO [facility] [id number] Univers 10:30:00 10:30:00 SENDSHANTEL [facility] 2023-01-03 2023-01-03 Nurse 5, Nael Infusion Chair [facility] 1 .2.840.114 [id number] Univers 08:00:00 10:45:07 Visit Ellen Munroe K SPECIALTY 350.1.13. 10 ity of [facility] [place].2.[place] [id number] Pa monae JOYAY 053 [facility] 2023-01-03 2023-01-03 Outpatient R NICOLE [facility] [id number] Univers 08:00:00 08:00:00 ELLEN pagey o f [facility] 2023-01-01 2023-01-01 Office Darlene [facility] [id number] Univers 15:00:00 15:30:00 Visit Roberta KAPADIA 350.1.13.10 ity of [place].2.686 [place] [facility] [id number] Pa monae AMIN 085 [facility] 2023-01-01 2023-01-01 Outpatient R ROBERTA COLON [facility] [id number] Univers 15:00:00 15:00:22 ROBERTA COLON ity [facility] 2022-12-31 2022-12-31 Orders Doctor CORY 1.2.840.114 [id number] Univers 00:00:00 00:00:00 Only Unassigned, MORAIMA 350.1.13.10 ity of [place] [facility] 4.2.7.2.686 Elijah as [id number] [address] 2022-12-30 2022-12-30 Telephone Matthew [facility] 1.2.683.682 [id number] Univers 00:00:00 00:00:00 Dagmar HEALTH 350.1.13.10 it y of [place] 4.2.7.2.686 Elijah as RENE?BLEA [phone] Pa monae SANCHESEY [address] [place] MEDICAL OFFICE BUILDING 2022-12-27 2022-12-27 Telephone Cory [facility] [id number] Univers 00:00:00 00:00:00 Kuldeep SPECIALTY 350.1.13.10 ity of [facility] 4.2.7.2.686 Elijah as CENTER AT [id number] Pa monae Corona2 [facility] 2022-12-26 2022-12-26 Office Matthew [facility] 1.2.840.114 [id number] Univers 15:00:00 15:45:30 Visit [facility] 350.1.13.10 it y of [place] 4.2.7.2.686 Elijah as RENE?BLEA [id number] Pa mon[place] [address] [place] [address] MEDICAL OFFICE [facility] 2022-12-26 2022-12-26 [facility] [id number] Univers 15:00:00 15:45:30 DAGMAR itkiesha [facility] 2022-12-18 2022-12-18 [facility] 1.2.495.374 [id number] Univers 00:00:00 00:00:00 [facility] 350.1.13.10 it y of [place] 4.2.7.2.686 Elijah as RENE?BLEA [id number] Pa temotn VERÓNICA[address] OFFICE [facility] 2022-12-07 2022-12-17 Hospital Rehrer, Jose Nascimentoin 1.2.840.1 [id number] Methodi 06:48:00 13:17:00 Encounter HomeGumaro [id number] [facility] 3.430.2.7 Hospita .3.173791 l .8 2022-12-07 2022-12-17 Inpatient HOME [facility] [id number] [place] [address] 00:00:00 00:00:[address] 2022-12-16 2022-12-16 [facility] [id number] [id number] [facility] 00:00:00 00:00:00 Kuldeep SPECIALTY 350.1.13.10 [place] of [place] AT [id number] Pa monae Corona2 [facility] 2022-12-10 2022-12-10 Anesthesia Francia 1.2.840.1 [id number] Methodi 10:21:00 11:25:00 Event Sergo 61509.1.[address] Koko 3.430.2.7 Hosp hodan .3.145455 l .8 2022-12-10 2022-12-10 Surgery Schkaleyser, 1.2.840.1 [id number] Methodi 10:15:00 11:15:00 [address] 3.430.2.7 Hospit a .3.180612 l .8 2022-12-07 2022-12-07 Travel 1.2.840.1 1.2.095.349 [id number] Methodi 00:00:00 00:00:[address] 3.430.2.7 0.2.7.3.698 Ho spita .3.936470 084.8 l .8 2022-12-03 2022-12-03 Emergency Nwe, 1.2.840.1 [id number] Methodi 16:47:00 23:13:[address] Kene 3.430.2.7 Hospit a .3.968977 l .8 2022-12-03 2022-12-03 Travel 1.2.840.1 1.2.237.632 [id number] Methodi 00:00:00 00:00:[address] 3.430.2.7 0.2.7.3.698 Ho spita .3.981532 084.8 l .8 2022-12-03 2022-12-[address] [facility] [id number] [place] [address] 00:00:00 00:00:[address] CLARY [address] 2022-11-27 2022-11-27 Telephone Heidi [facility] 1.2.643.138 [id number] [facility] 00:00:00 00:00:00 Josiane KAPADIA 350.1.13.10 i ty [facility] 4.2.7.2.686 [facility] [id number] Pa dical ELOISA 188 [facility] 2022-11-16 2022-11-16 Nurse CORY Echevarria 1.2.840.114 [id number] Univers 00:00:00 00:00:00 Triage Stanley VALERA 350.1.13.10 ity of [facility] 4.2.7.2.686 Elijah as [id number] [facility] [address] [place] 2022-11-16 2022-11-16 Nurse CORY Gardner 1.2.840.114 [id number] Univers 00:00:00 00:00:00 Triage Lory VALERA 350.1.13.10 it y of [facility] 4.2.7.2.686 Elijah as [id number] [facility] [address] [place] 2022-11-15 2022-11-15 [facility] [id number] Univers 20:52:00 21:38:00 SLIME peña [facility] 2022-11-15 2022-11-15 [facility] 1.2.340.369 [id number] Univers 20:52:00 21:38:00 Slime KAPADIA 350.1.13.10 i ty of [facility] 4.2.7.2.686 [facility] [phone] [facility] [address] [place] 2022-11-15 2022-11-15 Orders Doctor CORY [id number] Univers 00:00:00 00:00:00 Only Unassigned, MORAIMA 350.1.13.10 ity of [place] [facility] 4.2.7.2.686 Elijah as [phone] [facility] [address] [place] 2022-11-13 2022-11-13 Telephone Cory ALISH [id number] Univers 00:00:00 00:00:00 Kuldeep SPECIALTY 350.1.13.10 ity of [facility] 4.2.7.2.686 Elijah as CENTER AT [phone] Pa temoward JOYAY 072 [facility] 2022-11-11 2022-11-11 Telephone Matthew ALISH [id number] Univers 00:00:00 00:00:00 Dagmar HEALTH 350.1.13.10 it y of [place] 4.2.7.2.686 Elijah as RENE?BLEA [phone] Pa monae [place] 044 [facility] OFFICE [facility] 2022-10-29 2022-10-29 Instructional Services Specialist Lab, [facility] 1.2.840.114 10 [id number] Univers 13:45:00 14:00:00 Visit Ellen Munroe SPECIALTY 350.1.13. 10 ity of Jordi Randolph Alfredo [facility] 4.2.7.2.686 [facility] AT [phone] Pa monae FAULKNER [address] [place] [address] 2022-10-29 2022-10-29 Outpatient R NICOLE [facility] [id number] Univers 11:00:00 12:28:28 ELLEN peña o f [facility] 2022-10-29 2022-10-29 Office Kuldeep Ray [facility] 1.2. 840.114 [id number] Univers 11:00:00 12:28:28 Visit Ellen Munroe SPECIALTY 350.1.13. 10 ity of [facility] 4.2.7.2.686 [facility] AT [phone] Pa monae FAULKNER 072 [facility] 2022-10-25 2022-10-25 Instructional Services Specialist Jacob, Nicole Lab Main [facility] 1.2.8 40.114 [id number] Univers 13:00:00 13:15:00 Visit Josiane Gordon 350.1.13.10 ity of [place].[address] [address] [phone] Pa monae ELOISA [address] [place] [address] 2022-10-25 2022-10-25 Outpatient R HEIDI [facility] [id number] Univers 08:00:00 08:31:25 JOSIANE peña [facility] 2022-10-25 2022-10-25 Instructional Services Specialist Lab, Nik Tubbs [facility] 1.2.840.1 14 [id number] Univers 08:00:00 08:31:25 Visit Josiane Gordon 350.1.13.10 ity of [place] 4.2.7.2.686 Elijah as RENE?BLEA [phone] [facility] 353 [facility] OFFICE [facility] 2022-10-24 2022-10-24 Outpatient R HEIDI [facility] [id number] Univers 10:00:00 10:22:13 JOSIANE peña [facility] 2022-10-22 2022-10-22 Outpatient R MATTHEW [facility] [id number] Univers 11:30:00 13:16:31 DAGMAR peña [facility] 2022-10-22 2022-10-22 Office [facility] 1.2.840.114 [id number] Univers 11:30:00 13:16:31 [facility] 350.1.13.10 it y of [facility] 4.2.7.2.686 Elijah as RENE?BLEA [phone] [address] OFFICE [facility] 2022-10-22 2022-10-22 Orders Doctor CORY 1.2.840.114 [id number] Univers 00:00:00 00:00:00 Only Unassigned, MORAIMA 350.1.13.10 ity of [place] [facility] 4.2.7.2.686 Elijah as [phone] [address] 2022-10-19 2022-10-19 [facility]phone [facility] 1.2.342.118 [id number] Univers 00:00:00 00:00:00 Dagmar HEALTH 350.1.13.10 it y of [facility] 4.2.7.2.686 Elijah as RENE?BLEA [phone] [address] OFFICE [facility] 2022-10-15 2022-10-15 Telephone [place], 1.2.840.1 [id number] Methodi 00:00:00 00:00:[address] 3.430.2.7 Hospit a .3.653611 l .8 2022-10-14 2022-10-14 Telephone [place], 1.2.840.1 [id number] Methodi 00:00:00 00:00:[address] 3.430.2.7 Hospit a .3.868238 l .8 2022-10-12 2022-10-12 Emergency X KERVIN LYLE [facility] ERT [id number] Univers 17:41:00 22:44:00 [facility] 2022-10-12 2022-10-12 Emergency Kervin Lyle [facility] 1.2.840.114 [id number] Univers 17:41:00 22:44:00 T [place] 350.1.13.10 i ty of [place] [facility] [phone] [facility] [address] [place] 2021-12-28 2021-12-28 Office ABDULKADIR Ibrahim 1.2.840.114 [id number] Univers 08:30:00 09:00:00 Visit Carlitos [facility] 350.1.13.10 i ty of [place] [id number] [facility] [address] [place] 2021-12-28 2021-12-28 Outpatient R ULI [facility] [id number] Univers 08:30:00 08:30:00 [facility] 2021-12-28 2021-12-28 [facility] [id number] Univers 08:30:00 08:30:00 CARLITOS [facility] 2021-11-27 2021-11-27 Outpatient R PAMELA [facility] [id number] Univers 10:30:00 10:30:00 CONRADO [facility] 2021-11-14 2021-11-14 Telephone ABDULKADIR Rios 1.2.840.114 [id number] Univers 00:00:00 00:00:00 [facility] 350.1.13.10 i ty of [place] [id number] [place] 56[address] [place] 2021-11-13 2021-11-13 Outpatient Nilson IRELAND [facility] [id number] Univers 14:30:00 15:05:37 DAGMAR [facility] 2021-11-13 2021-11-13 Office [facility] 1.2.840.114 [id number] Univers 14:30:00 15:05:37 Visit [facility] 350.1.13.10 it y of [place] 4.2.7.2.686 Elijah as RENE?BLEA [phone] [address] MEDICAL OFFICE BUILDING 2021-11-09 2021-11-09 Case Rios, CORY 1.2.840.114 [id number] Univers 00:00:00 00:00:00 Management Ulises VALERA 350.1.13.10 ity [facility] 4.2.7.2.686 Elijah as [phone] [facility] [address] [place] 2021-11-09 2021-11-09 Telephone CONNER Guzman 1.2.840.114 [id number] Univers 00:00:00 00:00:00 [facility] 350.1.13.10 i ty of [place] [id number] [address] 2021-11-08 2021-11-08 Emergency X [facility] ERT [id number] Univers 08:09:00 09:45:00 JOHNNIE peña [facility] 2021-11-08 2021-11-08 Emergency [facility] 1.2.336.808 [id number] Univers 08:09:00 09:45:00 Johnnie KAPADIA 350.1.13.10 i ty of [place] 4.2.7.2.686 [place] [id number] [facility] [address] [place] 2021-11-06 2021-11-06 Telephone Thomas [facility] 1.2.840.114 [id number] Univers 00:00:00 00:00:00 [facility] 350.1.13.10 i ty of [place] [id number] [address] 2021-11-05 2021-11-05 Outpatient Nilson RIOS [facility] GIE [id number] Univers 09:56:00 13:28:00 ULISES peña [facility] 2021-11-05 2021-11-05 Hospital [facility] 1.2.840.114 [id number] Univers 09:56:00 13:28:00 Encounter Ulises DOMINGO 350.1.13.10 ity of [place] 4.2.7.2.686 Elijah as BLDG [id number] [facility] [address] [place] 2021-11-05 2021-11-05 Surgery [facility] 1.2.840.114 [id number] Univers 12:15:00 13:15:00 Ulises DOMINGO 350.1.13.10 it y of [place] 4.2.7.2.686 Elijah as BLDG [id number] [facility] [address] [place] 2021-11-05 2021-11-05 Telephone ABDULKADIR Guzman 1.2.840.114 [id number] Univers 00:00:00 00:00:00 [facility] 350.1.13.10 i ty of [place] [id number] [facility] [address] 2021-11-02 2021-11-02 Laboratory Only, Adc Test [facility] 1.2.840. 114 [id number] Univers 09:30:00 09:45:00 Only Rios Ulises KANG 350.1.13.10 ity of [place] 4.2.7.2.686 [place] [id number] [facility] [address] 2021-11-02 2021-11-02 Outpatient R BLANCA [facility] [id number] Univers 09:30:00 09:30:00 ULISES peña [facility] 2021-11-02 2021-11-02 Orders Doctor RAY 1.2.840.114 [id number] Univers 00:00:00 00:00:00 Only Unassigned, MORAIMA 350.1.13.10 ity of [place] [facility] 4.2.7.2.686 Elijah as [id number] [facility] [address] 2021-10-26 2021-10-26 Outpatient R MATTHEW [facility] [id number] Univers 13:30:00 14:31:15 DAGMAR peña [facility] 2021-10-26 2021-10-26 Office [facility] 1.2.840.114 [id number] Univers 13:30:00 14:00:00 Visit Dagmar HEALTH 350.1.13.10 it y of [place] 4.2.7.2.686 Elijah as RENE?BLEA [id number] [address] OFFICE [facility] 2021-10-26 2021-10-26 Out[facility] [id number] Univers 13:30:00 13:30:00 DAGMAR ity of [facility] 2021-10-24 2021-10-24 Telephone [facility] 1.2.863.453 [id number] Univers 00:00:00 00:00:00 Dagmar HEALTH 350.1.13.10 it y of [facility] 4.2.7.2.686 Elijah as RENE?BLEA [id number] [address] OFFICE [facility] 2021-10-23 2021-10-23 Telephone Thomas, [facility] 1.2.840.114 [id number] Univers 00:00:00 00:00:00 [place] Y HEALTH 350.1.13.10 i ty [place] [id number] [address] 2021-10-23 2021-10-23 Telephone Guzman, [facility] 1.2.840.114 [id number] Univers 00:00:00 00:00:00 [place] Y HEALTH 350.1.13.10 i ty of [place] [id number] [address] 2021-10-08 2021-10-08 Telephone Guzman, [facility] 1.2.840.114 [id number] Univers 00:00:00 00:00:00 [place] Y HEALTH 350.1.13.10 i ty [place] [id number] [address] 2021-08-31 2021-08-31 Outpatient R LAURA [facility] [id number] Univers 13:15:00 13:59:03 WONDIFUL ity o f [facility] 2021-08-31 2021-08-31 Orders Doctor CORY 1.2.840.114 [id number] Univers 00:00:00 00:00:00 Only Unassigned, MORAIMA 350.1.13.10 ity of [place] [facility] 4.2.7.2.686 Elijah as [id number] [address] 2021-08-06 2021-08-06 Telephone ABDULKADIR Guzman 1.2.840.114 [id number] Univers 00:00:00 00:00:00 [place] Y HEALTH 350.1.13.10 i ty of [place] [id number] [address] 2021-05-10 2021-05-10 Office [place] Guzman 1.2.840. 114 [id number] Univers 08:25:17 08:55:17 Visit Carlitos Khan Y HEALTH 350.1.13. 10 ity of [facility] 4.2.7.2.686 [place] [id number] [address] 2021-05-10 2021-05-10 Outpatient Nilson KHAN [facility] [id number] Univers 08:30:00 08:30:00 [facility] 2021-05-10 2021-05-10 Outpatient Nilson KHAN [facility] [id number] Univers 08:30:00 08:30:00 [facility] 2021-05-01 2021-05-01 Telephone [facility] 1..840.114 [id number] Univers 00:00:00 00:00:00 Wondiful A HEALTH 350.1.13.10 ity of [place] 4.2.7.2.686 Elijah as RENE?BLEA [id number] Pa [address] MEDICAL OFFICE [facility] 2021-04-04 2021-04-04 Office [facility] 1.2.840.114 [id number] Univers 08:04:31 08:56:35 Visit Susan A Health 350.1.13.10 i ty of [place] 4.2.7.2.686 Elijah as Rene?Blea [id number] Pa monae [address] Medical Office [facility] 2021-04-04 2021-04-04 Outpatient R MATT [facility] [id number] Univers 08:30:00 08:30:00 SUSAN kiesha [facility] 2021-04-04 2021-04-04 Telephone Laura [facility] 1.2.840.114 [id number] Univers 00:00:00 00:00:00 Wondiful A Health 350.1.13.10 ity of [place] 4.2.7.2.686 Elijah as Rene?Blea [id number] Pa monae [address] Office [facility] 2021-04-03 2021-04-03 Telephone [facility] 1.2.840.114 [id number] Univers 00:00:00 00:00:00 Wondiful A [place] 350.1.13.10 ity of [place].2.[place] Profess[place] [id number] [address] 2020-09-26 2020-09-26 Patient Alonso [facility] 1.2.840.114 [id number] 00:00:00 00:00:00 Outreach Pratik PRIMARY 350.1.13.10 [facility] 4.2.7.2.686 PAVILLION [id number] 388 2020-09-19 2020-09-19 Outpatient R PAMELA [facility] [id number] [facility] 13:00:00 13:00:00 CONRADO [facility] 2020-07-20 2020-07-20 Outpatient R [facility] [id number] Univers 09:15:00 09:15:00 [facility] 2020-07-20 2020-07-20 Instructional Services Specialist 2, Adc Lab [facility] 1.2.840.114 [id number] 08:40:47 08:55:47 Visit [place] 350.1.13.10 [place] 4.2.7.2.686 Professio [id number] [address] 2020-07-20 2020-07-20 Case [facility] 1.2.598.743 [id number] 00:00:00 00:00:00 Management Conrado Kapadia 350.1.13.10 [place] 4.2.7.2.686 [facility] [id number] [address] 2020-07-18 2020-07-18 Out[facility] [id number] Univers 14:30:00 14:30:00 [facility] 2020-07-18 2020-07-18 Office [facility] 1.2.018.057 [id number] 10:28:30 11:40:28 Visit Conrado Kapadia 350.1.13.10 [place] 4.2.7.2.686 [facility] [id number] [address] 2020-07-18 2020-07-18 Outpatient [facility] [id number] Univers 11:00:00 11:00:00 JIMMY [facility] 2020-01-27 2020-01-27 Outpatient [facility] [id number] Univers 13:45:00 13:45:00 BEATRIZ [facility] 2020-01-26 2020-01-26 Outpatient [facility] [id number] Univers 08:15:00 08:15:00 WONDIFUL ity o f [facility] 2019-12-20 2019-12-20 Outpatient Nilson [facility] [id number] Univers 14:00:00 14:00:00 WONDIFUL ity o f [facility] Results Test Description Test Time Test Comments Results Result Comments Source POC glucose 2022-12-17 13:37:00 Test Item Value Reference Range Interpretation Comme nts POC glucose (test code = 86 mg/dL 65-99 Ope rator Name: Jhony MccollumDenisemasoudkai 79918-2) ID: [id number] hartable: [facility] Notified [facility] [id number] 20:52:22 Test Item Value Reference Range Interpretation Comments Case number (test [id number] code = 4615484) Surgical pathology See link below for PDF report (test code = Lab Report 2255) Result status (test This is Supplemental code = 9626552) Report [id number] [facility] [id number] 03:07:06 Test Item Value Reference Range Interpretation Comments Ventricular rate (test 44 code = 253) Atrial rate (test code 44 = 255) NC interval (test code 156 = 266) QRSD interval (test 102 code = 260) QT interval (test code 476 = 264) QTC interval (test code 406 = 265) P axis 1 (test code = 28 267) QRS axis 1 (test code = 0 268) T wave axis (test code -4 = 270) EKG impression (test Marked sinus code = 273) bradycardia with sinus arrhythmia-Abnormal ECG-In automated comparison with ECG of 10-DEC-2022 04:08,-Vent. rate has decreased BY 72 BPM-Nonspecific T wave abnormality, improved in Anterolateral leads- [facility] [id number] 02:19:00 Test Item Value Reference Range Interpretation Comments Urine culture Mixed marty Specimen isolate (test <=10-3 col/cc InformationSp ecimen code = 31493-0) Source: Urin eSpecimen Site: Clean cat [facility] [id number] 01:16:00 Test Item Value Reference Interpretation Comments Range Fecal No Fecal Specimen lactoferrin lactoferrin InformationSpec imen (test code = detected Source: StoolSp ecimen 11547-7) Site: Nonpreser [facility] (91090)2022-10-13 01:44:48 Test Item Value Reference Range Interpretation Comments NA (test code = 134 mmol/L 135-145 L 1184132935) K (test code = 4.4 mmol/L 3.5-5.0 9831528853) CL (test code = 102 mmol/L 98-108 0539810374) CO2 TOTAL (test code = 19 mmol/L 23-31 L 5997880212) AGAP (test code = 13 2-16 1358804190) BUN (test code = 8 mg/dL 7-23 8843400054) GLUCOSE (test code = 82 mg/dL 70-110 2045752289) CREATININE (test code = 0.84 mg/dL 0.50-1.04 6269704972) TOTAL BILI (test code = 0.5 mg/dL 0.1-1.1 2607660319) CALCIUM (test code = 8.9 mg/dL 8.6-10.6 7927978387) T PROTEIN (test code = 6.6 g/dL 6.3-8.2 0248558629) ALBUMIN (test code = 3.7 g/dL 3.5-5.0 8035336772) ALK PHOS (test code = 130 U/L 34-122 H 5575097384) ALTv (test code = 19 U/L 5-35 1742-6) AST(SGOT) (test code = 22 U/L 13-40 9782635277) eGFR (test code = 80.7 mL/min/1.73m2 8133906518) ZACHERY (test code = ZACHERY) Association of Glomerular Filtration Rate (GFR) and Staging of Kidney Disease* + --+ --+ ------+| GFR (mL/min/1.73 m2) ?| With Kidney Damage ?| ?Without Kidney Damage+ --------+ --------+ +| ?>90 ?| ?Stage one ?| ? Normal ?+ ---+ ---+ -------+| ?60-89 ?| ?Stage two ?| ? Decreased GFR ? + --+ --+ ------+| ?30-59 ?| ?Stage three ?| ? Stage three ? + --+ --+ ------+| ?15-29 ?| ?Stage four ? | ? Stage four ?+ ---+ ---+ -------+| ?<15 (or dialysis) ? ?| ?Stage five ? | ? Stage five ?+ ---+ ---+ -------+ *Each stage assumes the associated GFR level has been in effect for at least three months. ?Stages 1 to 5, with or without kidney disease, indicate chronic kidney disease. Notes: Determination of stages one and two (with eGFR >59mL/min/1.73 m2) requires estimation of kidney damage for at least three months as defined by structural or functional abnormalities of the kidney, manifested by either:Pathological abnormalities or Markers of kidney damage (including abnormalities in the composition of the blood or urine or abnormalities in imaging tests). Lab Interpretation Abnormal (test code = 36968-4) [id number] 01:35:00 Test Item Value Reference Range Interpretation Comments POCT PREG (test code = 1605) Negative On board controls acceptable with Positive C Line (test code = 3574) POCT PREG LOT # (test code = 3575) [id number] POCT PREG TEST DATE (test 08/06/2023 code = 3576) Lab Interpretation (test code = Normal 05648-0) [facility] WITH [id number] 00:09:46 Test Item Value Reference Range Interpretation Comments WBC (test code = 11.92 See_Comment H [Automated 1090-2) message] The sy stem which generated this result transmitted reference range : 4.30 - 11.10 10*3/?L. The reference range was not used to interpret this result as normal/abnormal . RBC (test code = 4.48 See_Comment [Automated 789-8) message] The sy stem which generated this result transmitted reference range : 3.93 - 5.25 10*6/?L. The reference range was not used to interpret this result as normal/abnormal . HGB (test code = 10.7 g/dL 11.6-15.0 L 718-7) HCT (test code = 33.9 % 35.7-45.2 L 4544-3) MCV (test code = 75.7 fL 80.6-95.5 L 787-2) MCH (test code = 23.9 pg 25.9-32.8 L 785-6) MCHC (test code = 31.6 g/dL 31.6-35.1 786-4) RDW-SD (test code = 40.0 fL 39.0-49.9 20662-9) RDW-CV (test code = 14.8 % 12.0-15.5 788-0) PLT (test code = 497 See_Comment H [Automated 777-3) message] The sy stem which generated this result transmitted reference range : 166 - 358 10*3/ ?L. The reference r feroz was not used to interpret this result as normal/abnormal . MPV (test code = 9.0 fL 9.5-12.9 L 40434-3) NRBC/100 WBC (test 0.0 See_Comment [Automat ed code = 6343775782) message] The system which generated this result transmitted reference range : 0.0 - 10.0 /100 WBCs. The refer ence range was not u sed to interpret th is result as normal/abnormal . NRBC x10^3 (test code See_Comment [Auto mated = 6149999621) message] The s ystem which generated this result transmitted reference range : 10*3/?L. The reference range was not used to interpret this result as normal/abnormal . GRAN MAT (NEUT) % 75.1 % (test code = 770-8) IMM GRAN % (test code 0.50 % = 4867908674) LYMPH % (test code = 17.2 % 736-9) MONO % (test code = 5.6 % 5905-5) EOS % (test code = 1.3 % 713-8) BASO % (test code = 0.3 % 706-2) GRAN MAT x10^3(ANC) 8.96 10*3/uL 1.88-7.09 H (test code = 1544392387) IMM GRAN x10^3 (test 0.06 10*3/uL 0.00-0.06 code = 6525585504) LYMPH x10^3 (test code 2.05 10*3/uL 1.32-3.29 = 731-0) MONO x10^3 (test code 0.67 10*3/uL 0.33-0.92 = 742-7) EOS x10^3 (test code = 0.15 10*3/uL 0.03-0.39 711-2) BASO x10^3 (test code 0.03 10*3/uL 0.01-0.07 = 704-7) Lab Interpretation Abnormal (test code = 27253-4) [facility]"
--- NOTE | 2023-01-16 03:03 | ER ---
Nurse's Notes [facility] Name: Tere Ponce Age: 27 yrs Sex: Female : 1995 Arrival Date: 01/16/2023 Time: 02:29 Bed 12 Private MD: Diagnosis: Acute suppurative otitis media without spontaneous rupture of ear drum, right ear Presentation: 01/16 02:43 Chief complaint: Patient states: right ear pain x 2 days no drainage. Coronavirus kl screen: Vaccine status:. Coronavirus screen: Vaccine status: Patient reports being unvaccinated. Ebola Screen: Patient negative for fever greater than or equal to 101.5 degrees Fahrenheit, and additional compatible Ebola Virus Disease symptoms. Initial Sepsis Screen: Does the patient meet any 2 criteria? No. Patient's initial sepsis screen is negative. Does the patient have a suspected source of infection? No. Patient's initial sepsis screen is negative. Risk Assessment: Do you want to hurt yourself or someone else? Patient reports no desire to harm self or others. Onset of symptoms was January 13, 2023. 02:43 Method Of Arrival: Ambulatory 02:43 Acuity: MADELINE 4 kl Triage Assessment: 02:46 General: Appears in no apparent distress. comfortable, unkempt, Behavior is calm, kl cooperative. Pain: Complains of pain in right ear Pain currently is 6 out of 10 on a pain scale. Pain began 2-3 days ago. EENT: Reports pain. Historical: - Allergies: 02:45 Abreva; kl 02:45 Amoxicillin; kl 02:45 GRAPE; kl 02:45 Latex, Natural Rubber; kl 02:45 Monistat-Derm; kl - Home Meds: 02:45 prednisone 40 mg [Active]; antibiotic [Active]; kl - PMHx: 02:45 chronic constipation; hemmorhoids; colitis; kl - PSHx: 02:45 Hemorrhoidectomy; tubal ligation; kl - Immunization history:: Adult Immunizations not immunized. - Social history:: Smoking status: Reported history of juuling and/or vaping. - Family history:: not pertinent. Screenin:48 [facility] ED Fall Risk Assessment (Adult) History of falling in the last 3 months, kl including since admission No falls in past 3 months (0 pts) Confusion or Disorientation No (0 pts) Intoxicated or Sedated No (0 pts) Impaired Gait No (0 pts) Mobility Assist Device Used No (0 pt) Altered Elimination No (0 pt) Score/Fall Risk Level 0 - 2 = Low Risk Oriented to surroundings, Maintained a safe environment. Abuse screen: Denies threats or abuse. Nutritional screening: No deficits noted. Tuberculosis screening: No symptoms or risk factors identified. Assessment: 03:48 Reassessment: Patient appears in no apparent distress at this time. Patient states kl feeling better. Vital Signs: 02:43 BP 128 / 76; Pulse 85; Resp 18; Temp 97.6; Pulse Ox 100% on R/A; Weight 102.06 kg; kl Height 5 ft. 2 in. ; Pain 6/10; 03:47 BP 113 / 76; Pulse 78; Resp 18; Pulse Ox 99% on R/A; kl 02:43 Body Mass Index 41.15 (102.06 kg, 157.48 cm) kl 02:43 Pain Scale: Adult ED Course: 02:33 Patient arrived in ED. ja2 02:45 Triage completed. kl 02:51 Andrew Zayas MD is Attending Physician. sp4 03:48 Patient has correct armband on for positive identification. kl 03:48 No provider procedures requiring assistance completed. Patient did not have IV access kl during this emergency room visit. Administered Medications: 03:25 Drug: Rocephin (cefTRIAXone) IM 1 grams Route: IM; Site: Ventrogluteal LEFT; kl 03:47 Follow up: Response: No adverse reaction kl 03:25 Drug: Ketorolac IM 60 mg Route: IM; Site: Ventrogluteal RIGHT; kl 03:47 Follow up: Response: No adverse reaction kl 03:25 Drug: traMADol PO 100 mg Route: PO; kl 03:47 Follow up: Response: No adverse reaction kl 03:25 Drug: Ondansetron PO 4 mg Route: PO; kl 03:47 Follow up: Response: No adverse reaction kl Outcome: 03:02 Discharge ordered by . sp4 03:48 Discharged to home ambulatory. kl 03:48 Condition: stable 03:48 Discharge instructions given to patient, Instructed on discharge instructions, follow up and referral plans. Demonstrated understanding of instructions, follow-up care, Prescriptions given X 2. 03:49 Patient left the ED. kl Signatures: Malu Hamilton RN RN Michelle Strauss Sergey, MD MD sp4
--- NOTE | 2023-01-16 03:03 | EDPHYS ---
Physician Documentation [facility] Name: Tere Ponce Age: 27 yrs Sex: Female : 1995 Arrival Date: 01/16/2023 Time: 02:29 Bed 12 Private MD: ED Physician Andrew Zayas HPI: 01/16 02:51 This 27 yrs old Female presents to ER via Ambulatory with complaints of Ear sp4 Pain. 07:12 Patient presents with complaint of right ear pain for the past 2 days associated with sp4 some cough. . Historical: - Allergies: 02:45 Abreva; kl 02:45 Amoxicillin; kl 02:45 GRAPE; kl 02:45 Latex, Natural Rubber; kl 02:45 Monistat-Derm; kl - Home Meds: 02:45 prednisone 40 mg [Active]; antibiotic [Active]; kl - PMHx: 02:45 chronic constipation; hemmorhoids; colitis; kl - PSHx: 02:45 Hemorrhoidectomy; tubal ligation; kl - Immunization history:: Adult Immunizations not immunized. - Social history:: Smoking status: Reported history of juuling and/or vaping. - Family history:: not pertinent. ROS: 07:12 Constitutional: Negative for fever, chills, and weight loss, ENT: Negative for injury, sp4 and discharge, positive for right ear pain without discharge Respiratory: Negative for shortness of breath, wheezing, and pleuritic chest pain, positive for cough 07:12 All other systems are negative. Exam: 07:12 Constitutional: This is a well developed, well nourished patient who is awake, alert, sp4 and in no acute distress. Head/Face: Normocephalic, atraumatic. Eyes: Pupils equal round and reactive to light, extra-ocular motions intact. Lids and lashes normal. Conjunctiva and sclera are not injected. Cornea within normal limits. Periorbital areas with no swelling, redness, or edema. ENT: Nares patent. No nasal discharge, no septal abnormalities noted. Oropharynx with no redness, swelling, or masses, exudates, or evidence of obstruction, uvula midline. Mucous membranes moist. Left ear exam is normal, right ear reveals normal ear canal, right TM is erythematous, with purulent middle ear effusion, signs of acute suppurative otitis media on the right side Neck: Trachea midline, no thyromegaly or masses palpated, and no cervical lymphadenopathy. Supple, full range of motion without nuchal rigidity, or vertebral point tenderness. Chest/axilla: Normal chest wall appearance and motion. Nontender with no deformity. No lesions are appreciated. Cardiovascular: Regular rate and rhythm with a normal S1 and S2. No gallops, murmurs, or rubs. Normal PMI, no JVD. No pulse deficits. Respiratory: Lungs have equal breath sounds bilaterally, clear to auscultation and percussion. No rales, rhonchi or wheezes noted. No increased work of breathing, no retractions or nasal flaring. Abdomen/GI: Soft, non-tender, with normal bowel sounds. No distension or tympany. No guarding or rebound. No evidence of tenderness throughout. Back: No spinal tenderness. No costovertebral tenderness. Skin: Warm, dry with normal turgor. Normal color with no rashes, no lesions, and no evidence of cellulitis. MS/ Extremity: Pulses equal, no cyanosis. Neurovascular intact. Full, normal range of motion. Neuro: Awake and alert, GCS 15, oriented to person, place, time, and situation. Cranial nerves II-XII grossly intact. Motor strength 5/5 in all extremities. Sensory grossly intact. Psych: Awake, alert, with orientation to person, place and time. Behavior, mood, and affect are within normal limits Vital Signs: 02:43 BP 128 / 76; Pulse 85; Resp 18; Temp 97.6; Pulse Ox 100% on R/A; Weight 102.06 kg; kl Height 5 ft. 2 in. ; Pain 6/10; 03:47 BP 113 / 76; Pulse 78; Resp 18; Pulse Ox 99% on R/A; kl 02:43 Body Mass Index 41.15 (102.06 kg, 157.48 cm) kl 02:43 Pain Scale: Adult kl MDM: 02:59 Differential diagnosis: otitis media. Differential diagnosis: ruptured TM, foreign sp4 body, acute otalgia, cerumen impaction, serotympanum. Data reviewed: vital signs, nurses notes, old medical records. Consideration of Admission/Observation Escalation of care including admission/observation considered. ED course: Patient has a right otitis media that is purulent appearing, will give Rocephin injection, will prescribe cefdinir twice a day for 10 days. 03:02 Patient medically screened. sp4 07:12 ED course: Patient has history of bilateral tubal ligation 5 years ago. test sp4 not indicated. . Administered Medications: 03:25 Drug: Rocephin (cefTRIAXone) IM 1 grams Route: IM; Site: Ventrogluteal LEFT; kl 03:47 Follow up: Response: No adverse reaction kl 03:25 Drug: Ketorolac IM 60 mg Route: IM; Site: Ventrogluteal RIGHT; kl 03:47 Follow up: Response: No adverse reaction kl 03:25 Drug: traMADol PO 100 mg Route: PO; kl 03:47 Follow up: Response: No adverse reaction kl 03:25 Drug: Ondansetron PO 4 mg Route: PO; kl 03:47 Follow up: Response: No adverse reaction kl Disposition Summary: 01/16/23 03:02 Discharge Ordered Location: Home sp4 Problem: new sp4 Symptoms: have improved sp4 Condition: Stable sp4 Diagnosis - Acute suppurative otitis media without spontaneous rupture of ear drum, right ear sp4 Followup: sp4 - With: Private Physician - When: 7 - 10 days - Reason: Recheck today's complaints Discharge Instructions: - Discharge Summary Sheet sp4 - Otitis Media, Adult, [id number] sp4 Forms: - Patient Portal [email or web address] sp4 Prescriptions: - cefdinir 300 mg Oral capsule - take 1 capsule by ORAL route 2 times per day for 10 days; 20 capsule; Refills: sp4 0, Product Selection Permitted - Ibuprofen 600 mg Oral Tablet - take 1 tablet by ORAL route every 6 hours As needed take with food; 30 tablet; sp4 Refills: 0, Product Selection Permitted - Tramadol 50 mg Oral Tablet - take 1 tablet by ORAL route every 8 hours as needed; 12 tablet; Refills: 0, sp4 Product Selection Permitted Signatures: Malu Hamilton RN RN kl Potepalov, Sergey, MD MD sp4
[2023-01-16] MEDS ORDERED: TRAMADOL HCL 50 MG TAB ONE (03:40)
[2023-01-16] MEDS ORDERED: ONDANSETRON 4 MG (ODT) TAB ONE (03:40)
[2023-01-16] MEDS ORDERED: CEFTRIAXONE 1000 MG/VIAL ONE (03:40)
[2023-01-16] MEDS ORDERED: KETOROLAC 30 MG/ML INJ ONE (03:40)
[2023-01-16] MEDS ORDERED: WATER FOR INJ,STERILE 10 ML ONE (03:41)
== END 2023-01-16 03:49 | disposition home or self-care (01) ==
LOC: ER 02:29
DX: H66.001 Acute suppurative otitis media without spontaneous rupture of ear drum, right ear (principal); Z88.1 Allergy status to other antibiotic agents; Z88.8 Allergy status to other drugs, medicaments and biological substances; Z91.018 Allergy to other foods; Z91.040 Latex allergy status; Z91.048 Other nonmedicinal substance allergy status
CPT/HCPCS: 96372; 99284; Q0162; J0696

== ENCOUNTER 2024-08-15 11:41 | Emergency (ER) | payer BC, MEDICARE ==
[2024-08-15 12:24] LABS: Specific Gravity 1.024 (1.005-1.030)
[2024-08-15 12:25] LABS: Specific Gravity 1.024 (1.005-1.030); Urine Bacteria None Seen /HPF (<20); Urine Bilirubin NEGATIVE (Negative); Urine Blood Trace (Negative); Urine Clarity Extremely Turbid (Clear); Urine Color Dark-Yellow (Yellow); Urine Culture Reflex Order REFLEXED; Urine Glucose NEGATIVE (Negative); Urine Ketones NEGATIVE (Negative); Urine Micro Reflex YN NO BILL MICROSCOPIC; Urine Mucus Slight /HPF (None Seen); Urine Nitrite NEGATIVE (Negative); Urine Protein 1+ (Negative); Urine Urobilinogen 1+ (Normal); Urine WBC >50 /HPF (<5); Urine WBC Clump Rare /HPF (None Seen); Urine pH 6.5 (5.0-7.0)
--- NOTE | 2024-08-15 12:28 | ER ---
Nurse's Notes [facility] Name: Tere Ponce Age: 29 yrs Sex: Female : 1995 Arrival Date: 08/15/2024 Time: 11:41 Bed 11 Private MD: Diagnosis: UTI/ Urinary tract infection, site not specified Presentation: 08/15 12:02 Chief complaint: Chief complaint: Patient states: Burning with urination and frequency ss that began 1 week ago. Coronavirus screen: Client denies travel out of the [place] in the last 14 days. Ebola Screen: Patient denies exposure to infectious person. Patient denies travel to an Ebola-affected area in the 21 days before illness onset. Initial Sepsis Screen: Does the patient meet any 2 criteria? No. Patient's initial sepsis screen is negative. Does the patient have a suspected source of infection? No. Patient's initial sepsis screen is negative. Risk Assessment: Do you want to hurt yourself or someone else? Patient reports no desire to harm self or others. Onset of symptoms was August 08, 2024. 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 - Infectious Disease History:: Denies. - Social history:: Smoking status: Patient denies any tobacco usage or history of. Screenin:02 Abuse screen: Denies threats or abuse. Denies injuries from another. Nutritional ss screening: No deficits noted. Tuberculosis screening: Never had TB. Assessment: 12:02 General: Appears in no apparent distress. Behavior is calm, cooperative, Denies fever, ss feeling ill. Neuro: Level of Consciousness is awake, alert, obeys commands, Oriented to person, place, time, situation. Respiratory: Airway is patent Respiratory effort is even, unlabored, Respiratory pattern is regular, symmetrical. GI: Patient currently denies diarrhea, nausea, vomiting. : Reports burning with urination, since x 1 week. EENT: Oral mucosa is moist. Derm: Skin is intact, is healthy with good turgor, Skin is pink, warm \T\ dry. normal. Vital Signs: 12:02 BP 127 / 73; Pulse 93; Resp 14; Temp 97.8(TE); Pulse Ox 100% on R/A; Weight 111.13 kg; ss Height 5 ft. 3 in. ; 12:02 Body Mass Index 43.40 (111.13 kg, 160.02 cm) ED Course: 11:44 Patient arrived in ED. ra3 11:45 Massiel Haley PA-C is PHCP. sb4 11:[address] MD is Attending Physician. sb4 12:02 Patient has correct armband on for positive identification. ss 12:03 Triage completed. ss 12:03 Arm band placed on right wrist. 12:51 Nelli Chakraborty RN is Primary Nurse. 12:51 No provider procedures requiring assistance completed. Patient did not have IV access ss during this emergency room visit. Administered Medications: No medications were administered Medication: 12:02 VIS not applicable for this client. Outcome: 12:27 Discharge ordered by . sb4 12:51 Discharged to home ambulatory, 12:51 Condition: good 12:51 Discharge instructions given to patient, family, Instructed on discharge instructions, follow up and referral plans. medication usage, Demonstrated understanding of instructions, follow-up care, medications, 12:52 Patient left the ED. Signatures: Nelli Chakraborty RN RN Massiel Haley PA-C PA-C sb4 Nadya Biswas ra3
--- NOTE | 2024-08-15 12:28 | EDPHYS ---
Physician Documentation [facility] Name: Tere Ponce Age: 29 yrs Sex: Female : 1995 Arrival Date: 08/15/2024 Time: 11:41 Bed 11 Private MD: ED Physician Yuan St HPI: 08/15 12:09 This 29 yrs old Female presents to ER via Ambulatory with complaints of Urinary Problem sb4 - painful with burning sensation. 12:09 Patient reports UTI symptoms x 1 week. States that she has been taking Azo without sb4 relief. Denies any fever or chills. Does endorse some nausea. Denies any flank pain. 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 - Infectious Disease History:: Denies. - Social history:: Smoking status: Patient denies any tobacco usage or history of. ROS: 12:09 Constitutional: Negative for fever, chills, and weight loss, sb4 12:09 : Positive for urinary symptoms, burning with urination, 12:09 All other systems are negative, Exam: 12:09 Constitutional: This is a well developed, well nourished patient who is awake, alert, sb4 and in no acute distress. Head/Face: Normocephalic, atraumatic. Eyes: Extra-ocular motions intact. Periorbital areas with no swelling, redness, or edema. ENT: Mucous membranes moist. Cardiovascular: Regular rate and rhythm with a normal S1 and S2. Respiratory: No increased work of breathing, no retractions or nasal flaring. Back: No spinal tenderness. No costovertebral tenderness. Full range of motion. Skin: Warm, dry with normal turgor. Normal color with no rashes, no lesions, and no evidence of cellulitis. Vital Signs: 12:02 BP 127 / 73; Pulse 93; Resp 14; Temp 97.8(TE); Pulse Ox 100% on R/A; Weight 111.13 kg; ss Height 5 ft. 3 in. ; 12:02 Body Mass Index 43.40 (111.13 kg, 160.02 cm) MDM: 11:58 Medical Screening Exam initiated sb4 12:27 Data reviewed: vital signs, nurses notes, lab test result(s), and as a result, I will sb4 discharge patient. Counseling: I had a detailed discussion with the patient and/or guardian regarding the historical points, exam findings, and any diagnostic results supporting the discharge/admit diagnosis, lab results, the need for outpatient follow up, for definitive care, to return to the emergency department if symptoms worsen or persist or if there are any questions or concerns that arise at home. 08/15 12:01 Order name: UAM; Complete Time: 12:27 ss 08/15 12:01 Order name: Test, Urine; Complete Time: 12:27 ss 08/15 12:29 Order name: Urine Culture EDMS Administered Medications: No medications were administered Disposition: 12:54 Co-signature as Attending Physician, Yuan St MD I reviewed the patient's care rn provided by the Advanced Practice Provider and agree with the diagnosis and treatment plan. Disposition Summary: 08/15/24 12:27 Discharge Ordered Notes: Location: Home sb4 Problem: an ongoing problem sb4 Symptoms: are unchanged sb4 Condition: Stable sb4 Diagnosis - UTI/ Urinary tract infection, site not specified sb4 Followup: sb4 - With: Emergency Department - When: As needed - Reason: Fever > 102 F, Worsening of condition Discharge Instructions: - Discharge Summary Sheet sb4 - Urinary Tract Infection, Adult, [id number] sb4 Forms: - Antibiotic Education sb4 - Patient Portal Instructions sb4 - Leadership Thank You Letter sb4 Prescriptions: - Macrobid 100 mg Oral Capsule - take 1 capsule ORAL route every 12 hours for 7 days; 14 capsule; Refills: 0, sb4 Product Selection Permitted Signatures: Dispatcher [employer] Yuan Plata MD MD rn Blanchard, Shelby, RN RN ss Brown, Sophia, PA-C PA-C sb4
[2024-08-15 12:56] VITALS: BP 127/73; TEMP 97.8; O2SAT 100
== END 2024-08-15 12:52 | disposition home or self-care (01) ==
LOC: ER 11:41
DX: N39.0 Urinary tract infection, site not specified (principal)
CPT/HCPCS: 81001; 81025; 87077; 87086; 87088; 87186; 99282